=== PATIENT | male | born 1940 | race Caucasian/White ===

== ENCOUNTER 2017-04-23 20:04 | Inpatient (IN) | payer OTHER, BC ==
[2017-04-23 21:06] LABS: MCH 28.3 pg (25.7-33.7); MCHC 32.1 g/dl (32.0-35.9); MEAN CELL VOLUME 88.3 fl (80-96); MEAN PLT VOLUME 8.3 fl (7.5-11.1); PLATELET COUNT 151 K/MM3 (134-434); RDW 15.7 % (11.9-15.9); WHITE BLOOD COUNT 12.9 K/mm3 (4.0-10.0)
--- NOTE | 2017-04-23 21:16 | PDOC ---
History of Present Illness - General History Source: Patient Exam Limitations: No Limitations - History of Present Illness Initial Comments: 04/23/17 21:01 Patient is a 77 y.o. male with a PMH of HTN, Type 2 DM, CA (s/p stent placement x9) who presents to our facility today via EMS [facility] was called and patient's recorded BS was 36. Patient states he last recalls being in the parking lot of the diner and does not recall fainting. Patient notes he checks his blood sugar four times daily and he checked it this afternoon prompting his visit to the dinner. Patient cannot recall his medications, but patient's partner, Iva Najera notes that patient is on Humalog, as well as Levothyroxine, Furosemide , Plavix, Alteplase and Co-Reg though she is unsure of doses. Patient notes he lives alone and he similarly collapsed at a [place] diner approximately 6 months previous with a low blood sugar reading. Timing/Duration: 1-3 hours <Lavern Williamson - Last Filed: 04/23/17 23:59> <Lucy Arora - Last Filed: 04/24/17 20:09> - General Chief Complaint: Blood Sugar Problem Stated Complaint: HYPOGLYCEMIA Time Seen by Provider: 04/23/17 20:05 Past History - Past Medical History Anemia: No Asthma: No Cancer: No Cardiac Disorders: Yes (CA x2-had 9 stents) CVA: No COPD: No CHF: No Dementia: No Diabetes: Yes (1985) GI Disorders: No Disorders: No HTN: Yes Hypercholesterolemia: No Liver Disease: No Seizures: No Thyroid Disease: Yes - Surgical History Abdominal Surgery: No Appendectomy: No Cardiac Surgery: Yes (Angioplasty-stents x9) Cholecystectomy: No Lung Surgery: No Neurologic Surgery: No Orthopedic Surgery: Yes (Left Achiles Tendon Repair) - Psycho/Social/Smoking Cessation Hx Suicidal Ideation: No Smoking History: Never smoked Information on smoking cessation initiated: No Hx Alcohol Use: No Drug/Substance Use Hx: No Substance Use Type: None Hx Substance Use Treatment: No <Lavern Williamson - Last Filed: 04/23/17 23:59> <Lucy Arora - Last Filed: 04/24/17 20:09> - Past Medical History Allergies/Adverse Reactions: Allergies Allergy/AdvReac Type Severity Reaction Status Date / Time No Known Allergies Allergy Verified 04/23/17 20:21 Home Medications: Ambulatory Orders Allopurinol [Zyloprim] 100 mg PO DAILY 10/26/12 Aspirin [ASA] 81 mg PO DAILY 10/26/12 Carvedilol [Coreg] 25 mg PO BID 10/26/12 Colchicine [Colcrys] 0.6 mg PO DAILY 10/26/12 Ezetimibe/Simvastatin [Vytorin 10-40 mg Tablet] 1 each PO DAILY 10/26/12 Folic Acid - 1 mg PO DAILY 10/26/12 Levothyroxine [Synthroid] 175 mcg PO DAILY 10/26/12 Metformin HCl [Glucophage] 1,000 mg PO BID 10/26/12 Niacin 500 mg PO DAILY 10/26/12 Prasugrel Hydrochloride [Effient] 5 mg PO DAILY 10/26/12 Ramipril [Altace] 10 mg PO BID 10/26/12 Insulin Glargine,Hum.rec.anlog [Lantus (10mL VIAL)] 100 iu SQ HS 11/02/12 Insulin Lispro [Humalog] 60 iu SQ PC 11/02/12 Review of Systems - Review of Systems Constitutional: No: Chills, Diaphoresis, Fever, Malaise HEENTM: No: Blurred Vision, Tinnitus, Hearing Loss, Throat Pain Respiratory: No: Cough, Shortness of Breath, Productive cough, Hemoptysis Cardiac (ROS): Yes: Lightheadedness. No: Chest Pain, Edema, Irregular Heart Rate ABD/GI: No: Constipated, Nausea, Poor Appetite, Vomiting : No: Burning, Dysuria, Frequency, Lesions Musculoskeletal: No: Back Pain, Gout, Muscle Pain, Muscle Weakness Integumentary: No: Bruising, Erythema, Pruritus, Rash Neurological: No: Headache, Numbness, Tingling, Tremors Psychiatric: No: Anxiety All Other Systems: Reviewed and Negative <Lavern Williamson - Last Filed: 04/23/17 23:59> *Physical Exam - Vital Signs Last Vital Signs Temp Pulse Resp BP Pulse Ox 97.5 F L 64 19 115/56 96 04/23/17 20:21 04/23/17 20:21 04/23/17 20:21 04/23/17 20:21 04/23/17 20:21 - Physical Exam General Appearance: Yes: Nourished, Obese HEENT: positive: EOMI, NOE Neck: positive: Trachea midline, Supple Respiratory/Chest: positive: Lungs Clear, Normal Breath Sounds Cardiovascular: positive: Regular Rhythm, Regular Rate, S1, S2 Gastrointestinal/Abdominal: positive: Normal Bowel Sounds, Soft, Protuberent Integumentary: positive: Other (Raised papular rash in C4, C5, C7 including LUE and anterior chest wall ) Neurologic: positive: Fully Oriented, Alert Deep Tendon Reflexes: Ankle (L): 3+, Ankle (R): 3+, Knee (L): 3+, Knee (R): 3+, Tricep (L): 3+, Tricep (R): 3+ <Lavern Williamson - Last Filed: 04/23/17 23:59> - Vital Signs Last Vital Signs Temp Pulse Resp BP Pulse Ox 97.5 F L 64 19 115/56 96 04/23/17 20:21 04/23/17 20:21 04/23/17 20:21 04/23/17 20:21 04/23/17 20:21 <Lucy Arora - Last Filed: 04/24/17 20:09> ED Treatment Course - LABORATORY CBC & Chemistry Diagram: 04/23/17 20:53 04/23/17 20:53 - ADDITIONAL ORDERS Additional order review: Laboratory Results 04/23/17 20:12 POC Glucometer 125.04529 04/23/17 20:12 POC Glucometer 125.32244 - RADIOLOGY Radiology Studies Ordered: Category Date Time Status CHEST PA & LAT [RAD] Stat Radiology 04/23/17 20:59 Ordered <Lavern Williamson - Last Filed: 04/23/17 23:59> - LABORATORY CBC & Chemistry Diagram: 04/24/17 05:20 04/24/17 05:20 - ADDITIONAL ORDERS Additional order review: Laboratory Results 04/23/17 04/23/17 04/23/17 20:53 20:53 20:53 Sodium 144 Potassium 3.5 Chloride 109 H Carbon Dioxide 29 Anion Gap 6 L BUN 17 Creatinine 1.0 POC Glucometer Random Glucose 107 H Calcium 8.9 Creatine Kinase 195 CK-MB (CK-2) 1.978 CK-MB (CK-2) Rel Index Cancelled Troponin I < 0.02 04/23/17 20:12 Sodium Potassium Chloride Carbon Dioxide Anion Gap BUN Creatinine POC Glucometer 125.67457 Random Glucose Calcium Creatine Kinase CK-MB (CK-2) CK-MB (CK-2) Rel Index Troponin I 04/23/17 04/23/17 20:53 20:12 RBC 4.69 MCV 88.3 MCHC 32.1 RDW 15.7 MPV 8.3 POC Glucometer 125.76722 - RADIOLOGY Radiology Studies Ordered: Category Date Time Status HEAD CT WITHOUT CONTRAST [CT] Stat CT Scan 04/23/17 21:49 Ordered <Lucy Arora - Last Filed: 04/24/17 20:09> Medical Decision Making - Medical Decision Making 04/23/17 21:59 Patient is a 77 y.o. male who presents via EMS following a syncopal episode at the [facility] this evening. At presentation patient's BS was 125 (s/p fluid resuscitation, glucagon en route to our facility). On PE, patient was hemodynamically stable, however PE was notable for both a Psuedomonas like infection on the LLE as well as possible Herpes Zoster on the RUE/anterior chest wall (dermatomes C4,C5,C7). Patient was started on Pip/Tazo and wound cultures were obtained. BMP was significant for leukocytosis (12.9) either reactive or 2/2 to bacterial infection. Patient was admitted to inpatient medicine service for further evaluation, especially given patient's h/o poor BS control, isolated living situation and possible active bacterial infection. <Lavern Williamson - Last Filed: 04/23/17 23:59> *DC/Admit/Observation/Transfer - Discharge Dispostion Admit: Yes - Attestations Physician Attestion: 04/24/17 00:00 I, Dr. Lavern Williamson, attest that this document has been prepared under my direction and personally reviewed by me in its entirety. I further attest, that it accurately reflects all work, treatment, procedures and medical decision -making performed by me. <Lavern Williamson - Last Filed: 04/23/17 23:59> - Discharge Dispostion Admit: Yes <Lucy Arora - Last Filed: 04/24/17 20:09> Diagnosis at time of Disposition: Hypoglycemia, Syncope, Cellulitis, Shingles rash - Discharge Dispostion Disposition: AGAINST MEDICAL ADVICE Condition at time of disposition: Fair - Referrals
[2017-04-23 21:27] LABS: ANION GAP 6 (8-16); CALCIUM 8.9 mg/dL (8.5-10.1); CO2 29 mmol/L (21-32); GLUCOSE,RANDOM 107 mg/dL (74-106)
[2017-04-23] MEDS ORDERED: valACYclovir HCL 1000 MG TABLET PO ONE (21:37)
[2017-04-23] MEDS ORDERED: PIPERACILLIN/TAZOB 3.375 GM 3.375 GM in DEXTROSE 5%-WATER - 50 ML IVPB ONE (21:38)
--- NOTE | 2017-04-23 21:49 | PDOC ---
Attending Attestation - Resident Resident Name: Lavern Williamson - HPI HPI: 04/23/17 21:45 Pt comes with syncope in a parking lot of a diner. Pt lost consciousness and recalls nothing, after he drove to the diner and got out of his car. Never made it inside. Essentially unwitnessed and he was brought in by EMS. On EMS arrival, pt's blood sugar was 30s. Pt has DM and HTN and he has a PMD who is not affiliated with us. He is not on blood thinners, but he is on aspirin. On exam pt is diaphoretic and soaked in his miranda-shirt. Pt has shingles on the right arm C5/C6 dermatome. Pt also has a pseudomonas-smelling infection on the left lower samayoa; wound culture sent and pt will be treated with zosyn IV. Pt has a WBC that is slightly elevated. Cardiac enzyme pending. Chemistry normal EKG shows lateral ischemia CXR and head CT pending. - Physicial Exam PE: 04/24/17 19:53 as above - Medical Decision Making 04/24/17 01:31 Patient Name: Jesus Panchal THIS IS A PRELIMINARYREPORT FROM [employer] EXAM: CT brain without contrast IMAGES: 77 INDICATION: Syncope DATE OF SERVICE: 2017-04-24 00:30:51.0 COMPARISON: none FINDINGS: The ventricular system is midline and nondilated. Involutional changes are noted. 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 There is no bleed, mass, extra- axial fluid collection or mass effect. No skull fracture or skull lesion is identified. Left maxillary sinus is completely opacified with somewhat dense contents and demonstrates sclerotic mcleod, consistent with chronic sinusitis. The other visualized paranasal sinuses and mastoid air cells are clear. IMPRESSION: No acute intracranial pathology. Chronic left maxillary sinusitis THIS DOCUMENT HAS BEEN ELECTRONICALLY SIGNED 04/24/17 19:53 Pt admitted to telemetry unit under the hospitalist.
[2017-04-23 21:50] LABS: TROPONIN I < 0.02 ng/ml (0.00-0.05)
[2017-04-23] MEDS ORDERED: PIPERACILLIN/TAZOB 3.375 GM 50 ML IVPB ONE (22:40)
--- NOTE | 2017-04-23 23:38 | HP ---
CHIEF COMPLAINT: " Blacked out" PCP: HISTORY OF PRESENT ILLNESS: Patient is a 77 year old male with a significant past medical history of HTN, Type 2 DM, PA (s/p stent placement x9) was brought in by EMS after a syncopal episode at a diner. As per the ED note, EMS found him to be hypoglycemic (blood sugar of 36) was given glucagon, hypotensive (was given IV fluids) and brought to the ED. As per the patient, he drove to [place], went inside the restaurant and before he picked up his food, he suddenly blacked out and fell on the ground. He doesn't remember any events post fall, woke up only after the 911 arrived. Patient said that his blood sugar has been always fluctuating, used to take Metformin and other oral antidiabetics (which he doesn't remember) but now takes Insulin sliding scale only in the morning and before bed. Denies any chest pain, sob, cough, palpitation, abdominal pain, nausea, vomiting , headache, dizziness, tingling, numbness, focal neurological deficit. Bowel/Bladder habit normal. Sleep/Appetite normal. Patient also mentions of the rash in the right upper ext which appeared suddenly 2-3 weeks ago, not painful, non-itchy. ER course was notable for: (1) Afebrile, hemodynamically stable, leukocytosis of 12.9; Blood sugar of 107 (2) CXR (3) IV Zosyn 3.375 Recent Travel: None PAST MEDICAL HISTORY: 77 year old male with a significant past medical history of HTN, Type 2 DM, PA (s/p stent placement x9) PAST SURGICAL HISTORY: As mentioned above Social History: Smoking:Denies Alcohol: Denies Drugs: Denies Family History: Allergies No Known Allergies Allergy (Verified 04/23/17 20:21) HOME MEDICATIONS: Home Medications Medication Instructions Recorded Allopurinol [Zyloprim] 100 mg PO DAILY 10/26/12 Aspirin [ASA] 81 mg PO DAILY 10/26/12 Carvedilol [Coreg] 25 mg PO BID 10/26/12 Colchicine [Colcrys] 0.6 mg PO DAILY 10/26/12 Ezetimibe/Simvastatin [Vytorin 1 each PO DAILY 10/26/12 10-40 mg Tablet] Folic Acid - 1 mg PO DAILY 10/26/12 Levothyroxine [Synthroid] 175 mcg PO DAILY 10/26/12 Metformin HCl [Glucophage] 1,000 mg PO BID 10/26/12 Niacin 500 mg PO DAILY 10/26/12 Prasugrel Hydrochloride [Effient] 5 mg PO DAILY 10/26/12 Ramipril [Altace] 10 mg PO BID 10/26/12 Insulin Glargine,Hum.rec.anlog 100 iu SQ HS 11/02/12 [Lantus (10mL VIAL)] Insulin Lispro [Humalog] 60 iu SQ PC 11/02/12 REVIEW OF SYSTEMS CONSTITUTIONAL: Absent: fever, chills, diaphoresis, generalized weakness, malaise, loss of appetite, weight change HEENT: Absent: rhinorrhea, nasal congestion, throat pain, throat swelling, difficulty swallowing, mouth swelling, ear pain, eye pain, visual changes CARDIOVASCULAR: Absent: chest pain, syncope, palpitations, irregular heart rate, lightheadedness , peripheral edema RESPIRATORY: Absent: cough, shortness of breath, dyspnea with exertion, orthopnea, wheezing, stridor, hemoptysis GASTROINTESTINAL: Absent: abdominal pain, abdominal distension, nausea, vomiting, diarrhea, constipation, melena, hematochezia GENITOURINARY: Absent: dysuria, frequency, urgency, hesitancy, hematuria, flank pain, genital pain MUSCULOSKELETAL: Absent: myalgia, arthralgia, joint swelling, back pain, neck pain SKIN: Absent: rash, itching, pallor HEMATOLOGIC/IMMUNOLOGIC: Absent: easy bleeding, easy bruising, lymphadenopathy, frequent infections ENDOCRINE: Absent: unexplained weight gain, unexplained weight loss, heat intolerance, cold intolerance NEUROLOGIC: Absent: headache, focal weakness or paresthesias, dizziness, unsteady gait, seizure, mental status changes, bladder or bowel incontinence PSYCHIATRIC: Absent: anxiety, depression, suicidal or homicidal ideation, hallucinations. PHYSICAL EXAMINATION Vital Signs - 24 hr 04/23/17 20:21 Temperature 97.5 F L Pulse Rate 64 Respiratory 19 Rate Blood Pressure 115/56 O2 Sat by Pulse 96 Oximetry (%) GENERAL: Elderly male, lying in bed comfortably, Awake, alert, and fully oriented, in no acute distress. HEAD: Normal with no signs of trauma. EYES: Yellowish crust in bilateral eyes. EOM intact, no pallor or icterus. EARS, NOSE, THROAT: Ears normal. Moist mucous membranes. NECK:Supple. LUNGS: Breath sounds equal, clear to auscultation bilaterally. No wheezes, and no crackles. No accessory muscle use. HEART: Regular rate and rhythm, normal S1 and S2 without murmur, rub or gallop. ABDOMEN: Ventral hernia, Soft, nontender, not distended, normoactive bowel sounds, no guarding, no rebound, no masses. No hepatomegaly or splenomegaly. MUSCULOSKELETAL: Normal range of motion at all joints. No bony deformities or tenderness. No CVA tenderness. UPPER EXTREMITIES: Right/left 2+ pulses, warm, well-perfused. No cyanosis. No clubbing. No peripheral edema. Right Upper Ext: Erythematous areas of plaques in the right arm LOWER EXTREMITIES:Left/right 2+ pulses, warm, well-perfused. No calf tenderness. No peripheral edema. Left lower ext: superficial ulcer ~ 2cm x 1cm, no serosanguinous fluids, erythema around that area, non tender, no calf tenderness. NEUROLOGICAL: Cranial nerves II-XII intact. Normal speech. Normal gait. PSYCHIATRIC: Cooperative. Good eye contact. Appropriate mood and affect. SKIN: Warm, dry flaky skin, normal turgor, no rashes or lesions noted, normal capillary refill. Laboratory Results - last 24 hr 04/23/17 04/23/17 04/23/17 20:12 20:53 20:53 WBC 12.9 H RBC 4.69 Hgb 13.3 Hct 41.4 MCV 88.3 MCH 28.3 MCHC 32.1 RDW 15.7 Plt Count 151 MPV 8.3 Sodium 144 Potassium 3.5 Chloride 109 H Carbon Dioxide 29 Anion Gap 6 L BUN 17 Creatinine 1.0 POC Glucometer 125.74912 Random Glucose 107 H Calcium 8.9 Creatine Kinase CK-MB (CK-2) CK-MB (CK-2) Rel Index Troponin I 04/23/17 04/23/17 20:53 20:53 WBC RBC Hgb Hct MCV MCH MCHC RDW Plt Count MPV Sodium Potassium Chloride Carbon Dioxide Anion Gap BUN Creatinine POC Glucometer Random Glucose Calcium Creatine Kinase 195 CK-MB (CK-2) 1.978 CK-MB (CK-2) Rel Index Cancelled Troponin I < 0.02 ASSESSMENT/PLAN: Patient is a 77 year old male with a significant past medical history of HTN, Type 2 DM, PA (s/p stent placement x9) was brought in by EMS after a syncopal episode at a diner. # Syncopal episode most likely due to hypoglycemia EMS found him post syncopal episode to be in hypoglycemia of 36 at a diner before meal, h/o poorly controlled DM In the ED, blood sugar had improved to 107 -pt had received Glucagon en route Admitted in tele, continuous cardiac monitoring IV NS @ 75mls/hr Carotid doppler, ECHO, TSH, Vit B 12 # Diabetes Mellitus-Now hypoglycemic HbA1c ordered Insulin sliding scale finger stick glucose monitoring Watch for hypoglycemic episodes # Rash-upper ext Unlikely Herpes Zooster-no pain, no vescicles Has been present persistently since 2-3 weeks Will monitor # Left lower ext superficial ulcer Less likely infected- no fever, slight leukocytosis which could be reactive Gentle hydration. Received one dose of Zosyn. No antibiotics started at this time. Will monitor, if rashes gets worse, will add antibiotics. Wound culture sent from the ED. # PA (s/p stent placement) Continue Aspirin 81mg Daily # Hypertension-Now Hypotensive Hold home meds ( # FEN IV NS 75mls/hr Electrolytes to be repeated Diabetic diet # Prophylaxis For GI: Not indicated For DVT: Heparin sq Deconditioning: PT eval # Code Status: Full code # Dispo: Admitted in Telemetry. Duration of stay unknown. Illness, Investigation and Plan of care explained to the patient. He verbalized understanding. Case seen and discussed with Dr. Loja. Visit type - Emergency Visit Emergency Visit: Yes ED Registration Date: 04/24/17 Care time: The patient presented to the Emergency Department on the above date and was hospitalized for further evaluation of their emergent condition. - New Patient This patient is new to me today: Yes Date on this admission: 04/24/17 - Critical Care Critical Care patient: No
[2017-04-23] MEDS: SODIUM CHLORIDE 1,000 ML IV SCH (23:57)
[2017-04-24 03:51] VITALS: BMI 32.1
--- NOTE | 2017-04-24 05:34 | PN ---
Teaching Attending Note Name of Resident: Jessie Carvajal ATTENDING PHYSICIAN STATEMENT I saw and evaluated the patient. I reviewed the resident's note and discussed the case with the resident. I agree with the resident's findings and plan as documented. SUBJECTIVE: PAtient reports going to diner and no prodrome symptoms before syncopal episode, does not recall what happened, the next thing he remembers is being at the hospital. No recent medication changes, but subjectively feels his insulin is too strong for him. OBJECTIVE: A&O x3 NAD, resting comfortably NC, AT, PERRLA, EOMI CVS: RRR LUNGS: Equal b/l breath sounds Abd: Soft, NT, ND, BS+ Ext: nl rom, no edema CBCD WBC 12.9 K/mm3 (4.0-10.0) H 04/23/17 20:53 RBC 4.69 M/mm3 (4.00-5.60) 04/23/17 20:53 Hgb 13.3 GM/dL (11.7-16.9) 04/23/17 20:53 Hct 41.4 % (35.4-49) 04/23/17 20:53 MCV 88.3 fl (80-96) 04/23/17 20:53 MCHC 32.1 g/dl (32.0-35.9) 04/23/17 20:53 RDW 15.7 % (11.9-15.9) 04/23/17 20:53 Plt Count 151 K/MM3 (134-434) 04/23/17 20:53 MPV 8.3 fl (7.5-11.1) 04/23/17 20:53 CMP Sodium 144 mmol/L (136-145) 04/23/17 20:53 Potassium 3.5 mmol/L (3.5-5.1) 04/23/17 20:53 Chloride 109 mmol/L (98-107) H 04/23/17 20:53 Carbon Dioxide 29 mmol/L (21-32) 04/23/17 20:53 Anion Gap 6 (8-16) L 04/23/17 20:53 BUN 17 mg/dL (7-18) 04/23/17 20:53 Creatinine 1.0 mg/dL (0.7-1.3) 04/23/17 20:53 Calcium 8.9 mg/dL (8.5-10.1) 04/23/17 20:53 ASSESSMENT AND PLAN: syncope d/t hypoglycemia vs r/o vasovagal, r/o orthostatic Fall risk precautions Monitor BG q1 h then q2 once above 100 D51/2 NS gentle hydration HgbA1c Hold and modify sliding scale Get orthostactics Telemetry monitoring and consider ECHO which can be done as O/P. Patient has family event today and requesting to be discharged Deshawn, discharge if hemodynamically stable.
[2017-04-24] MEDS: INSULIN SLIDING SCALE (NOVOLOG) 1 VIAL SQ SCH ×2 (06:41→12:00)
[2017-04-24] MEDS: HEPARIN NA (PORCINE) 5,000 UNITS/ML 1ML VIAL SQ SCH ×2 (06:41→14:32)
[2017-04-24] MEDS ORDERED: LEVOTHYROXINE NA 175 MCG TABLET PO SCH (07:00)
[2017-04-24 07:32] LABS: BASOPHIL 0.6 % (0-2.0); EOSINOPHIL 3.2 % (0-4.5); MCH 28.9 pg (25.7-33.7); MCHC 32.5 g/dl (32.0-35.9); MEAN CELL VOLUME 88.7 fl (80-96); MEAN PLT VOLUME 8.7 fl (7.5-11.1); NEUTROPHILS 62.1 % (42.8-82.8); PLATELET COUNT 147 K/MM3 (134-434); RDW 15.6 % (11.9-15.9); WHITE BLOOD COUNT 7.9 K/mm3 (4.0-10.0)
[2017-04-24 08:01] LABS: INR 1.06 (0.82-1.09); PROTHROMBIN TIME (PATIENT) 11.7 SEC (9.98-11.88)
[2017-04-24 08:04] LABS: ACTIVATED PTT 30.6 SECONDS (26.9-34.4); ALBUMIN 3.4 g/dl (3.4-5.0); ANION GAP 9 (8-16); BILIRUBIN,TOTAL 0.4 mg/dL (0.2-1.0); CALCIUM 8.6 mg/dL (8.5-10.1); CO2 28 mmol/L (21-32); CREATININE 0.9 mg/dL (0.7-1.3); GLUCOSE,RANDOM 89 mg/dL (74-106); MAGNESIUM 2.1 mg/dL (1.8-2.4); PHOSPHOROUS 3.4 mg/dL (2.5-4.9); SGOT/AST 25 U/L (15-37); SGPT/ALT 28 U/L (12-78)
[2017-04-24 08:05] LABS: ALK PHOS 71 U/L (45-117); TOT PROT 6.5 g/dl (6.4-8.2)
[2017-04-24 08:37] LABS: THYROID STIMULATING HORMONE 0.58 uIU/ml (0.358-3.74)
[2017-04-24] MEDS ORDERED: ASPIRIN 81 MG CHEWABLE TABLETS PO SCH (10:00)
[2017-04-24] MEDS ORDERED: EZETIMIBE 10 MG TABLET (FP) PO SCH (10:00)
[2017-04-24] MEDS ORDERED: COLCHICINE 0.6 MG TABLET (FP) PO SCH (10:00)
[2017-04-24] MEDS ORDERED: FOLIC ACID 1 MG TABLET (FP) PO SCH (10:00)
[2017-04-24] MEDS ORDERED: MUPIROCIN 2% TOPICAL OINTMENT FOR DECOLONIZATION NS SCH (10:00)
[2017-04-24] MEDS ORDERED: NIACIN 500 MG TABLET PO SCH (10:00)
[2017-04-24] MEDS ORDERED: PT OWN MED DRAWER 7, Y5N ONE (10:48)
--- NOTE | 2017-04-24 11:17 | PN ---
Progress Note (short form) - Note Progress Note: Vital Signs Temperature 976 F H 04/24/17 06:46 Pulse Rate 85 04/24/17 06:46 Respiratory Rate 20 04/24/17 06:46 Blood Pressure 134/78 04/24/17 06:46 O2 Sat by Pulse Oximetry (%) 99 04/24/17 03:05 GENERAL: Elderly male, lying in bed comfortably, Awake, alert, and fully oriented, in no acute distress. HEAD: Normal with no signs of trauma. EYES: Yellowish crust in bilateral eyes. EOM intact, no pallor or icterus. EARS, NOSE, THROAT: Ears normal. Moist mucous membranes. NECK:Supple. LUNGS: Breath sounds equal, clear to auscultation bilaterally. No wheezes, and no crackles. No accessory muscle use. HEART: Regular rate and rhythm, normal S1 and S2 without murmur, rub or gallop. ABDOMEN: Ventral hernia, Soft, nontender, not distended, normoactive bowel sounds, no guarding, no rebound, no masses. No hepatomegaly or splenomegaly. MUSCULOSKELETAL: Normal range of motion at all joints. No bony deformities or tenderness. No CVA tenderness. EXTREMITIES: Right/left 2+ pulses, warm, well-perfused. Right Upper Ext: Erythematous areas of plaques in the right arm Left lower ext: superficial ulcer ~ 2cm x 1cm, no serosanguinous fluids, erythema around that area, non tender, no calf tenderness. NEUROLOGICAL: Cranial nerves II-XII intact. Normal speech. Normal gait. PSYCHIATRIC: Cooperative. Good eye contact. Appropriate mood and affect. SKIN: Warm, dry flaky skin, normal turgor, no rashes or lesions noted, normal capillary refill. CBCD WBC 7.9 K/mm3 (4.0-10.0) D 04/24/17 05:20 RBC 4.65 M/mm3 (4.00-5.60) 04/24/17 05:20 Hgb 13.4 GM/dL (11.7-16.9) 04/24/17 05:20 Hct 41.2 % (35.4-49) 04/24/17 05:20 MCV 88.7 fl (80-96) 04/24/17 05:20 MCHC 32.5 g/dl (32.0-35.9) 04/24/17 05:20 RDW 15.6 % (11.9-15.9) 04/24/17 05:20 Plt Count 147 K/MM3 (134-434) 04/24/17 05:20 MPV 8.7 fl (7.5-11.1) 04/24/17 05:20 CMP Sodium 144 mmol/L (136-145) 04/24/17 05:20 Potassium 4.1 mmol/L (3.5-5.1) 04/24/17 05:20 Chloride 107 mmol/L (98-107) 04/24/17 05:20 Carbon Dioxide 28 mmol/L (21-32) 04/24/17 05:20 Anion Gap 9 (8-16) 04/24/17 05:20 BUN 16 mg/dL (7-18) 04/24/17 05:20 Creatinine 0.9 mg/dL (0.7-1.3) 04/24/17 05:20 Creat Clearance w eGFR > 60 (>60) 04/24/17 05:20 Random Glucose 89 mg/dL (74-106) 04/24/17 05:20 Calcium 8.6 mg/dL (8.5-10.1) 04/24/17 05:20 Total Bilirubin 0.4 mg/dL (0.2-1.0) 04/24/17 05:20 AST 25 U/L (15-37) 04/24/17 05:20 ALT 28 U/L (12-78) 04/24/17 05:20 Alkaline Phosphatase 71 U/L (45-117) 04/24/17 05:20 Total Protein 6.5 g/dl (6.4-8.2) 04/24/17 05:20 Albumin 3.4 g/dl (3.4-5.0) 04/24/17 05:20 CARDIAC ENZYMES Creatine Kinase 195 IU/L (39-308) 04/23/17 20:53 Troponin I < 0.02 ng/ml (0.00-0.05) 04/23/17 20:53 Current Medications Generic Name Dose Route Start Last Admin Trade Name Freq PRN Reason Stop Dose Admin Aspirin 81 mg 04/24/17 10:00 04/24/17 11:01 Asa - PO 81 mg DAILY VLADIMIR Administration Atorvastatin Calcium 20 mg 04/24/17 22:00 Lipitor - PO HS [facility] Colchicine 0.6 mg 04/24/17 10:00 04/24/17 11:02 Colcrys - PO Not Given DAILY VLADIMIR Ezetimibe 10 mg 04/24/17 10:00 04/24/17 11:03 Zetia - PO 10 mg DAILY VLADIMIR Administration Folic Acid 1 mg 04/24/17 10:00 04/24/17 11:02 Folic Acid - PO 1 mg DAILY VLADIMIR Administration Heparin Sodium (Porcine) 5,000 unit 04/24/17 06:00 04/24/17 06:41 Heparin - SQ 5,000 unit TID VLADIMIR Administration Sodium Chloride 1,000 mls @ 75 mls/hr 04/23/17 23:45 04/23/17 23:57 Normal Saline - IV 75 mls/hr ASDIR VLADIMIR Administration Insulin Aspart 1 vial 04/24/17 07:00 04/24/17 06:41 Novolog Vial Sliding Scale - SQ Not Given ACHS [facility] Protocol Levothyroxine Sodium 175 mcg 04/24/17 07:00 04/24/17 06:41 Synthroid - PO 175 mcg AM VLADIMIR Administration Niacin 500 mg 04/24/17 10:00 Niacin PO DAILY [facility] Home Medications Medication Instructions Recorded Allopurinol [Zyloprim] 100 mg PO DAILY 10/26/12 Aspirin [ASA] 81 mg PO DAILY 10/26/12 Carvedilol [Coreg] 25 mg PO BID 10/26/12 Colchicine [Colcrys] 0.6 mg PO DAILY 10/26/12 Ezetimibe/Simvastatin [Vytorin 1 each PO DAILY 10/26/12 10-40 mg Tablet] Folic Acid - 1 mg PO DAILY 10/26/12 Levothyroxine [Synthroid] 175 mcg PO DAILY 10/26/12 Metformin HCl [Glucophage] 1,000 mg PO BID 10/26/12 Niacin 500 mg PO DAILY 10/26/12 Prasugrel Hydrochloride [Effient] 5 mg PO DAILY 10/26/12 Ramipril [Altace] 10 mg PO BID 10/26/12 Insulin Glargine,Hum.rec.anlog 100 iu SQ HS 11/02/12 [Lantus (10mL VIAL)] Insulin Lispro [Humalog] 60 iu SQ PC 11/02/12 A/P: Patient is a 77 year old male with a significant past medical history of HTN, Type 2 DM, MA (s/p stent placement x9) was brought in by EMS after a syncopal episode at a diner. # Syncopal episode most likely due to hypoglycemia EMS found him post syncopal episode to be in hypoglycemia of 36 at a diner before meal, h/o poorly controlled DM In the ED, blood sugar had improved to 107 -pt had received Glucagon en route Admitted in tele, continuous cardiac monitoring IV NS @ 75mls/hr Carotid doppler, ECHO, TSH, Vit B 12 # T2DM -Now hypoglycemic ; HbA1c ordered ;Insulin sliding scale with coverage # Rash RUE: Unlikely Herpes Zooster-no pain, no vescicles ; since 2-3 weeks # Left lower ext superficial ulcer Less likely infected- no fever, slight leukocytosis which could be reactive Gentle hydration. Received one dose of Zosyn. No antibiotics started at this time. Will monitor, if rashes gets worse, will add antibiotics. Wound culture sent from the ED. # Hx of MA (s/p 9 stents placement) on Aspirin 81mg Daily # Hypertension-Now Hypotensive ; Hold home meds DVT Px: Heparin sq PT eval Code Status: Full code
[2017-04-24 14:19] VITALS: BP 145/75; PULSE 74; TEMP 98.2
[2017-04-24] MEDS: SODIUM CHLORIDE 1,000 ML IV SCH (14:35)
--- NOTE | 2017-04-24 14:59 | DS ---
Physical Exam: SUBJECTIVE: Patient seen and examined Called by the nurse that the patient wants to go against medical advice. Has to attend his grand son's libertarian who is going for away for a melitary service . OBJECTIVE: Vital Signs Temperature 98.2 F 04/24/17 14:19 Pulse Rate 74 04/24/17 14:19 Respiratory Rate 20 04/24/17 14:19 Blood Pressure 145/75 04/24/17 14:19 O2 Sat by Pulse Oximetry (%) 97 04/24/17 09:00 LABS CBCD WBC 7.9 K/mm3 (4.0-10.0) D 04/24/17 05:20 RBC 4.65 M/mm3 (4.00-5.60) 04/24/17 05:20 Hgb 13.4 GM/dL (11.7-16.9) 04/24/17 05:20 Hct 41.2 % (35.4-49) 04/24/17 05:20 MCV 88.7 fl (80-96) 04/24/17 05:20 MCHC 32.5 g/dl (32.0-35.9) 04/24/17 05:20 RDW 15.6 % (11.9-15.9) 04/24/17 05:20 Plt Count 147 K/MM3 (134-434) 04/24/17 05:20 MPV 8.7 fl (7.5-11.1) 04/24/17 05:20 CMP Sodium 144 mmol/L (136-145) 04/24/17 05:20 Potassium 4.1 mmol/L (3.5-5.1) 04/24/17 05:20 Chloride 107 mmol/L (98-107) 04/24/17 05:20 Carbon Dioxide 28 mmol/L (21-32) 04/24/17 05:20 Anion Gap 9 (8-16) 04/24/17 05:20 BUN 16 mg/dL (7-18) 04/24/17 05:20 Creatinine 0.9 mg/dL (0.7-1.3) 04/24/17 05:20 Creat Clearance w eGFR > 60 (>60) 04/24/17 05:20 Random Glucose 89 mg/dL (74-106) 04/24/17 05:20 Calcium 8.6 mg/dL (8.5-10.1) 04/24/17 05:20 Total Bilirubin 0.4 mg/dL (0.2-1.0) 04/24/17 05:20 AST 25 U/L (15-37) 04/24/17 05:20 ALT 28 U/L (12-78) 04/24/17 05:20 Alkaline Phosphatase 71 U/L (45-117) 04/24/17 05:20 Total Protein 6.5 g/dl (6.4-8.2) 04/24/17 05:20 Albumin 3.4 g/dl (3.4-5.0) 04/24/17 05:20 CARDIAC ENZYMES Creatine Kinase 195 IU/L (39-308) 04/23/17 20:53 Troponin I < 0.02 ng/ml (0.00-0.05) 04/23/17 20:53 Current Medications Generic Name Dose Route Start Last Admin Trade Name Prema PRN Reason Stop Dose Admin Aspirin 81 mg 04/24/17 10:00 04/24/17 11:01 Asa - PO 81 mg DAILY VLADIMIR Administration Atorvastatin Calcium 20 mg 04/24/17 22:00 Lipitor - PO HS VLADIMIR Colchicine 0.6 mg 04/24/17 10:00 04/24/17 11:02 Colcrys - PO Not Given DAILY VLADIMIR Ezetimibe 10 mg 04/24/17 10:00 04/24/17 11:03 Zetia - PO 10 mg DAILY VLADIMIR Administration Folic Acid 1 mg 04/24/17 10:00 04/24/17 11:02 Folic Acid - PO 1 mg DAILY VLADIMIR Administration Heparin Sodium (Porcine) 5,000 unit 04/24/17 06:00 04/24/17 14:32 Heparin - SQ 5,000 unit TID VLADIMIR Administration Sodium Chloride 1,000 mls @ 75 mls/hr 04/23/17 23:45 04/24/17 14:35 Normal Saline - IV Not Given ASDIR VLADIMIR Insulin Aspart 1 vial 04/24/17 07:00 04/24/17 12:00 Novolog Vial Sliding Scale - SQ 2 units ACHS VLADIMIR Administration Protocol Levothyroxine Sodium 175 mcg 04/24/17 07:00 04/24/17 06:41 Synthroid - PO 175 mcg AM VLADIMIR Administration Niacin 500 mg 04/24/17 10:00 04/24/17 14:32 Niacin PO 500 mg DAILY VLADIMIR Administration Home Medications Medication Instructions Recorded Allopurinol [Zyloprim] 100 mg PO DAILY 10/26/12 Aspirin [ASA] 81 mg PO DAILY 10/26/12 Carvedilol [Coreg] 25 mg PO BID 10/26/12 Colchicine [Colcrys] 0.6 mg PO DAILY 10/26/12 Ezetimibe/Simvastatin [Vytorin 1 each PO DAILY 10/26/12 10-40 mg Tablet] Folic Acid - 1 mg PO DAILY 10/26/12 Levothyroxine [Synthroid] 175 mcg PO DAILY 10/26/12 Metformin HCl [Glucophage] 1,000 mg PO BID 10/26/12 Niacin 500 mg PO DAILY 10/26/12 Prasugrel Hydrochloride [Effient] 5 mg PO DAILY 10/26/12 Ramipril [Altace] 10 mg PO BID 10/26/12 Insulin Glargine,Hum.rec.anlog 100 iu SQ HS 11/02/12 [Lantus (10mL VIAL)] Insulin Lispro [Humalog] 60 iu SQ PC 11/02/12 HOSPITAL COURSE: Date of Admission:04/24/17 Date of Discharge: 04/24/17 Patient is a 77 year old male with a significant past medical history of HTN, Type 2 DM, MS (s/p stent placement x9) was brought in by EMS after a syncopal episode at a diner. # Syncopal episode most likely due to hypoglycemia stated that he took his insulin without eating and he collapsed after coming out of the dinner. # T2DM -Now hypoglycemic ; HbA1c ordered ;Insulin sliding scale with coverage # Hx of MS (s/p 9 stents placement) on Aspirin 81mg Daily # Hypertension-Now Hypotensive ; Hold home meds Patient was explained that cannot be discharged since we don't know exactly his insulin requirements to make any adjustments. Patient does not want to stay. explained to the patient that he might have another episode of syncope, coma, seizure and . Patient understands and wanted to leave AMA. Minutes to complete discharge: 35 Discharge Summary Reason For Visit: HYPOGLYC/HERPES ZOSTER/CELLULITIS/SYNCOPE Current Active Problems Cellulitis (Acute) Hypoglycemia (Acute) Shingles rash (Acute) Syncope (Acute) Condition: Good - Instructions Referrals: Neville Dinh [Primary Care Provider] - - Home Medications Comprehensive Discharge Medication List: Ambulatory Orders Allopurinol [Zyloprim] 100 mg PO DAILY 10/26/12 Aspirin [ASA] 81 mg PO DAILY 10/26/12 Carvedilol [Coreg] 25 mg PO BID 10/26/12 Colchicine [Colcrys] 0.6 mg PO DAILY 10/26/12 Ezetimibe/Simvastatin [Vytorin 10-40 mg Tablet] 1 each PO DAILY 10/26/12 Folic Acid - 1 mg PO DAILY 10/26/12 Levothyroxine [Synthroid] 175 mcg PO DAILY 10/26/12 Metformin HCl [Glucophage] 1,000 mg PO BID 10/26/12 Niacin 500 mg PO DAILY 10/26/12 Prasugrel Hydrochloride [Effient] 5 mg PO DAILY 10/26/12 Ramipril [Altace] 10 mg PO BID 10/26/12 Insulin Glargine,Hum.rec.anlog [Lantus (10mL VIAL)] 100 iu SQ HS 11/02/12 Insulin Lispro [Humalog] 60 iu SQ PC 11/02/12 This patient is new to me today: Yes Date on this admission: 04/24/17 Emergency Visit: Yes ED Registration Date: 04/24/17 Care time: The patient presented to the Emergency Department on the above date and was hospitalized for further evaluation of their emergent condition. Critical Care patient: No - Discharge Referral Referred to [facility] Med [facility] Yes Physician Referral: Rolan Garza MD (Int Med) (to follow with his blood sugar)
[2017-04-24] MEDS ORDERED: CHLORHEXIDINE GLUCONATE 4% CLEANSER FOR DECOLONIZATION TP SCH (22:00)
[2017-04-24] MEDS ORDERED: ATORVASTATIN CA 20 MG TABLET (FP) PO SCH (22:00)
--- NOTE | 2017-04-26 09:33 | EKG ---
Test Reason : Blood Pressure : / mmHG Vent. Rate : 061 BPM Atrial Rate : 061 BPM P-R Int : 202 ms QRS Dur : 108 ms QT Int : 440 ms P-R-T Axes : 063 -25 135 degrees QTc Int : 442 ms SINUS RHYTHM WITH OCCASIONAL PREMATURE VENTRICULAR COMPLEXES INFERIOR INFARCT , AGE UNDETERMINED ANTERIOR INFARCT , AGE UNDETERMINED T WAVE ABNORMALITY, CONSIDER LATERAL ISCHEMIA ABNORMAL ECG NO PREVIOUS ECGS AVAILABLE Confirmed by ZABRINA DAMON, CODI ([id number]) on 04/26/2017 9:33:05 AM Referred By: Confirmed By:CODI GERBER MD
== END 2017-04-24 15:00 | disposition left against medical advice (07) | DRG 638 ==
LOC: JER 20:04 → JERBED 23:32 → UNDOADMIN 23:32 → JERBED 04-24 → J4W 04-24 02:46
PROVIDERS: ADMIT Internal Medicine; ATTEND Internal Medicine
DX: E11.649 Type 2 diabetes mellitus with hypoglycemia without coma (principal); L97.829 Non-pressure chronic ulcer of other part of left lower leg with unspecified severity; B02.9 Zoster without complications; I25.2 Old myocardial infarction; I10 Essential (primary) hypertension; Z95.5 Presence of coronary angioplasty implant and graft
CPT/HCPCS: 36415; 70450-TC; 71020-TC; 80048; 80053; 82550; 82553; 82607; 83036; 83605; 83735; 84100; 84443; 84484; 85025; 85027; 85610; 85730; 87070; 87077; 87186; 87205; 93005; 93010; 93880-TC; 99285-25; J1644

== ENCOUNTER 2019-09-08 21:52 | Inpatient (IN) | payer OTHER, BC ==
--- NOTE | 2019-09-08 22:27 | PDOC ---
History of Present Illness - General Stated Complaint: UNRESPONSIVE - History of Present Illness Initial Comments: Jesus Panchal is a 79yo man with a PMH of CAD s/p stents, s/p pacemaker, HTN, IDDM who presents after he was found unresponsive at home. According to his son , present in the ED, the pt talks with friends or family every day. He has not contacted anyone since Wednesday evening, and the family became concerned. When they were unable to reach him, EMS was called to check on the pt. He was found in bed, covered in stool, and unresponsive. Per EMS, Mr Panchal was HTN to the 200's and hyperglycemic to the 400's when they arrived. Past History - Past Medical History Allergies/Adverse Reactions: Allergies Allergy/AdvReac Type Severity Reaction Status Date / Time No Known Allergies Allergy Verified 09/08/19 22:29 Home Medications: Ambulatory Orders Allopurinol [Zyloprim] 100 mg PO DAILY 10/26/12 Aspirin [ASA] 81 mg PO DAILY 10/26/12 Carvedilol [Coreg] 25 mg PO BID 10/26/12 Colchicine [Colcrys] 0.6 mg PO DAILY 10/26/12 Ezetimibe/Simvastatin [Vytorin 10-40 mg Tablet] 1 each PO DAILY 10/26/12 Folic Acid - 1 mg PO DAILY 10/26/12 Levothyroxine [Synthroid] 175 mcg PO DAILY 10/26/12 Niacin 500 mg PO DAILY 10/26/12 Prasugrel Hydrochloride [Effient] 5 mg PO DAILY 10/26/12 Ramipril [Altace] 10 mg PO BID 10/26/12 metFORMIN HCL [Glucophage] 1,000 mg PO BID 10/26/12 Insulin Glargine,Hum.rec.anlog [Lantus (10mL VIAL)] 100 iu SQ HS 11/02/12 Insulin Lispro [Humalog] 60 iu SQ PC 11/02/12 Anemia: No Asthma: No Cancer: No Cardiac Disorders: Yes (CT x2-had 9 stents) CVA: No COPD: No CHF: No Dementia: No Diabetes: Yes (1985) GI Disorders: No Disorders: No HTN: Yes Hypercholesterolemia: No Liver Disease: No Seizures: No Thyroid Disease: Yes - Surgical History Abdominal Surgery: No Appendectomy: No Cardiac Surgery: Yes (Angioplasty-stents x9) Cholecystectomy: No Lung Surgery: No Neurologic Surgery: No Orthopedic Surgery: Yes (Left Achiles Tendon Repair) - Psycho Social/Smoking Cessation Hx Smoking History: Never smoked Have you smoked in the past 12 months: No Hx Alcohol Use: No Drug/Substance Use Hx: No Substance Use Type: None Hx Substance Use Treatment: No Review of Systems - Review of Systems Comments:: Could not obtain, pt unresponsive *Physical Exam - Physical Exam General: Unresponsive, appears stated age HEENT: No visible trama. PERRL Dried blood v emesis around lips and mouth; no visible trauma inside mouth Cards: RRR, no murmur appreciated Pulm: Breathing comfortably. No wheezing or crackles appreciated on anterior/ lateral exam Abd: Soft, nondistended. Firm ~3x3 ball-shaped mass in abdominal wall just to the left of the umbilicus, no drainage, possible puncture wound overlying Rectal: No blood noted, no perianal lesions. Thick brown stool. Ext: Atraumatic. No LE edema. Skin: Normal color, no rashes. Dry and flaking Neuro: Unresponsive. Face grossly symmetric. ED Treatment Course - LABORATORY CBC & Chemistry Diagram: 09/08/19 22:20 09/08/19 22:20 - ADDITIONAL ORDERS Additional order review: Laboratory Results 09/08/19 21:59 POC Glucometer 341 09/08/19 21:59 POC Glucometer 341 Medical Decision Making - Medical Decision Making 09/08/19 22:27 Jesus Panchal is a 79yo man with a PMH of CAD s/p stents, s/p pacemaker, HTN, IDDM who presents after he was found unresponsive at home. He last contacted friends/family about 48 hours ago. - Broad differential including infection, hypoglycemia, stroke, CT, injury - Sepsis workup sent - CT head - Fitzgerald for I/O - Hyperglycemic to 400's per EMS; IVF started 09/08/19 23:40 - Labs reviewed. Notable for slight leukocytosis at 10. Glucose 376. Lactate 2.3. BUN 30; most recent was 16 in 2017 - Trop detectable at 0.10. CK 316. CK-MB pending - CT w/ multiple small chronic strokes. No acute or subacute stroke or bleed noted - UA negative. +ketones, +glucose. Adding serum B-hydroxybuterate - Will send microblog for admission. Per son, pt does not have a PMD that he is aware of - Pt to be signed out to Dr Montero for the remainder of his ED care. Discussed with Dr Maite Alcaraz PGY2 Discharge - Discharge Information Problems reviewed: Yes Clinical Impression/Diagnosis: Unresponsive, Hyperglycemia, Lactic acidosis, Elevated troponin Condition: Guarded - Admission Yes - Follow up/Referral - Patient Discharge Instructions - Post Discharge Activity
--- NOTE | 2019-09-08 22:29 | PDOC ---
Attending Attestation - Resident Resident Name: Tania Alcaraz - ED Attending Attestation I have performed the following: I have examined & evaluated the patient, The case was reviewed & discussed with the resident, I agree w/resident's findings & plan - HPI HPI: 09/08/19 22:25 Pt found on the floor of his home. Pt covered in stool and unconscious. Blood sugar on scene was 400; dried blood at the lips. Pt has elevated BP on arrival 200 systolic in the field; 198 systolic here Son spoke to him 3 days ago. Friends couldn't get in touch with him Wed, , and so son drove over and found him. - Physicial Exam PE: 09/08/19 22:27 Pt covered in stool; Eyes reactive; equal PERRLA Pt has no lacerations on head Tongue dry and dried blood at the lips. Abd soft NT ND; nodules under the skin where pt likely injects insulin No skin rashes; skin dry right babinski upgoing/abnormal left babinski normal Pt is not responding to voice. - Medical Decision Making 09/09/19 19:59 Pt admitted to med surg for eval Heart Score/ECG Review - ECG Intrepretation Rhythm: Regular Rhythm Comment:: 09/09/19 01:08 one PVC noted - [place]: Normal - QRS Poor R Wave Progression: No Q Wave Present: No - ST and T Early Repolarization: No Non Specific ST-T Wave changes: No Flattened T Waves: No Prolonged Q-T Interval: No - ECG Impressions Normal ECG: Yes Non-specific ST Elevation: No Ischemic Changes: No Bradycardia: No Torsades peter Pointes: No WPW: No
[2019-09-08 22:37] LABS: BASO % 1.1 % (0-2.0); HEMATOCRIT 50.3 % (35.4-49); HEMOGLOBIN 16.9 GM/dL (11.7-16.9); LYMPH % 21.1 % (8-40); MCH 30.8 pg (25.7-33.7); MCHC 33.5 g/dl (32.0-35.9); MEAN CELL VOLUME 91.9 fl (80-96); MONO % 7.8 % (3.8-10.2); PLATELET COUNT 188 K/MM3 (134-434); RBC 5.47 M/mm3 (4.00-5.60); RDW 14.5 % (11.9-15.9); WHITE BLOOD COUNT 10.1 K/mm3 (4.0-10.0)
[2019-09-08 22:50] LABS: PROTHROMBIN TIME (PATIENT) 11.8 SEC (9.7-13.0)
[2019-09-08 22:53] LABS: ACTIVATED PTT 31.8 SECONDS (25.2-36.5)
[2019-09-08 23:06] LABS: ALBUMIN 2.9 g/dl (3.4-5.0); BILIRUBIN,TOTAL 0.6 mg/dL (0.2-1); BLOOD UREA NITROGEN 30.2 mg/dL (7-18); CALCIUM 8.7 mg/dL (8.5-10.1); CREATININE 1.2 mg/dL (0.55-1.3); POTASSIUM 4.3 mmol/L (3.5-5.1); TOT PROT 6.4 g/dl (6.4-8.2)
[2019-09-08 23:54] LABS: EPI CELLS 0.5 /HPF (0-5/HPF); HYALINE CASTS 4 /lpf (0-8); URINE APPEARANCE CLEAR; URINE BACTERIA 1.2 /hpf (NEGATIVE); URINE BILIRUBIN NEGATIVE (NEGATIVE); URINE COLOR YELLOW; URINE GLUCOSE (UA) 3+ (NEGATIVE); URINE KETONE 2+ (NEGATIVE); URINE LEUK ESTERASE NEGATIVE (NEGATIVE); URINE NITRITE NEGATIVE (NEGATIVE); URINE PROTEIN 1+ (NEGATIVE); URINE RBC 4 /hpf (0-4); URINE WBC 1 /hpf (0-5)
[2019-09-09] MEDS ORDERED: INSULIN REGULAR HUMAN 100 UNITS/ML *VIAL SQ ONE (00:30)
--- NOTE | 2019-09-09 01:40 | PN ---
Teaching Attending Note Name of Resident: Irene Eckert ATTENDING PHYSICIAN STATEMENT I saw and evaluated the patient. I reviewed the resident's note and discussed the case with the resident. I agree with the resident's findings and plan as documented. SUBJECTIVE: Patient is a 79 year old man with a PMH of CAD s/p stents, Pacemaker placement, Syncope, Herpes zoster infection, HTN, Insulin-treated DM and Left achilles tendon repair who was nael in after he was found unresponsive at home. According to his son, the patient talks with friends or family every day. He has not contacted anyone since Wednesday evening, and the family became concerned. When they were unable to reach him, EMS was called to check on the patient. He was found in bed, covered in stool, and unresponsive. Per EMS, patient was hypertensive with a systolic BP in the 200's and hyperglycemic (> 400 mg/dL) when they arrived. No history of tobacco, alcohol or illicit drug use. No recent travel or sick contacts. OBJECTIVE: Somnolent but arousable Vital Signs Period Temp Pulse Resp BP Sys/Dickerson Pulse Ox Last 24 Hr 97.7 F 83 26 136/73 100-100 HEENT: No Jaundice, eye redness or discharge, PERRLA, EOMI. Normocephalic, atraumatic. External ears are normal; Dry blood noted around his mouth. No nasal discharge. Neck: Supple, nontender. No palpable adenopathy or thyromegaly. No JVD Chest: Good effort. Clear to auscultation and percussion. Heart: Regular. No S3, rub or murmur Abdomen: Not distended, soft, nontender and no HSM. No rebound or guarding. Normal bowel sounds. Ext: Peripheral pulses intact. No leg edema. Skin: Warm and dry. No petechiae, rash or ecchymosis. Neuro: Somnolent but arousable. CN 2-12 grossly intact. Sensation grossly intact in all four extremities and DTR are symmetric. Psych: Unable to assess. Home Medications Medication Instructions Recorded Allopurinol [Zyloprim] 100 mg PO DAILY 10/26/12 Aspirin [ASA] 81 mg PO DAILY 10/26/12 Carvedilol [Coreg] 25 mg PO BID 10/26/12 Colchicine [Colcrys] 0.6 mg PO DAILY 10/26/12 Ezetimibe/Simvastatin [Vytorin 1 each PO DAILY 10/26/12 10-40 mg Tablet] Folic Acid - 1 mg PO DAILY 10/26/12 Levothyroxine [Synthroid] 175 mcg PO DAILY 10/26/12 Niacin 500 mg PO DAILY 10/26/12 Prasugrel Hydrochloride [Effient] 5 mg PO DAILY 10/26/12 Ramipril [Altace] 10 mg PO BID 10/26/12 metFORMIN HCL [Glucophage] 1,000 mg PO BID 10/26/12 Insulin Glargine,Hum.rec.anlog 100 iu SQ HS 11/02/12 [Lantus (10mL VIAL)] Insulin Lispro [Humalog] 60 iu SQ PC 11/02/12 Abnormal Lab Results 09/08/19 09/08/19 09/08/19 22:20 22:20 22:20 WBC 10.1 H Hct 50.3 H D BUN 30.2 H Random Glucose 376 H Lactic Acid Creatine Kinase 316 H CK-MB (CK-2) 4.3 H Troponin I 0.10 H Albumin 2.9 L Beta-Hydroxybutyrate 27.2 H Urine Protein Urine Glucose (UA) Urine Ketones 09/08/19 09/08/19 22:20 23:20 WBC Hct BUN Random Glucose Lactic Acid 2.3 H* Creatine Kinase CK-MB (CK-2) Troponin I Albumin Beta-Hydroxybutyrate Urine Protein 1+ H Urine Glucose (UA) 3+ H Urine Ketones 2+ H ASSESSMENT AND PLAN: 1. AMS/Uncontrolled DM with ketosis Etiology of unresponsiveness is unclear. Hypoglycemia-induced syncope, CVA, hypertensive encephalopathy or arrhythmia are possible causes of original incident now complicated by hyperglycemia and dehydration. Head CT showed multiple chronic infarcts but no acute intracranial pathology. Will get head CT angiogram in 24 hours to rule out CVA. Consult cardiology and interrogate pacemaker. Urine toxicology pending. Will monitor on telemetry, do neurochecks and implement fall/seizures precautions. CXR shows a pacemaker but no chest pathology. No rationale to treat for aspiration pneumonia at this time. Patient got 6 units of Regular Insulin SQ in the ER. Will treat with IV NS, monitor and replete electrolytes, trend lactic acid, hold the home diabetes drugs and implement sliding scale insulin regimen. Provide comprehensive diabetes care with patient teaching and counseling about the importance of adherence to prescribed diabetes regimen, euglycemia, eye care and foot care. Elevated troponin is likely demand ischemia. EKG shows NSR with PVCs, LAE and old inferior/anterior infarcts. Will admit to telemetry to rule out ACS. Will continue comprehensive care for all of patients comorbid conditions. 2. Hypoalbuminemia - Possibly due to combined effects of proteinuria, malnutrition and inflammation associated with comorbid chronic conditions. Will ensure adequate dietary protein intake and also consult printer slotter operator. 3. BENSON - Has rhabdomyolysis and also dehydration due to osmotic diuresis from hyperglycemia. Will get kidney sonogram, hydrate and monitor urine output. Will consult nephrology and avoid nephrotoxic agents such as NSAIDS, aminoglycosides , contrast dyes and certain Alternative medicine products. 4. Hypertension - Restart suitable outpatient antihypertensive drugs when clinically appropriate. Revise regimen to ensure [id number] excellent BP control and litigation counsel patient on the injurious effects of uncontrolled hypertension. Nonpharmacologic measures to control hypertension like weight loss , salt restriction and exercise discussed. Importance of adherence to treatment regimen and attainment of normotension emphasized. 5. DVT prophylaxis - Heparin 5000u sq tid. 6. Advance directives - Full code
[2019-09-09] MEDS ORDERED: SODIUM CHLORIDE 1,000 ML IV STA ×2 (02:09)
[2019-09-09 03:10] LABS: COCAINE, UR NEGATIVE ng/ml (CUTOFF=300); METHADONE, UR NEGATIVE ng/ml (CUTOFF=300); OPIATES, URI NEGATIVE ng/ml (CUTOFF=300); PHENCYCLIDINE,URINE NEGATIVE ng/ml (CUTOFF=25); URINE AMPHETAMINES NEGATIVE ng/ml (CUTOFF=500); URINE BARBITURATES NEGATIVE ng/ml (CUTOFF=200); URINE BENZODIAZEPINES NEGATIVE ng/ml (CUTOFF=200)
--- NOTE | 2019-09-09 03:21 | HP ---
CHIEF COMPLAINT: AMS PCP: unknown HISTORY OF PRESENT ILLNESS: Mr. Panchal is a 79y/o male with HTN, DM2, MT s/p stent x 9 who presents to the ED with AMS. The patient lives alone and last contact with family was over 2 days ago. His son went to his home and found him unresponsive on the ground. His SBP was reported near 200 in the field as well as BGM in 400s. ER course was notable for: (1) CT head and neck negative for acute processes (2) WBC 10.1, BG 341 PAST MEDICAL HISTORY: HTN, DM2, MT PAST SURGICAL HISTORY: left achiles repair Social History: could not obtain, per record pt is never-smoker Allergies No Known Allergies Allergy (Verified 09/08/19 22:29) HOME MEDICATIONS: unknown REVIEW OF SYSTEMS unable to perform PHYSICAL EXAMINATION Vital Signs - 24 hr 09/08/19 22:00 Temperature 97.7 F Pulse Rate 83 Respiratory 26 H Rate Blood Pressure 136/73 O2 Sat by Pulse 100 Oximetry (%) GENERAL: Minimally responsive to light. HEAD: Normal with no signs of trauma. EYES: Pupils equal, round and reactive to light, sclera anicteric, conjunctiva clear. EARS, NOSE, THROAT: Ears normal, nares patent NECK: Dried blood LUNGS: Clear to auscultation bilaterally. No wheezes. HEART: Regular rate and rhythm, no murmur. ABDOMEN: Soft, nontender, not distended, normoactive bowel sounds, no guarding, no rebound UPPER EXTREMITIES: Warm, well-perfused. No clubbing. No peripheral edema. LOWER EXTREMITIES: Warm, well-perfused. No peripheral edema. NEUROLOGICAL: Unable to fully assess. Squints eyes. PSYCHIATRIC: Unable to assess. SKIN: Warm, dry skin with scaly skin Laboratory Results - last 24 hr 09/08/19 09/08/19 09/08/19 21:59 22:20 22:20 WBC RBC Hgb Hct MCV MCH MCHC RDW Plt Count MPV Absolute Neuts (auto) Neutrophils % Lymphocytes % Monocytes % Eosinophils % Basophils % Nucleated RBC % PT with INR 11.80 INR 1.00 PTT (Actin FS) 31.8 Sodium Potassium Chloride Carbon Dioxide Anion Gap BUN Creatinine Est GFR (CKD-EPI)AfAm Est GFR (CKD-EPI)NonAf POC Glucometer 341 Random Glucose Lactic Acid Calcium Total Bilirubin AST ALT Alkaline Phosphatase Creatine Kinase Creatine Kinase Index CK-MB (CK-2) Troponin I 0.10 H Total Protein Albumin Beta-Hydroxybutyrate Urine Color Urine Appearance Urine pH Ur Specific [place] Urine Protein Urine Glucose (UA) Urine Ketones Urine Blood Urine Nitrite Urine Bilirubin Urine Urobilinogen Ur Leukocyte Esterase Urine WBC (Auto) Urine RBC (Auto) Urine Casts (Auto) U Epithel Cells (Auto) Urine Bacteria (Auto) Opiates Screen Methadone Screen Barbiturate Screen Phencyclidine Screen Ur Amphetamines Screen MDMA (Ecstasy) Screen Benzodiazepines Screen Cocaine Screen U Marijuana (THC) Screen 09/08/19 09/08/19 09/08/19 22:20 22:20 22:20 WBC 10.1 H RBC 5.47 Hgb 16.9 Hct 50.3 H D MCV 91.9 MCH 30.8 MCHC 33.5 RDW 14.5 Plt Count 188 D MPV 9.0 Absolute Neuts (auto) 7.1 Neutrophils % 70.0 Lymphocytes % 21.1 D Monocytes % 7.8 Eosinophils % 0.0 D Basophils % 1.1 Nucleated RBC % 0 PT with INR INR PTT (Actin FS) Sodium 141 Potassium 4.3 Chloride 106 Carbon Dioxide 22 Anion Gap 13 BUN 30.2 H Creatinine 1.2 Est GFR (CKD-EPI)AfAm 66.26 Est GFR (CKD-EPI)NonAf 57.17 POC Glucometer Random Glucose 376 H Lactic Acid 2.3 H* Calcium 8.7 Total Bilirubin 0.6 AST 22 ALT 25 Alkaline Phosphatase 94 Creatine Kinase 316 H Creatine Kinase Index 1.3 CK-MB (CK-2) 4.3 H Troponin I Total Protein 6.4 Albumin 2.9 L Beta-Hydroxybutyrate 27.2 H Urine Color Urine Appearance Urine pH Ur Specific [place] Urine Protein Urine Glucose (UA) Urine Ketones Urine Blood Urine Nitrite Urine Bilirubin Urine Urobilinogen Ur Leukocyte Esterase Urine WBC (Auto) Urine RBC (Auto) Urine Casts (Auto) U Epithel Cells (Auto) Urine Bacteria (Auto) Opiates Screen Methadone Screen Barbiturate Screen Phencyclidine Screen Ur Amphetamines Screen MDMA (Ecstasy) Screen Benzodiazepines Screen Cocaine Screen U Marijuana (THC) Screen 09/08/19 09/09/19 23:20 02:40 WBC RBC Hgb Hct MCV MCH MCHC RDW Plt Count MPV Absolute Neuts (auto) Neutrophils % Lymphocytes % Monocytes % Eosinophils % Basophils % Nucleated RBC % PT with INR INR PTT (Actin FS) Sodium Potassium Chloride Carbon Dioxide Anion Gap BUN Creatinine Est GFR (CKD-EPI)AfAm Est GFR (CKD-EPI)NonAf POC Glucometer Random Glucose Lactic Acid Calcium Total Bilirubin AST ALT Alkaline Phosphatase Creatine Kinase Creatine Kinase Index CK-MB (CK-2) Troponin I Total Protein Albumin Beta-Hydroxybutyrate Urine Color Yellow Urine Appearance Clear Urine pH 5.0 Ur Specific [place] 1.035 Urine Protein 1+ H Urine Glucose (UA) 3+ H Urine Ketones 2+ H Urine Blood Negative Urine Nitrite Negative Urine Bilirubin Negative Urine Urobilinogen 1.0 Ur Leukocyte Esterase Negative Urine WBC (Auto) 1 Urine RBC (Auto) 4 Urine Casts (Auto) 4 U Epithel Cells (Auto) 0.5 Urine Bacteria (Auto) 1.2 Opiates Screen Negative Methadone Screen Negative Barbiturate Screen Negative Phencyclidine Screen Negative Ur Amphetamines Screen Negative MDMA (Ecstasy) Screen Negative Benzodiazepines Screen Negative Cocaine Screen Negative U Marijuana (THC) Screen Negative ASSESSMENT/PLAN: Mr. Panchal is a 79y/o male with HTN, DM2, MT s/p stents x9, and PPM presents with AMS. Last known well was 2 days ago. 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 - New Patient This patient is new to me today: Yes Date on this admission: 09/09/19 - Critical Care Critical Care patient: No ATTENDING PHYSICIAN STATEMENT I saw and evaluated the patient. I reviewed the resident's note and discussed the case with the resident. I agree with the resident's findings and plan as documented. SUBJECTIVE: OBJECTIVE: ASSESSMENT AND PLAN:
[2019-09-09] MEDS ORDERED: SODIUM CHLORIDE 1,000 ML IV SCH ×3 (04:15→23:31)
[2019-09-09] MEDS ORDERED: INSULIN REGULAR HUMAN 100 UNITS/ML *VIAL IVPUSH ONE (04:18)
[2019-09-09] MEDS ORDERED: SODIUM CHLORIDE 1,000 ML with POTASSIUM CHLORIDE 20 MEQ IVPB SCH (04:23)
[2019-09-09] MEDS ORDERED: INSULIN REGULAR 100 UNITS in SODIUM CHLORIDE 99 ML IVPB SCH (04:30)
[2019-09-09 05:17] LABS: N-TERMINAL BNP 1345.4 pg/ml (5-450)
--- NOTE | 2019-09-09 05:49 | PDOC ---
*Physical Exam - Vital Signs Last Vital Signs Temp Pulse Resp BP Pulse Ox 97.7 F 83 26 H 136/73 100 09/08/19 22:00 09/08/19 22:00 09/08/19 22:00 09/08/19 22:00 09/08/19 22:00 ED Treatment Course - LABORATORY CBC & Chemistry Diagram: 09/08/19 22:20 09/08/19 22:20 - ADDITIONAL ORDERS Additional order review: Laboratory Results 09/08/19 09/08/19 09/08/19 23:20 22:20 22:20 PT with INR INR PTT (Actin FS) Sodium 141 Potassium 4.3 Chloride 106 Carbon Dioxide 22 Anion Gap 13 BUN 30.2 H Creatinine 1.2 Est GFR (CKD-EPI)AfAm 66.26 Est GFR (CKD-EPI)NonAf 57.17 POC Glucometer Random Glucose 376 H Lactic Acid 2.3 H* Calcium 8.7 Total Bilirubin 0.6 AST 22 ALT 25 Alkaline Phosphatase 94 Creatine Kinase 316 H Creatine Kinase Index 1.3 CK-MB (CK-2) 4.3 H Troponin I Total Protein 6.4 Albumin 2.9 L Beta-Hydroxybutyrate 27.2 H Urine Color Yellow Urine Appearance Clear Urine pH 5.0 Ur Specific [place] 1.035 Urine Protein 1+ H Urine Glucose (UA) 3+ H Urine Ketones 2+ H Urine Blood Negative Urine Nitrite Negative Urine Bilirubin Negative Urine Urobilinogen 1.0 Ur Leukocyte Esterase Negative Urine WBC (Auto) 1 Urine RBC (Auto) 4 Urine Casts (Auto) 4 U Epithel Cells (Auto) 0.5 Urine Bacteria (Auto) 1.2 09/08/19 09/08/19 09/08/19 22:20 22:20 21:59 PT with INR 11.80 INR 1.00 PTT (Actin FS) 31.8 Sodium Potassium Chloride Carbon Dioxide Anion Gap BUN Creatinine Est GFR (CKD-EPI)AfAm Est GFR (CKD-EPI)NonAf POC Glucometer 341 Random Glucose Lactic Acid Calcium Total Bilirubin AST ALT Alkaline Phosphatase Creatine Kinase Creatine Kinase Index CK-MB (CK-2) Troponin I 0.10 H Total Protein Albumin Beta-Hydroxybutyrate Urine Color Urine Appearance Urine pH Ur Specific [place] Urine Protein Urine Glucose (UA) Urine Ketones Urine Blood Urine Nitrite Urine Bilirubin Urine Urobilinogen Ur Leukocyte Esterase Urine WBC (Auto) Urine RBC (Auto) Urine Casts (Auto) U Epithel Cells (Auto) Urine Bacteria (Auto) 09/08/19 09/08/19 22:20 21:59 RBC 5.47 MCV 91.9 MCHC 33.5 RDW 14.5 MPV 9.0 Neutrophils % 70.0 Lymphocytes % 21.1 D Monocytes % 7.8 Eosinophils % 0.0 D Basophils % 1.1 POC Glucometer 341 - Medications Given in the ED: ED Medications Discontinued Medications Generic Name Dose Route Start Last Admin Trade Name Freq PRN Reason Stop Dose Admin Sodium Chloride 1,000 mls @ 1,000 mls/hr 09/09/19 02:09 09/09/19 02:40 Normal Saline - IV 09/09/19 03:08 1,000 mls/hr ASDIR STA Administration Sodium Chloride 1,000 mls @ 1,000 mls/hr 09/09/19 02:09 09/09/19 02:40 Normal Saline - IV 09/09/19 03:08 Not Given ASDIR STA Sodium Chloride 1,000 mls @ 100 mls/hr 09/09/19 04:15 09/09/19 04:26 Normal Saline - IV Not Given ASDIR VLADIMIR Insulin Human Regular 6 units 09/09/19 00:30 09/09/19 00:45 Novolin R Vial *For Ivpush Or Iv Drip Only* SQ 09/09/19 00:31 6 units ONCE ONE Administration Discharge - Discharge Information Clinical Impression/Diagnosis: Unresponsive, Hyperglycemia, Lactic acidosis, Elevated troponin Condition: Guarded - Follow up/Referral - Patient Discharge Instructions - Post Discharge Activity
[2019-09-09 06:29] LABS: BASO % 0.7 % (0-2.0); HEMATOCRIT 48.9 % (35.4-49); HEMOGLOBIN 16.1 GM/dL (11.7-16.9); LYMPH % 14.9 % (8-40); MCH 30.5 pg (25.7-33.7); MCHC 32.9 g/dl (32.0-35.9); MEAN CELL VOLUME 92.7 fl (80-96); MEAN PLT VOLUME 8.7 fl (7.5-11.1); MONO % 7.7 % (3.8-10.2); NEUT % 76.7 % (42.8-82.8); PLATELET COUNT 169 K/MM3 (134-434); RBC 5.28 M/mm3 (4.00-5.60); RDW 14.4 % (11.9-15.9)
[2019-09-09 07:00] LABS: ALBUMIN 2.7 g/dl (3.4-5.0); BILIRUBIN,TOTAL 0.6 mg/dL (0.2-1); BLOOD UREA NITROGEN 29.4 mg/dL (7-18); CALCIUM 8.3 mg/dL (8.5-10.1); CREATININE 1.1 mg/dL (0.55-1.3); MAGNESIUM 2.1 mg/dL (1.8-2.4); PHOSPHOROUS 2.7 mg/dL (2.5-4.9); POTASSIUM 4.3 mmol/L (3.5-5.1)
[2019-09-09 07:04] LABS: ARTERIAL BLD GAS O2 SATURATION 98.8 % (95-98); ARTERIAL BLOOD GAS BASE EXCESS -0.2 meq/l (-2-2); ARTERIAL BLOOD GAS PCO2 37.7 mmHg (35-45); ARTERIAL BLOOD GAS pH 7.41 (7.35-7.45)
[2019-09-09 07:06] LABS: ALLENS TEST POSITIVE; ARTERIAL BLOOD GAS PO2 166 mmHg (80-100)
--- NOTE | 2019-09-09 10:00 | PN ---
Progress Note (short form) - Note Progress Note: Patient is minimally responsive, Significant other and the daughter at bedside. As per family, the last that they spoke and saw the the patient was 3 days ago. Vital Signs Temperature 97.9 F 09/09/19 06:06 Pulse Rate 76 09/09/19 06:06 Respiratory Rate 18 09/09/19 06:06 Blood Pressure 157/90 09/09/19 06:06 O2 Sat by Pulse Oximetry (%) 99 09/09/19 06:06 GENERAL: The patient is minimally responsive , in no acute distress. HEAD: Normal with no signs of trauma. EYES: PERRL, extraocular movements intact, sclera anicteric, conjunctiva clear. ENT: Ears normal, oropharynx clear without exudates, moist mucous membranes. slight red on the lips from right side NECK: Trachea midline, full range of motion, supple. LUNGS: Breath sounds equal, clear to auscultation bilaterally, no wheezes, no crackles, no accessory muscle use. HEART: Regular rate and rhythm, S1, S2 without murmur, rub or gallop. ABDOMEN: Soft, NT, ND, normoactive bowel sounds, no guarding, no rebound, no hepatosplenomegaly, no masses. EXTREMITIES: 2+ pulses, warm, well-perfused, no edema. NEUROLOGICAL: Cranial nerves II through XII grossly intact. gait not observed. PSYCH: Unable to access SKIN: Warm, dry, normal turgor, no rashes noted CBCD WBC 11.0 K/mm3 (4.0-10.0) H 09/09/19 05:54 RBC 5.28 M/mm3 (4.00-5.60) 09/09/19 05:54 Hgb 16.1 GM/dL (11.7-16.9) 09/09/19 05:54 Hct 48.9 % (35.4-49) 09/09/19 05:54 MCV 92.7 fl (80-96) 09/09/19 05:54 MCHC 32.9 g/dl (32.0-35.9) 09/09/19 05:54 RDW 14.4 % (11.9-15.9) 09/09/19 05:54 Plt Count 169 K/MM3 (134-434) 09/09/19 05:54 MPV 8.7 fl (7.5-11.1) 09/09/19 05:54 CMP Sodium 142 mmol/L (136-145) 09/09/19 05:54 Potassium 4.3 mmol/L (3.5-5.1) 09/09/19 05:54 Chloride 109 mmol/L (98-107) H 09/09/19 05:54 Carbon Dioxide 24 mmol/L (21-32) 09/09/19 05:54 Anion Gap 9 MMOL/L (8-16) 09/09/19 05:54 BUN 29.4 mg/dL (7-18) H 09/09/19 05:54 Creatinine 1.1 mg/dL (0.55-1.3) 09/09/19 05:54 Random Glucose 340 mg/dL (74-106) H 09/09/19 05:54 Calcium 8.3 mg/dL (8.5-10.1) L 09/09/19 05:54 Total Bilirubin 0.6 mg/dL (0.2-1) 09/09/19 05:54 AST 27 U/L (15-37) 09/09/19 05:54 ALT 24 U/L (13-61) 09/09/19 05:54 Alkaline Phosphatase 84 U/L (45-117) 09/09/19 05:54 Total Protein 6.0 g/dl (6.4-8.2) L 09/09/19 05:54 Albumin 2.7 g/dl (3.4-5.0) L 09/09/19 05:54 CARDIAC ENZYMES Creatine Kinase 316 U/L (26-308) H 09/08/19 22:20 Troponin I 0.11 ng/ml (0.00-0.05) H 09/09/19 02:20 Current Medications Generic Name Dose Route Start Last Admin Trade Name Freq PRN Reason Stop Dose Admin Insulin Human Regular 100 100 mls @ 7.93 mls/hr 09/09/19 04:30 09/09/19 05:23 units/ Sodium Chloride IVPB 0.1 units/kg/hr TITR VLADIMIR 7.93 mls/hr Administration Protocol 0.1 UNITS/KG/HR Potassium Chloride 20 meq/ 1,010 mls @ 100 mls/hr 09/09/19 04:23 09/09/19 05: 23 Sodium Chloride IVPB 100 mls/hr ASDIR VLADIMIR Administration Home Medications Medication Instructions Recorded Allopurinol [Zyloprim] 100 mg PO DAILY 10/26/12 Aspirin [ASA] 81 mg PO DAILY 10/26/12 Carvedilol [Coreg] 25 mg PO BID 10/26/12 Colchicine [Colcrys] 0.6 mg PO DAILY 10/26/12 Ezetimibe/Simvastatin [Vytorin 1 each PO DAILY 10/26/12 10-40 mg Tablet] Folic Acid - 1 mg PO DAILY 10/26/12 Levothyroxine [Synthroid] 175 mcg PO DAILY 10/26/12 Niacin 500 mg PO DAILY 10/26/12 Prasugrel Hydrochloride [Effient] 5 mg PO DAILY 10/26/12 Ramipril [Altace] 10 mg PO BID 10/26/12 metFORMIN HCL [Glucophage] 1,000 mg PO BID 10/26/12 Insulin Glargine,Hum.rec.anlog 100 iu SQ HS 11/02/12 [Lantus (10mL VIAL)] Insulin Lispro [Humalog] 60 iu SQ PC 11/02/12 ASSESSMENT/PLAN: Patient is a 79yom with HTN, DM2, [place] s/p stents x 9, and PPM presents with AMS. Last known well was 2 days ago. #Acute change of mental status cannot r/o encephalitis , no fever reported, slight leukocytosis, discussed with ID and ICu attending, will admit the patient to ICU, LP. 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 urine and blood cx pending. IVF, admit to ICU, urine tox negative, ammonia level negative, all the csf culture ordered, dr. Love called and discussed will see the patient. Cs ordered will wait for the result, empiric Abx coverage vanco/rocephin/acyclovir as per ID, dr Solomon , echo pending. #DM: s/p IV insulin , hyperglycemic at admission, glucose and ketones in urine, SS scale with coverage -IV NS with insulin and K, monitor BGMs #HTN: continue to monitor the blood pressure. DVT Ppx: SCDs NPO CC care time of 35min Visit type - Emergency Visit Emergency Visit: Yes ED Registration Date: 09/09/19 Care time: The patient presented to the Emergency Department on the above date and was hospitalized for further evaluation of their emergent condition. - New Patient This patient is new to me today: Yes Date on this admission: 09/09/19 - Critical Care Critical Care patient: Yes Total Critical Care Time (in minutes): 35 Critical Care Statement: The care of this patient involved high complexity decision making to prevent further life threatening deterioration of the patient 's condition and/or to evaluate & treat vital organ system(s) failure or risk of failure. - Discharge Referral Referred to [facility] No
--- NOTE | 2019-09-09 10:34 | CONSULT ---
Consultation: REQUESTING PROVIDER: CONSULT REQUEST: We have been asked to medically evaluate this patient for ( specify). HISTORY OF PRESENT ILLNESS: REVIEW OF SYSTEMS: CONSTITUTIONAL: Absent: fever, chills, diaphoresis, generalized weakness, malaise, loss of appetite, weight change HEENT: Absent: rhinorrhea, nasal congestion, throat pain, throat swelling, difficulty swallowing, mouth swelling, ear pain, eye pain, visual changes CARDIOVASCULAR: Absent: chest pain, syncope, palpitations, irregular heart rate, lightheadedness , peripheral edema RESPIRATORY: Absent: cough, shortness of breath, dyspnea with exertion, orthopnea, wheezing, stridor, hemoptysis GASTROINTESTINAL: Absent: abdominal pain, abdominal distension, nausea, vomiting, diarrhea, constipation, melena, hematochezia GENITOURINARY: Absent: dysuria, frequency, urgency, hesitancy, hematuria, flank pain, genital pain MUSCULOSKELETAL: Absent: myalgia, arthralgia, joint swelling, back pain, neck pain SKIN: Absent: rash, itching, pallor HEMATOLOGIC/IMMUNOLOGIC: Absent: easy bleeding, easy bruising, lymphadenopathy, frequent infections ENDOCRINE: Absent: unexplained weight gain, unexplained weight loss, heat intolerance, cold intolerance NEUROLOGIC: Absent: headache, focal weakness or paresthesias, dizziness, unsteady gait, seizure, mental status changes, bladder or bowel incontinence PSYCHIATRIC: Absent: anxiety, depression, suicidal or homicidal ideation, hallucinations. PHYSICAL EXAMINATION Vital Signs - 24 hr 09/08/19 09/09/19 09/09/19 22:00 06:06 11:57 Temperature 97.7 F 97.9 F 97.3 F L Pulse Rate 83 Pulse Rate [ 76 Left] Respiratory 26 H 18 Rate Blood Pressure 136/73 Blood Pressure 157/90 [Right Arm] O2 Sat by Pulse 100 99 Oximetry (%) GENERAL: Awake, alert, and fully oriented, in no acute distress. HEAD: Normal with no signs of trauma. EYES: Pupils equal, round and reactive to light, extraocular movements intact, sclera anicteric, conjunctiva clear. No lid lag. EARS, NOSE, THROAT: Ears normal, nares patent, oropharynx clear without exudates. Moist mucous membranes. NECK: Normal range of motion, supple without lymphadenopathy, JVD, or masses. LUNGS: Breath sounds equal, clear to auscultation bilaterally. No wheezes, and no crackles. No accessory muscle use. HEART: Regular rate and rhythm, normal S1 and S2 without murmur, rub or gallop. ABDOMEN: Soft, nontender, not distended, normoactive bowel sounds, no guarding, no rebound, no masses. No hepatomegaly or splenomegaly. MUSCULOSKELETAL: Normal range of motion at all joints. No bony deformities or tenderness. No CVA tenderness. UPPER EXTREMITIES: 2+ pulses, warm, well-perfused. No cyanosis. No clubbing. Cap refill <2 seconds. No peripheral edema. LOWER EXTREMITIES: 2+ pulses, warm, well-perfused. No calf tenderness. No peripheral edema. NEUROLOGICAL: Cranial nerves II-XII intact. Normal speech. Normal gait. PSYCHIATRIC: Cooperative. Good eye contact. Appropriate mood and affect. SKIN: Warm, dry, normal turgor, no rashes or lesions noted. Laboratory Results - last 24 hr 09/08/19 09/08/19 09/08/19 21:59 22:20 22:20 WBC RBC Hgb Hct MCV MCH MCHC RDW Plt Count MPV Absolute Neuts (auto) Neutrophils % Lymphocytes % Monocytes % Eosinophils % Basophils % Nucleated RBC % PT with INR 11.80 INR 1.00 PTT (Actin FS) 31.8 Anticoagulation Therapy Puncture Site ABG pH ABG pCO2 at Pt Temp ABG pO2 at Pt Temp ABG HCO3 ABG O2 Sat (Measured) ABG O2 Content ABG Base Excess Tony Test O2 Delivery Device Oxygen Flow Rate Vent Mode Vent Rate Mechanical Rate Pressure Support Vent Sodium Potassium Chloride Carbon Dioxide Anion Gap BUN Creatinine Est GFR (CKD-EPI)AfAm Est GFR (CKD-EPI)NonAf POC Glucometer 341 Random Glucose Serum Osmolality Lactic Acid Calcium Phosphorus Magnesium Total Bilirubin AST ALT Alkaline Phosphatase Ammonia Creatine Kinase Creatine Kinase Index CK-MB (CK-2) Troponin I 0.10 H B-Natriuretic Peptide Total Protein Albumin Beta-Hydroxybutyrate Urine Color Urine Appearance Urine pH Ur Specific Mousie Urine Protein Urine Glucose (UA) Urine Ketones Urine Blood Urine Nitrite Urine Bilirubin Urine Urobilinogen Ur Leukocyte Esterase Urine WBC (Auto) Urine RBC (Auto) Urine Casts (Auto) U Epithel Cells (Auto) Urine Bacteria (Auto) Opiates Screen Methadone Screen Barbiturate Screen Phencyclidine Screen Ur Amphetamines Screen MDMA (Ecstasy) Screen Benzodiazepines Screen Cocaine Screen U Marijuana (THC) Screen 09/08/19 09/08/19 09/08/19 22:20 22:20 22:20 WBC 10.1 H RBC 5.47 Hgb 16.9 Hct 50.3 H D MCV 91.9 MCH 30.8 MCHC 33.5 RDW 14.5 Plt Count 188 D MPV 9.0 Absolute Neuts (auto) 7.1 Neutrophils % 70.0 Lymphocytes % 21.1 D Monocytes % 7.8 Eosinophils % 0.0 D Basophils % 1.1 Nucleated RBC % 0 PT with INR INR PTT (Actin FS) Anticoagulation Therapy Puncture Site ABG pH ABG pCO2 at Pt Temp ABG pO2 at Pt Temp ABG HCO3 ABG O2 Sat (Measured) ABG O2 Content ABG Base Excess Tony Test O2 Delivery Device Oxygen Flow Rate Vent Mode Vent Rate Mechanical Rate Pressure Support Vent Sodium 141 Potassium 4.3 Chloride 106 Carbon Dioxide 22 Anion Gap 13 BUN 30.2 H Creatinine 1.2 Est GFR (CKD-EPI)AfAm 66.26 Est GFR (CKD-EPI)NonAf 57.17 POC Glucometer Random Glucose 376 H Serum Osmolality Lactic Acid 2.3 H* Calcium 8.7 Phosphorus Magnesium Total Bilirubin 0.6 AST 22 ALT 25 Alkaline Phosphatase 94 Ammonia Creatine Kinase 316 H Creatine Kinase Index 1.3 CK-MB (CK-2) 4.3 H Troponin I B-Natriuretic Peptide Total Protein 6.4 Albumin 2.9 L Beta-Hydroxybutyrate 27.2 H Urine Color Urine Appearance Urine pH Ur Specific M[place]ie Urine Protein Urine Glucose (UA) Urine Ketones Urine Blood Urine Nitrite Urine Bilirubin Urine Urobilinogen Ur Leukocyte Esterase Urine WBC (Auto) Urine RBC (Auto) Urine Casts (Auto) U Epithel Cells (Auto) Urine Bacteria (Auto) Opiates Screen Methadone Screen Barbiturate Screen Phencyclidine Screen Ur Amphetamines Screen MDMA (Ecstasy) Screen Benzodiazepines Screen Cocaine Screen U Marijuana (THC) Screen 09/08/19 09/09/19 09/09/19 23:20 02:17 02:20 WBC RBC Hgb Hct MCV MCH MCHC RDW Plt Count MPV Absolute Neuts (auto) Neutrophils % Lymphocytes % Monocytes % Eosinophils % Basophils % Nucleated RBC % PT with INR INR PTT (Actin FS) Anticoagulation Therapy Puncture Site ABG pH ABG pCO2 at Pt Temp ABG pO2 at Pt Temp ABG HCO3 ABG O2 Sat (Measured) ABG O2 Content ABG Base Excess Tony Test O2 Delivery Device Oxygen Flow Rate Vent Mode Vent Rate Mechanical Rate Pressure Support Vent Sodium Potassium Chloride Carbon Dioxide Anion Gap BUN Creatinine Est GFR (CKD-EPI)AfAm Est GFR (CKD-EPI)NonAf POC Glucometer Random Glucose Serum Osmolality Lactic Acid 2.3 H* Calcium Phosphorus Magnesium Total Bilirubin AST ALT Alkaline Phosphatase Ammonia Creatine Kinase Creatine Kinase Index CK-MB (CK-2) Troponin I 0.11 H B-Natriuretic Peptide 1345.4 H Total Protein Albumin Beta-Hydroxybutyrate Urine Color Yellow Urine Appearance Clear Urine pH 5.0 Ur Specific Mousie 1.035 Urine Protein 1+ H Urine Glucose (UA) 3+ H Urine Ketones 2+ H Urine Blood Negative Urine Nitrite Negative Urine Bilirubin Negative Urine Urobilinogen 1.0 Ur Leukocyte Esterase Negative Urine WBC (Auto) 1 Urine RBC (Auto) 4 Urine Casts (Auto) 4 U Epithel Cells (Auto) 0.5 Urine Bacteria (Auto) 1.2 Opiates Screen Methadone Screen Barbiturate Screen Phencyclidine Screen Ur Amphetamines Screen MDMA (Ecstasy) Screen Benzodiazepines Screen Cocaine Screen U Marijuana (THC) Screen 09/09/19 09/09/19 09/09/19 02:20 02:40 04:16 WBC RBC Hgb Hct MCV MCH MCHC RDW Plt Count MPV Absolute Neuts (auto) Neutrophils % Lymphocytes % Monocytes % Eosinophils % Basophils % Nucleated RBC % PT with INR INR PTT (Actin FS) Anticoagulation Therapy Puncture Site ABG pH ABG pCO2 at Pt Temp ABG pO2 at Pt Temp ABG HCO3 ABG O2 Sat (Measured) ABG O2 Content ABG Base Excess Tony Test O2 Delivery Device Oxygen Flow Rate Vent Mode Vent Rate Mechanical Rate Pressure Support Vent Sodium Potassium Chloride Carbon Dioxide Anion Gap BUN Creatinine Est GFR (CKD-EPI)AfAm Est GFR (CKD-EPI)NonAf POC Glucometer 390 Random Glucose Serum Osmolality 339 H Lactic Acid Calcium Phosphorus Magnesium Total Bilirubin AST ALT Alkaline Phosphatase Ammonia Creatine Kinase Creatine Kinase Index CK-MB (CK-2) Troponin I B-Natriuretic Peptide Total Protein Albumin Beta-Hydroxybutyrate Urine Color Urine Appearance Urine pH Ur Specific [place] Urine Protein Urine Glucose (UA) Urine Ketones Urine Blood Urine Nitrite Urine Bilirubin Urine Urobilinogen Ur Leukocyte Esterase Urine WBC (Auto) Urine RBC (Auto) Urine Casts (Auto) U Epithel Cells (Auto) Urine Bacteria (Auto) Opiates Screen Negative Methadone Screen Negative Barbiturate Screen Negative Phencyclidine Screen Negative Ur Amphetamines Screen Negative MDMA (Ecstasy) Screen Negative Benzodiazepines Screen Negative Cocaine Screen Negative U Marijuana (THC) Screen Negative 09/09/19 09/09/19 09/09/19 05:54 05:54 06:38 WBC 11.0 H RBC 5.28 Hgb 16.1 Hct 48.9 MCV 92.7 MCH 30.5 MCHC 32.9 RDW 14.4 Plt Count 169 MPV 8.7 Absolute Neuts (auto) 8.4 H Neutrophils % 76.7 Lymphocytes % 14.9 D Monocytes % 7.7 Eosinophils % 0.0 Basophils % 0.7 Nucleated RBC % 0 PT with INR INR PTT (Actin FS) Anticoagulation Therapy No Result Required. Puncture Site Right radial ABG pH 7.41 ABG pCO2 at Pt Temp 37.7 ABG pO2 at Pt Temp 166 H ABG HCO3 23.6 ABG O2 Sat (Measured) 98.8 H ABG O2 Content No Result Required. ABG Base Excess -0.2 Tony Test Positive O2 Delivery Device No Result Required. Oxygen Flow Rate 100% Vent Mode No Result Required. Vent Rate No Result Required. Mechanical Rate No Result Required. Pressure Support Vent No Result Required. Sodium 142 Potassium 4.3 Chloride 109 H Carbon Dioxide 24 Anion Gap 9 BUN 29.4 H Creatinine 1.1 Est GFR (CKD-EPI)AfAm 73.61 Est GFR (CKD-EPI)NonAf 63.51 POC Glucometer Random Glucose 340 H Serum Osmolality Lactic Acid Calcium 8.3 L Phosphorus 2.7 Magnesium 2.1 Total Bilirubin 0.6 AST 27 ALT 24 Alkaline Phosphatase 84 Ammonia Creatine Kinase Creatine Kinase Index CK-MB (CK-2) Troponin I B-Natriuretic Peptide Total Protein 6.0 L Albumin 2.7 L Beta-Hydroxybutyrate Urine Color Urine Appearance Urine pH Ur Specific [place] Urine Protein Urine Glucose (UA) Urine Ketones Urine Blood Urine Nitrite Urine Bilirubin Urine Urobilinogen Ur Leukocyte Esterase Urine WBC (Auto) Urine RBC (Auto) Urine Casts (Auto) U Epithel Cells (Auto) Urine Bacteria (Auto) Opiates Screen Methadone Screen Barbiturate Screen Phencyclidine Screen Ur Amphetamines Screen MDMA (Ecstasy) Screen Benzodiazepines Screen Cocaine Screen U Marijuana (THC) Screen 09/09/19 09/09/19 09/09/19 09:39 11:10 11:11 WBC RBC Hgb Hct MCV MCH MCHC RDW Plt Count MPV Absolute Neuts (auto) Neutrophils % Lymphocytes % Monocytes % Eosinophils % Basophils % Nucleated RBC % PT with INR INR PTT (Actin FS) Anticoagulation Therapy Puncture Site ABG pH ABG pCO2 at Pt Temp ABG pO2 at Pt Temp ABG HCO3 ABG O2 Sat (Measured) ABG O2 Content ABG Base Excess Tony Test O2 Delivery Device Oxygen Flow Rate Vent Mode Vent Rate Mechanical Rate Pressure Support Vent Sodium Potassium Chloride Carbon Dioxide Anion Gap BUN Creatinine Est GFR (CKD-EPI)AfAm Est GFR (CKD-EPI)NonAf POC Glucometer 126 77 Random Glucose Serum Osmolality Lactic Acid Calcium Phosphorus Magnesium Total Bilirubin AST ALT Alkaline Phosphatase Ammonia 14.10 Creatine Kinase Creatine Kinase Index CK-MB (CK-2) Troponin I B-Natriuretic Peptide Total Protein Albumin Beta-Hydroxybutyrate Urine Color Urine Appearance Urine pH Ur Specific [place] Urine Protein Urine Glucose (UA) Urine Ketones Urine Blood Urine Nitrite Urine Bilirubin Urine Urobilinogen Ur Leukocyte Esterase Urine WBC (Auto) Urine RBC (Auto) Urine Casts (Auto) U Epithel Cells (Auto) Urine Bacteria (Auto) Opiates Screen Methadone Screen Barbiturate Screen Phencyclidine Screen Ur Amphetamines Screen MDMA (Ecstasy) Screen Benzodiazepines Screen Cocaine Screen U Marijuana (THC) Screen 09/09/19 09/09/19 11:40 11:40 WBC RBC Hgb Hct MCV MCH MCHC RDW Plt Count MPV Absolute Neuts (auto) Neutrophils % Lymphocytes % Monocytes % Eosinophils % Basophils % Nucleated RBC % PT with INR INR PTT (Actin FS) Anticoagulation Therapy Puncture Site ABG pH ABG pCO2 at Pt Temp ABG pO2 at Pt Temp ABG HCO3 ABG O2 Sat (Measured) ABG O2 Content ABG Base Excess Tony Test O2 Delivery Device Oxygen Flow Rate Vent Mode Vent Rate Mechanical Rate Pressure Support Vent Sodium 147 H Potassium 3.9 Chloride 112 H Carbon Dioxide 26 Anion Gap 9 BUN 25.3 H Creatinine 0.9 Est GFR (CKD-EPI)AfAm 93.82 Est GFR (CKD-EPI)NonAf 80.95 POC Glucometer Random Glucose 88 Serum Osmolality Lactic Acid 2.0 Calcium 8.8 Phosphorus Magnesium Total Bilirubin 0.6 AST 18 ALT 23 Alkaline Phosphatase 88 Ammonia Creatine Kinase Creatine Kinase Index CK-MB (CK-2) Troponin I B-Natriuretic Peptide Total Protein 6.4 Albumin 2.8 L Beta-Hydroxybutyrate Urine Color Urine Appearance Urine pH Ur Specific [place] Urine Protein Urine Glucose (UA) Urine Ketones Urine Blood Urine Nitrite Urine Bilirubin Urine Urobilinogen Ur Leukocyte Esterase Urine WBC (Auto) Urine RBC (Auto) Urine Casts (Auto) U Epithel Cells (Auto) Urine Bacteria (Auto) Opiates Screen Methadone Screen Barbiturate Screen Phencyclidine Screen Ur Amphetamines Screen MDMA (Ecstasy) Screen Benzodiazepines Screen Cocaine Screen U Marijuana (THC) Screen Active Medications Generic Name Dose Route Start Last Admin Trade Name Freq PRN Reason Stop Dose Admin Acetaminophen 1,000 mg 09/09/19 11:43 Ofirmev Injection - IVPB Q6H PRN fever 100.4 Heparin Sodium (Porcine) 5,000 unit 09/09/19 14:00 Heparin - SQ TID VLADIMIR Vancomycin HCl 1,000 mg in 250 mls @ 133.333 mls/hr 09/09/19 11:45 09/09/19 13:21 Vancomycin (Pre-Docked) IVPB 09/10/19 11:44 133.333 mls/hr ONCE VLADIMIR Administration Sodium Chloride 1,000 mls @ 75 mls/hr 09/09/19 11:45 09/09/19 12:23 Normal Saline - IV 09/10/19 01:04 75 mls/hr ASDIR VLADIMIR Administration Insulin Aspart 1 vial 09/09/19 10:30 09/09/19 11:50 Novolog Vial Sliding Scale - SQ Not Given Q4HPO VLADIMIR Protocol ASSESSMENT/PLAN: Dispo: We will continue to follow the patient. Thank you for this consultative opportunity. Patient seen and examined. The residents note was reviewed and I agree with the findings. IMP: Hyperglycemia: Not DKA or Hyperosmolar state due to hyperglycemia AMS: etiology likely multi-factorial PLAN: IVF Glycemic control with SQ Insulin Follow CHEM Aspiration precautions O2 to maintain saturation No indication for ICU monitoring at this time Please call for any change in condition. Dr Saravia <Osmel Saravia - Last Filed: 09/10/19 08:31> Consultation: CONSULT REQUEST: ICU CONSULT HISTORY OF PRESENT ILLNESS: Patient is a 79y/o male with HTN, DM2, IL s/p stent x 9 who was brought by EMS to the ER unresponsive. The patient lives alone and last contact with family was over 2 days ago. He speaks with his family everyday and they called EMS when they lost communication with him for a few days. In the field his BGM was in the 400's per documentation. Per his "significant other", he has been dealing with uncontrolled diabetes for the last few months. 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 She said his humalog was increased and noticed his glucose would be less than a 100 at times. She also mentions that she doesn't believe he is very compliant with his insulin. She says there are times when he says he will take his meds "later". Per partner, patient was not complaining of anything. No recent illness, travel. Patient was started on an insulin drip in the ER. He had a normal anion gap. Bicarb normal. Was saturating 100% on venti mask. HD stable. REVIEW OF SYSTEMS: unable to obtain PHYSICAL EXAMINATION Vital Signs - 24 hr 09/08/19 09/09/19 22:00 06:06 Temperature 97.7 F 97.9 F Pulse Rate 83 Pulse Rate [ 76 Left] Respiratory 26 H 18 Rate Blood Pressure 136/73 Blood Pressure 157/90 [Right Arm] O2 Sat by Pulse 100 99 Oximetry (%) GENERAL: somnolent, minimally responsive. opens his eyes. follows minimal commands. squeezes hands when asked to. HEAD: Normal with no signs of trauma. EYES: Pupils equal, round and reactive to light, conjunctiva clear. EARS, NOSE, THROAT: dry mucous membranes. NECK: no LAD LUNGS: lungs clear, no wheezing, rales, rhonchi HEART: RRR, no MGR ABDOMEN: soft, no grimacing to palpation LOWER EXTREMITIES: 2+ pulses, No peripheral edema. +dry ulcer on 1st toe NEUROLOGICAL: somnolent. +pupillary reflexes Laboratory Results - last 24 hr 09/08/19 09/08/19 09/08/19 21:59 22:20 22:20 WBC RBC Hgb Hct MCV MCH MCHC RDW Plt Count MPV Absolute Neuts (auto) Neutrophils % Lymphocytes % Monocytes % Eosinophils % Basophils % Nucleated RBC % PT with INR 11.80 INR 1.00 PTT (Actin FS) 31.8 Anticoagulation Therapy Puncture Site ABG pH ABG pCO2 at Pt Temp ABG pO2 at Pt Temp ABG HCO3 ABG O2 Sat (Measured) ABG O2 Content ABG Base Excess Tony Test O2 Delivery Device Oxygen Flow Rate Vent Mode Vent Rate Mechanical Rate Pressure Support Vent Sodium Potassium Chloride Carbon Dioxide Anion Gap BUN Creatinine Est GFR (CKD-EPI)AfAm Est GFR (CKD-EPI)NonAf POC Glucometer 341 Random Glucose Serum Osmolality Lactic Acid Calcium Phosphorus Magnesium Total Bilirubin AST ALT Alkaline Phosphatase Creatine Kinase Creatine Kinase Index CK-MB (CK-2) Troponin I 0.10 H B-Natriuretic Peptide Total Protein Albumin Beta-Hydroxybutyrate Urine Color Urine Appearance Urine pH Ur Specific [place] Urine Protein Urine Glucose (UA) Urine Ketones Urine Blood Urine Nitrite Urine Bilirubin Urine Urobilinogen Ur Leukocyte Esterase Urine WBC (Auto) Urine RBC (Auto) Urine Casts (Auto) U Epithel Cells (Auto) Urine Bacteria (Auto) Opiates Screen Methadone Screen Barbiturate Screen Phencyclidine Screen Ur Amphetamines Screen MDMA (Ecstasy) Screen Benzodiazepines Screen Cocaine Screen U Marijuana (THC) Screen 09/08/19 09/08/19 09/08/19 22:20 22:20 22:20 WBC 10.1 H RBC 5.47 Hgb 16.9 Hct 50.3 H D MCV 91.9 MCH 30.8 MCHC 33.5 RDW 14.5 Plt Count 188 D MPV 9.0 Absolute Neuts (auto) 7.1 Neutrophils % 70.0 Lymphocytes % 21.1 D Monocytes % 7.8 Eosinophils % 0.0 D Basophils % 1.1 Nucleated RBC % 0 PT with INR INR PTT (Actin FS) Anticoagulation Therapy Puncture Site ABG pH ABG pCO2 at Pt Temp ABG pO2 at Pt Temp ABG HCO3 ABG O2 Sat (Measured) ABG O2 Content ABG Base Excess Tony Test O2 Delivery Device Oxygen Flow Rate Vent Mode Vent Rate Mechanical Rate Pressure Support Vent Sodium 141 Potassium 4.3 Chloride 106 Carbon Dioxide 22 Anion Gap 13 BUN 30.2 H Creatinine 1.2 Est GFR (CKD-EPI)AfAm 66.26 Est GFR (CKD-EPI)NonAf 57.17 POC Glucometer Random Glucose 376 H Serum Osmolality Lactic Acid 2.3 H* Calcium 8.7 Phosphorus Magnesium Total Bilirubin 0.6 AST 22 ALT 25 Alkaline Phosphatase 94 Creatine Kinase 316 H Creatine Kinase Index 1.3 CK-MB (CK-2) 4.3 H Troponin I B-Natriuretic Peptide Total Protein 6.4 Albumin 2.9 L Beta-Hydroxybutyrate 27.2 H Urine Color Urine Appearance Urine pH Ur Specific [place] Urine Protein Urine Glucose (UA) Urine Ketones Urine Blood Urine Nitrite Urine Bilirubin Urine Urobilinogen Ur Leukocyte Esterase Urine WBC (Auto) Urine RBC (Auto) Urine Casts (Auto) U Epithel Cells (Auto) Urine Bacteria (Auto) Opiates Screen Methadone Screen Barbiturate Screen Phencyclidine Screen Ur Amphetamines Screen MDMA (Ecstasy) Screen Benzodiazepines Screen Cocaine Screen U Marijuana (THC) Screen Active Medications Generic Name Dose Route Start Last Admin Trade Name Freq PRN Reason Stop Dose Admin Potassium Chloride 20 meq/ 1,010 mls @ 100 mls/hr 09/09/19 04:23 09/09/19 05: 23 Sodium Chloride IVPB 100 mls/hr ASDIR VLADIMIR Administration ASSESSMENT/PLAN: #Acute metabolic encephalopathy #Hyperglycemia #Lactic acidosis, Normal Anion gap #Elevated troponin #Uncontrolled DM #HTN #hx of CAD #s/p pacemaker #Rhabdomyolysis -sepsis? toe ulcer as possible source? -head ct unremarkable for acute events -d/c insulin drip -SSI -consider starting long acting insulin -wean off venti -monitor vital signs -check ammonia level -trend troponin -echo -monitor lytes -IV fluids -bcx, ucx -dvt ppx -npo -can be monitored on tele Dispo: We will continue to follow the patient. Thank you for this consultative opportunity. <Rimma Alfred - Last Filed: 09/10/19 21:41> Visit type - Emergency Visit Emergency Visit: Yes ED Registration Date: 09/09/19 Care time: The patient presented to the Emergency Department on the above date and was hospitalized for further evaluation of their emergent condition. - New Patient This patient is new to me today: Yes Date on this admission: 09/10/19 - Critical Care Critical Care patient: Yes Total Critical Care Time (in minutes): 35 Critical Care Statement: The care of this patient involved high complexity decision making to prevent further life threatening deterioration of the patient 's condition and/or to evaluate & treat vital organ system(s) failure or risk of failure. <Rimma Alfred - Last Filed: 09/10/19 21:41> ATTENDING PHYSICIAN STATEMENT I saw and evaluated the patient. I reviewed the resident's note and discussed the case with the resident. I agree with the resident's findings and plan as documented. SUBJECTIVE: OBJECTIVE: ASSESSMENT AND PLAN: <Osmel Saravia - Last Filed: 09/10/19 08:31> ATTENDING PHYSICIAN STATEMENT I saw and evaluated the patient. I reviewed the resident's note and discussed the case with the resident. I agree with the resident's findings and plan as documented. SUBJECTIVE: OBJECTIVE: ASSESSMENT AND PLAN: <Rimma Alfred - Last Filed: 09/10/19 21:41>
[2019-09-09] MEDS ORDERED: LACTATED RINGERS SOLUTION 1,000 ML/1,000 ML INFUS.BAG IV SCH (10:45)
[2019-09-09] MEDS ORDERED: CEFTRIAXONE 2 GM in DEXTROSE 5%-WATER 100 ML IVPB ONE (11:30)
[2019-09-09] MEDS ORDERED: ACETAMINOPHEN 1000 MG/100 ML VIAL (NON FORMULARY) IVPB PRN ×2 (11:43→23:31)
[2019-09-09] MEDS ORDERED: VANCOMYCIN 1 GRAM (PRE-DOCKED) 1,000 MG/250 ML BAG IVPB SCH (11:45)
[2019-09-09] MEDS: INSULIN SLIDING SCALE (NOVOLOG) 1 VIAL SQ SCH ×3 (11:50→19:40)
[2019-09-09] MEDS ORDERED: VANCOMYCIN 1 GRAM (PRE-DOCKED) 1,000 MG/250 ML BAG IVPB ONE (12:11)
[2019-09-09] MEDS ORDERED: CEFTRIAXONE 2 GM/100 ML BAG IVPB ONE (12:11)
[2019-09-09 14:05] LABS: ALBUMIN 2.8 g/dl (3.4-5.0); BILIRUBIN,TOTAL 0.6 mg/dL (0.2-1); BLOOD UREA NITROGEN 25.3 mg/dL (7-18); CALCIUM 8.8 mg/dL (8.5-10.1); CREATININE 0.9 mg/dL (0.55-1.3); POTASSIUM 3.9 mmol/L (3.5-5.1); TOT PROT 6.4 g/dl (6.4-8.2)
--- NOTE | 2019-09-09 14:33 | CON.CARD ---
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), HTN, hypercholesterolemia, Insulin requiring DM who was found unresponsive and was brought in for further evaluation. He was found on his bed and last contact with him was over 2 days according to the family. He was noted to have complained of headche recently. EMS found him to have systolic BP of 200s and BGM in 400 range. Currently, he is poorly responsive and is not moving his extremities. He had seen Dr. Neville Dinh (Cardiology) in the past. CT head did not reveal acute infarct. - History Source History Provided By: Family Member, Friend, Medical Record Limitations to Obtaining History: Clinical Condition - Past Medical History Cardio/Vascular: Yes: CAD, CHF, HTN, Hyperlipdemia, [place] Endocrine: Yes: Diabetes Mellitus - Past Surgical History Past Surgical History: Yes: Stent - Alcohol/Substance Use Hx Alcohol Use: No - Smoking History Smoking history: Never smoked Have you smoked in the past 12 months: No Home Medications - Allergies Allergies/Adverse Reactions: Allergies Allergy/AdvReac Type Severity Reaction Status Date / Time No Known Allergies Allergy Verified 09/08/19 22:29 - Home Medications Home Medications: Ambulatory Orders Allopurinol [Zyloprim] 100 mg PO DAILY 10/26/12 Aspirin [ASA] 81 mg PO DAILY 10/26/12 Carvedilol [Coreg] 25 mg PO BID 10/26/12 Colchicine [Colcrys] 0.6 mg PO DAILY 10/26/12 Ezetimibe/Simvastatin [Vytorin 10-40 mg Tablet] 1 each PO DAILY 10/26/12 Folic Acid - 1 mg PO DAILY 10/26/12 Levothyroxine [Synthroid] 175 mcg PO DAILY 10/26/12 Niacin 500 mg PO DAILY 10/26/12 Prasugrel Hydrochloride [Effient] 5 mg PO DAILY 10/26/12 Ramipril [Altace] 10 mg PO BID 10/26/12 metFORMIN HCL [Glucophage] 1,000 mg PO BID 10/26/12 Insulin Glargine,Hum.rec.anlog [Lantus (10mL VIAL)] 100 iu SQ HS 11/02/12 Insulin Lispro [Humalog] 60 iu SQ PC 11/02/12 Family Medical History Other Family History: DM, CAD, [place] Review of Systems Unable to obtain ROS, reason: Unable to obtain Vital Signs: Vital Signs Temperature 97.3 F L 09/09/19 11:57 Pulse Rate 76 09/09/19 06:06 Respiratory Rate 18 09/09/19 06:06 Blood Pressure 157/90 09/09/19 06:06 O2 Sat by Pulse Oximetry (%) 99 09/09/19 06:06 Respiratory: Yes: Diminished Gastrointestinal: Yes: Normal Bowel Sounds, Soft. No: Tenderness Cardiovascular: Yes: Regular Rate and Rhythm JVD: No PMI: Non-Displaced Heart Sounds: Yes: S1, S2 Murmur: Yes: Systolic Murmur, Grade 1 Edema: No - Other Data Labs, Other Data: CBC, BMP 09/09/19 05:54 09/09/19 11:40 INR, PTT INR 1.00 (0.83-1.09) 09/08/19 22:20 Troponin, BNP 09/08/19 09/09/19 22:20 02:20 Troponin I 0.10 H 0.11 H B-Natriuretic Peptide 1345.4 H Laboratory Results - last 24 hr 09/08/19 09/08/19 09/08/19 21:59 22:20 22:20 WBC RBC Hgb Hct MCV MCH MCHC RDW Plt Count MPV Absolute Neuts (auto) Neutrophils % Lymphocytes % Monocytes % Eosinophils % Basophils % Nucleated RBC % PT with INR 11.80 INR 1.00 PTT (Actin FS) 31.8 Anticoagulation Therapy Puncture Site ABG pH ABG pCO2 at Pt Temp ABG pO2 at Pt Temp ABG HCO3 ABG O2 Sat (Measured) ABG O2 Content ABG Base Excess Tony Test O2 Delivery Device Oxygen Flow Rate Vent Mode Vent Rate Mechanical Rate Pressure Support Vent Sodium Potassium Chloride Carbon Dioxide Anion Gap BUN Creatinine Est GFR (CKD-EPI)AfAm Est GFR (CKD-EPI)NonAf POC Glucometer 341 Random Glucose Serum Osmolality Lactic Acid Calcium Phosphorus Magnesium Total Bilirubin AST ALT Alkaline Phosphatase Ammonia Creatine Kinase Creatine Kinase Index CK-MB (CK-2) Troponin I 0.10 H B-Natriuretic Peptide Total Protein Albumin Beta-Hydroxybutyrate Urine Color Urine Appearance Urine pH Ur Specific [place] Urine Protein Urine Glucose (UA) Urine Ketones Urine Blood Urine Nitrite Urine Bilirubin Urine Urobilinogen Ur Leukocyte Esterase Urine WBC (Auto) Urine RBC (Auto) Urine Casts (Auto) U Epithel Cells (Auto) Urine Bacteria (Auto) Opiates Screen Methadone Screen Barbiturate Screen Phencyclidine Screen Ur Amphetamines Screen MDMA (Ecstasy) Screen Benzodiazepines Screen Cocaine Screen U Marijuana (THC) Screen 09/08/19 09/08/19 09/08/19 22:20 22:20 22:20 WBC 10.1 H RBC 5.47 Hgb 16.9 Hct 50.3 H D MCV 91.9 MCH 30.8 MCHC 33.5 RDW 14.5 Plt Count 188 D MPV 9.0 Absolute Neuts (auto) 7.1 Neutrophils % 70.0 Lymphocytes % 21.1 D Monocytes % 7.8 Eosinophils % 0.0 D Basophils % 1.1 Nucleated RBC % 0 PT with INR INR PTT (Actin FS) Anticoagulation Therapy Puncture Site ABG pH ABG pCO2 at Pt Temp ABG pO2 at Pt Temp ABG HCO3 ABG O2 Sat (Measured) ABG O2 Content ABG Base Excess Tony Test O2 Delivery Device Oxygen Flow Rate Vent Mode Vent Rate Mechanical Rate Pressure Support Vent Sodium 141 Potassium 4.3 Chloride 106 Carbon Dioxide 22 Anion Gap 13 BUN 30.2 H Creatinine 1.2 Est GFR (CKD-EPI)AfAm 66.26 Est GFR (CKD-EPI)NonAf 57.17 POC Glucometer Random Glucose 376 H Serum Osmolality Lactic Acid 2.3 H* Calcium 8.7 Phosphorus Magnesium Total Bilirubin 0.6 AST 22 ALT 25 Alkaline Phosphatase 94 Ammonia Creatine Kinase 316 H Creatine Kinase Index 1.3 CK-MB (CK-2) 4.3 H Troponin I B-Natriuretic Peptide Total Protein 6.4 Albumin 2.9 L Beta-Hydroxybutyrate 27.2 H Urine Color Urine Appearance Urine pH Ur Specific Bradford Urine Protein Urine Glucose (UA) Urine Ketones Urine Blood Urine Nitrite Urine Bilirubin Urine Urobilinogen Ur Leukocyte Esterase Urine WBC (Auto) Urine RBC (Auto) Urine Casts (Auto) U Epithel Cells (Auto) Urine Bacteria (Auto) Opiates Screen Methadone Screen Barbiturate Screen Phencyclidine Screen Ur Amphetamines Screen MDMA (Ecstasy) Screen Benzodiazepines Screen Cocaine Screen U Marijuana (THC) Screen 09/08/19 09/09/19 09/09/19 23:20 02:17 02:20 WBC RBC Hgb Hct MCV MCH MCHC RDW Plt Count MPV Absolute Neuts (auto) Neutrophils % Lymphocytes % Monocytes % Eosinophils % Basophils % Nucleated RBC % PT with INR INR PTT (Actin FS) Anticoagulation Therapy Puncture Site ABG pH ABG pCO2 at Pt Temp ABG pO2 at Pt Temp ABG HCO3 ABG O2 Sat (Measured) ABG O2 Content ABG Base Excess Tony Test O2 Delivery Device Oxygen Flow Rate Vent Mode Vent Rate Mechanical Rate Pressure Support Vent Sodium Potassium Chloride Carbon Dioxide Anion Gap BUN Creatinine Est GFR (CKD-EPI)AfAm Est GFR (CKD-EPI)NonAf POC Glucometer Random Glucose Serum Osmolality Lactic Acid 2.3 H* Calcium Phosphorus Magnesium Total Bilirubin AST ALT Alkaline Phosphatase Ammonia Creatine Kinase Creatine Kinase Index CK-MB (CK-2) Troponin I 0.11 H B-Natriuretic Peptide 1345.4 H Total Protein Albumin Beta-Hydroxybutyrate Urine Color Yellow Urine Appearance Clear Urine pH 5.0 Ur Specific Bradford 1.035 Urine Protein 1+ H Urine Glucose (UA) 3+ H Urine Ketones 2+ H Urine Blood Negative Urine Nitrite Negative Urine Bilirubin Negative Urine Urobilinogen 1.0 Ur Leukocyte Esterase Negative Urine WBC (Auto) 1 Urine RBC (Auto) 4 Urine Casts (Auto) 4 U Epithel Cells (Auto) 0.5 Urine Bacteria (Auto) 1.2 Opiates Screen Methadone Screen Barbiturate Screen Phencyclidine Screen Ur Amphetamines Screen MDMA (Ecstasy) Screen Benzodiazepines Screen Cocaine Screen U Marijuana (THC) Screen 09/09/19 09/09/19 09/09/19 05:54 05:54 06:38 WBC 11.0 H RBC 5.28 Hgb 16.1 Hct 48.9 MCV 92.7 MCH 30.5 MCHC 32.9 RDW 14.4 Plt Count 169 MPV 8.7 Absolute Neuts (auto) 8.4 H Neutrophils % 76.7 Lymphocytes % 14.9 D Monocytes % 7.7 Eosinophils % 0.0 Basophils % 0.7 Nucleated RBC % 0 PT with INR INR PTT (Actin FS) Anticoagulation Therapy No Result Required. Puncture Site Right radial ABG pH 7.41 ABG pCO2 at Pt Temp 37.7 ABG pO2 at Pt Temp 166 H ABG HCO3 23.6 ABG O2 Sat (Measured) 98.8 H ABG O2 Content No Result Required. ABG Base Excess -0.2 Tony Test Positive O2 Delivery Device No Result Required. Oxygen Flow Rate 100% Vent Mode No Result Required. Vent Rate No Result Required. Mechanical Rate No Result Required. Pressure Support Vent No Result Required. Sodium 142 Potassium 4.3 Chloride 109 H Carbon Dioxide 24 Anion Gap 9 BUN 29.4 H Creatinine 1.1 Est GFR (CKD-EPI)AfAm 73.61 Est GFR (CKD-EPI)NonAf 63.51 POC Glucometer Random Glucose 340 H Serum Osmolality Lactic Acid Calcium 8.3 L Phosphorus 2.7 Magnesium 2.1 Total Bilirubin 0.6 AST 27 ALT 24 Alkaline Phosphatase 84 Ammonia Creatine Kinase Creatine Kinase Index CK-MB (CK-2) Troponin I B-Natriuretic Peptide Total Protein 6.0 L Albumin 2.7 L Beta-Hydroxybutyrate Urine Color Urine Appearance Urine pH Ur Specific Bradford Urine Protein Urine Glucose (UA) Urine Ketones Urine Blood Urine Nitrite Urine Bilirubin Urine Urobilinogen Ur Leukocyte Esterase Urine WBC (Auto) Urine RBC (Auto) Urine Casts (Auto) U Epithel Cells (Auto) Urine Bacteria (Auto) Opiates Screen Methadone Screen Barbiturate Screen Phencyclidine Screen Ur Amphetamines Screen MDMA (Ecstasy) Screen Benzodiazepines Screen Cocaine Screen U Marijuana (THC) Screen 09/09/19 09/09/19 11:40 11:40 WBC RBC Hgb Hct MCV MCH MCHC RDW Plt Count MPV Absolute Neuts (auto) Neutrophils % Lymphocytes % Monocytes % Eosinophils % Basophils % Nucleated RBC % PT with INR INR PTT (Actin FS) Anticoagulation Therapy Puncture Site ABG pH ABG pCO2 at Pt Temp ABG pO2 at Pt Temp ABG HCO3 ABG O2 Sat (Measured) ABG O2 Content ABG Base Excess Tony Test O2 Delivery Device Oxygen Flow Rate Vent Mode Vent Rate Mechanical Rate Pressure Support Vent Sodium 147 H Potassium 3.9 Chloride 112 H Carbon Dioxide 26 Anion Gap 9 BUN 25.3 H Creatinine 0.9 Est GFR (CKD-EPI)AfAm 93.82 Est GFR (CKD-EPI)NonAf 80.95 POC Glucometer Random Glucose 88 Serum Osmolality Lactic Acid 2.0 Calcium 8.8 Phosphorus Magnesium Total Bilirubin 0.6 AST 18 ALT 23 Alkaline Phosphatase 88 Ammonia Creatine Kinase Creatine Kinase Index CK-MB (CK-2) Troponin I B-Natriuretic Peptide Total Protein 6.4 Albumin 2.8 L Beta-Hydroxybutyrate Urine Color Urine Appearance Urine pH Ur Specific Bradford Urine Protein Urine Glucose (UA) Urine Ketones Urine Blood Urine Nitrite Urine Bilirubin Urine Urobilinogen Ur Leukocyte Esterase Urine WBC (Auto) Urine RBC (Auto) Urine Casts (Auto) U Epithel Cells (Auto) Urine Bacteria (Auto) Opiates Screen Methadone Screen Barbiturate Screen Phencyclidine Screen Ur Amphetamines Screen MDMA (Ecstasy) Screen Benzodiazepines Screen Cocaine Screen U Marijuana (THC) Screen Sinus rhythm with PVC, poor R progression, inferior infarct Imaging - Results Chest X-ray: Report Reviewed (Unremarkable) Cat Scan: Report Reviewed (Head CT noted) EKG: Report Reviewed Problem List - Problems (1) CAD (coronary artery disease) Code(s): I25.10 - ATHSCL HEART DISEASE OF [place] CORONARY ARTERY W/O ANG PCTRS (2) History of percutaneous coronary intervention Code(s): Z98.61 - CORONARY ANGIOPLASTY STATUS (3) T2DM (type 2 diabetes mellitus) Code(s): E11.9 - TYPE 2 DIABETES MELLITUS WITHOUT COMPLICATIONS (4) HTN (hypertension) Code(s): I10 - ESSENTIAL (PRIMARY) HYPERTENSION (5) Hypercholesterolemia Code(s): E78.00 - PURE HYPERCHOLESTEROLEMIA, UNSPECIFIED (6) Cerebrovascular accident (CVA) Code(s): I63.9 - CEREBRAL INFARCTION, UNSPECIFIED (7) Altered mental state Code(s): R41.82 - ALTERED MENTAL STATUS, UNSPECIFIED (8) Elevated troponin Code(s): R79.89 - OTHER SPECIFIED ABNORMAL FINDINGS OF BLOOD CHEMISTRY (9) Hyperglycemia Code(s): R73.9 - HYPERGLYCEMIA, UNSPECIFIED (10) Lactic acidosis Code(s): E87.2 - ACIDOSIS Assessment/Plan 1. Altered mental status - rule out CVA 2. CAD history of PCI/stent, angina pectoris 3. LV systolic dysfunction s/p ICD ([facility]) 4. HTN 5. Hypercholesterolemia 6. DM (Insulin requiring) 7. Demand ischemia PLAN: 1. Neuro input to follow 2. Head CTA done, official report to follow 3. Cannot do MRI due to ICD 4. Beta kevin can be used - IV Lopressor if needed. IV Hydralazine can be used for BP management. When able to take PO, restart Carvedilol and Ramipril 5. ICD interrogation (call [facility]) to check for arrhythmia 6. Trend troponin 7. DM management 8. Echocardiography to assess LV/RV and valvular function [place] Deckhand: Neville Dinh MD ([facility]) Jose Ladd MD
--- NOTE | 2019-09-09 14:43 | EKG ---
Test Reason : Blood Pressure : / mmHG Vent. Rate : 089 BPM Atrial Rate : 089 BPM P-R Int : 180 ms QRS Dur : 094 ms QT Int : 386 ms P-R-T Axes : 059 -22 121 degrees QTc Int : 469 ms SINUS RHYTHM WITH PREMATURE VENTRICULAR COMPLEXES INFERIOR INFARCT (CITED ON OR BEFORE 23-APR-2017) ABNORMAL ECG WHEN COMPARED WITH ECG OF 08-SEP-2019 22:04, NO SIGNIFICANT CHANGE WAS FOUND Confirmed by CYNTHIA ALCANTAR MD ([id number]) on 09/09/2019 2:42:42 PM Referred By: Confirmed By:CYNTHIA ALCANTAR MD
[2019-09-09] MEDS ORDERED: HEPARIN NA (PORCINE) 5,000 UNITS/ML 1ML VIAL ONE (14:51)
[2019-09-09] MEDS ORDERED: hydrALAZINE HCL 20 MG/ML VIAL IVPUSH PRN ×2 (14:53→23:31)
[2019-09-09] MEDS: HEPARIN NA (PORCINE) 5,000 UNITS/ML 1ML VIAL SQ SCH (15:19)
[2019-09-09 17:43] LABS: COCAINE, UR NEGATIVE ng/ml (CUTOFF=300); METHADONE, UR NEGATIVE ng/ml (CUTOFF=300); OPIATES, URI NEGATIVE ng/ml (CUTOFF=300); PHENCYCLIDINE,URINE NEGATIVE ng/ml (CUTOFF=25); URINE AMPHETAMINES NEGATIVE ng/ml (CUTOFF=500); URINE BARBITURATES NEGATIVE ng/ml (CUTOFF=200); URINE BENZODIAZEPINES NEGATIVE ng/ml (CUTOFF=200)
--- NOTE | 2019-09-09 17:46 | PN ---
Progress Note (short form) - Note Progress Note: ID CONSULT DICTATED APPARENT SYNCOPE, ALTERED MENTAL STATUS ? CARDIAC EVENT ? CVA ? TOXIC METABOLIC ? SOCIOLOGY PROFESSOR INFECTION ? HSV ENCEPHALITIS OBTAIN C/S LP SPECIMEN FOR CELL COUNT, C/S, HSV PCR NEUROLOGY EVALUATION EMPIRIC CEFTRIAXONE/ ACYCLOVIR
[2019-09-09] MEDS: ACYCLOVIR INJECTION 750 MG in DEXTROSE 5%-WATER - 100 ML IVPB SCH (19:13)
--- NOTE | 2019-09-09 19:26 | CONS ---
DATE OF CONSULTATION: 09/09/2019 HISTORY OF PRESENT ILLNESS: The patient is a 79-year-old male evaluated for possible sepsis. History was obtained from the chart as well as from family members present at the time of the examination. The patient is unable to give a history. He was brought to the emergency room on September 08, 2019 after he was found on the floor in his residence. According to the notes and the family members, he had been found unresponsive in his residence with fecal incontinence and dried blood on his lip. The last known contact with him was approximately three days prior to admission. EMS reported his blood sugar to be 400. He was transferred to the emergency room where he was evaluated. A CAT scan of the head was negative for acute infarct or bleed. He was found to have uncontrolled diabetes mellitus and hypertension. The patient's blood sugar on admission was 376 and his blood pressure was elevated. He was evaluated in the emergency room where he was not verbally responsive. He attempted to open his eyes when being spoken to. However, no purposeful movement. Family was in attendance at the bedside and states this is a departure from his baseline mental status. The family was unable to give any additional history. No reports of any recent febrile illness, breathing difficulties, cough, vomiting, diarrhea, urinary tract symptoms, skin infections, insect or animal bites or scratches or ill contacts. PAST MEDICAL HISTORY: Positive for coronary artery disease. He has had multiple coronary artery stents, hypertension, hyperlipidemia, insulin-dependent diabetes mellitus. PAST SURGICAL HISTORY: Status post permanent pacemaker, Achilles tendon repair. ALLERGIES: No known drug allergies. MEDICATIONS: Allopurinol, aspirin, Coreg, colchicine, Altace, Glucophage, insulin. SOCIAL HISTORY: According to the family, he resides at home by himself. 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 There is no documented tobacco or alcohol use history. REVIEW OF SYSTEMS: Neurologic: As per HPI. Cardiac: As per HPI. Respiratory: Negative cough or sputum production. Gastrointestinal: Negative for vomiting. Positive for fecal incontinence. Genitourinary: Negative for urinary tract infection. LABORATORY DATA: White count 11.0, 76 neutrophils, 14 lymphocytes, 7 monocytes. Hematocrit 48.9, platelet count 169, creatinine 0.9. Urinalysis showed one white cell. Toxicology screen is negative. A CAT scan of the head is negative for acute infarct or bleed. A chest x-ray is negative for infiltrate. PHYSICAL EXAMINATION: General: He is poorly responsive. He attempts to open his eyes with verbal stimulus. He is in no acute respiratory distress. Vital Signs: Temperature 97.3, blood pressure 157/90, pulse 76 and regular, respiratory rate 20 per minute. HEENT: Sclerae anicteric. There is some hyperemia present in the left corner of the mouth, possibly herpetic. Neck: Supple. Heart: Heart sounds S1, S2. Lungs: Grossly clear. Poor inspiratory effort. Abdomen: Soft. No tenderness elicited. No suprapubic tenderness. Extremities: Negative for edema. IMPRESSION: 1. Apparent syncopal episode/altered mental status. 2. Rule out cardiac event. 3. Rule out cerebrovascular accident. 4. Possible toxic metabolic encephalopathy. 5. Rule out ORTHOPEDIC DENTIST infection; less likely. PLAN: 1. Obtain cultures. 2. In light of his altered mental status without obvious infectious focus, would obtain spinal fluid for analysis. 3. Obtain cell count, chemistries, cultures and herpes simplex PCR. 4. Would obtain neurology evaluation. 5. Empiric antibiotic coverage with ceftriaxone and acyclovir. The case was discussed with the patient's family present at the time of the examination. Thank you for the kind referral. RENÉ SILVERIO M.D. [id number]
--- NOTE | 2019-09-09 21:01 | CONSULT ---
Consult - text type - Consultation Consultation Note: NEUROLOGY CONSULTATION is greatly appreciated: Events reviewed and discussed with Dr. Monk. Dr. Solomon's consult read and appreciated. Patient exanined with his partner of 30 years at the bedside. 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 Walk with cane. His partner describes poor recent control of diabetes and a recent burn/ infection in the left great toe. Maintained on: Allopurinal, colchicine, carvedilol, zetia, simvastatin, niacin, L-thyroxin, effient, ramipril and metformin He was last contacted, by phone by friends in [place] on Wed. On and Wednesday he could not be reached at home and was found, by his son, unresponsive with bleeding left lip and in urine and feces. CT of brain (reviewed): Moderate, diffuse atrophy and multiple, cortical and cerebellar infarcts. CTA: Thickening of intracranial carotids Blood cultures x 2 ++ Gram + cocci. Now on Ceftriaxone, vancomicin and acyclovir. EDD: Neck supple. Neg Kernigs. Left great toe abscess? Atrophic changes both legs. NEURO: Opens eyes to sternal pressure PE3 RRL. Full EOPM's to doll's head Corneals +/+ Flacid. Areflexic. Plantars silent. No withdrawal to pinch. IMP: Severe B/L cerebral Dysfunction Severe Toxic-metabolic encephalopathy due to Gram + Sepsis/dehydration/ hyperglycemia. Cannot exclude anoxic insult as well. Possible seizure (but no clinical evidence for ongoing seizures/status). SUGGEST: Continue antibiotics, hydration Admit ICU. Prognosis guarded. Thank you very much, Kenneth Love MD
--- NOTE | 2019-09-09 23:15 | EKG ---
Test Reason : Blood Pressure : / mmHG Vent. Rate : 089 BPM Atrial Rate : 089 BPM P-R Int : 172 ms QRS Dur : 088 ms QT Int : 386 ms P-R-T Axes : 060 -25 106 degrees QTc Int : 469 ms SINUS RHYTHM WITH OCCASIONAL PREMATURE VENTRICULAR COMPLEXES POSSIBLE LEFT ATRIAL ENLARGEMENT INFERIOR INFARCT (CITED ON OR BEFORE 23-APR-2017) ANTERIOR INFARCT (CITED ON OR BEFORE 23-APR-2017) ABNORMAL ECG WHEN COMPARED WITH ECG OF 23-APR-2017 20:46, NO SIGNIFICANT CHANGE WAS FOUND Confirmed by CYNTHIA ALCANTAR MD ([id number]) on 09/09/2019 11:14:44 PM Referred By: Confirmed By:CYNTHIA ALCANTAR MD
[2019-09-10] MEDS: CHLORHEXIDINE GLUCONATE 4% CLEANSER FOR DECOLONIZATION TP SCH ×2 (00:15→21:25)
[2019-09-10] MEDS: MUPIROCIN 2% TOPICAL OINTMENT FOR DECOLONIZATION NS SCH ×3 (00:15→21:24)
[2019-09-10] MEDS: HEPARIN NA (PORCINE) 5,000 UNITS/ML 1ML VIAL SQ SCH ×4 (00:16→21:26)
[2019-09-10] MEDS: INSULIN SLIDING SCALE (NOVOLOG) 1 VIAL SQ SCH ×7 (00:17→21:52)
[2019-09-10] MEDS: VANCOMYCIN 1 GRAM (PRE-DOCKED) 1,000 MG/250 ML BAG IVPB SCH ×3 (00:48→16:28)
[2019-09-10] MEDS: ACYCLOVIR INJECTION 750 MG in DEXTROSE 5%-WATER - 100 ML IVPB SCH (02:00)
[2019-09-10 07:21] LABS: BASO % 0.4 % (0-2.0); EOS % 0.1 % (0-4.5); HEMATOCRIT 46.3 % (35.4-49); HEMOGLOBIN 15.4 GM/dL (11.7-16.9); LYMPH % 19.8 % (8-40); MCH 30.8 pg (25.7-33.7); MCHC 33.2 g/dl (32.0-35.9); MEAN CELL VOLUME 92.7 fl (80-96); MEAN PLT VOLUME 9.1 fl (7.5-11.1); MONO % 8.5 % (3.8-10.2); NEUT % 71.2 % (42.8-82.8); PLATELET COUNT 165 K/MM3 (134-434); RBC 4.99 M/mm3 (4.00-5.60); RDW 14.4 % (11.9-15.9); WHITE BLOOD COUNT 8.9 K/mm3 (4.0-10.0)
[2019-09-10 07:44] LABS: ALBUMIN 2.4 g/dl (3.4-5.0); BILIRUBIN,TOTAL 0.5 mg/dL (0.2-1); BLOOD UREA NITROGEN 19.3 mg/dL (7-18); CALCIUM 8.2 mg/dL (8.5-10.1); MAGNESIUM 2.1 mg/dL (1.8-2.4); PHOSPHOROUS 2.2 mg/dL (2.5-4.9); POTASSIUM 3.4 mmol/L (3.5-5.1); TOT PROT 5.6 g/dl (6.4-8.2)
[2019-09-10] MEDS ORDERED: DEXTROSE 5%-WATER 100 ML IVPB ONE (09:37)
[2019-09-10] MEDS ORDERED: PT OWN MED DRAWER 7, Y5N ONE (09:38)
--- NOTE | 2019-09-10 09:38 | PN ---
Teaching Attending Note Name of Resident: Lg Wallace ATTENDING PHYSICIAN STATEMENT I saw and evaluated the patient. I reviewed the resident's note and discussed the case with the resident. I agree with the resident's findings and plan as documented. SUBJECTIVE: Patient seen and examined in the ICU. Eyes are open and intermittently tracking but does not follow commands. Noted poly-microbial bacteremia. GENERAL: somnolent, opens his eyes. does not follow command. HEAD: Normal with no signs of trauma. EYES: Pupils equal, round and reactive to light, conjunctiva clear. EARS, NOSE, THROAT: dry mucous membranes. NECK: (-) JVD LUNGS: Clear HEART: RRR, no MGR ABDOMEN: soft, no grimacing to palpation LOWER EXTREMITIES: 2+ pulses, No peripheral edema. +dry ulcer on 1st toe NEUROLOGICAL: somnolent, non-focal ASSESSMENT/PLAN: Sepsis due Poly-micorbial bacteremia likely due to a skin source Acute metabolic encephalopathy Lactic acidosis, Normal Anion gap Elevated troponin Uncontrolled DM HTN History of CAD S/P pacemaker Rhabdomyolysis Hyperglycemia: Not DKA or Hyperosmolar state due to hyperglycemia ABX per ID Follow Neuro exam Glycemic control with SQ Insulin O2 as needed to maintain saturation ECHO Monitor lytes IVF VTE prophylaxis Aspiration precautions Dr Saravia
--- NOTE | 2019-09-10 09:40 | PN ---
Physical Exam: SUBJECTIVE: Patient seen and examined - Patient unable to verbalize at this time however more alert. OBJECTIVE: Vital Signs Period Temp Pulse Resp BP Sys/Dickerson Pulse Ox Last 24 Hr 97.3 F-99.5 F 74-100 17-20 131-172/70-95 100-100 GENERAL: The patient is awake, alert, in no acute distress. HEAD: Normal with no signs of trauma. EYES: PERRL, extraocular movements intact, sclera anicteric, conjunctiva clear. No ptosis. ENT: Ears normal, nares patent, oropharynx clear without exudates, moist mucous membranes. NECK: Trachea midline, full range of motion, supple. LUNGS: Breath sounds equal, clear to auscultation bilaterally, no wheezes, no crackles, no accessory muscle use. HEART: Regular rate and rhythm, S1, S2 without murmur, rub or gallop. ABDOMEN: Soft, nontender, nondistended, normoactive bowel sounds, no guarding, no rebound, no hepatosplenomegaly, no masses. EXTREMITIES: Wound noted to LLE. 2+ pulses, warm, well-perfused, no edema. NEUROLOGICAL: Unable to assess fully PSYCH: Unable to assess fully SKIN: Warm, dry Laboratory Results - last 24 hr 09/09/19 09/09/19 09/09/19 09:39 11:10 11:11 WBC RBC Hgb Hct MCV MCH MCHC RDW Plt Count MPV Absolute Neuts (auto) Neutrophils % Lymphocytes % Monocytes % Eosinophils % Basophils % Nucleated RBC % Sodium Potassium Chloride Carbon Dioxide Anion Gap BUN Creatinine Est GFR (CKD-EPI)AfAm Est GFR (CKD-EPI)NonAf POC Glucometer 126 77 Random Glucose Lactic Acid Calcium Phosphorus Magnesium Total Bilirubin AST ALT Alkaline Phosphatase Ammonia 14.10 Total Protein Albumin Opiates Screen Methadone Screen Barbiturate Screen Phencyclidine Screen Ur Amphetamines Screen MDMA (Ecstasy) Screen Benzodiazepines Screen Cocaine Screen U Marijuana (THC) Screen 09/09/19 09/09/19 09/09/19 11:40 11:40 14:56 WBC RBC Hgb Hct MCV MCH MCHC RDW Plt Count MPV Absolute Neuts (auto) Neutrophils % Lymphocytes % Monocytes % Eosinophils % Basophils % Nucleated RBC % Sodium 147 H Potassium 3.9 Chloride 112 H Carbon Dioxide 26 Anion Gap 9 BUN 25.3 H Creatinine 0.9 Est GFR (CKD-EPI)AfAm 93.82 Est GFR (CKD-EPI)NonAf 80.95 POC Glucometer 183 Random Glucose 88 Lactic Acid 2.0 Calcium 8.8 Phosphorus Magnesium Total Bilirubin 0.6 AST 18 ALT 23 Alkaline Phosphatase 88 Ammonia Total Protein 6.4 Albumin 2.8 L Opiates Screen Methadone Screen Barbiturate Screen Phencyclidine Screen Ur Amphetamines Screen MDMA (Ecstasy) Screen Benzodiazepines Screen Cocaine Screen U Marijuana (THC) Screen 09/09/19 09/09/19 09/10/19 16:55 17:23 04:07 WBC RBC Hgb Hct MCV MCH MCHC RDW Plt Count MPV Absolute Neuts (auto) Neutrophils % Lymphocytes % Monocytes % Eosinophils % Basophils % Nucleated RBC % Sodium Potassium Chloride Carbon Dioxide Anion Gap BUN Creatinine Est GFR (CKD-EPI)AfAm Est GFR (CKD-EPI)NonAf POC Glucometer 170 295 Random Glucose Lactic Acid Calcium Phosphorus Magnesium Total Bilirubin AST ALT Alkaline Phosphatase Ammonia Total Protein Albumin Opiates Screen Negative Methadone Screen Negative Barbiturate Screen Negative Phencyclidine Screen Negative Ur Amphetamines Screen Negative MDMA (Ecstasy) Screen Negative Benzodiazepines Screen Negative Cocaine Screen Negative U Marijuana (THC) Screen Negative 09/10/19 09/10/19 09/10/19 06:10 06:10 06:31 WBC 8.9 RBC 4.99 Hgb 15.4 Hct 46.3 MCV 92.7 MCH 30.8 MCHC 33.2 RDW 14.4 Plt Count 165 MPV 9.1 Absolute Neuts (auto) 6.3 Neutrophils % 71.2 Lymphocytes % 19.8 D Monocytes % 8.5 Eosinophils % 0.1 D Basophils % 0.4 Nucleated RBC % 0 Sodium 145 Potassium 3.4 L Chloride 112 H Carbon Dioxide 24 Anion Gap 9 BUN 19.3 H Creatinine 1.0 Est GFR (CKD-EPI)AfAm 82.60 Est GFR (CKD-EPI)NonAf 71.27 POC Glucometer 255 Random Glucose 252 H Lactic Acid Calcium 8.2 L Phosphorus 2.2 L Magnesium 2.1 Total Bilirubin 0.5 AST 46 H ALT 24 Alkaline Phosphatase 82 Ammonia Total Protein 5.6 L Albumin 2.4 L Opiates Screen Methadone Screen Barbiturate Screen Phencyclidine Screen Ur Amphetamines Screen MDMA (Ecstasy) Screen Benzodiazepines Screen Cocaine Screen U Marijuana (THC) Screen Active Medications Generic Name Dose Route Start Last Admin Trade Name Freq PRN Reason Stop Dose Admin Acetaminophen 1,000 mg 09/09/19 23:31 Ofirmev Injection - IVPB Q6H PRN fever 100.4 Chlorhexidine Gluconate 1 applic 09/09/19 22:00 09/10/19 00:15 Hibiclens For Decolonization - TP Not Given HS [facility]AD[facility] Heparin Sodium (Porcine) 5,000 unit 09/10/19 06:00 09/10/19 06:15 Heparin - SQ 5,000 unit TID [facility]AD[facility] Administration Hydralazine HCl 10 mg 09/09/19 23:31 Apresoline Injection - IVPUSH Q6H PRN HYPERTENSION Acyclovir 750 mg/ Dextrose 115 mls @ 100 mls/hr 09/09/19 18:00 09/10/19 02:00 IVPB 100 mls/hr Q8H-IV [facility]AD[facility] Administration Ceftriaxone Sodium 2 gm/ 100 mls @ 200 mls/hr 09/10/19 10:00 Dextrose IVPB DAILY [facility] Protocol Vancomycin HCl 1,000 mg in 250 mls @ 166.667 mls/hr 09/10/19 01:00 09/10/19 00:48 Vancomycin (Pre-Docked) IVPB 166.667 mls/hr Q12H [facility] Administration Protocol Insulin Aspart 1 vial 09/10/19 02:00 09/10/19 06:33 Novolog Vial Sliding Scale - SQ 6 units Q4HPO [facility] Administration Protocol Mupirocin 1 applic 09/09/19 22:00 09/10/19 00:15 Bactroban Ointment (For Decolonization) - NS 09/14/19 21:59 Not Given BID [facility] ASSESSMENT/PLAN: #AMS #Bacteremia #Hyperglycemia #CAD #IDDM -Neurology consulting -ABX per ID recs -IVF -Glycemic control w/ Insulin SQ -Cardiology on board -Maintain O2% >90% Visit type - Emergency Visit Emergency Visit: Yes ED Registration Date: 09/09/19 Care time: The patient presented to the Emergency Department on the above date and was hospitalized for further evaluation of their emergent condition. - New Patient This patient is new to me today: Yes Date on this admission: 09/10/19 - Critical Care Critical Care patient: Yes Total Critical Care Time (in minutes): 38 Critical Care Statement: The care of this patient involved high complexity decision making to prevent further life threatening deterioration of the patient 's condition and/or to evaluate & treat vital organ system(s) failure or risk of failure. ATTENDING PHYSICIAN STATEMENT I saw and evaluated the patient. I reviewed the resident's note and discussed the case with the resident. I agree with the resident's findings and plan as documented. SUBJECTIVE: OBJECTIVE: ASSESSMENT AND PLAN:
[2019-09-10] MEDS: CEFTRIAXONE 2 GM in DEXTROSE 5%-WATER 100 ML IVPB SCH (09:44)
[2019-09-10] MEDS ORDERED: ACYCLOVIR INJECTION 750 MG in DEXTROSE 5%-WATER - 250 ML IVPB SCH (10:00)
[2019-09-10] MEDS: KCL 10 MEQ IVPB 10 MEQ/100 ML INFUS.BAG IVPB SCH ×3 (10:00→12:30)
[2019-09-10] MEDS ORDERED: CEFTRIAXONE 2 GM in DEXTROSE 5%-WATER 100 ML IVPB SCH (10:00)
--- NOTE | 2019-09-10 10:19 | PN ---
Progress Note, Physician Chief Complaint: Remains in ICU. Opens his eyes, but not fully responding to commands Not moving both upper and lower extremities. History of Present Illness: Patient was seen and examined in ICU. Chart was reviewed - Current Medication List Current Medications: Active Medications Acetaminophen (Ofirmev Injection -) 1,000 mg IVPB Q6H PRN PRN Reason: fever 100.4 Chlorhexidine Gluconate (Hibiclens For Decolonization -) 1 applic TP HS [facility] Last Admin: 09/10/19 00:15 Dose: Not Given Heparin Sodium (Porcine) (Heparin -) 5,000 unit SQ TID [facility] Last Admin: 09/10/19 06:15 Dose: 5,000 unit Hydralazine HCl (Apresoline Injection -) 10 mg IVPUSH Q6H PRN PRN Reason: HYPERTENSION Ceftriaxone Sodium 2 gm/ (Dextrose) 100 mls @ 200 mls/hr IVPB DAILY [facility]; Protocol Last Admin: 09/10/19 09:44 Dose: 200 mls/hr Vancomycin HCl (Vancomycin (Pre-Docked)) 1,000 mg in 250 mls @ 166.667 mls/hr IVPB Q12H [facility]; Protocol Last Admin: 09/10/19 00:48 Dose: 166.667 mls/hr Acyclovir 750 mg/ Dextrose 265 mls @ 265 mls/hr IVPB Q8H-IV [facility] Potassium Chloride (Potassium Chloride 10 Meq Premix Ivpb -) 10 meq in 100 mls @ 100 mls/hr IVPB Q60M [facility] Stop: 09/10/19 12:59 Insulin Aspart (Novolog Vial Sliding Scale -) 1 vial SQ Q4HPO [facility]; Protocol Last Admin: 09/10/19 06:33 Dose: 6 units Mupirocin (Bactroban Ointment (For Decolonization) -) 1 applic NS BID [facility] Stop: 09/14/19 21:59 Last Admin: 09/10/19 00:15 Dose: Not Given - Objective Vital Signs: Vital Signs Temperature 99.0 F 09/10/19 06:24 Pulse Rate 100 H 09/10/19 06:24 Respiratory Rate 17 09/10/19 06:24 Blood Pressure 149/95 09/10/19 06:24 O2 Sat by Pulse Oximetry (%) 100 09/09/19 23:35 Neck: Yes: Supple Cardiovascular: Yes: Regular Rate and Rhythm, S1, S2 Respiratory: Yes: Diminished Gastrointestinal: Yes: Normal Bowel Sounds, Soft. No: Tenderness Labs: CBC, BMP 09/10/19 06:10 09/10/19 06:10 Problem List - Problems (1) CAD (coronary artery disease) Code(s): I25.10 - ATHSCL HEART DISEASE OF [place] CORONARY ARTERY W/O ANG PCTRS (2) History of percutaneous coronary intervention Code(s): Z98.61 - CORONARY ANGIOPLASTY STATUS (3) T2DM (type 2 diabetes mellitus) Code(s): E11.9 - TYPE 2 DIABETES MELLITUS WITHOUT COMPLICATIONS (4) HTN (hypertension) Code(s): I10 - ESSENTIAL (PRIMARY) HYPERTENSION (5) Hypercholesterolemia Code(s): E78.00 - PURE HYPERCHOLESTEROLEMIA, UNSPECIFIED (6) Cerebrovascular accident (CVA) Code(s): I63.9 - CEREBRAL INFARCTION, UNSPECIFIED (7) Altered mental state Code(s): R41.82 - ALTERED MENTAL STATUS, UNSPECIFIED (8) Elevated troponin Code(s): R79.89 - OTHER SPECIFIED ABNORMAL FINDINGS OF BLOOD CHEMISTRY (9) Hyperglycemia Code(s): R73.9 - HYPERGLYCEMIA, UNSPECIFIED (10) Lactic acidosis Code(s): E87.2 - ACIDOSIS Assessment/Plan 1. Altered mental status - toxic metabolic encephalopathy +/- sepsis 2. CAD history of PCI/stent, angina pectoris 3. LV systolic dysfunction s/p ICD ([facility]) 4. HTN 5. Hypercholesterolemia 6. DM (Insulin requiring) 7. Demand ischemia PLAN: 1. Neuro input noted 2. Head CT and CTA report noted 3. Cannot do MRI due to ICD 4. Beta kevin can be used - IV Lopressor if needed. IV Hydralazine can be used for BP management. When able to take PO, restart Carvedilol and Ramipril 5. ICD interrogation (call [facility]) to check for arrhythmia 6. Trend troponin - last 0.11 (09/09/19) 7. DM management 8. Echocardiography to assess LV/RV and valvular function Previous medicare biller: Neville Dinh MD ([facility]) Jose Ladd MD
--- NOTE | 2019-09-10 11:54 | PN ---
Progress Note, Physician History of Present Illness: AWAKE, EYES OPEN NOT VERBALLY RESPONSIVE NO ACUTE DISTRESS AFEBRILE WBC WNL BC STAPH SP ? POLYMICROBIAL WOUND C/S PENDING - Current Medication List Current Medications: Active Medications Acetaminophen (Ofirmev Injection -) 1,000 mg IVPB Q6H PRN PRN Reason: fever 100.4 Chlorhexidine Gluconate (Hibiclens For Decolonization -) 1 applic TP HS [facility] Last Admin: 09/10/19 00:15 Dose: Not Given Heparin Sodium (Porcine) (Heparin -) 5,000 unit SQ TID [facility]AD[facility] Last Admin: 09/10/19 06:15 Dose: 5,000 unit Hydralazine HCl (Apresoline Injection -) 10 mg IVPUSH Q6H PRN PRN Reason: HYPERTENSION Ceftriaxone Sodium 2 gm/ (Dextrose) 100 mls @ 200 mls/hr IVPB DAILY [facility]; Protocol Last Admin: 09/10/19 09:44 Dose: 200 mls/hr Vancomycin HCl (Vancomycin (Pre-Docked)) 1,000 mg in 250 mls @ 166.667 mls/hr IVPB Q12H [facility]; Protocol Last Admin: 09/10/19 00:48 Dose: 166.667 mls/hr Acyclovir 750 mg/ Dextrose 265 mls @ 265 mls/hr IVPB Q8H-IV [facility] Last Admin: 09/10/19 11:01 Dose: 265 mls/hr Potassium Chloride (Potassium Chloride 10 Meq Premix Ivpb -) 10 meq in 100 mls @ 100 mls/hr IVPB Q60M [facility] Stop: 09/10/19 12:59 Insulin Aspart (Novolog Vial Sliding Scale -) 1 vial SQ Q4HPO [facility]; Protocol Last Admin: 09/10/19 11:02 Dose: 2 units Mupirocin (Bactroban Ointment (For Decolonization) -) 1 applic NS BID [facility] Stop: 09/14/19 21:59 Last Admin: 09/10/19 11:01 Dose: 1 applic - Objective Vital Signs: Vital Signs Temperature 99.0 F 09/10/19 06:24 Pulse Rate 100 H 09/10/19 06:24 Respiratory Rate 17 09/10/19 06:24 Blood Pressure 149/95 09/10/19 06:24 O2 Sat by Pulse Oximetry (%) 100 09/09/19 23:35 Constitutional: Yes: No Distress Cardiovascular: Yes: Regular Rate and Rhythm, S1, S2 Respiratory: Yes: Diminished Gastrointestinal: Yes: Normal Bowel Sounds, Soft. No: Tenderness Extremities: Yes: Other (DRY ULCER, SL ERYTHEMA L GREAT TOE) Edema: Yes Edema: LLE: 1+, RLE: 1+ Labs: CBC, BMP 09/10/19 06:10 09/10/19 06:10 INR, PTT INR 1.00 (0.83-1.09) 09/08/19 22:20 Assessment/Plan SEPSIS ? SKIN SOURCE TOXIC METABOLIC ENCEPHALOPATHY ? CVA ? SEPTIC EMBOLI ? CARDIAC EVENT DIABETES MELLITUS CELLUITIS L GREAT TOE AWAIT C/S CONTINUE EMPIRIC VANCOMYCIN/ CEFTRIAXONE REPEAT BC ECHO
--- NOTE | 2019-09-10 12:45 | PN ---
Physical Exam: SUBJECTIVE: Patient seen and examined 79 y/o M, pmh of htn, DM type 2, AR s/p 9 stent placement, presents to the ED s/ p AMS and was found to be septic on admission. Currently, pt is stable, opens eyes and tracks visually. Pt is not talking or responding to command but appears to be aware of surrounding. OBJECTIVE: Vital Signs Period Temp Pulse Resp BP Sys/Dickerson Pulse Ox Last 24 Hr 98.7 F-99.5 F 74-100 17-20 131-172/70-95 100-100 GENERAL: AOx1, in no acute distress. Awake and eyes moving, not responding to command, but does respond to pain EYES: PERRL, extraocular movements intact, sclera anicteric, conjunctiva clear. No ptosis. ENT: oropharynx clear without exudates, dry mucous membranes. NECK: supple. LUNGS: Breath sounds equal, clear to auscultation bilaterally, no wheezes, no crackles, HEART: Regular rate and rhythm, S1, S2 without murmur, rub or gallop. ABDOMEN: Soft, nontender, nondistended, normoactive bowel sounds, no guarding, EXTREMITIES: 2+ pulses, warm, no edema. Left toe wound, cellulitis of the toe NEUROLOGICAL: unable to obtain, pt is responsive to pain but not to command, pt eyes are open. SKIN: Warm, dry Laboratory Results - last 24 hr CBC,CMP WBC 8.9 K/mm3 (4.0-10.0) 09/10/19 06:10 RBC 4.99 M/mm3 (4.00-5.60) 09/10/19 06:10 Hgb 15.4 GM/dL (11.7-16.9) 09/10/19 06:10 Hct 46.3 % (35.4-49) 09/10/19 06:10 MCV 92.7 fl (80-96) 09/10/19 06:10 MCH 30.8 pg (25.7-33.7) 09/10/19 06:10 MCHC 33.2 g/dl (32.0-35.9) 09/10/19 06:10 RDW 14.4 % (11.9-15.9) 09/10/19 06:10 Plt Count 165 K/MM3 (134-434) 09/10/19 06:10 MPV 9.1 fl (7.5-11.1) 09/10/19 06:10 Absolute Neuts (auto) 6.3 K/mm3 (1.5-8.0) 09/10/19 06:10 Neutrophils % 71.2 % (42.8-82.8) 09/10/19 06:10 Lymphocytes % 19.8 % (8-40) D 09/10/19 06:10 Monocytes % 8.5 % (3.8-10.2) 09/10/19 06:10 Eosinophils % 0.1 % (0-4.5) D 09/10/19 06:10 Basophils % 0.4 % (0-2.0) 09/10/19 06:10 Nucleated RBC % 0 % (0-0) 09/10/19 06:10 Sodium 145 mmol/L (136-145) 09/10/19 06:10 Potassium 3.4 mmol/L (3.5-5.1) L 09/10/19 06:10 Chloride 112 mmol/L (98-107) H 09/10/19 06:10 Carbon Dioxide 24 mmol/L (21-32) 09/10/19 06:10 Anion Gap 9 MMOL/L (8-16) 09/10/19 06:10 BUN 19.3 mg/dL (7-18) H 09/10/19 06:10 Creatinine 1.0 mg/dL (0.55-1.3) 09/10/19 06:10 Est GFR (CKD-EPI)AfAm 82.60 09/10/19 06:10 Est GFR (CKD-EPI)NonAf 71.27 09/10/19 06:10 POC Glucometer 174 UNITS (80-120) 09/10/19 10:59 Random Glucose 252 mg/dL (74-106) H 09/10/19 06:10 Serum Osmolality 339 mosm/kg (278-305) H 09/09/19 02:20 Lactic Acid 2.0 mmol/L (0.4-2.0) 09/09/19 11:40 Calcium 8.2 mg/dL (8.5-10.1) L 09/10/19 06:10 Phosphorus 2.2 mg/dL (2.5-4.9) L 09/10/19 06:10 Magnesium 2.1 mg/dL (1.8-2.4) 09/10/19 06:10 Total Bilirubin 0.5 mg/dL (0.2-1) 09/10/19 06:10 AST 46 U/L (15-37) H 09/10/19 06:10 ALT 24 U/L (13-61) 09/10/19 06:10 Alkaline Phosphatase 82 U/L (45-117) 09/10/19 06:10 Ammonia 14.10 umol/L (11-32) 09/09/19 11:10 Creatine Kinase 316 U/L (26-308) H 09/08/19 22:20 Creatine Kinase Index 1.3 % (0.0-5.0) 09/08/19 22:20 CK-MB (CK-2) 4.3 ng/mL (0.5-3.6) H 09/08/19 22:20 Troponin I 0.11 ng/ml (0.00-0.05) H 09/09/19 02:20 B-Natriuretic Peptide 1345.4 pg/ml (5-450) H 09/09/19 02:20 Total Protein 5.6 g/dl (6.4-8.2) L 09/10/19 06:10 Albumin 2.4 g/dl (3.4-5.0) L 09/10/19 06:10 Beta-Hydroxybutyrate 27.2 mg/dL (0.2-2.8) H 09/08/19 22:20 Active Medications Current Medications Acetaminophen (Ofirmev Injection -) 1,000 mg IVPB Q6H PRN PRN Reason: fever 100.4 Chlorhexidine Gluconate (Hibiclens For Decolonization -) 1 applic TP HS [facility]IR Last Admin: 09/10/19 00:15 Dose: Not Given Heparin Sodium (Porcine) (Heparin -) 5,000 unit SQ TID [facility]IR Last Admin: 09/10/19 06:15 Dose: 5,000 unit Hydralazine HCl (Apresoline Injection -) 10 mg IVPUSH Q6H PRN PRN Reason: HYPERTENSION Ceftriaxone Sodium 2 gm/ (Dextrose) 100 mls @ 200 mls/hr IVPB DAILY [facility]; Protocol Last Admin: 09/10/19 09:44 Dose: 200 mls/hr Vancomycin HCl (Vancomycin (Pre-Docked)) 1,000 mg in 250 mls @ 166.667 mls/hr IVPB Q12H [facility]; Protocol Last Admin: 09/10/19 00:48 Dose: 166.667 mls/hr Potassium Chloride (Potassium Chloride 10 Meq Premix Ivpb -) 10 meq in 100 mls @ 100 mls/hr IVPB Q60M [facility] Stop: 09/10/19 12:59 Insulin Aspart (Novolog Vial Sliding Scale -) 1 vial SQ Q4HPO [facility]; Protocol Last Admin: 09/10/19 11:02 Dose: 2 units Mupirocin (Bactroban Ointment (For Decolonization) -) 1 applic NS BID [facility] Stop: 09/14/19 21:59 Last Admin: 09/10/19 11:01 Dose: 1 applic Home Medications Medication Instructions Recorded Allopurinol [Zyloprim] 100 mg PO DAILY 10/26/12 Aspirin [ASA] 81 mg PO DAILY 10/26/12 Carvedilol [Coreg] 25 mg PO BID 10/26/12 Colchicine [Colcrys] 0.6 mg PO DAILY 10/26/12 Ezetimibe/Simvastatin [Vytorin 1 each PO DAILY 10/26/12 10-40 mg Tablet] Folic Acid - 1 mg PO DAILY 10/26/12 Levothyroxine [Synthroid] 175 mcg PO DAILY 10/26/12 Niacin 500 mg PO DAILY 10/26/12 Prasugrel Hydrochloride [Effient] 5 mg PO DAILY 10/26/12 Ramipril [Altace] 10 mg PO BID 10/26/12 metFORMIN HCL [Glucophage] 1,000 mg PO BID 10/26/12 Insulin Glargine,Hum.rec.anlog 100 iu SQ HS 11/02/12 [Lantus (10mL VIAL)] Insulin Lispro [Humalog] 60 iu SQ PC 11/02/12 Microbiology 09/09/19 03:12 Toe - Left Hallux Gram Stain - Final 09/09/19 03:12 Toe - Left Hallux Wound Culture - Preliminary Staphylococcus Latex Coag Pos Pending Organism Streptococcus Viridans 09/08/19 23:20 Urine - Urine Fitzgerald Urine Culture - Final NO GROWTH OBTAINED 09/08/19 22:20 Blood - Peripheral Venous Blood Culture - Preliminary Pending Organism Pending Organism#2 09/08/19 22:20 Blood - Peripheral Venous Blood Culture - Preliminary Pending Organism ASSESSMENT/PLAN: 79 y/o M, pmh of htn, DM type 2, AR s/p 9 stent placement, presents to the ED s/ p AMS, w/ BGM in the 400's and was found to be septic on admission #AMS due to Toxic metabolic encephalopathy likely 2/2 to sepsis in the setting of high sugars, BCx gram positive cocci CT head negative for acute process except for an old small infract cannot do MRI due to pacemaker CTA: atherosclerotic plaques presents b/l carotids, right vertebral artery flow occlusion, multiple chronic supratentorial + infratentorial infarcts presents. Cont ceftriaxone, vancomycin and acyclovir ECHO ordered- will f/u Cardiology, ID and Neuro consult appreciated #Left Toe cellulitis Left toe Wound grows Gram positive coag positive cocci could be source of infection cont Abx #DM SQ insulin monitor BGMs regularly #HTN Beta blockers if needed- IV lopressor Hydralazine also for BP management When tolerating PO- restart Carvedilol and Ramipril #DVT ppx Heparin sq #FEN Aspiration precaution NPO monitor lytes KCL at 100 Dispo: monitor neuro status, f/u ECHO, cont abx, keep fluids running Visit type - Emergency Visit Emergency Visit: Yes ED Registration Date: 09/09/19 Care time: The patient presented to the Emergency Department on the above date and was hospitalized for further evaluation of their emergent condition. - New Patient This patient is new to me today: Yes Date on this admission: 09/10/19 - Critical Care Critical Care patient: No - Discharge Referral Referred to [facility] No ATTENDING PHYSICIAN STATEMENT I saw and evaluated the patient. I reviewed the resident's note and discussed the case with the resident. I agree with the resident's findings and plan as documented. SUBJECTIVE: OBJECTIVE: ASSESSMENT AND PLAN:
--- NOTE | 2019-09-10 12:49 | PN ---
Teaching Attending Note Name of Resident: Vaibhav Foley ATTENDING PHYSICIAN STATEMENT I saw and evaluated the patient. I reviewed the resident's note and discussed the case with the resident. I agree with the resident's findings and plan as documented. SUBJECTIVE: Patient is comfortable, NAD, nonverbal, eyes open, fully awake. Vital Signs Temperature 99.0 F 09/10/19 08:00 Pulse Rate 83 09/10/19 08:00 Respiratory Rate 17 09/10/19 08:00 Blood Pressure 157/79 09/10/19 08:00 O2 Sat by Pulse Oximetry (%) 100 09/09/19 23:35 GENERAL: eyes open , non verbal , in no acute distress. HEAD: Normal with no signs of trauma. EYES: PERRL, extraocular movements intact, sclera anicteric, conjunctiva clear, crust on the left eye. ENT: Ears normal, oropharynx clear without exudates, dry mucus membrane, dried up lips on the right side. NECK: Trachea midline, full range of motion, supple. LUNGS: Breath sounds equal, CTA BL , no wheezes, no crackles, no accessory muscle use. HEART: Regular rate and rhythm, S1, S2 without murmur, rub or gallop. ABDOMEN: Soft, NT, ND, normoactive bowel sounds, no guarding, no rebound, no hepatosplenomegaly, no masses. EXTREMITIES: 2+ pulses, warm, well-perfused, trace edema. left toe ulcer s/p burning his toe. NEUROLOGICAL: Cranial nerves II through XII grossly intact. gait not observed. patient is nonverbal at this time. PSYCH: Unable to access SKIN: Warm, dry, normal turgor, no rashes noted CBCD WBC 11.0 K/mm3 (4.0-10.0) H 09/09/19 05:54 RBC 5.28 M/mm3 (4.00-5.60) 09/09/19 05:54 Hgb 16.1 GM/dL (11.7-16.9) 09/09/19 05:54 Hct 48.9 % (35.4-49) 09/09/19 05:54 MCV 92.7 fl (80-96) 09/09/19 05:54 MCHC 32.9 g/dl (32.0-35.9) 09/09/19 05:54 RDW 14.4 % (11.9-15.9) 09/09/19 05:54 Plt Count 169 K/MM3 (134-434) 09/09/19 05:54 MPV 8.7 fl (7.5-11.1) 09/09/19 05:54 CMP Sodium 142 mmol/L (136-145) 09/09/19 05:54 Potassium 4.3 mmol/L (3.5-5.1) 09/09/19 05:54 Chloride 109 mmol/L (98-107) H 09/09/19 05:54 Carbon Dioxide 24 mmol/L (21-32) 09/09/19 05:54 Anion Gap 9 MMOL/L (8-16) 09/09/19 05:54 BUN 29.4 mg/dL (7-18) H 09/09/19 05:54 Creatinine 1.1 mg/dL (0.55-1.3) 09/09/19 05:54 Random Glucose 340 mg/dL (74-106) H 09/09/19 05:54 Calcium 8.3 mg/dL (8.5-10.1) L 09/09/19 05:54 Total Bilirubin 0.6 mg/dL (0.2-1) 09/09/19 05:54 AST 27 U/L (15-37) 09/09/19 05:54 ALT 24 U/L (13-61) 09/09/19 05:54 Alkaline Phosphatase 84 U/L (45-117) 09/09/19 05:54 Total Protein 6.0 g/dl (6.4-8.2) L 09/09/19 05:54 Albumin 2.7 g/dl (3.4-5.0) L 09/09/19 05:54 CARDIAC ENZYMES Creatine Kinase 316 U/L (26-308) H 09/08/19 22:20 Troponin I 0.11 ng/ml (0.00-0.05) H 09/09/19 02:20 Current Medications Generic Name Dose Route Start Last Admin Trade Name Prema PRN Reason Stop Dose Admin Insulin Human Regular 100 100 mls @ 7.93 mls/hr 09/09/19 04:30 09/09/19 05:23 units/ Sodium Chloride IVPB 0.1 units/kg/hr TITR VLADIMIR 7.93 mls/hr Administration Protocol 0.1 UNITS/KG/HR Potassium Chloride 20 meq/ 1,010 mls @ 100 mls/hr 09/09/19 04:23 09/09/19 05: 23 Sodium Chloride IVPB 100 mls/hr ASDIR [facility] Administration Home Medications Medication Instructions Recorded Allopurinol [Zyloprim] 100 mg PO DAILY 10/26/12 Aspirin [ASA] 81 mg PO DAILY 10/26/12 Carvedilol [Coreg] 25 mg PO BID 10/26/12 Colchicine [Colcrys] 0.6 mg PO DAILY 10/26/12 Ezetimibe/Simvastatin [Vytorin 1 each PO DAILY 10/26/12 10-40 mg Tablet] Folic Acid - 1 mg PO DAILY 10/26/12 Levothyroxine [Synthroid] 175 mcg PO DAILY 10/26/12 Niacin 500 mg PO DAILY 10/26/12 Prasugrel Hydrochloride [Effient] 5 mg PO DAILY 10/26/12 Ramipril [Altace] 10 mg PO BID 10/26/12 metFORMIN HCL [Glucophage] 1,000 mg PO BID 10/26/12 Insulin Glargine,Hum.rec.anlog 100 iu SQ HS 11/02/12 [Lantus (10mL VIAL)] Insulin Lispro [Humalog] 60 iu SQ PC 11/02/12 Microbiology 09/09/19 03:12 Toe - Left Hallux Gram Stain - Final 09/09/19 03:12 Toe - Left Hallux Wound Culture - Preliminary Staphylococcus Latex Coag Pos Pending Organism Streptococcus Viridans 09/08/19 23:20 Urine - Urine Fitzgerald Urine Culture - Final NO GROWTH OBTAINED 09/08/19 22:20 Blood - Peripheral Venous Blood Culture - Preliminary Pending Organism Pending Organism#2 09/08/19 22:20 Blood - Peripheral Venous Blood Culture - Preliminary Pending Organism ASSESSMENT/PLAN: Patient is a 79yom with HTN, DM2, GA s/p stents x 9, and PPM presents with AMS. Last known well was 2 days ago. # Gram + bacteremia, Gram positive clusters in cocci , organism and sensitivity is pending , on Vancomycin/Rocephin IV , ID on the case urine and blood cx pending. on IVF, continue to monitor in ICU, urine tox negative, ammonia level negative. empiric Abx coverage vanco/rocephin/acyclovir as per ID, dr Solomon , echo pending. #Acute change of mental status due to bacteremia , will continue to monitor. CT head negative for acute process, small old infarcts noted, we cannot do MRI due to pacemaker. dr. Love on the case. #DM: s/p IV insulin , hyperglycemic at admission, glucose and ketones in urine, SS scale with coverage -IV NS with insulin and K, monitor BGMs #HTN: continue to monitor the blood pressure. DVT Ppx: SCDs NPO for now.
[2019-09-11] MEDS: INSULIN SLIDING SCALE (NOVOLOG) 1 VIAL SQ SCH ×6 (02:00→21:25)
[2019-09-11] MEDS: VANCOMYCIN 1 GRAM (PRE-DOCKED) 1,000 MG/250 ML BAG IVPB SCH (03:21)
[2019-09-11] MEDS: HEPARIN NA (PORCINE) 5,000 UNITS/ML 1ML VIAL SQ SCH ×3 (05:04→21:25)
[2019-09-11 07:08] LABS: BASO % 0.8 % (0-2.0); EOS % 0.7 % (0-4.5); HEMATOCRIT 46.3 % (35.4-49); HEMOGLOBIN 15.3 GM/dL (11.7-16.9); LYMPH % 24.4 % (8-40); MCH 30.7 pg (25.7-33.7); MCHC 33.1 g/dl (32.0-35.9); MEAN CELL VOLUME 92.9 fl (80-96); MEAN PLT VOLUME 9.7 fl (7.5-11.1); MONO % 7.4 % (3.8-10.2); NEUT % 66.7 % (42.8-82.8); PLATELET COUNT 150 K/MM3 (134-434); RBC 4.98 M/mm3 (4.00-5.60); RDW 14.3 % (11.9-15.9); WHITE BLOOD COUNT 7.9 K/mm3 (4.0-10.0)
[2019-09-11 07:37] LABS: ALBUMIN 2.4 g/dl (3.4-5.0); BILIRUBIN,TOTAL 0.5 mg/dL (0.2-1); BLOOD UREA NITROGEN 16.1 mg/dL (7-18); CALCIUM 8.3 mg/dL (8.5-10.1); CREATININE 0.8 mg/dL (0.55-1.3); MAGNESIUM 1.9 mg/dL (1.8-2.4); PHOSPHOROUS 2.8 mg/dL (2.5-4.9); POTASSIUM 3.5 mmol/L (3.5-5.1); TOT PROT 5.5 g/dl (6.4-8.2)
[2019-09-11] MEDS ORDERED: SODIUM CHLORIDE 1,000 ML IV SCH (09:30)
--- NOTE | 2019-09-11 09:46 | PN ---
Progress Note, Physician History of Present Illness: Lethargic yet arousable. - Current Medication List Current Medications: Active Medications Acetaminophen (Ofirmev Injection -) 1,000 mg IVPB Q6H PRN PRN Reason: fever 100.4 Last Admin: 09/10/19 20:00 Dose: 1,000 mg Chlorhexidine Gluconate (Hibiclens For Decolonization -) 1 applic TP HS [facility] Last Admin: 09/10/19 21:25 Dose: 1 applic Heparin Sodium (Porcine) (Heparin -) 5,000 unit SQ TID [facility]ADIMIR Last Admin: 09/11/19 05:04 Dose: 5,000 unit Hydralazine HCl (Apresoline Injection -) 10 mg IVPUSH Q6H PRN PRN Reason: HYPERTENSION Ceftriaxone Sodium 2 gm/ (Dextrose) 100 mls @ 200 mls/hr IVPB DAILY [facility]; Protocol Last Admin: 09/10/19 09:44 Dose: 200 mls/hr Vancomycin HCl (Vancomycin (Pre-Docked)) 1,000 mg in 250 mls @ 166.667 mls/hr IVPB Q12H [facility]; Protocol Last Admin: 09/11/19 03:21 Dose: 166.667 mls/hr Sodium Chloride (Normal Saline -) 1,000 mls @ 75 mls/hr IV ASDIR [facility]AD[facility] Insulin Aspart (Novolog Vial Sliding Scale -) 1 vial SQ Q4HPO [facility]; Protocol Last Admin: 09/11/19 05:32 Dose: 4 units Mupirocin (Bactroban Ointment (For Decolonization) -) 1 applic NS BID [facility] Stop: 09/14/19 21:59 Last Admin: 09/10/19 21:24 Dose: 1 applic - Objective Vital Signs: Vital Signs Temperature 98.2 F 09/11/19 06:00 Pulse Rate 68 09/11/19 06:00 Respiratory Rate 18 09/11/19 06:00 Blood Pressure 149/73 09/11/19 06:00 O2 Sat by Pulse Oximetry (%) 99 09/11/19 09:11 Constitutional: Yes: No Distress, Calm Neck: Yes: Supple Cardiovascular: Yes: Regular Rate and Rhythm Respiratory: Yes: Regular, Diminished, On Nasal O2 Gastrointestinal: Yes: Normal Bowel Sounds, Soft, Abdomen, Obese Edema: No Wound/Incision: Yes: Dressing Dry and Intact Labs: CBC, BMP 09/11/19 05:55 09/11/19 05:55 INR, PTT INR 1.00 (0.83-1.09) 09/08/19 22:20 Problem List - Problems (1) Altered mental state Code(s): R41.82 - ALTERED MENTAL STATUS, UNSPECIFIED Qualifiers: Altered mental status type: somnolence Qualified Code(s): R40.0 - Somnolence (2) CAD (coronary artery disease) Code(s): I25.10 - ATHSCL HEART DISEASE OF [place] CORONARY ARTERY W/O ANG PCTRS Qualifiers: Coronary Disease-Associated Artery/Lesion type: [place] artery [place] vs. transplanted heart: [place] heart Associated angina: without angina Qualified Code(s): I25.10 - Atherosclerotic heart disease of [place] coronary artery without angina pectoris (3) Cerebrovascular accident (CVA) Code(s): I63.9 - CEREBRAL INFARCTION, UNSPECIFIED Qualifiers: CVA mechanism: unspecified Qualified Code(s): I63.9 - Cerebral infarction, unspecified (4) HTN (hypertension) Code(s): I10 - ESSENTIAL (PRIMARY) HYPERTENSION Qualifiers: Hypertension type: essential hypertension Qualified Code(s): I10 - Essential (primary) hypertension (5) History of percutaneous coronary intervention Code(s): Z98.61 - CORONARY ANGIOPLASTY STATUS (6) Hypercholesterolemia Code(s): E78.00 - PURE HYPERCHOLESTEROLEMIA, UNSPECIFIED (7) T2DM (type 2 diabetes mellitus) Code(s): E11.9 - TYPE 2 DIABETES MELLITUS WITHOUT COMPLICATIONS Qualifiers: Diabetes mellitus halfway insulin use: with halfway use Assessment/Plan 1. Altered mental status - toxic metabolic encephalopathy +/- sepsis 2. Polymicrobial Bacteremia r/o Toe Ulcer Infection vs Osteomyelitis 3. CAD history of PCI/stent, angina pectoris 4. LV systolic dysfunction s/p ICD ([place]) 5. HTN 6. Hypercholesterolemia 7. DM (Insulin requiring) 8. Demand ischemia PLAN: 1. Abx per C&S 2. Head CT and CTA report notes multipl chronic strokes w/o acute stroke 3. Cannot do MRI due to ICD 4. Beta kevin can be used - IV Lopressor if needed. IV Hydralazine can be used for BP management. When able to take PO, restart Carvedilol and Ramipril 5. ICD interrogation was performed within last 6 months as outpatient 6. Troponin plateaued 7. DM management 8. 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
[2019-09-11] MEDS ORDERED: DEXTROSE 5%-WATER 100 ML IVPB ONE (11:23)
[2019-09-11] MEDS: DEXTROSE 5%-0.45% SALINE 1,000 ML IV SCH (11:29)
[2019-09-11] MEDS: CEFTRIAXONE 2 GM in DEXTROSE 5%-WATER 100 ML IVPB SCH (11:29)
--- NOTE | 2019-09-11 11:51 | PN ---
Physical Exam: SUBJECTIVE: Patient seen and examined. Patient intermittently awake now, however still not responding to questions or following commands. OBJECTIVE: Vital Signs Period Temp Pulse Resp BP Sys/Dickerson Pulse Ox Last 24 Hr 98.0 F-100.8 F 64-96 17-24 125-156/69-88 99-100 GENERAL: intermittently awake, somnolent, not oriented HEAD: Normal with no signs of trauma. EYES: EOMI, no scleral icterus ENT: dry mucous membranes NECK: Trachea midline LUNGS: CTA bilaterally, no wheezes, rales, rhonchi. no accessory muscle use HEART: RRR, no murmur noted ABDOMEN: Soft, nontender, nondistended, normoactive bowel sounds, no guarding EXTREMITIES: 2+ pulses, warm, well-perfused, no edema. NEUROLOGICAL: not following commands, not responding to questions, intermittently awake. SKIN: Warm, dry. Crusted over ulcer noted on left first toe Laboratory Results - last 24 hr 09/10/19 09/10/19 09/10/19 13:14 17:44 21:48 WBC RBC Hgb Hct MCV MCH MCHC RDW Plt Count MPV Absolute Neuts (auto) Neutrophils % Lymphocytes % Monocytes % Eosinophils % Basophils % Nucleated RBC % Sodium Potassium Chloride Carbon Dioxide Anion Gap BUN Creatinine Est GFR (CKD-EPI)AfAm Est GFR (CKD-EPI)NonAf POC Glucometer 123 185 157 Random Glucose Calcium Phosphorus Magnesium Total Bilirubin AST ALT Alkaline Phosphatase Total Protein Albumin 09/11/19 09/11/19 09/11/19 01:41 05:30 05:55 WBC 7.9 RBC 4.98 Hgb 15.3 Hct 46.3 MCV 92.9 MCH 30.7 MCHC 33.1 RDW 14.3 Plt Count 150 MPV 9.7 Absolute Neuts (auto) 5.3 Neutrophils % 66.7 Lymphocytes % 24.4 D Monocytes % 7.4 Eosinophils % 0.7 D Basophils % 0.8 Nucleated RBC % 0 Sodium Potassium Chloride Carbon Dioxide Anion Gap BUN Creatinine Est GFR (CKD-EPI)AfAm Est GFR (CKD-EPI)NonAf POC Glucometer 145 238 Random Glucose Calcium Phosphorus Magnesium Total Bilirubin AST ALT Alkaline Phosphatase Total Protein Albumin 09/11/19 09/11/19 05:55 11:32 WBC RBC Hgb Hct MCV MCH MCHC RDW Plt Count MPV Absolute Neuts (auto) Neutrophils % Lymphocytes % Monocytes % Eosinophils % Basophils % Nucleated RBC % Sodium 144 Potassium 3.5 Chloride 109 H Carbon Dioxide 25 Anion Gap 11 BUN 16.1 Creatinine 0.8 Est GFR (CKD-EPI)AfAm 98.47 Est GFR (CKD-EPI)NonAf 84.96 POC Glucometer 167 Random Glucose 212 H Calcium 8.3 L Phosphorus 2.8 Magnesium 1.9 Total Bilirubin 0.5 AST 38 H ALT 25 Alkaline Phosphatase 89 Total Protein 5.5 L Albumin 2.4 L Active Medications Generic Name Dose Route Start Last Admin Trade Name Freq PRN Reason Stop Dose Admin Acetaminophen 1,000 mg 09/09/19 23:31 09/10/19 20:00 Ofirmev Injection - IVPB 1,000 mg Q6H PRN Administration fever 100.4 Chlorhexidine Gluconate 1 applic 09/09/19 22:00 09/10/19 21:25 Hibiclens For Decolonization - TP 1 applic HS VLADIMIR Administration Heparin Sodium (Porcine) 5,000 unit 09/10/19 06:00 09/11/19 05:04 Heparin - SQ 5,000 unit TID VLADIMIR Administration Hydralazine HCl 10 mg 09/09/19 23:31 Apresoline Injection - IVPUSH Q6H PRN HYPERTENSION Ceftriaxone Sodium 2 gm/ 100 mls @ 200 mls/hr 09/10/19 10:00 09/11/19 11:29 Dextrose IVPB 200 mls/hr DAILY VLADIMIR Administration Protocol Vancomycin HCl 1,000 mg in 250 mls @ 166.667 mls/hr 09/10/19 16:09 09/11/19 03:21 Vancomycin (Pre-Docked) IVPB 166.667 mls/hr Q12H VLADIMIR Administration Protocol Dextrose/Sodium Chloride 1,000 mls @ 75 mls/hr 09/11/19 11:30 09/11/19 11:29 D5-1/2ns - IV 75 mls/hr ASDIR VLADIMIR Administration Insulin Aspart 1 vial 09/10/19 02:00 09/11/19 11:37 Novolog Vial Sliding Scale - SQ 2 units Q4HPO VLADIMIR Administration Protocol Mupirocin 1 applic 09/09/19 22:00 09/10/19 21:24 Bactroban Ointment (For Decolonization) - NS 09/14/19 21:59 1 applic BID VLADIMIR Administration ASSESSMENT/PLAN: 79 y/o/m with PMHx of htn, DM type 2, [place] s/p 9 stent placement, presented to the ED s/p AMS and was found to be septic on admission. Admitted to ICU due to mental status which is now improving. #Neuro - Acute metabolic encephalopathy likely 2/2 sepsis - somnolent, intermittently awake - patient AAOx3 at baseline as per significant other - Neurology consulted, appreciate recs - Head CT - multiple chronic infarcts seen, no interval change seen on repeat imaging. No acute stroke/bleed seen on imaging. #Cardio - Beta kevin can be used - IV Lopressor if needed. IV Hydralazine can be used for BP management. When able to take PO, restart Carvedilol and Ramipril - Echo to evaluate cardiac function #Pulm - Maintain SpO2 >92% - No acute pathology noted on CXR #ID - WBC 7.9, afebrile, monitor - Blood cultures growing Staph Coagulase negative organisms in both bottles. F/ u sensitivities - Left foot wound culture growing Presumptive MSSA, Strep Agalactiae Group B, Strep Viridans. F/u sensitivities - Podiatry consulted for left foot wound - Left foot xray without plain radiographic findings suggestive of osteomyelitis - Continue Vancomycin, Ceftriaxone as per ID #Prophylaxis - Heparin - Protonix #FEN - D5 1/2NS @75mls/hr - NPO until more alert - monitor and replete lytes as needed #Disposition - Stable for transfer to [facility] surg Visit type - Emergency Visit Emergency Visit: Yes ED Registration Date: 09/09/19 Care time: The patient presented to the Emergency Department on the above date and was hospitalized for further evaluation of their emergent condition. - New Patient This patient is new to me today: Yes Date on this admission: 09/11/19 - Critical Care Critical Care patient: Yes Total Critical Care Time (in minutes): 36 Critical Care Statement: The care of this patient involved high complexity decision making to prevent further life threatening deterioration of the patient 's condition and/or to evaluate & treat vital organ system(s) failure or risk of failure. ATTENDING PHYSICIAN STATEMENT I saw and evaluated the patient. I reviewed the resident's note and discussed the case with the resident. I agree with the resident's findings and plan as documented. SUBJECTIVE: OBJECTIVE: ASSESSMENT AND PLAN:
--- NOTE | 2019-09-11 12:08 | PN ---
Teaching Attending Note Name of Resident: Bisi Saldaña ATTENDING PHYSICIAN STATEMENT I saw and evaluated the patient. I reviewed the resident's note and discussed the case with the resident. I agree with the resident's findings and plan as documented. SUBJECTIVE: Pt seen and examined in the ICU. Lethargic but arousable. Blood cultures positive. Low grade fevers overnight. OBJECTIVE: Vital Signs Period Temp Pulse Resp BP Sys/Dickerson Pulse Ox Last 24 Hr 98.0 F-100.8 F 64-96 17-24 125-156/69-88 99-100 Intake & Output 09/08/19 09/09/19 09/10/19 09/11/19 23:59 23:59 23:59 23:59 Intake Total 200 1472 Output Total 1000 200 Balance 200 472 -200 Weight 79.379 kg 91.172 kg 91.172 kg 91.8 kg Gen: lethargic Heart: RRR Lung: decreased breath sounds at the bases Abd: soft, nontender Ext: no edema CBC, BMP 09/11/19 05:55 09/11/19 05:55 Active Medications Acetaminophen (Ofirmev Injection -) 1,000 mg IVPB Q6H PRN PRN Reason: fever 100.4 Last Admin: 09/10/19 20:00 Dose: 1,000 mg Chlorhexidine Gluconate (Hibiclens For Decolonization -) 1 applic TP HS VLADIMIR Last Admin: 09/10/19 21:25 Dose: 1 applic Heparin Sodium (Porcine) (Heparin -) 5,000 unit SQ TID VLADIMIR Last Admin: 09/11/19 05:04 Dose: 5,000 unit Hydralazine HCl (Apresoline Injection -) 10 mg IVPUSH Q6H PRN PRN Reason: HYPERTENSION Ceftriaxone Sodium 2 gm/ (Dextrose) 100 mls @ 200 mls/hr IVPB DAILY [facility]; Protocol Last Admin: 09/11/19 11:29 Dose: 200 mls/hr Vancomycin HCl (Vancomycin (Pre-Docked)) 1,000 mg in 250 mls @ 166.667 mls/hr IVPB Q12H [facility]; Protocol Last Admin: 09/11/19 03:21 Dose: 166.667 mls/hr Dextrose/Sodium Chloride (D5-1/2ns -) 1,000 mls @ 75 mls/hr IV ASDIR [facility] Last Admin: 09/11/19 11:29 Dose: 75 mls/hr Insulin Aspart (Novolog Vial Sliding Scale -) 1 vial SQ Q4HPO [facility]; Protocol Last Admin: 09/11/19 11:37 Dose: 2 units Mupirocin (Bactroban Ointment (For Decolonization) -) 1 applic NS BID VLADIMIR Stop: 09/14/19 21:59 Last Admin: 09/10/19 21:24 Dose: 1 applic ASSESSMENT AND PLAN: Altered Mental Status Polymicrobial Bacteremia Sepsis r/o Toe Ulcer Infection vs Osteomyelitis CAD +Troponins likely Demand Ischemia Lactic Acidosis HTN DM Hypercholesterolemia - continue antibiotics - f/u cultures - foot XRay - podiatry or surgery eval - echocardiogram - IVF - aspiration precautions - DVT prophylaxis - can monitor on floor
--- NOTE | 2019-09-11 14:58 | PN ---
Progress Note, Physician History of Present Illness: AWAKE, EYES OPEN ? EXPRESSIVE/RECEPTIVE APHASIA NO ACUTE DISTRESS AFEBRILE WBC WNL BC STAPH SP ? POLYMICROBIAL WOUND C/S POLYMICROBIAL - Current Medication List Current Medications: Active Medications Acetaminophen (Ofirmev Injection -) 1,000 mg IVPB Q6H PRN PRN Reason: fever 100.4 Last Admin: 09/10/19 20:00 Dose: 1,000 mg Chlorhexidine Gluconate (Hibiclens For Decolonization -) 1 applic TP HS [facility] Last Admin: 09/10/19 21:25 Dose: 1 applic Heparin Sodium (Porcine) (Heparin -) 5,000 unit SQ TID [facility] Last Admin: 09/11/19 05:04 Dose: 5,000 unit Hydralazine HCl (Apresoline Injection -) 10 mg IVPUSH Q6H PRN PRN Reason: HYPERTENSION Ceftriaxone Sodium 2 gm/ (Dextrose) 100 mls @ 200 mls/hr IVPB DAILY [facility]; Protocol Last Admin: 09/11/19 11:29 Dose: 200 mls/hr Vancomycin HCl (Vancomycin (Pre-Docked)) 1,000 mg in 250 mls @ 166.667 mls/hr IVPB Q12H [facility]; Protocol Last Admin: 09/11/19 03:21 Dose: 166.667 mls/hr Dextrose/Sodium Chloride (D5-1/2ns -) 1,000 mls @ 75 mls/hr IV ASDIR [facility] Last Admin: 09/11/19 11:29 Dose: 75 mls/hr Insulin Aspart (Novolog Vial Sliding Scale -) 1 vial SQ Q4HPO [facility]; Protocol Last Admin: 09/11/19 11:37 Dose: 2 units Mupirocin (Bactroban Ointment (For Decolonization) -) 1 applic NS BID [facility] Stop: 09/14/19 21:59 Last Admin: 09/10/19 21:24 Dose: 1 applic - Objective Vital Signs: Vital Signs Temperature 98.2 F 09/11/19 06:00 Pulse Rate 68 09/11/19 06:00 Respiratory Rate 18 09/11/19 06:00 Blood Pressure 149/73 09/11/19 06:00 O2 Sat by Pulse Oximetry (%) 99 09/11/19 09:11 Constitutional: Yes: No Distress Eyes: Yes: Conjunctiva Clear Cardiovascular: Yes: Regular Rate and Rhythm, S1, S2 Respiratory: Yes: CTA Bilaterally Gastrointestinal: Yes: Normal Bowel Sounds, Soft. No: Tenderness Extremities: Yes: Other (DECREASED ERYTHEMA GREAT TOE) Labs: CBC, BMP 09/11/19 05:55 09/11/19 05:55 INR, PTT INR 1.00 (0.83-1.09) 09/08/19 22:20 Assessment/Plan SEPSIS ? SKIN SOURCE TOXIC METABOLIC ENCEPHALOPATHY ? CVA ? SEPTIC EMBOLI ? CARDIAC EVENT DIABETES MELLITUS CELLUITIS L GREAT TOE AWAIT FINAL C/S CONTINUE EMPIRIC VANCOMYCIN/ CEFTRIAXONE ECHO
[2019-09-11] MEDS ORDERED: PANTOPRAZOLE SODIUM 40 MG VIAL IVPUSH ONE (15:11)
[2019-09-11] MEDS: MUPIROCIN 2% TOPICAL OINTMENT FOR DECOLONIZATION NS SCH (15:52)
--- NOTE | 2019-09-11 16:26 | ECHO ---
Name: MUSTAPHA HERBERT Exam:Adult Echocardiogram Study Date: 09/11/2019 08:08 AM Age: 79 yrs Reason For Study: fluids Height: 72 in Weight: 175 lb BSA: 2.0 m2 MMode/2D Measurements & Calculations IVSd: 1.3 cm Ao root diam: 2.9 cm LVIDd: 4.9 cm LA dimension: 3.2 cm LVIDs: 3.9 cm LVPWd: 1.0 cm EDV(Teich): 114.4 ml LVOT diam: 2.0 cm ESV(Teich): 66.4 ml Doppler Measurements & Calculations MV E max byron: 55.3 cm/sec Ao V2 max: 100.4 cm/sec MV A max byron: 124.7 cm/sec Ao max P.0 mmHg MV E/A: 0.44 MV dec time: 0.15 sec SHADI(V,D): 2.3 cm2 LV V1 max P.3 mmHg LV V1 max: 75.2 cm/sec Procedure A complete two-dimensional transthoracic echocardiogram was performed (2D, M-mode, Doppler and color flow Doppler). Severely limited study. Left Ventricle The left ventricle is normal in size. There is mild concentric left ventricular hypertrophy. LV systo lic function appears moderate to severely reduced. Regional wall motion could not be accurately assessed due to poor acoustic window. Ejection Fraction = 35-40%. Right Ventricle There is a pacemaker lead in the right ventricle. Atria The left atrial size is normal. Right atrium not well visualized. Mitral Valve The mitral valve is normal in structure and function. There is no mitral regurgitation noted. Tricuspid Valve The tricuspid valve is not well visualized. Aortic Valve The aortic valve is normal in structure and function. No aortic regurgitation is present. Pulmonic Valve The pulmonic valve is not well visualized. Great Vessels The aortic root is normal size. Pericardium/Pleura There is no pericardial effusion. Interpretation Summary Severely limited study The left ventricle is normal in size. There is mild concentric left ventricular hypertrophy. LV systolic function appears moderate to severely reduced. Regional wall motion could not be accurate ly assessed due to poor acoustic window Ejection Fraction = 35-40%. There is a pacemaker lead in the right ventricle. The left atrial size is normal. Valvular regurgitation could not be accurately assessed due to poor acoustic window Jose Ladd MD 09/11/2019 04:26 PM
--- NOTE | 2019-09-11 16:52 | PN ---
Physical Exam: SUBJECTIVE: Patient seen and examined. He is non-verbal. OBJECTIVE: Vital Signs Period Temp Pulse Resp BP Sys/[place] Pulse Ox Last 24 Hr 98.0 F-100.8 F 64-88 16-24 125-149/67-87 99-100 GENERAL: Responsive to sternal rub. HEAD: Normal with no signs of trauma. EYES: PERRL, conjunctiva clear. ENT: Ears normal, nares patent, moist mucous membranes. NECK: Trachea midline LUNGS: Clear to auscultation bilaterally, no wheezes HEART: Regular rate and rhythm, no murmur ABDOMEN: Soft, nontender, nondistended, normoactive bowel sounds EXTREMITIES: Warm, well-perfused, no edema. NEUROLOGICAL: PSYCH: Unable to assess. SKIN: Warm, dry, normal turgor, left 1st toe ulcer tele: PVCs Laboratory Results - last 24 hr 09/10/19 09/10/19 09/11/19 17:44 21:48 01:41 WBC RBC Hgb Hct MCV MCH MCHC RDW Plt Count MPV Absolute Neuts (auto) Neutrophils % Lymphocytes % Monocytes % Eosinophils % Basophils % Nucleated RBC % Sodium Potassium Chloride Carbon Dioxide Anion Gap BUN Creatinine Est GFR (CKD-EPI)AfAm Est GFR (CKD-EPI)NonAf POC Glucometer 185 157 145 Random Glucose Calcium Phosphorus Magnesium Total Bilirubin AST ALT Alkaline Phosphatase Total Protein Albumin 09/11/19 09/11/19 09/11/19 05:30 05:55 05:55 WBC 7.9 RBC 4.98 Hgb 15.3 Hct 46.3 MCV 92.9 MCH 30.7 MCHC 33.1 RDW 14.3 Plt Count 150 MPV 9.7 Absolute Neuts (auto) 5.3 Neutrophils % 66.7 Lymphocytes % 24.4 D Monocytes % 7.4 Eosinophils % 0.7 D Basophils % 0.8 Nucleated RBC % 0 Sodium 144 Potassium 3.5 Chloride 109 H Carbon Dioxide 25 Anion Gap 11 BUN 16.1 Creatinine 0.8 Est GFR (CKD-EPI)AfAm 98.47 Est GFR (CKD-EPI)NonAf 84.96 POC Glucometer 238 Random Glucose 212 H Calcium 8.3 L Phosphorus 2.8 Magnesium 1.9 Total Bilirubin 0.5 AST 38 H ALT 25 Alkaline Phosphatase 89 Total Protein 5.5 L Albumin 2.4 L 09/11/19 09/11/19 11:32 15:57 WBC RBC Hgb Hct MCV MCH MCHC RDW Plt Count MPV Absolute Neuts (auto) Neutrophils % Lymphocytes % Monocytes % Eosinophils % Basophils % Nucleated RBC % Sodium Potassium Chloride Carbon Dioxide Anion Gap BUN Creatinine Est GFR (CKD-EPI)AfAm Est GFR (CKD-EPI)NonAf POC Glucometer 167 163 Random Glucose Calcium Phosphorus Magnesium Total Bilirubin AST ALT Alkaline Phosphatase Total Protein Albumin Active Medications Generic Name Dose Route Start Last Admin Trade Name Freq PRN Reason Stop Dose Admin Acetaminophen 1,000 mg 09/09/19 23:31 09/10/19 20:00 Ofirmev Injection - IVPB 1,000 mg Q6H PRN Administration fever 100.4 Chlorhexidine Gluconate 1 applic 09/09/19 22:00 09/10/19 21:25 Hibiclens For Decolonization - TP 1 applic HS VLADIMIR Administration Heparin Sodium (Porcine) 5,000 unit 09/10/19 06:00 09/11/19 15:52 Heparin - SQ 5,000 unit TID VLADIMIR Administration Hydralazine HCl 10 mg 09/09/19 23:31 Apresoline Injection - IVPUSH Q6H PRN HYPERTENSION Ceftriaxone Sodium 2 gm/ 100 mls @ 200 mls/hr 09/10/19 10:00 09/11/19 11:29 Dextrose IVPB 200 mls/hr DAILY VLADIMIR Administration Protocol Dextrose/Sodium Chloride 1,000 mls @ 75 mls/hr 09/11/19 11:30 09/11/19 11:29 D5-1/2ns - IV 75 mls/hr ASDIR VLADIMIR Administration Vancomycin HCl 1,250 mg/ 250 mls @ 166.667 mls/hr 09/11/19 17:00 Dextrose IVPB Q12H VLADIMIR Protocol Insulin Aspart 1 vial 09/10/19 02:00 09/11/19 15:59 Novolog Vial Sliding Scale - SQ 2 units Q4HPO VLADIMIR Administration Protocol Mupirocin 1 applic 09/09/19 22:00 09/11/19 15:52 Bactroban Ointment (For Decolonization) - NS 09/14/19 21:59 1 applic BID VLADIMIR Administration ASSESSMENT/PLAN: Mr. Panchal is a 79y/o male with HTN, DM2, [place] s/p stents x9, and PPM presents with AMS. Last known well was 2 days prior to presentation. #staph bacteremia -ceftriaxone -vancomycin -ID following #toxic metabolic encephalopathy -CT head negative for acute process, small old infarcts noted -ICD interrogated- no significant events -echo- EF 35-40%, mild concentric LVH, systolic dysfunction -cards following #left 1st toe cellulitis -abx #DM hyperglycemic at admission, glucose and ketones in urine -SSI -monitor BGMs #HTN -hydralazine PRN DVT Ppx heparin GI Ppx pantoprazole FEN D5 1/2NS 75mL/hr monitor labs NPO until patient is more alert and passes bedside swallow eval dispo ICU attempted to reach next of kin to verify med list but was unavailable, will try again Visit type - Emergency Visit Emergency Visit: Yes ED Registration Date: 09/09/19 Care time: The patient presented to the Emergency Department on the above date and was hospitalized for further evaluation of their emergent condition. - New Patient This patient is new to me today: No - Critical Care Critical Care patient: Yes Total Critical Care Time (in minutes): 35 Critical Care Statement: The care of this patient involved high complexity decision making to prevent further life threatening deterioration of the patient 's condition and/or to evaluate & treat vital organ system(s) failure or risk of failure. - Discharge Referral Referred to [facility] No ATTENDING PHYSICIAN STATEMENT I saw and evaluated the patient. I reviewed the resident's note and discussed the case with the resident. I agree with the resident's findings and plan as documented. SUBJECTIVE: OBJECTIVE: ASSESSMENT AND PLAN:
--- NOTE | 2019-09-11 17:00 | CONSULT ---
Consult Consult Specialty:: Podiatry Reason for Consultation:: Wound left big toe. - Past Medical History Cardio/Vascular: Yes: CAD, CHF, HTN, Hyperlipdemia, [place] Endocrine: Yes: Diabetes Mellitus - Past Surgical History Past Surgical History: Yes: Stent - Alcohol/Substance Use Hx Alcohol Use: No - Smoking History Smoking history: Never smoked Have you smoked in the past 12 months: No Home Medications - Allergies Allergies/Adverse Reactions: Allergies Allergy/AdvReac Type Severity Reaction Status Date / Time No Known Allergies Allergy Verified 09/08/19 22:29 - Home Medications Home Medications: Ambulatory Orders Allopurinol [Zyloprim] 100 mg PO DAILY 10/26/12 Aspirin [ASA] 81 mg PO DAILY 10/26/12 Carvedilol [Coreg] 25 mg PO BID 10/26/12 Colchicine [Colcrys] 0.6 mg PO DAILY 10/26/12 Ezetimibe/Simvastatin [Vytorin 10-40 mg Tablet] 1 each PO DAILY 10/26/12 Folic Acid - 1 mg PO DAILY 10/26/12 Levothyroxine [Synthroid] 175 mcg PO DAILY 10/26/12 Niacin 500 mg PO DAILY 10/26/12 Prasugrel Hydrochloride [Effient] 5 mg PO DAILY 10/26/12 Ramipril [Altace] 10 mg PO BID 10/26/12 metFORMIN HCL [Glucophage] 1,000 mg PO BID 10/26/12 Insulin Glargine,Hum.rec.anlog [Lantus (10mL VIAL)] 100 iu SQ HS 11/02/12 Insulin Lispro [Humalog] 60 iu SQ PC 11/02/12 Physical Exam Vital Signs: Vital Signs Temperature 98.5 F 09/11/19 12:00 Pulse Rate 74 09/11/19 14:00 Respiratory Rate 18 09/11/19 14:00 Blood Pressure 149/78 09/11/19 14:00 O2 Sat by Pulse Oximetry (%) 99 09/11/19 09:11 Extremities: Yes: Other (+wound left hallux pretrophic, vsgi, -mal odor, - drainage, +ipj pretrophic,) Labs: CBC, BMP 09/11/19 05:55 09/11/19 05:55 Assessment/Plan pretrophic wound left hallux pvd? r/o om X-ray left foot. Santyl left big toe. Will follow. Vascular consult.
[2019-09-11] MEDS ORDERED: ACETAMINOPHEN 1000 MG/100 ML VIAL (NON FORMULARY) IVPB PRN (18:05)
[2019-09-11] MEDS ORDERED: hydrALAZINE HCL 20 MG/ML VIAL IVPUSH PRN (18:05)
[2019-09-11] MEDS: VANCOMYCIN HCL 1,250 MG in DEXTROSE 5%-WATER - 250 ML IVPB SCH (18:56)
--- NOTE | 2019-09-11 19:00 | PN ---
Teaching Attending Note Name of Resident: Irene Eckert ATTENDING PHYSICIAN STATEMENT I saw and evaluated the patient. I reviewed the resident's note and discussed the case with the resident. I agree with the resident's findings and plan as documented. SUBJECTIVE: Patient is seen in ICU, comfortable, non verbal ,just staring at you, significant other and the son at bed side. Vital Signs Temperature 98 F 09/11/19 16:00 Pulse Rate 88 09/11/19 16:00 Respiratory Rate 20 09/11/19 16:00 Blood Pressure 148/63 09/11/19 16:00 O2 Sat by Pulse Oximetry (%) 99 09/11/19 09:11 GENERAL: eyes open , non verbal , in no acute distress. follows some command. HEAD: Normal with no signs of trauma. EYES: PERRL, extraocular movements intact, sclera anicteric, conjunctiva clear, crust on the left eye. ENT: Ears normal, oropharynx clear without exudates, dry mucus membrane, dried up lips on the right side. NECK: Trachea midline, full range of motion, supple. LUNGS: Breath sounds equal, CTA BL , no wheezes, no crackles, no accessory muscle use. HEART: Regular rate and rhythm, S1, S2 without murmur, rub or gallop. ABDOMEN: Soft, NT, ND, normoactive bowel sounds, no guarding, no rebound, no hepatosplenomegaly, no masses. EXTREMITIES: 2+ pulses, warm, well-perfused, trace edema. left toe ulcer s/p burning his toe. NEUROLOGICAL: Cranial nerves II through XII grossly intact. gait not observed. patient is nonverbal at this time. PSYCH: Unable to access SKIN: Warm, dry, normal turgor, no rashes noted CBCD WBC 7.9 K/mm3 (4.0-10.0) 09/11/19 05:55 RBC 4.98 M/mm3 (4.00-5.60) 09/11/19 05:55 Hgb 15.3 GM/dL (11.7-16.9) 09/11/19 05:55 Hct 46.3 % (35.4-49) 09/11/19 05:55 MCV 92.9 fl (80-96) 09/11/19 05:55 MCHC 33.1 g/dl (32.0-35.9) 09/11/19 05:55 RDW 14.3 % (11.9-15.9) 09/11/19 05:55 Plt Count 150 K/MM3 (134-434) 09/11/19 05:55 MPV 9.7 fl (7.5-11.1) 09/11/19 05:55 CMP Sodium 144 mmol/L (136-145) 09/11/19 05:55 Potassium 3.5 mmol/L (3.5-5.1) 09/11/19 05:55 Chloride 109 mmol/L (98-107) H 09/11/19 05:55 Carbon Dioxide 25 mmol/L (21-32) 09/11/19 05:55 Anion Gap 11 MMOL/L (8-16) 09/11/19 05:55 BUN 16.1 mg/dL (7-18) 09/11/19 05:55 Creatinine 0.8 mg/dL (0.55-1.3) 09/11/19 05:55 Random Glucose 212 mg/dL (74-106) H 09/11/19 05:55 Calcium 8.3 mg/dL (8.5-10.1) L 09/11/19 05:55 Total Bilirubin 0.5 mg/dL (0.2-1) 09/11/19 05:55 AST 38 U/L (15-37) H 09/11/19 05:55 ALT 25 U/L (13-61) 09/11/19 05:55 Alkaline Phosphatase 89 U/L (45-117) 09/11/19 05:55 Total Protein 5.5 g/dl (6.4-8.2) L 09/11/19 05:55 Albumin 2.4 g/dl (3.4-5.0) L 09/11/19 05:55 CARDIAC ENZYMES Creatine Kinase 316 U/L (26-308) H 09/08/19 22:20 Troponin I 0.11 ng/ml (0.00-0.05) H 09/09/19 02:20 Current Medications Generic Name Dose Route Start Last Admin Trade Name Freq PRN Reason Stop Dose Admin Acetaminophen 1,000 mg 09/11/19 18:05 Ofirmev Injection - IVPB Q6H PRN fever 100.4 Heparin Sodium (Porcine) 5,000 unit 09/11/19 22:00 Heparin - SQ TID VLADIMIR Hydralazine HCl 10 mg 09/11/19 18:05 Apresoline Injection - IVPUSH Q6H PRN HYPERTENSION Dextrose/Sodium Chloride 1,000 mls @ 75 mls/hr 09/11/19 11:30 09/11/19 11:29 D5-1/2ns - IV 75 mls/hr ASDIR VLADIMIR Administration Vancomycin HCl 1,250 mg/ 250 mls @ 166.667 mls/hr 09/11/19 17:00 09/11/19 18: 56 Dextrose IVPB 166.667 mls/hr Q12H VLADIMIR Administration Protocol Ceftriaxone Sodium 2 gm/ 100 mls @ 200 mls/hr 09/12/19 10:00 Dextrose IVPB DAILY [facility] Protocol Insulin Aspart 1 vial 09/11/19 22:00 Novolog Vial Sliding Scale - SQ Q4HPO [facility] Protocol Home Medications Medication Instructions Recorded Allopurinol [Zyloprim] 100 mg PO DAILY 10/26/12 Aspirin [ASA] 81 mg PO DAILY 10/26/12 Carvedilol [Coreg] 25 mg PO BID 10/26/12 Colchicine [Colcrys] 0.6 mg PO DAILY 10/26/12 Ezetimibe/Simvastatin [Vytorin 1 each PO DAILY 10/26/12 10-40 mg Tablet] Folic Acid - 1 mg PO DAILY 10/26/12 Levothyroxine [Synthroid] 175 mcg PO DAILY 10/26/12 Niacin 500 mg PO DAILY 10/26/12 Prasugrel Hydrochloride [Effient] 5 mg PO DAILY 10/26/12 Ramipril [Altace] 10 mg PO BID 10/26/12 metFORMIN HCL [Glucophage] 1,000 mg PO BID 10/26/12 Insulin Glargine,Hum.rec.anlog 100 iu SQ HS 11/02/12 [Lantus (10mL VIAL)] Insulin Lispro [Humalog] 60 iu SQ PC 11/02/12 Microbiology Microbiology 09/09/19 03:12 Toe - Left Hallux Gram Stain - Final 09/09/19 03:12 Toe - Left Hallux Wound Culture - Final Staphylococcus Aureus Strep Agalactiae Group B Streptococcus Viridans 09/08/19 22:20 Blood - Peripheral Venous Blood Culture - Preliminary Staphylococcus Coagulase Neg Staphylococcus Coagulase Neg#2 Pending Organism 09/08/19 22:20 Blood - Peripheral Venous Blood Culture - Preliminary Staphylococcus Coagulase Neg Staphylococcus Coagulase Neg#2 09/08/19 23:20 Urine - Urine Fitzgerald Urine Culture - Final NO GROWTH OBTAINED ASSESSMENT/PLAN: Patient is a 79yom with HTN, DM2, [place] s/p stents x 9, and PPM presents with AMS. Last known well was 2 days ago. # Gram + bacteremia, Gram positive clusters in cocci , organism and sensitivity is pending , on Vancomycin/Rocephin IV continue , ID on the case urine and blood cx pending. on IVF, urine tox negative, ammonia level negative. empiric Abx coverage vanco/rocephin s/p acyclovir discontinued since have a source now, echo pending. #Acute change of mental status due to bacteremia , will continue to monitor. CT head negative for acute process, small old infarcts noted, we cannot do MRI due to pacemaker. dr. Love on the case. repeat Ct is negative #DM: s/p IV insulin , hyperglycemic at admission, glucose and ketones in urine, SS scale with coverage #HTN: continue to monitor the blood pressure. DVT Ppx: SCDs NPO for now untill the patient follows more commands
[2019-09-11] MEDS ORDERED: MUPIROCIN 2% TOPICAL OINTMENT FOR DECOLONIZATION NS SCH (22:00)
[2019-09-11] MEDS ORDERED: CHLORHEXIDINE GLUCONATE 4% CLEANSER FOR DECOLONIZATION TP SCH (22:00)
--- NOTE | 2019-09-11 22:04 | PN ---
Progress Note (short form) - Note Progress Note: NEUROLOGY PROGRESS: Events reviewed and discussed with RN. Patient examined. Now on day #3 Ceftriaxone and Vancomicin for staph sepsis. Afebrile. Repeat CT of head perfomed today (reviewed): Moderate atrophy with diffuse microvascular changes. No acute or traumatic lesions. EDD: Neck supple. Neg [place] NEURO: Opens eyes to name. Follows simple commands Few soft words (unintelligible) Full lobato to threat. Elevated arms fall under control. Areflexic in legs. Plantars silent Reacts to pinch all 4's IMP: Moderate, B/L cerebral dysfunction- improving Toxic-Metabolic encephalopathy due to gram + Sepsis SUGGEST: Continue antibiotics and hydration Add thiamine 250 mg IVPB q 8hrs Check B12, TSH DVT prophylaxis Bedside PT Thank you very much, Kenneth Love MD
[2019-09-11] MEDS: THIAMINE HCL 200 MG/2 ML VIAL IVPB SCH (22:35)
[2019-09-12] MEDS: INSULIN SLIDING SCALE (NOVOLOG) 1 VIAL SQ SCH ×6 (01:42→21:51)
[2019-09-12] MEDS ORDERED: PT OWN MED DRAWER 7, Y5N ONE ×2 (04:26→18:11)
[2019-09-12] MEDS: VANCOMYCIN HCL 1,250 MG in DEXTROSE 5%-WATER - 250 ML IVPB SCH ×2 (04:49→18:19)
[2019-09-12] MEDS: HEPARIN NA (PORCINE) 5,000 UNITS/ML 1ML VIAL SQ SCH ×3 (05:33→21:48)
[2019-09-12] MEDS: THIAMINE HCL 200 MG/2 ML VIAL IVPB SCH ×3 (05:34→21:51)
[2019-09-12 08:19] LABS: HEMATOCRIT 47.2 % (35.4-49); HEMOGLOBIN 15.4 GM/dL (11.7-16.9); MCH 30.2 pg (25.7-33.7); MCHC 32.6 g/dl (32.0-35.9); MEAN CELL VOLUME 92.8 fl (80-96); MEAN PLT VOLUME 9.7 fl (7.5-11.1); PLATELET COUNT 144 K/MM3 (134-434); RBC 5.08 M/mm3 (4.00-5.60); RDW 14.3 % (11.9-15.9); WHITE BLOOD COUNT 7.8 K/mm3 (4.0-10.0)
[2019-09-12] MEDS ORDERED: DEXTROSE 5%-WATER 100 ML IVPB ONE (08:37)
[2019-09-12 08:58] LABS: ALBUMIN 2.3 g/dl (3.4-5.0); BILIRUBIN,TOTAL 0.5 mg/dL (0.2-1); BLOOD UREA NITROGEN 12.4 mg/dL (7-18); CALCIUM 7.9 mg/dL (8.5-10.1); CREATININE 0.7 mg/dL (0.55-1.3); MAGNESIUM 1.8 mg/dL (1.8-2.4); PHOSPHOROUS 2.6 mg/dL (2.5-4.9); POTASSIUM 3.3 mmol/L (3.5-5.1); TOT PROT 5.4 g/dl (6.4-8.2)
[2019-09-12] MEDS: CEFTRIAXONE 2 GM in DEXTROSE 5%-WATER 100 ML IVPB SCH (10:16)
--- NOTE | 2019-09-12 11:22 | CONSULT ---
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 Baseline, pt is verbal, appropriate, resides alone. Per pt's son, Luis Alfredo, pt looked "frail" on Thanksgiving and voice was dysphonic. Neurology IMP: Moderate, B/L cerebral dysfunction- improving Toxic-Metabolic encephalopathy due to gram + Sepsis ID-AWAKE, EYES OPEN ? EXPRESSIVE/RECEPTIVE APHASIA NO ACUTE DISTRESS AFEBRILE WBC WNL BC STAPH SP ? POLYMICROBIAL WOUND C/S POLYMICROBIAL History Source: Family Member Limitations to Obtaining History: Clinical Condition (SEvere Apraxia) - Past Medical History Cardiovascular: Yes: CAD, CHF, HTN, Hyperlipdemia, [place] Endocrine: Yes: Diabetes Mellitus - Past Surgical History Past Surgical History: Yes: Stent - Smoking History Smoking history: Never smoked Have you smoked in the past 12 months: No - Alcohol/Substance Use Hx Alcohol Use: No History - Admission Reason For Visit: UNRESPONSIVE, HYPERGLYCEMIA, ELEVATED TROPONIN - Diagnostics X-ray: Pending CT Scan: Report Reviewed (CT of brain: Moderate, diffuse atrophy and multiple, cortical and cerebellar infarcts. CTA: Thickening of intracranial carotids Multiple chronic infarcts,No acute noted.) - General Mental Status: Able to Follow Commands (initially no commands followed. With 45 min session, pt began to shake my hand, throw kiss, wave goodbye, nod . Very delayed, occasional responses c/w Apraxia (oral/vocal/limb)), Flat Affect Attention: Distractible, Moderate Impairment (needs frequent verbal cues to "look at me" to achieve eye contact, sustained 3-5 sec max) Ability to Follow Directions: Poor (beginning to) Head/Neck Control: Fair - Hearing Hearing: Normal Speech Evaluation - Communication Primary Language: [place] Communication: Yes: Aphasia, Non-Communicable Oral Expression Ability: Yes: Non-Verbal, Non-Vocal (no vocalization elicited. Silent yawn.) - Speech Production Apraxia: Yes Able to Make Needs Known: Yes: Severely Impaired - Language/Auditory Comprehension Follows: Yes: 1 Stage Simple Commands (occasional, simple) Observation: Able to respond to yes/no queries: Yes (rare nod and 1 thumbs up solicited), Comprehends Conversational Speech: Yes (social speech/simple) - Language/Verbal Expression Aphasia: Yes: Impaired Repetition (non verbal/vocal. No automatic series, social speech, singing,etc), Apraxia Functional Communication Status: Yes: Severely Impaired - Swallow Evaluation/Bedside Assessment Current Nutritional Intake: NPO Oral Secretions: Yes: Dryness, Tongue Coated Dentition: Yes: Adequate Facial Symmetry at Rest: Facial Droop Left (slight?) Facial Symmetry on Retraction: Symmetrical Laryngeal Movement: Able to Palpate, Labored,delay initiation Rate of Intake: Slow/Holding Oral Prep Time: Increased Timing of Swallow: Delayed (with practice, swallow began to improve in onset and strength. Still delayed but improving.) Coughing/Throat Clear: No (trial puree/sips water) Recommendations - Speech Evaluation, Impression/Plan Impression: Severe Apraxia/Aphasia? With extensive evaluation/tx session provided, significant improvement demonstrated. Initially no response, occasional eye movement to tack. Progressed to eliciting delayed swallow, imitating wave, kiss, thumbs up, hand shake, rare nod. Non vocal. Silent yawn. Extensive education to pt's son regardging ways to facilitate swallow and functional communication - Disposition Discharge to: Rehabilitation Center, Group Home Facility, To be Determined - Dysphagia Impressions/Plan Swallowing Skills: Impaired Dysphagia Impressions: Moderate Impairment, Risk of Aspiration Recommendations: Modified Barium Swallow (once a little stronger. T'mw?) - Recommendations Diet Consistency: NPO Liquids: NPO Supplement: Ensure Pudding (HOB elevated, chin tuck, trial 1/3 tspn, tell pt to swallow, palpate larynx for reflex,continue only if swallows are generated, monitor tolerance.)
[2019-09-12] MEDS ORDERED: DEXTROSE 5%-0.45% SALINE 1,000 ML IV SCH (12:41)
[2019-09-12] MEDS: KCL 10 MEQ IVPB 10 MEQ/100 ML INFUS.BAG IVPB SCH ×2 (12:50→13:58)
--- NOTE | 2019-09-12 12:56 | PN ---
Progress Note, Physician Chief Complaint: Opens his eyes, but nonverbal History of Present Illness: Patient was seen and examined. Chart was reviewed - Current Medication List Current Medications: Active Medications Acetaminophen (Ofirmev Injection -) 1,000 mg IVPB Q6H PRN PRN Reason: fever 100.4 Collagenase (Santyl -) 1 applic TP DAILY VLADIMIR; Protocol Heparin Sodium (Porcine) (Heparin -) 5,000 unit SQ TID VLADIMIR Last Admin: 09/12/19 05:33 Dose: 5,000 unit Hydralazine HCl (Apresoline Injection -) 10 mg IVPUSH Q6H PRN PRN Reason: HYPERTENSION Vancomycin HCl 1,250 mg/ (Dextrose) 250 mls @ 166.667 mls/hr IVPB Q12H VLADIMIR; Protocol Last Admin: 09/12/19 04:49 Dose: 166.667 mls/hr Ceftriaxone Sodium 2 gm/ (Dextrose) 100 mls @ 200 mls/hr IVPB DAILY VLADIMIR; Protocol Last Admin: 09/12/19 10:16 Dose: 200 mls/hr Dextrose/Sodium Chloride (D5-1/2ns -) 1,000 mls @ 100 mls/hr IV ASDIR VLADIMIR Insulin Aspart (Novolog Vial Sliding Scale -) 1 vial SQ Q4HPO VLADIMIR; Protocol Last Admin: 09/12/19 05:33 Dose: 2 unit Thiamine HCl (Vitamin B1 Injection -) 200 mg IVPB Q8H VLADIMIR Stop: 09/14/19 22:00 Last Admin: 09/12/19 05:34 Dose: 200 mg - Objective Vital Signs: Vital Signs Temperature 98.1 F 09/12/19 10:21 Pulse Rate 100 H 09/12/19 10:21 Respiratory Rate 15 09/12/19 10:21 Blood Pressure 153/71 09/12/19 10:21 O2 Sat by Pulse Oximetry (%) 99 09/11/19 21:00 Neck: Yes: Supple Cardiovascular: Yes: Regular Rate and Rhythm, S1, S2 Respiratory: Yes: Diminished Gastrointestinal: Yes: Normal Bowel Sounds, Soft. No: Tenderness Edema: No Labs: CBC, BMP 09/12/19 07:40 09/12/19 07:40 Problem List - Problems (1) CAD (coronary artery disease) Code(s): I25.10 - ATHSCL HEART DISEASE OF [place] CORONARY ARTERY W/O ANG PCTRS Qualifiers: Coronary Disease-Associated Artery/Lesion type: [place] artery [place] vs. transplanted heart: [place] heart Associated angina: without angina Qualified Code(s): I25.10 - Atherosclerotic heart disease of [place] coronary artery without angina pectoris (2) History of percutaneous coronary intervention Code(s): Z98.61 - CORONARY ANGIOPLASTY STATUS (3) T2DM (type 2 diabetes mellitus) Code(s): E11.9 - TYPE 2 DIABETES MELLITUS WITHOUT COMPLICATIONS Qualifiers: Diabetes mellitus prison insulin use: with prison use (4) HTN (hypertension) Code(s): I10 - ESSENTIAL (PRIMARY) HYPERTENSION Qualifiers: Hypertension type: essential hypertension Qualified Code(s): I10 - Essential (primary) hypertension (5) Hypercholesterolemia Code(s): E78.00 - PURE HYPERCHOLESTEROLEMIA, UNSPECIFIED (6) Cerebrovascular accident (CVA) Code(s): I63.9 - CEREBRAL INFARCTION, UNSPECIFIED Qualifiers: CVA mechanism: unspecified Qualified Code(s): I63.9 - Cerebral infarction, unspecified (7) Altered mental state Code(s): R41.82 - ALTERED MENTAL STATUS, UNSPECIFIED Qualifiers: Altered mental status type: somnolence Qualified Code(s): R40.0 - Somnolence (8) Elevated troponin Code(s): R79.89 - OTHER SPECIFIED ABNORMAL FINDINGS OF BLOOD CHEMISTRY (9) Hyperglycemia Code(s): R73.9 - HYPERGLYCEMIA, UNSPECIFIED (10) Lactic acidosis Code(s): E87.2 - ACIDOSIS Assessment/Plan 1. Altered mental status - toxic metabolic encephalopathy +/- sepsis 2. CAD history of PCI/stent, angina pectoris 3. LV systolic dysfunction s/p ICD ([place]) 4. HTN 5. Hypercholesterolemia 6. DM (Insulin requiring) 7. Demand ischemia PLAN: 1. Follow mental status 2. Empiric antibiotics 3. Cannot do MRI due to ICD 4. Beta ekvin can be used - IV Lopressor if needed. IV Hydralazine can be used for BP management. When able to take PO, restart Carvedilol and Ramipril 5. DM management 6. Echocardiography was reviewed - moderate to severely reduced LV systolic function Previous medical collector: Neville Dinh MD ([facility]) Jose Ladd MD
[2019-09-12] MEDS: DEXTROSE 5%-0.45% SALINE 1,000 ML IV SCH (13:33)
[2019-09-12] MEDS: COLLAGENASE CLOSTRIDIUM HIST. 30 GRAMS TUBE TP SCH (13:36)
--- NOTE | 2019-09-12 14:19 | PN ---
Physical Exam: SUBJECTIVE: Patient seen and examined. He is non-verbal. OBJECTIVE: Vital Signs Period Temp Pulse Resp BP Sys/Dickerson Pulse Ox Last 24 Hr 98 F-98.4 F 72-100 15-20 135-153/62-78 99 GENERAL: Responsive to sternal rub, makes eye contact. HEAD: Normal with no signs of trauma. EYES: PERRL, conjunctiva clear. ENT: Ears normal, nares patent, tongue dry. NECK: Trachea midline LUNGS: Clear to auscultation bilaterally, no wheezes HEART: Regular rate and rhythm, no murmur ABDOMEN: Soft, nontender, nondistended, normoactive bowel sounds EXTREMITIES: Warm, well-perfused, no edema. NEUROLOGICAL: Follows commands, able to minimally move upper extremities, not able to move feet/toes PSYCH: Unable to assess. SKIN: Warm, dry, normal turgor, left 1st toe ulcer Laboratory Results - last 24 hr 09/11/19 09/11/19 09/11/19 15:57 17:17 20:42 WBC RBC Hgb Hct MCV MCH MCHC RDW Plt Count MPV Sodium Potassium Chloride Carbon Dioxide Anion Gap BUN Creatinine Est GFR (CKD-EPI)AfAm Est GFR (CKD-EPI)NonAf POC Glucometer 163 142 143 Random Glucose Calcium Phosphorus Magnesium Total Bilirubin AST ALT Alkaline Phosphatase Creatine Kinase Total Protein Albumin TSH 09/12/19 09/12/19 09/12/19 01:41 05:20 07:40 WBC 7.8 RBC 5.08 Hgb 15.4 Hct 47.2 MCV 92.8 MCH 30.2 MCHC 32.6 RDW 14.3 Plt Count 144 MPV 9.7 Sodium Potassium Chloride Carbon Dioxide Anion Gap BUN Creatinine Est GFR (CKD-EPI)AfAm Est GFR (CKD-EPI)NonAf POC Glucometer 196 189 Random Glucose Calcium Phosphorus Magnesium Total Bilirubin AST ALT Alkaline Phosphatase Creatine Kinase Total Protein Albumin TSH 09/12/19 09/12/19 09/12/19 07:40 10:00 11:25 WBC RBC Hgb Hct MCV MCH MCHC RDW Plt Count MPV Sodium 140 Potassium 3.3 L Chloride 105 Carbon Dioxide 26 Anion Gap 10 BUN 12.4 Creatinine 0.7 Est GFR (CKD-EPI)AfAm 104.03 Est GFR (CKD-EPI)NonAf 89.76 POC Glucometer 200 248 Random Glucose 208 H Calcium 7.9 L Phosphorus 2.6 Magnesium 1.8 Total Bilirubin 0.5 AST 26 ALT 21 Alkaline Phosphatase 87 Creatine Kinase Total Protein 5.4 L Albumin 2.3 L TSH 4.21 H D 09/12/19 13:10 WBC RBC Hgb Hct MCV MCH MCHC RDW Plt Count MPV Sodium Potassium Chloride Carbon Dioxide Anion Gap BUN Creatinine Est GFR (CKD-EPI)AfAm Est GFR (CKD-EPI)NonAf POC Glucometer Random Glucose Calcium Phosphorus Magnesium Total Bilirubin AST ALT Alkaline Phosphatase Creatine Kinase 305 Total Protein Albumin TSH Active Medications Generic Name Dose Route Start Last Admin Trade Name Freq PRN Reason Stop Dose Admin Acetaminophen 1,000 mg 09/11/19 18:05 Ofirmev Injection - IVPB Q6H PRN fever 100.4 Collagenase 1 applic 09/12/19 12:45 09/12/19 13:36 Santyl - TP 1 applic DAILY VLADIMIR Administration Protocol Heparin Sodium (Porcine) 5,000 unit 09/11/19 22:00 09/12/19 13:38 Heparin - SQ 5,000 unit TID VLADIMIR Administration Hydralazine HCl 10 mg 09/11/19 18:05 Apresoline Injection - IVPUSH Q6H PRN HYPERTENSION Vancomycin HCl 1,250 mg/ 250 mls @ 166.667 mls/hr 09/11/19 17:00 09/12/19 04: 49 Dextrose IVPB 166.667 mls/hr Q12H VLADIMIR Administration Protocol Ceftriaxone Sodium 2 gm/ 100 mls @ 200 mls/hr 09/12/19 10:00 09/12/19 10:16 Dextrose IVPB 200 mls/hr DAILY VLADIMIR Administration Protocol Dextrose/Sodium Chloride 1,000 mls @ 100 mls/hr 09/12/19 12:41 09/12/19 12:47 D5-1/2ns - IV 100 mls/hr ASDIR VLADIMIR Administration Insulin Aspart 1 vial 09/11/19 22:00 09/12/19 12:53 Novolog Vial Sliding Scale - SQ 2 unit Q4HPO VLADIMIR Administration Protocol Thiamine HCl 200 mg 09/11/19 22:15 09/12/19 13:37 Vitamin B1 Injection - IVPB 09/14/19 22:00 200 mg Q8H VLADIMIR Administration ASSESSMENT/PLAN: Mr. Panchal is a 79y/o male with HTN, DM2, [place] s/p stents x9, and PPM presents with AMS. Last known well was 2 days prior to presentation. #staph bacteremia -ceftriaxone (09/10) -vancomycin (09/10) -ID following #toxic metabolic encephalopathy -CT head negative for acute process, small old infarcts noted in right basal ganglia, posterior limb of left capsule, right cerebellum -ICD interrogated- no significant events -echo- EF 35-40%, mild concentric LVH, systolic dysfunction -thiamine -neuro following -cards following -speech/swallow eval- Ensure pudding, consider MBS tomorrow #left 1st toe cellulitis -no radiographic evidence of osteo -podiatry following -surgery following #DM2 hyperglycemic at admission, glucose and ketones in urine -SSI -monitor BGMs #hypothyroidism -free T4 low, TSH high normal/high -unsure of medication compliance -consider repeating lab as out pt in a month #HTN -hydralazine or metoprolol PRN -restart home meds once able to tolerate PO DVT Ppx heparin GI Ppx pantoprazole FEN D5 1/2NS 100mL/hr monitor labs Ensure pudding, consider modified barium swallow tomorrow dispo med/surg Pt family unsure which pharmacy used. Requested someone bring in pill bottles to verify medications. Visit type - Emergency Visit Emergency Visit: Yes ED Registration Date: 09/09/19 Care time: The patient presented to the Emergency Department on the above date and was hospitalized for further evaluation of their emergent condition. - New Patient This patient is new to me today: No - Critical Care Critical Care patient: No - Discharge Referral Referred to [facility] No ATTENDING PHYSICIAN STATEMENT I saw and evaluated the patient. I reviewed the resident's note and discussed the case with the resident. I agree with the resident's findings and plan as documented. SUBJECTIVE: OBJECTIVE: ASSESSMENT AND PLAN:
--- NOTE | 2019-09-12 14:49 | PN ---
Teaching Attending Note Name of Resident: Irene Eckert ATTENDING PHYSICIAN STATEMENT I saw and evaluated the patient. I reviewed the resident's note and discussed the case with the resident. I agree with the resident's findings and plan as documented. SUBJECTIVE: Patient is seen is comfortable in NAD, non verbal ,just staring at you, significant other and the son at bed side. 2 Vital Signs Temperature 98.1 F 09/12/19 10:21 Pulse Rate 100 H 09/12/19 10:21 Respiratory Rate 15 09/12/19 10:21 Blood Pressure 153/71 09/12/19 10:21 O2 Sat by Pulse Oximetry (%) 97 09/12/19 09:00 GENERAL: eyes open , non verbal , in no acute distress. follows some command. HEAD: Normal with no signs of trauma. EYES: PERRL, extraocular movements intact, sclera anicteric, conjunctiva clear, crust on the left eye. ENT: Ears normal, oropharynx clear without exudates, dry mucus membrane, dried up lips on the right side. NECK: Trachea midline, full range of motion, supple. LUNGS: Breath sounds equal, CTA BL , no wheezes, no crackles, no accessory muscle use. HEART: Regular rate and rhythm, S1, S2 without murmur, rub or gallop. ABDOMEN: Soft, NT, ND, normoactive bowel sounds, no guarding, no rebound, no hepatosplenomegaly, no masses. EXTREMITIES: 2+ pulses, warm, well-perfused, trace edema. left toe ulcer s/p burning his toe. NEUROLOGICAL: Cranial nerves II through XII grossly intact. gait not observed. patient is nonverbal at this time. PSYCH: Unable to access SKIN: Warm, dry, normal turgor, no rashes noted CBCD WBC 7.8 K/mm3 (4.0-10.0) 09/12/19 07:40 RBC 5.08 M/mm3 (4.00-5.60) 09/12/19 07:40 Hgb 15.4 GM/dL (11.7-16.9) 09/12/19 07:40 Hct 47.2 % (35.4-49) 09/12/19 07:40 MCV 92.8 fl (80-96) 09/12/19 07:40 MCHC 32.6 g/dl (32.0-35.9) 09/12/19 07:40 RDW 14.3 % (11.9-15.9) 09/12/19 07:40 Plt Count 144 K/MM3 (134-434) 09/12/19 07:40 MPV 9.7 fl (7.5-11.1) 09/12/19 07:40 CMP Sodium 140 mmol/L (136-145) 09/12/19 07:40 Potassium 3.3 mmol/L (3.5-5.1) L 09/12/19 07:40 Chloride 105 mmol/L (98-107) 09/12/19 07:40 Carbon Dioxide 26 mmol/L (21-32) 09/12/19 07:40 Anion Gap 10 MMOL/L (8-16) 09/12/19 07:40 BUN 12.4 mg/dL (7-18) 09/12/19 07:40 Creatinine 0.7 mg/dL (0.55-1.3) 09/12/19 07:40 Random Glucose 208 mg/dL (74-106) H 09/12/19 07:40 Calcium 7.9 mg/dL (8.5-10.1) L 09/12/19 07:40 Total Bilirubin 0.5 mg/dL (0.2-1) 09/12/19 07:40 AST 26 U/L (15-37) 09/12/19 07:40 ALT 21 U/L (13-61) 09/12/19 07:40 Alkaline Phosphatase 87 U/L (45-117) 09/12/19 07:40 Total Protein 5.4 g/dl (6.4-8.2) L 09/12/19 07:40 Albumin 2.3 g/dl (3.4-5.0) L 09/12/19 07:40 CARDIAC ENZYMES Creatine Kinase 305 U/L (26-308) 09/12/19 13:10 Troponin I 0.11 ng/ml (0.00-0.05) H 09/09/19 02:20 Current Medications Generic Name Dose Route Start Last Admin Trade Name Freq PRN Reason Stop Dose Admin Acetaminophen 1,000 mg 09/11/19 18:05 Ofirmev Injection - IVPB Q6H PRN fever 100.4 Collagenase 1 applic 09/12/19 12:45 09/12/19 13:36 Santyl - TP 1 applic DAILY VLADIMIR Administration Protocol Heparin Sodium (Porcine) 5,000 unit 09/11/19 22:00 09/12/19 13:38 Heparin - SQ 5,000 unit TID VLADIMIR Administration Hydralazine HCl 10 mg 09/11/19 18:05 Apresoline Injection - IVPUSH Q6H PRN HYPERTENSION Vancomycin HCl 1,250 mg/ 250 mls @ 166.667 mls/hr 09/11/19 17:00 09/12/19 04: 49 Dextrose IVPB 166.667 mls/hr Q12H VLADIMIR Administration Protocol Ceftriaxone Sodium 2 gm/ 100 mls @ 200 mls/hr 09/12/19 10:00 09/12/19 10:16 Dextrose IVPB 200 mls/hr DAILY VLADIMIR Administration Protocol Dextrose/Sodium Chloride 1,000 mls @ 100 mls/hr 09/12/19 12:41 09/12/19 12:47 D5-1/2ns - IV 100 mls/hr ASDIR VLADIMIR Administration Insulin Aspart 1 vial 09/11/19 22:00 09/12/19 14:47 Novolog Vial Sliding Scale - SQ 4 unit Q4HPO VLADIMIR Administration Protocol Thiamine HCl 200 mg 09/11/19 22:15 09/12/19 13:37 Vitamin B1 Injection - IVPB 09/14/19 22:00 200 mg Q8H VLADIMIR Administration Home Medications Medication Instructions Recorded Allopurinol [Zyloprim] 100 mg PO DAILY 10/26/12 Aspirin [ASA] 81 mg PO DAILY 10/26/12 Carvedilol [Coreg] 25 mg PO BID 10/26/12 Colchicine [Colcrys] 0.6 mg PO DAILY 10/26/12 Ezetimibe/Simvastatin [Vytorin 1 each PO DAILY 10/26/12 10-40 mg Tablet] Folic Acid - 1 mg PO DAILY 10/26/12 Levothyroxine [Synthroid] 175 mcg PO DAILY 10/26/12 Niacin 500 mg PO DAILY 10/26/12 Prasugrel Hydrochloride [Effient] 5 mg PO DAILY 10/26/12 Ramipril [Altace] 10 mg PO BID 10/26/12 metFORMIN HCL [Glucophage] 1,000 mg PO BID 10/26/12 Insulin Glargine,Hum.rec.anlog 100 iu SQ HS 11/02/12 [Lantus (10mL VIAL)] Insulin Lispro [Humalog] 60 iu SQ PC 11/02/12 Microbiology 09/09/19 03:12 Toe - Left Hallux Gram Stain - Final 09/09/19 03:12 Toe - Left Hallux Wound Culture - Final Staphylococcus Aureus Strep Agalactiae Group B Streptococcus Viridans 09/08/19 22:20 Blood - Peripheral Venous Blood Culture - Preliminary Staphylococcus Coagulase Neg Staphylococcus Coagulase Neg#2 Pending Organism 09/08/19 22:20 Blood - Peripheral Venous Blood Culture - Preliminary Staphylococcus Coagulase Neg Staphylococcus Coagulase Neg#2 09/08/19 23:20 Urine - Urine Fitzgerald Urine Culture - Final NO GROWTH OBTAINED ASSESSMENT/PLAN: Patient is a 79yom with HTN, DM2, [place] s/p stents x 9, and PPM presents with AMS. Last known well was 2 days ago. # Gram + bacteremia, Gram positive clusters in cocci , organism and sensitivity resulted, continue Vancomycin/Rocephin , ID on the case urine tox negative, ammonia level negative. Empiric Abx coverage vanco/ rocephin s/p acyclovir discontinued since have a source now, echo reviewed. #Acute change of mental status due to bacteremia , will continue to monitor. CT head negative for acute process, small old infarcts noted, we cannot do MRI due to pacemaker. dr. Love on the case. repeat Ct is negative #DM: s/p IV insulin , hyperglycemic at admission, glucose and ketones in urine, SS scale with coverage #HTN: continue to monitor the blood pressure. DVT Ppx: SCDs NPO for now untill the patient follows more commands
--- NOTE | 2019-09-12 15:18 | CONSULT ---
- Consultation REQUESTING PROVIDER: CONSULT REQUEST: We have been asked to surgically evaluate this patient for L great toe ulcer. PCP:Suzy Monk HISTORY OF PRESENT ILLNESS: 79 y/o M w/ PMhx HTN, DM2, [place] s/p stent x 9 brought to ED on 09/08 with AMS. Pt found to have gram + bacteremia and metabolic encephalopathy. Currently non-verbal (per pts daughter this is not his baseline) . Pts daughter bedside at time of evaluation. Reports she lives in [place] and does not see her father much. Reports pts live in knows more about his medical history, etc. Daughter aware that pt has has a left great toe ulcer since July. Reports ulcer began as a burn from a space heater. States she believes gf has been doing wound care with Bacitracin and dressings. unsure if pt has f/u with PCP or [employer] regarding the wound. States pt does not have a h/o tobacco abuse. PMHx: HTN, DM2, [place] PSHx: left achiles repair Home Medications Medication Instructions Recorded Allopurinol [Zyloprim] 100 mg PO DAILY 10/26/12 Aspirin [ASA] 81 mg PO DAILY 10/26/12 Carvedilol [Coreg] 25 mg PO BID 10/26/12 Colchicine [Colcrys] 0.6 mg PO DAILY 10/26/12 Ezetimibe/Simvastatin [Vytorin 1 each PO DAILY 10/26/12 10-40 mg Tablet] Folic Acid - 1 mg PO DAILY 10/26/12 Levothyroxine [Synthroid] 175 mcg PO DAILY 10/26/12 Niacin 500 mg PO DAILY 10/26/12 Prasugrel Hydrochloride [Effient] 5 mg PO DAILY 10/26/12 Ramipril [Altace] 10 mg PO BID 10/26/12 metFORMIN HCL [Glucophage] 1,000 mg PO BID 10/26/12 Insulin Glargine,Hum.rec.anlog 100 iu SQ HS 11/02/12 [Lantus (10mL VIAL)] Insulin Lispro [Humalog] 60 iu SQ PC 11/02/12 Allergies Allergy/AdvReac Type Severity Reaction Status Date / Time No Known Allergies Allergy Verified 09/08/19 22:29 REVIEW OF SYSTEMS: unable to obtain PHYSICAL EXAM: GENERAL: Awake, alert, does not respond to questioning, opens eyes and looks around. In no acute distress Withdraws to stimuli HEAD: Normal with no signs of trauma. LOWER EXTREMITIES: L foot with approx 1.5x1.5cm dry ulcer at medial aspect of toe, no erythema, does not appear to be any ttp. No other ulcers noted. B/L xeroderma. Vasc: Palpable b/l dp, PT biphasic by doppler. No peripheral edema. Vital Signs Temperature 98.1 F 09/12/19 10:21 Pulse Rate 100 H 09/12/19 10:21 Respiratory Rate 15 09/12/19 10:21 Blood Pressure 153/71 09/12/19 10:21 O2 Sat by Pulse Oximetry (%) 97 09/12/19 09:00 Lab Results WBC 7.8 K/mm3 (4.0-10.0) 09/12/19 07:40 RBC 5.08 M/mm3 (4.00-5.60) 09/12/19 07:40 Hgb 15.4 GM/dL (11.7-16.9) 09/12/19 07:40 Hct 47.2 % (35.4-49) 09/12/19 07:40 MCV 92.8 fl (80-96) 09/12/19 07:40 MCHC 32.6 g/dl (32.0-35.9) 09/12/19 07:40 RDW 14.3 % (11.9-15.9) 09/12/19 07:40 Plt Count 144 K/MM3 (134-434) 09/12/19 07:40 Sodium 140 mmol/L (136-145) 09/12/19 07:40 Potassium 3.3 mmol/L (3.5-5.1) L 09/12/19 07:40 Chloride 105 mmol/L (98-107) 09/12/19 07:40 Carbon Dioxide 26 mmol/L (21-32) 09/12/19 07:40 Anion Gap 10 MMOL/L (8-16) 09/12/19 07:40 BUN 12.4 mg/dL (7-18) 09/12/19 07:40 Creatinine 0.7 mg/dL (0.55-1.3) 09/12/19 07:40 Random Glucose 208 mg/dL (74-106) H 09/12/19 07:40 Calcium 7.9 mg/dL (8.5-10.1) L 09/12/19 07:40 INR 1.00 (0.83-1.09) 09/08/19 22:20 Foot xray (09/11/19): no radiographic evidence of osteomyelitis. A/P: 79 y/o M w/ PMhx HTN, DM2, [place] s/p stent x 9 brought to ED on 09/08 with AMS. Pt found to have gram + bacteremia and metabolic encephalopathy. Vascular consulted for L great toe ulcer. Chronic non infected L great toe ulcer. Pt with borderline pulses and uncontrolled DM. -LE arterial duplex for futher evaluation -Dressings/wound care per Podiatry -Will f/u d/w attending Dr Ambrose
[2019-09-13] MEDS: INSULIN SLIDING SCALE (NOVOLOG) 1 VIAL SQ SCH ×6 (02:11→22:54)
[2019-09-13] MEDS: VANCOMYCIN HCL 1,250 MG in DEXTROSE 5%-WATER - 250 ML IVPB SCH ×2 (04:58→23:23)
[2019-09-13] MEDS: HEPARIN NA (PORCINE) 5,000 UNITS/ML 1ML VIAL SQ SCH ×3 (05:32→22:50)
[2019-09-13] MEDS: THIAMINE HCL 200 MG/2 ML VIAL IVPB SCH ×3 (05:32→23:03)
[2019-09-13 09:07] LABS: BASO % 0.5 % (0-2.0); EOS % 1.9 % (0-4.5); HEMATOCRIT 43.3 % (35.4-49); HEMOGLOBIN 14.6 GM/dL (11.7-16.9); LYMPH % 22.4 % (8-40); MCH 30.9 pg (25.7-33.7); MCHC 33.7 g/dl (32.0-35.9); MEAN CELL VOLUME 91.8 fl (80-96); MEAN PLT VOLUME 9.9 fl (7.5-11.1); MONO % 6.2 % (3.8-10.2); PLATELET COUNT 135 K/MM3 (134-434); RBC 4.71 M/mm3 (4.00-5.60); RDW 14.1 % (11.9-15.9); WHITE BLOOD COUNT 8.4 K/mm3 (4.0-10.0)
[2019-09-13 09:49] LABS: BILIRUBIN,TOTAL 0.4 mg/dL (0.2-1); BLOOD UREA NITROGEN 8.1 mg/dL (7-18); CALCIUM 7.7 mg/dL (8.5-10.1); CREATININE 0.7 mg/dL (0.55-1.3); MAGNESIUM 1.6 mg/dL (1.8-2.4); PHOSPHOROUS 2.4 mg/dL (2.5-4.9); POTASSIUM 3.1 mmol/L (3.5-5.1); TOT PROT 5.1 g/dl (6.4-8.2)
[2019-09-13] MEDS ORDERED: DEXTROSE 5%-WATER 100 ML IVPB ONE (10:38)
[2019-09-13] MEDS ORDERED: MAGNESIUM SULF 50% (8.12 MEQ/2 ML-1 GM VIAL) IVPB ONE (11:39)
[2019-09-13] MEDS ORDERED: PATIENT'S OWN MEDICATION (NON-FORMULARY) (Levothyroxine [Synthroid -] 175 MCG) PO SCH (11:45)
[2019-09-13] MEDS ORDERED: LEVOTHYROXINE NA 150 MCG TABLET PO ONE (11:45)
[2019-09-13] MEDS ORDERED: LEVOTHYROXINE 100 MCG, LEVOTHYROXINE 75 MCG PO ONE (12:00)
[2019-09-13] MEDS ORDERED: LEVOTHYROXINE NA 100 MCG TABLET (FP) ONE (12:03)
[2019-09-13] MEDS ORDERED: LEVOTHYROXINE NA 75 MCG TABLET (FP) ONE (12:03)
[2019-09-13] MEDS: CLOPIDOGREL BISULFATE 75 MG TABLET (FP) PO SCH (12:11)
[2019-09-13] MEDS: FOLIC ACID 1 MG TABLET (FP) PO SCH (12:11)
[2019-09-13] MEDS: ALLOPURINOL 100 MG TABLET (FP) PO SCH (12:12)
[2019-09-13] MEDS: COLLAGENASE CLOSTRIDIUM HIST. 30 GRAMS TUBE TP SCH (12:12)
[2019-09-13] MEDS: D5-1/2NS+40 MEQ KCL - 40 MEQ/1,000 ML INFUS.BAG IV SCH (12:13)
--- NOTE | 2019-09-13 12:21 | PN ---
Progress Note, [employer] - Note Progress Note: Selected Entries 09/12/19 09/12/19 09/12/19 03:48 07:53 09:00 Supper NPO Temperature 98.2 F 98.2 F 09/12/19 09/12/19 09/12/19 10:21 14:00 15:20 Supper Temperature 98.1 F 98.2 F 98.7 F 09/12/19 09/12/19 09/12/19 17:30 18:30 21:00 Supper NPO Temperature 98.2 F 98.3 F 09/13/19 09/13/19 02:10 06:42 Supper Temperature 98.2 F 98.6 F Laboratory Tests 09/13/19 08:10 WBC 8.4 Limited repoponse today, occasionally establishes eye contact. Not following directives. Unable to give puree with bilabial reflexive closure with tactile stimulation. Pt was able to take a little nectar thick with quite delayed swallow, sometimes absent/not generated. Trial sips of nectar from spoon. If begins to improve, will try MBS.
[2019-09-13] MEDS: CEFTRIAXONE 2 GM in DEXTROSE 5%-WATER 100 ML IVPB SCH (12:37)
--- NOTE | 2019-09-13 13:08 | PN ---
Progress Note (short form) - Note Progress Note: FUV left foot +chronic wound left big toe, +dry eschar covering chronic wound left Santyl dressing change daily. Bone scan to r/o om.
[2019-09-13] MEDS ORDERED: HYDROCORTISONE SOD SUCCINATE 100 MG/2 ML VIAL IVPUSH ONE ×2 (13:15→15:00)
--- NOTE | 2019-09-13 13:18 | PN ---
Progress Note, Physician History of Present Illness: Lethargic yet arousable. - Current Medication List Current Medications: Active Medications Acetaminophen (Ofirmev Injection -) 1,000 mg IVPB Q6H PRN PRN Reason: fever 100.4 Allopurinol (Zyloprim -) 100 mg PO DAILY [facility] Last Admin: 09/13/19 12:12 Dose: 100 mg Atorvastatin Calcium (Lipitor -) 20 mg PO HS [facility] Carvedilol (Coreg -) 25 mg PO BID [facility] Clopidogrel Bisulfate (Plavix -) 75 mg PO DAILY [facility] Last Admin: 09/13/19 12:11 Dose: 75 mg Colchicine (Colcrys) 0.6 mg PO DAILY [facility] Collagenase (Santyl -) 1 applic TP DAILY [facility]; Protocol Last Admin: 09/13/19 12:12 Dose: 1 applic Ezetimibe (Zetia -) 10 mg PO HS VLADIMIR Folic Acid (Folic Acid -) 1 mg PO DAILY [facility] Last Admin: 09/13/19 12:11 Dose: 1 mg Heparin Sodium (Porcine) (Heparin -) 5,000 unit SQ TID [facility] Last Admin: 09/13/19 13:05 Dose: 5,000 unit Vancomycin HCl 1,250 mg/ (Dextrose) 250 mls @ 166.667 mls/hr IVPB Q12H [facility]; Protocol Last Admin: 09/13/19 04:58 Dose: 166.667 mls/hr Ceftriaxone Sodium 2 gm/ (Dextrose) 100 mls @ 200 mls/hr IVPB DAILY [facility]; Protocol Last Admin: 09/13/19 12:37 Dose: 200 mls/hr Dextrose/Sodium Chloride (D5-1/2ns+40 Meq Kcl -) 40 meq in 1,000 mls @ 100 mls/ hr IV ASDIR [facility] Stop: 09/14/19 21:44 Last Admin: 09/13/19 12:13 Dose: Not Given Insulin Aspart (Novolog Vial Sliding Scale -) 1 vial SQ Q4HPO [facility]; Protocol Last Admin: 09/13/19 12:33 Dose: 4 unit Levothyroxine Sodium 100 mcg/ (Levothyroxine Sodium 75 mcg) 175 mcg PO DAILY@ 0700 [facility] Thiamine HCl (Vitamin B1 Injection -) 200 mg IVPB Q8H [facility] Stop: 09/14/19 22:00 Last Admin: 09/13/19 05:32 Dose: 200 mg - Objective Vital Signs: Vital Signs Temperature 98.6 F 09/13/19 06:42 Pulse Rate 68 09/13/19 06:42 Respiratory Rate 20 09/13/19 06:42 Blood Pressure 146/72 09/13/19 06:42 O2 Sat by Pulse Oximetry (%) 97 09/12/19 23:51 Constitutional: Yes: No Distress, Calm Neck: Yes: Supple Cardiovascular: Yes: Regular Rate and Rhythm Respiratory: Yes: Regular, CTA Bilaterally Gastrointestinal: Yes: Normal Bowel Sounds, Soft Edema: No Wound/Incision: Yes: Dressing Dry and Intact Labs: CBC, BMP 09/13/19 08:10 09/13/19 08:10 INR, PTT INR 1.00 (0.83-1.09) 09/08/19 22:20 Problem List - Problems (1) Altered mental state Code(s): R41.82 - ALTERED MENTAL STATUS, UNSPECIFIED Qualifiers: Altered mental status type: somnolence Qualified Code(s): R40.0 - Somnolence (2) CAD (coronary artery disease) Code(s): I25.10 - ATHSCL HEART DISEASE OF [place] CORONARY ARTERY W/O ANG PCTRS Qualifiers: Coronary Disease-Associated Artery/Lesion type: [place] artery [place] vs. transplanted heart: [place] heart Associated angina: without angina Qualified Code(s): I25.10 - Atherosclerotic heart disease of [place] coronary artery without angina pectoris (3) Cerebrovascular accident (CVA) Code(s): I63.9 - CEREBRAL INFARCTION, UNSPECIFIED Qualifiers: CVA mechanism: unspecified Qualified Code(s): I63.9 - Cerebral infarction, unspecified (4) HTN (hypertension) Code(s): I10 - ESSENTIAL (PRIMARY) HYPERTENSION Qualifiers: Hypertension type: essential hypertension Qualified Code(s): I10 - Essential (primary) hypertension (5) History of percutaneous coronary intervention Code(s): Z98.61 - CORONARY ANGIOPLASTY STATUS (6) Hypercholesterolemia Code(s): E78.00 - PURE HYPERCHOLESTEROLEMIA, UNSPECIFIED (7) T2DM (type 2 diabetes mellitus) Code(s): E11.9 - TYPE 2 DIABETES MELLITUS WITHOUT COMPLICATIONS Qualifiers: Diabetes mellitus bingo clerk insulin use: with alf use Assessment/Plan 09/11/2019 Echocardiography: Normal LV size with mod-severe reduced LV systolic function LVEF 35-40%, pacer RV, valve regurgitation could not be assessed 09/12/2019 Vascular LE US: Mod atherosclerosis w/o sig stenosis 1. Altered mental status - toxic metabolic encephalopathy +/- sepsis 2. CAD history of PCI/stent, angina pectoris 3. LV systolic dysfunction s/p ICD ([place]) 4. HTN 5. Hypercholesterolemia 6. DM (Insulin requiring) 7. Demand ischemia 8. Hypothyroidism 9. Gout PLAN: 1. Follow mental status 2. Empiric antibiotics 3. Cannot do MRI due to ICD 4. Continue Carvedilol 25 bid, Zetia 10 qd, Lipitor 20 qd, Plavix 75 qd and resume Ramipril 10 bid, repleting K 5. DM management Previous billboard mechanic: Neville Dinh MD ([facility])
--- NOTE | 2019-09-13 15:10 | PN ---
Physical Exam: SUBJECTIVE: Patient seen and examined. Pt is non-verbal. OBJECTIVE: Vital Signs Period Temp Pulse Resp BP Sys/Dickerson Pulse Ox Last 24 Hr 98.2 F-98.7 F 68-74 18-20 145-150/72-80 97 GENERAL: Makes eye contact. HEAD: Normal with no signs of trauma. EYES: PERRL, conjunctiva clear. ENT: Ears normal, nares patent, tongue dry. NECK: Trachea midline LUNGS: Clear to auscultation bilaterally, no wheezes HEART: Regular rate and rhythm, no murmur ABDOMEN: Soft, nontender, nondistended, normoactive bowel sounds EXTREMITIES: Warm, well-perfused, no edema. NEUROLOGICAL: Minimally moves upper extremities, not able to move feet/toes; did not smile or close eyes on command PSYCH: Unable to assess. SKIN: Warm, dry, normal turgor, left 1st toe ulcer bandaged Laboratory Results - last 24 hr 09/12/19 09/12/19 09/13/19 16:52 21:50 02:10 WBC RBC Hgb Hct MCV MCH MCHC RDW Plt Count MPV Absolute Neuts (auto) Neutrophils % Lymphocytes % Monocytes % Eosinophils % Basophils % Nucleated RBC % Sodium Potassium Chloride Carbon Dioxide Anion Gap BUN Creatinine Est GFR (CKD-EPI)AfAm Est GFR (CKD-EPI)NonAf POC Glucometer 212 209 183 Random Glucose Calcium Phosphorus Magnesium Total Bilirubin AST ALT Alkaline Phosphatase Total Protein Albumin Vancomycin Pre-Dose 09/13/19 09/13/19 09/13/19 05:31 08:10 08:10 WBC RBC Hgb Hct MCV MCH MCHC RDW Plt Count MPV Absolute Neuts (auto) Neutrophils % Lymphocytes % Monocytes % Eosinophils % Basophils % Nucleated RBC % Sodium 140 Potassium 3.1 L Chloride 105 Carbon Dioxide 29 Anion Gap 6 L BUN 8.1 Creatinine 0.7 Est GFR (CKD-EPI)AfAm 104.03 Est GFR (CKD-EPI)NonAf 89.76 POC Glucometer 170 Random Glucose 173 H Calcium 7.7 L Phosphorus 2.4 L Magnesium 1.6 L Total Bilirubin 0.4 AST 25 ALT 19 Alkaline Phosphatase 84 Total Protein 5.1 L Albumin 2.0 L Vancomycin Pre-Dose 32.0 H* 09/13/19 09/13/19 08:10 12:28 WBC 8.4 RBC 4.71 Hgb 14.6 Hct 43.3 MCV 91.8 MCH 30.9 MCHC 33.7 RDW 14.1 Plt Count 135 MPV 9.9 Absolute Neuts (auto) 5.8 Neutrophils % 69.0 Lymphocytes % 22.4 Monocytes % 6.2 Eosinophils % 1.9 D Basophils % 0.5 Nucleated RBC % 0 Sodium Potassium Chloride Carbon Dioxide Anion Gap BUN Creatinine Est GFR (CKD-EPI)AfAm Est GFR (CKD-EPI)NonAf POC Glucometer 222 Random Glucose Calcium Phosphorus Magnesium Total Bilirubin AST ALT Alkaline Phosphatase Total Protein Albumin Vancomycin Pre-Dose Active Medications Generic Name Dose Route Start Last Admin Trade Name Freq PRN Reason Stop Dose Admin Acetaminophen 1,000 mg 09/11/19 18:05 Ofirmev Injection - IVPB Q6H PRN fever 100.4 Allopurinol 100 mg 09/13/19 10:00 09/13/19 12:12 Zyloprim - PO 100 mg DAILY [facility] Administration Atorvastatin Calcium 20 mg 09/13/19 22:00 Lipitor - PO HS [facility] Carvedilol 25 mg 09/13/19 22:00 Coreg - PO BID [facility] Clopidogrel Bisulfate 75 mg 09/13/19 10:00 09/13/19 12:11 Plavix - PO 75 mg DAILY [facility] Administration Colchicine 0.6 mg 09/14/19 10:00 Colcrys PO DAILY [facility] Collagenase 1 applic 09/12/19 12:45 09/13/19 12:12 Santyl - TP 1 applic DAILY [facility] Administration Protocol Ezetimibe 10 mg 09/13/19 22:00 Zetia - PO HS [facility] Folic Acid 1 mg 09/13/19 10:00 09/13/19 12:11 Folic Acid - PO 1 mg DAILY [facility] Administration Heparin Sodium (Porcine) 5,000 unit 09/11/19 22:00 09/13/19 13:05 Heparin - SQ 5,000 unit TID [facility] Administration Vancomycin HCl 1,250 mg/ 250 mls @ 166.667 mls/hr 09/11/19 17:00 09/13/19 04: 58 Dextrose IVPB 166.667 mls/hr Q12H [facility] Administration Protocol Ceftriaxone Sodium 2 gm/ 100 mls @ 200 mls/hr 09/12/19 10:00 09/13/19 12:37 Dextrose IVPB 200 mls/hr DAILY [facility] Administration Protocol Dextrose/Sodium Chloride 40 meq in 1,000 mls @ 100 mls/hr 09/13/19 11:45 08/22 12:13 D5-1/2ns+40 Meq Kcl - IV 09/14/19 21:44 Not Given ASDIR [facility] Insulin Aspart 1 vial 09/11/19 22:00 09/13/19 14:46 Novolog Vial Sliding Scale - SQ Not Given Q4HPO [facility] Protocol Levothyroxine Sodium 100 mcg/ 175 mcg 09/14/19 07:00 Levothyroxine Sodium 75 mcg PO DAILY@0700 [facility] Ramipril 5 mg 09/13/19 22:00 Altace - PO BID [facility] Thiamine HCl 200 mg 09/11/19 22:15 09/13/19 14:45 Vitamin B1 Injection - IVPB 09/14/19 22:00 200 mg Q8H [facility] Administration ASSESSMENT/PLAN: Mr. Panchal is a 79y/o male with HTN, DM2, [place] s/p stents x9, and PPM presents with AMS. Last known well was 2 days prior to presentation. 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, posterior limb of left capsule, right cerebellum -ICD interrogated- no significant events -echo- EF 35-40%, mild concentric LVH, systolic dysfunction -hydrocortisone once -thiamine -neuro following -cards following -speech/swallow evaluation- consider MBS when able #left 1st toe cellulitis -no radiographic evidence of osteo -podiatry following -surgery following #hypomagnesemia -replete -monitor #hypokalemia -replete -monitor #DM2 hyperglycemic at admission, glucose and ketones in urine -SSI -monitor BGMs #hypothyroidism -free T4 low, TSH high normal/high -levothyroxine #HTN -ramipril #gout -allopurinol -colchicine #HLD -stain/ezetimibe #SC s/p stents -Plavix DVT Ppx heparin GI Ppx pantoprazole FEN D5 1/2NS +40meq KCl 100mL/hr monitor labs [place] dispo med/surg Visit type - Emergency Visit Emergency Visit: Yes ED Registration Date: 09/09/19 Care time: The patient presented to the Emergency Department on the above date and was hospitalized for further evaluation of their emergent condition. - New Patient This patient is new to me today: No - Critical Care Critical Care patient: No - Discharge Referral Referred to [facility] Med P.C.: No ATTENDING PHYSICIAN STATEMENT I saw and evaluated the patient. I reviewed the resident's note and discussed the case with the resident. I agree with the resident's findings and plan as documented. SUBJECTIVE: OBJECTIVE: ASSESSMENT AND PLAN:
[2019-09-13] MEDS ORDERED: PT OWN MED DRAWER 7, Y5N ONE (16:58)
[2019-09-13] MEDS: VANCOMYCIN 1 GRAM (PRE-DOCKED) 1,000 MG/250 ML BAG IVPB SCH (18:49)
--- NOTE | 2019-09-13 19:04 | PN ---
Progress Note (short form) - Note Progress Note: NEUROLOGY PROGRESS: Events reviewed and discussed with Dr. Monk. Mg++=1.6 mg% TSH= 4.2 Exam: Afebrile. Neck supple Opens eyes to name Makes eye contact. Nods but no speech Withdraws all fours to pinch. Decreased reflexes. Plantars silent IMP: LOC and responsiveness continue to slowly improve. Ultimate prognosis will depend on whether or not hypotension/hypoxemia occurred during sepsis. Suggest: Continue antibiotics, hydration and supportive care. Consider NGT to begin nutritional support. DVT prophylaxis with SQ heparin and SCD's. MRI of brain (C-) EEG. Thank you very much, Kenneth Love MD
--- NOTE | 2019-09-13 22:01 | PN ---
Teaching Attending Note Name of Resident: Irene Eckert ATTENDING PHYSICIAN STATEMENT I saw and evaluated the patient. I reviewed the resident's note and discussed the case with the resident. I agree with the resident's findings and plan as documented. SUBJECTIVE: Patient is seen and family at bedside, discussed in detailed with the family that might take a long time to improve. non verbal , but follows some commands, discussed with dr. Love in details , stated that might take a long time to recover. 2 Vital Signs Temperature 97.2 F L 09/13/19 18:00 Pulse Rate 79 09/13/19 18:00 Respiratory Rate 20 09/13/19 18:00 Blood Pressure 136/76 09/13/19 18:00 O2 Sat by Pulse Oximetry (%) 97 09/12/19 23:51 GENERAL: eyes open , non verbal , in no acute distress. follows commands HEAD: Normal with no signs of trauma. EYES: PERRL, extraocular movements intact, sclera anicteric, conjunctiva clear ENT: Ears normal, oropharynx clear without exudates, dry mucus membrane, dried up lips on the right side. NECK: Trachea midline, full range of motion, supple. LUNGS: Breath sounds equal, CTA BL , no wheezes, no crackles, no accessory muscle use. HEART: Regular rate and rhythm, S1, S2 without murmur, rub or gallop. ABDOMEN: Soft, NT, ND, normoactive bowel sounds, no guarding, no rebound, no hepatosplenomegaly, no masses. EXTREMITIES: 2+ pulses, warm, well-perfused, trace edema. left toe ulcer s/p burning his toe. NEUROLOGICAL: Cranial nerves II through XII grossly intact. gait not observed. patient is nonverbal at this time. PSYCH: Unable to access SKIN: Warm, dry, normal turgor, no rashes noted CBCD WBC 8.4 K/mm3 (4.0-10.0) 09/13/19 08:10 RBC 4.71 M/mm3 (4.00-5.60) 09/13/19 08:10 Hgb 14.6 GM/dL (11.7-16.9) 09/13/19 08:10 Hct 43.3 % (35.4-49) 09/13/19 08:10 MCV 91.8 fl (80-96) 09/13/19 08:10 MCHC 33.7 g/dl (32.0-35.9) 09/13/19 08:10 RDW 14.1 % (11.9-15.9) 09/13/19 08:10 Plt Count 135 K/MM3 (134-434) 09/13/19 08:10 MPV 9.9 fl (7.5-11.1) 09/13/19 08:10 CMP Sodium 140 mmol/L (136-145) 09/13/19 08:10 Potassium 3.1 mmol/L (3.5-5.1) L 09/13/19 08:10 Chloride 105 mmol/L (98-107) 09/13/19 08:10 Carbon Dioxide 29 mmol/L (21-32) 09/13/19 08:10 Anion Gap 6 MMOL/L (8-16) L 09/13/19 08:10 BUN 8.1 mg/dL (7-18) 09/13/19 08:10 Creatinine 0.7 mg/dL (0.55-1.3) 09/13/19 08:10 Random Glucose 173 mg/dL (74-106) H 09/13/19 08:10 Calcium 7.7 mg/dL (8.5-10.1) L 09/13/19 08:10 Total Bilirubin 0.4 mg/dL (0.2-1) 09/13/19 08:10 AST 25 U/L (15-37) 09/13/19 08:10 ALT 19 U/L (13-61) 09/13/19 08:10 Alkaline Phosphatase 84 U/L (45-117) 09/13/19 08:10 Total Protein 5.1 g/dl (6.4-8.2) L 09/13/19 08:10 Albumin 2.0 g/dl (3.4-5.0) L 09/13/19 08:10 CARDIAC ENZYMES Creatine Kinase 305 U/L (26-308) 09/12/19 13:10 Troponin I 0.11 ng/ml (0.00-0.05) H 09/09/19 02:20 Current Medications Generic Name Dose Route Start Last Admin Trade Name Freq PRN Reason Stop Dose Admin Acetaminophen 1,000 mg 09/11/19 18:05 Ofirmev Injection - IVPB Q6H PRN fever 100.4 Allopurinol 100 mg 09/13/19 10:00 09/13/19 12:12 Zyloprim - PO 100 mg DAILY [facility]AD[facility] Administration Atorvastatin Calcium 20 mg 09/13/19 22:00 Lipitor - PO HS [facility] Carvedilol 25 mg 09/13/19 22:00 Coreg - PO BID [facility] Clopidogrel Bisulfate 75 mg 09/13/19 10:00 09/13/19 12:11 Plavix - PO 75 mg DAILY [facility] Administration Colchicine 0.6 mg 09/14/19 10:00 Colcrys PO DAILY [facility] Collagenase 1 applic 09/12/19 12:45 09/13/19 12:12 Santyl - TP 1 applic DAILY [facility] Administration Protocol Ezetimibe 10 mg 09/13/19 22:00 Zetia - PO HS [facility] Folic Acid 1 mg 09/13/19 10:00 09/13/19 12:11 Folic Acid - PO 1 mg DAILY [facility] Administration Heparin Sodium (Porcine) 5,000 unit 09/11/19 22:00 09/13/19 13:05 Heparin - SQ 5,000 unit TID [facility] Administration Ceftriaxone Sodium 2 gm/ 100 mls @ 200 mls/hr 09/12/19 10:00 09/13/19 12:37 Dextrose IVPB 200 mls/hr DAILY [facility] Administration Protocol Dextrose/Sodium Chloride 40 meq in 1,000 mls @ 100 mls/hr 09/13/19 11:45 08/22 12:13 D5-1/2ns+40 Meq Kcl - IV 09/14/19 21:44 Not Given ASDIR [facility] Vancomycin HCl 1,000 mg in 250 mls @ 166.667 mls/hr 09/13/19 18:00 09/13/19 18:49 Vancomycin (Pre-Docked) IVPB 166.667 mls/hr BID@0600,1800 [facility] Administration Protocol Insulin Aspart 1 vial 09/11/19 22:00 09/13/19 17:01 Novolog Vial Sliding Scale - SQ 4 unit Q4HPO [facility] Administration Protocol Levothyroxine Sodium 100 mcg/ 175 mcg 09/14/19 07:00 Levothyroxine Sodium 75 mcg PO DAILY@0700 [facility] Ramipril 5 mg 09/13/19 22:00 Altace - PO BID [facility] Thiamine HCl 200 mg 09/11/19 22:15 09/13/19 14:45 Vitamin B1 Injection - IVPB 09/14/19 22:00 200 mg Q8H [facility] Administration Home Medications Medication Instructions Recorded Allopurinol [Zyloprim] 100 mg PO DAILY 10/26/12 Aspirin [ASA] 81 mg PO DAILY 10/26/12 Carvedilol [Coreg] 25 mg PO BID 10/26/12 Colchicine [Colcrys] 0.6 mg PO DAILY 10/26/12 Ezetimibe/Simvastatin [Vytorin 1 each PO DAILY 10/26/12 10-40 mg Tablet] Folic Acid - 1 mg PO DAILY 10/26/12 Levothyroxine [Synthroid] 175 mcg PO DAILY 10/26/12 Niacin 500 mg PO DAILY 10/26/12 Prasugrel Hydrochloride [Effient] 5 mg PO DAILY 10/26/12 Ramipril [Altace] 10 mg PO BID 10/26/12 metFORMIN HCL [Glucophage] 1,000 mg PO BID 10/26/12 Insulin Glargine,Hum.rec.anlog 100 iu SQ HS 11/02/12 [Lantus (10mL VIAL)] Insulin Lispro [Humalog] 60 iu SQ PC 11/02/12 Microbiology 09/09/19 03:12 Toe - Left Hallux Gram Stain - Final 09/09/19 03:12 Toe - Left Hallux Wound Culture - Final Staphylococcus Aureus Strep Agalactiae Group B Streptococcus Viridans 09/08/19 22:20 Blood - Peripheral Venous Blood Culture - Preliminary Staphylococcus Coagulase Neg Staphylococcus Coagulase Neg#2 Pending Organism 09/08/19 22:20 Blood - Peripheral Venous Blood Culture - Preliminary Staphylococcus Coagulase Neg Staphylococcus Coagulase Neg#2 09/08/19 23:20 Urine - Urine Fitzgerald Urine Culture - Final NO GROWTH OBTAINED ASSESSMENT/PLAN: Patient is a 79yom with HTN, DM2, [place] s/p stents x 9, and PPM presents with AMS. Last known well was 2 days ago. # Gram + bacteremia, Gram positive clusters in cocci , on Vancomycin/Rocephin IV continue , ID on the case empiric Abx coverage vanco/ rocephin s/p acyclovir discontinued since have a source now, echo reviewed #Acute change of mental status due to bacteremia , with slow progression , discussed wih the family and dr love in details, continue to monitor. CT head negative for acute process, small old infarcts noted, we cannot do MRI due to pacemaker. repeat Ct is negative # Hx of hypothyroids will continue levoxyl for now and will give one dose of steroid #DM: s/p IV insulin , hyperglycemic at admission, glucose and ketones in urine, SS scale with coverage #HTN: continue to monitor the blood pressure. DVT Ppx: SCDs NPO for now untill the patient follows more commands
[2019-09-13] MEDS: CARVEDILOL 25 MG TABLET (FP) PO SCH (22:50)
[2019-09-13] MEDS: ATORVASTATIN CA 20 MG TABLET (FP) PO SCH (22:50)
[2019-09-13] MEDS: RAMIPRIL 5 MG CAPSULE (FP) PO SCH (22:50)
[2019-09-13] MEDS: EZETIMIBE 10 MG TABLET (FP) PO SCH (22:50)
--- NOTE | 2019-09-13 23:28 | PN ---
Progress Note, Physician History of Present Illness: AWAKE, NON VERBAL ? EXPRESSIVE APHASIA AFEBRILE WBC WNL REPEAT BC NO GROWTH ECHO NOTED - Current Medication List Current Medications: Active Medications Acetaminophen (Ofirmev Injection -) 1,000 mg IVPB Q6H PRN PRN Reason: fever 100.4 Allopurinol (Zyloprim -) 100 mg PO DAILY [facility] Last Admin: 09/13/19 12:12 Dose: 100 mg Atorvastatin Calcium (Lipitor -) 20 mg PO HS [facility] Last Admin: 09/13/19 22:50 Dose: 20 mg Carvedilol (Coreg -) 25 mg PO BID [facility] Last Admin: 09/13/19 22:50 Dose: 25 mg Clopidogrel Bisulfate (Plavix -) 75 mg PO DAILY [facility] Last Admin: 09/13/19 12:11 Dose: 75 mg Colchicine (Colcrys) 0.6 mg PO DAILY [facility] Collagenase (Santyl -) 1 applic TP DAILY [facility]; Protocol Last Admin: 09/13/19 12:12 Dose: 1 applic Ezetimibe (Zetia -) 10 mg PO HS [facility] Last Admin: 09/13/19 22:50 Dose: 10 mg Folic Acid (Folic Acid -) 1 mg PO DAILY [facility] Last Admin: 09/13/19 12:11 Dose: 1 mg Heparin Sodium (Porcine) (Heparin -) 5,000 unit SQ TID [facility] Last Admin: 09/13/19 22:50 Dose: 5,000 unit Ceftriaxone Sodium 2 gm/ (Dextrose) 100 mls @ 200 mls/hr IVPB DAILY [facility]; Protocol Last Admin: 09/13/19 12:37 Dose: 200 mls/hr Dextrose/Sodium Chloride (D5-1/2ns+40 Meq Kcl -) 40 meq in 1,000 mls @ 100 mls/ hr IV ASDIR [facility] Stop: 09/14/19 21:44 Last Admin: 09/13/19 12:13 Dose: Not Given Vancomycin HCl (Vancomycin (Pre-Docked)) 1,000 mg in 250 mls @ 166.667 mls/hr IVPB BID@0600,1800 [facility]; Protocol Last Admin: 09/13/19 18:49 Dose: 166.667 mls/hr Insulin Aspart (Novolog Vial Sliding Scale -) 1 vial SQ Q4HPO [facility]; Protocol Last Admin: 09/13/19 22:54 Dose: 6 unit Levothyroxine Sodium 100 mcg/ (Levothyroxine Sodium 75 mcg) 175 mcg PO DAILY@ 0700 [facility] Ramipril (Altace -) 5 mg PO BID [facility] Last Admin: 09/13/19 22:50 Dose: 5 mg Thiamine HCl (Vitamin B1 Injection -) 200 mg IVPB Q8H [facility] Stop: 09/14/19 22:00 Last Admin: 09/13/19 23:03 Dose: 200 mg - Objective Vital Signs: Vital Signs Temperature 97.2 F L 09/13/19 18:00 Pulse Rate 79 09/13/19 18:00 Respiratory Rate 20 09/13/19 18:00 Blood Pressure 136/76 09/13/19 18:00 O2 Sat by Pulse Oximetry (%) 97 09/12/19 23:51 Constitutional: Yes: No Distress Eyes: Yes: Conjunctiva Clear Cardiovascular: Yes: Regular Rate and Rhythm, S1, S2 Respiratory: Yes: Diminished Gastrointestinal: Yes: Normal Bowel Sounds, Soft Labs: CBC, BMP 09/13/19 08:10 09/13/19 08:10 INR, PTT INR 1.00 (0.83-1.09) 09/08/19 22:20 Assessment/Plan STAPH COAG NEG BACTEREMIA CELLULITIS GREAT TOE ?TOXIC METABOLIC ENCEPHALOPATHY CONTINUE VANCOMYCIN/CEFTRIAXONE DISCUSSED WITH FAMILY AT BEDSIDE
[2019-09-14] MEDS: INSULIN SLIDING SCALE (NOVOLOG) 1 VIAL SQ SCH ×6 (01:55→21:34)
[2019-09-14] MEDS: D5-1/2NS+40 MEQ KCL - 40 MEQ/1,000 ML INFUS.BAG IV SCH ×2 (02:31→17:14)
[2019-09-14] MEDS: VANCOMYCIN 1 GRAM (PRE-DOCKED) 1,000 MG/250 ML BAG IVPB SCH ×2 (05:26→17:14)
[2019-09-14] MEDS: HEPARIN NA (PORCINE) 5,000 UNITS/ML 1ML VIAL SQ SCH ×3 (05:27→21:34)
[2019-09-14] MEDS ORDERED: LEVOTHYROXINE NA 75 MCG TABLET (FP) ONE (05:51)
[2019-09-14] MEDS ORDERED: LEVOTHYROXINE NA 100 MCG TABLET (FP) ONE (05:51)
--- NOTE | 2019-09-14 06:11 | PN ---
Progress Note, Physician History of Present Illness: AWAKE, EYES OPEN EXPRESSIVE APHASIA NO ACUTE DISTRESS AFEBRILE WBC WNL BC STAPH COAG NEG WOUND C/S POLYMICROBIAL - Current Medication List Current Medications: Active Medications Acetaminophen (Ofirmev Injection -) 1,000 mg IVPB Q6H PRN PRN Reason: fever 100.4 Allopurinol (Zyloprim -) 100 mg PO DAILY [facility] Last Admin: 09/13/19 12:12 Dose: 100 mg Atorvastatin Calcium (Lipitor -) 20 mg PO HS [facility] Last Admin: 09/13/19 22:50 Dose: 20 mg Carvedilol (Coreg -) 25 mg PO BID [facility] Last Admin: 09/13/19 22:50 Dose: 25 mg Clopidogrel Bisulfate (Plavix -) 75 mg PO DAILY [facility] Last Admin: 09/13/19 12:11 Dose: 75 mg Colchicine (Colcrys) 0.6 mg PO DAILY [facility] Collagenase (Santyl -) 1 applic TP DAILY [facility]; Protocol Last Admin: 09/13/19 12:12 Dose: 1 applic Ezetimibe (Zetia -) 10 mg PO HS [facility] Last Admin: 09/13/19 22:50 Dose: 10 mg Folic Acid (Folic Acid -) 1 mg PO DAILY [facility] Last Admin: 09/13/19 12:11 Dose: 1 mg Heparin Sodium (Porcine) (Heparin -) 5,000 unit SQ TID [facility] Last Admin: 09/14/19 05:27 Dose: 5,000 unit Ceftriaxone Sodium 2 gm/ (Dextrose) 100 mls @ 200 mls/hr IVPB DAILY [facility]; Protocol Last Admin: 09/13/19 12:37 Dose: 200 mls/hr Dextrose/Sodium Chloride (D5-1/2ns+40 Meq Kcl -) 40 meq in 1,000 mls @ 100 mls/ hr IV ASDIR [facility] Stop: 09/14/19 21:44 Last Admin: 09/14/19 02:31 Dose: 100 mls/hr Vancomycin HCl (Vancomycin (Pre-Docked)) 1,000 mg in 250 mls @ 166.667 mls/hr IVPB BID@0600,1800 [facility]; Protocol Last Admin: 09/14/19 05:26 Dose: 166.667 mls/hr Insulin Aspart (Novolog Vial Sliding Scale -) 1 vial SQ Q4HPO [facility]; Protocol Last Admin: 09/14/19 05:27 Dose: 2 unit Levothyroxine Sodium 100 mcg/ (Levothyroxine Sodium 75 mcg) 175 mcg PO DAILY@ 0700 [facility] Ramipril (Altace -) 5 mg PO BID [facility] Last Admin: 09/13/19 22:50 Dose: 5 mg Thiamine HCl (Vitamin B1 Injection -) 200 mg IVPB Q8H [facility] Stop: 09/14/19 22:00 Last Admin: 09/13/19 23:03 Dose: 200 mg - Objective Vital Signs: Vital Signs Temperature 98 F 09/14/19 02:15 Pulse Rate 62 09/14/19 02:15 Respiratory Rate 20 09/14/19 02:15 Blood Pressure 127/50 L 09/14/19 02:15 O2 Sat by Pulse Oximetry (%) 97 09/13/19 21:00 Constitutional: Yes: No Distress Cardiovascular: Yes: Regular Rate and Rhythm Respiratory: Yes: CTA Bilaterally Gastrointestinal: Yes: Normal Bowel Sounds, Soft Edema: No Labs: CBC, BMP 09/13/19 08:10 09/13/19 08:10 INR, PTT INR 1.00 (0.83-1.09) 09/08/19 22:20 Assessment/Plan SEPSIS ? SKIN SOURCE TOXIC METABOLIC ENCEPHALOPATHY ? CVA ? SEPTIC EMBOLI ? CARDIAC EVENT DIABETES MELLITUS CELLUITIS L GREAT TOE CONTINUE EMPIRIC VANCOMYCIN/ CEFTRIAXONE ECHO
[2019-09-14] MEDS: THIAMINE HCL 200 MG/2 ML VIAL IVPB SCH ×2 (06:50→14:11)
[2019-09-14] MEDS: LEVOTHYROXINE 100 MCG, LEVOTHYROXINE 75 MCG PO SCH (06:50)
[2019-09-14] MEDS ORDERED: LEVOTHYROXINE NA 100 MCG TABLET (FP) PO SCH (07:00)
[2019-09-14] MEDS ORDERED: LEVOTHYROXINE NA 75 MCG TABLET (FP) PO SCH (07:00)
[2019-09-14 08:09] LABS: BASO % 0.8 % (0-2.0); EOS % 0.5 % (0-4.5); HEMATOCRIT 43.3 % (35.4-49); LYMPH % 18.7 % (8-40); MCH 31.7 pg (25.7-33.7); MCHC 34.6 g/dl (32.0-35.9); MEAN CELL VOLUME 91.5 fl (80-96); MEAN PLT VOLUME 9.7 fl (7.5-11.1); MONO % 5.3 % (3.8-10.2); NEUT % 74.7 % (42.8-82.8); PLATELET COUNT 139 K/MM3 (134-434); RBC 4.73 M/mm3 (4.00-5.60); RDW 14.5 % (11.9-15.9)
[2019-09-14 08:36] LABS: ALBUMIN 2.1 g/dl (3.4-5.0); BILIRUBIN,TOTAL 0.4 mg/dL (0.2-1); BLOOD UREA NITROGEN 9.9 mg/dL (7-18); CREATININE 0.8 mg/dL (0.55-1.3); PHOSPHOROUS 2.5 mg/dL (2.5-4.9); POTASSIUM 3.2 mmol/L (3.5-5.1); TOT PROT 5.2 g/dl (6.4-8.2)
[2019-09-14] MEDS ORDERED: DEXTROSE 5%-WATER 100 ML IVPB ONE (10:05)
--- NOTE | 2019-09-14 10:12 | PN ---
Progress Note, Physician Chief Complaint: Awake and answers simple questions History of Present Illness: Patient was seen and examined. Chart was reviewed Denies chest pain or SOB - Current Medication List Current Medications: Active Medications Acetaminophen (Ofirmev Injection -) 1,000 mg IVPB Q6H PRN PRN Reason: fever 100.4 Allopurinol (Zyloprim -) 100 mg PO DAILY [facility] Last Admin: 09/13/19 12:12 Dose: 100 mg Atorvastatin Calcium (Lipitor -) 20 mg PO HS [facility] Last Admin: 09/13/19 22:50 Dose: 20 mg Carvedilol (Coreg -) 25 mg PO BID [facility] Last Admin: 09/13/19 22:50 Dose: 25 mg Clopidogrel Bisulfate (Plavix -) 75 mg PO DAILY [facility] Last Admin: 09/13/19 12:11 Dose: 75 mg Colchicine (Colcrys) 0.6 mg PO DAILY [facility] Collagenase (Santyl -) 1 applic TP DAILY [facility]; Protocol Last Admin: 09/13/19 12:12 Dose: 1 applic Ezetimibe (Zetia -) 10 mg PO HS [facility] Last Admin: 09/13/19 22:50 Dose: 10 mg Folic Acid (Folic Acid -) 1 mg PO DAILY [facility] Last Admin: 09/13/19 12:11 Dose: 1 mg Heparin Sodium (Porcine) (Heparin -) 5,000 unit SQ TID [facility] Last Admin: 09/14/19 05:27 Dose: 5,000 unit Ceftriaxone Sodium 2 gm/ (Dextrose) 100 mls @ 200 mls/hr IVPB DAILY [facility]; Protocol Last Admin: 09/13/19 12:37 Dose: 200 mls/hr Dextrose/Sodium Chloride (D5-1/2ns+40 Meq Kcl -) 40 meq in 1,000 mls @ 100 mls/ hr IV ASDIR [facility] Stop: 09/14/19 21:44 Last Admin: 09/14/19 02:31 Dose: 100 mls/hr Vancomycin HCl (Vancomycin (Pre-Docked)) 1,000 mg in 250 mls @ 166.667 mls/hr IVPB BID@0600,1800 [facility]; Protocol Last Admin: 09/14/19 05:26 Dose: 166.667 mls/hr Insulin Aspart (Novolog Vial Sliding Scale -) 1 vial SQ Q4HPO [facility]; Protocol Last Admin: 09/14/19 05:27 Dose: 2 unit Levothyroxine Sodium 100 mcg/ (Levothyroxine Sodium 75 mcg) 175 mcg PO DAILY@ 0700 [facility] Last Admin: 09/14/19 06:50 Dose: 175 mcg Ramipril (Altace -) 5 mg PO BID [facility] Last Admin: 09/13/19 22:50 Dose: 5 mg Thiamine HCl (Vitamin B1 Injection -) 200 mg IVPB Q8H [facility] Stop: 09/14/19 22:00 Last Admin: 09/14/19 06:50 Dose: 200 mg - Objective Vital Signs: Vital Signs Temperature 97.9 F 09/14/19 06:37 Pulse Rate 55 L 09/14/19 06:37 Respiratory Rate 20 09/14/19 06:37 Blood Pressure 128/67 09/14/19 06:37 O2 Sat by Pulse Oximetry (%) 97 09/13/19 21:00 HENT: Yes: Atraumatic Neck: Yes: Supple Cardiovascular: Yes: Regular Rate and Rhythm, S1, S2 Respiratory: Yes: Diminished Gastrointestinal: Yes: Normal Bowel Sounds, Soft. No: Tenderness Edema: No Labs: CBC, BMP 09/14/19 07:30 09/14/19 07:30 Problem List - Problems (1) CAD (coronary artery disease) Code(s): I25.10 - ATHSCL HEART DISEASE OF [place] CORONARY ARTERY W/O ANG PCTRS Qualifiers: Coronary Disease-Associated Artery/Lesion type: [place] artery [place] vs. 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 use: with nuclear fuels reclamation engineer use (4) HTN (hypertension) Code(s): I10 - ESSENTIAL (PRIMARY) HYPERTENSION Qualifiers: Hypertension type: essential hypertension Qualified Code(s): I10 - Essential (primary) hypertension (5) Hypercholesterolemia Code(s): E78.00 - PURE HYPERCHOLESTEROLEMIA, UNSPECIFIED (6) Cerebrovascular accident (CVA) Code(s): I63.9 - CEREBRAL INFARCTION, UNSPECIFIED Qualifiers: CVA mechanism: unspecified Qualified Code(s): I63.9 - Cerebral infarction, unspecified (7) Altered mental state Code(s): R41.82 - ALTERED MENTAL STATUS, UNSPECIFIED Qualifiers: Altered mental status type: somnolence Qualified Code(s): R40.0 - Somnolence (8) Elevated troponin Code(s): R79.89 - OTHER SPECIFIED ABNORMAL FINDINGS OF BLOOD CHEMISTRY (9) Hyperglycemia Code(s): R73.9 - HYPERGLYCEMIA, UNSPECIFIED (10) Lactic acidosis Code(s): E87.2 - ACIDOSIS Assessment/Plan 1. Altered mental status - toxic metabolic encephalopathy +/- sepsis, clinically improving 2. CAD history of PCI/stent, angina pectoris 3. LV systolic dysfunction s/p ICD ([place]) 4. HTN 5. Hypercholesterolemia 6. DM (Insulin requiring) 7. Demand ischemia PLAN: 1. Follow mental status 2. Empiric antibiotics 3. Cannot do MRI due to ICD 4. Continue Carvedilol 25mg BID and Ramipril 5 mg BID 5. DM management 6. Continue Lipitor 20 mg QHS and Zetia 10 mg QD Supportive care Previous zyglo technician: Neville Dinh MD ([facility]) Jose Ladd MD
[2019-09-14] MEDS: CARVEDILOL 25 MG TABLET (FP) PO SCH ×2 (10:13→21:48)
[2019-09-14] MEDS: FOLIC ACID 1 MG TABLET (FP) PO SCH (10:13)
[2019-09-14] MEDS: COLCHICINE 0.6 MG CAP PO SCH (10:13)
[2019-09-14] MEDS: CLOPIDOGREL BISULFATE 75 MG TABLET (FP) PO SCH (10:13)
[2019-09-14] MEDS: ALLOPURINOL 100 MG TABLET (FP) PO SCH (10:13)
[2019-09-14] MEDS: RAMIPRIL 5 MG CAPSULE (FP) PO SCH ×2 (10:14→21:48)
[2019-09-14] MEDS: CEFTRIAXONE 2 GM in DEXTROSE 5%-WATER 100 ML IVPB SCH (10:14)
[2019-09-14] MEDS: COLLAGENASE CLOSTRIDIUM HIST. 30 GRAMS TUBE TP SCH (10:15)
--- NOTE | 2019-09-14 11:37 | PN ---
Physical Exam: SUBJECTIVE: Patient seen and examined. Pt is non-verbal. OBJECTIVE: Vital Signs Period Temp Pulse Resp BP Sys/[place] Pulse Ox Last 24 Hr 97.2 F-98 F 55-83 20-20 117-147/50-78 97 GENERAL: Makes eye contact and nods. HEAD: Normal with no signs of trauma. EYES: PERRL, conjunctiva clear. ENT: Ears normal, nares patent, moist mucous membranes NECK: Trachea midline LUNGS: Clear to auscultation bilaterally, no wheezes HEART: Regular rate and rhythm, no murmur ABDOMEN: Soft, nontender, nondistended, normoactive bowel sounds EXTREMITIES: Warm, well-perfused, no edema. NEUROLOGICAL: Raises arms, not able to move feet/toes on command, plantar withdraw, right side mouth droop with smile PSYCH: Unable to assess. SKIN: Warm, dry, normal turgor, left 1st toe ulcer bandaged, no erythema at IV site Laboratory Results - last 24 hr 09/13/19 09/13/19 09/13/19 12:28 16:00 17:00 WBC RBC Hgb Hct MCV MCH MCHC RDW Plt Count MPV Absolute Neuts (auto) Neutrophils % Lymphocytes % Monocytes % Eosinophils % Basophils % Nucleated RBC % Sodium Potassium Chloride Carbon Dioxide Anion Gap BUN Creatinine Est GFR (CKD-EPI)AfAm Est GFR (CKD-EPI)NonAf POC Glucometer 222 224 Random Glucose Calcium Phosphorus Magnesium Total Bilirubin AST ALT Alkaline Phosphatase Total Protein Albumin Vancomycin Pre-Dose 18.5 09/13/19 09/14/19 09/14/19 22:53 01:53 05:30 WBC RBC Hgb Hct MCV MCH MCHC RDW Plt Count MPV Absolute Neuts (auto) Neutrophils % Lymphocytes % Monocytes % Eosinophils % Basophils % Nucleated RBC % Sodium Potassium Chloride Carbon Dioxide Anion Gap BUN Creatinine Est GFR (CKD-EPI)AfAm Est GFR (CKD-EPI)NonAf POC Glucometer 274 348 193 Random Glucose Calcium Phosphorus Magnesium Total Bilirubin AST ALT Alkaline Phosphatase Total Protein Albumin Vancomycin Pre-Dose 09/14/19 09/14/19 07:30 07:30 WBC 9.0 RBC 4.73 Hgb 15.0 Hct 43.3 MCV 91.5 MCH 31.7 MCHC 34.6 RDW 14.5 Plt Count 139 MPV 9.7 Absolute Neuts (auto) 6.7 Neutrophils % 74.7 Lymphocytes % 18.7 Monocytes % 5.3 Eosinophils % 0.5 Basophils % 0.8 Nucleated RBC % 0 Sodium 139 Potassium 3.2 L Chloride 104 Carbon Dioxide 29 Anion Gap 6 L BUN 9.9 Creatinine 0.8 Est GFR (CKD-EPI)AfAm 98.47 Est GFR (CKD-EPI)NonAf 84.96 POC Glucometer Random Glucose 212 H Calcium 8.0 L Phosphorus 2.5 Magnesium 2.0 Total Bilirubin 0.4 AST 24 ALT 19 Alkaline Phosphatase 85 Total Protein 5.2 L Albumin 2.1 L Vancomycin Pre-Dose Active Medications Generic Name Dose Route Start Last Admin Trade Name Freq PRN Reason Stop Dose Admin Acetaminophen 1,000 mg 09/11/19 18:05 Ofirmev Injection - IVPB Q6H PRN fever 100.4 Allopurinol 100 mg 09/13/19 10:00 09/14/19 10:13 Zyloprim - PO 100 mg DAILY [facility] Administration Atorvastatin Calcium 20 mg 09/13/19 22:00 09/13/19 22:50 Lipitor - PO 20 mg HS [facility] Administration Carvedilol 25 mg 09/13/19 22:00 09/14/19 10:13 Coreg - PO 25 mg BID [facility] Administration Clopidogrel Bisulfate 75 mg 09/13/19 10:00 09/14/19 10:13 Plavix - PO 75 mg DAILY [facility] Administration Colchicine 0.6 mg 09/14/19 10:00 09/14/19 10:13 Colcrys PO 0.6 mg DAILY [facility] Administration Collagenase 1 applic 09/12/19 12:45 09/14/19 10:15 Santyl - TP 1 applic DAILY [facility] Administration Protocol Ezetimibe 10 mg 09/13/19 22:00 09/13/19 22:50 Zetia - PO 10 mg HS [facility] Administration Folic Acid 1 mg 09/13/19 10:00 09/14/19 10:13 Folic Acid - PO 1 mg DAILY [facility] Administration Heparin Sodium (Porcine) 5,000 unit 09/11/19 22:00 09/14/19 05:27 Heparin - SQ 5,000 unit TID [facility] Administration Ceftriaxone Sodium 2 gm/ 100 mls @ 200 mls/hr 09/12/19 10:00 09/14/19 10:14 Dextrose IVPB 200 mls/hr DAILY [facility] Administration Protocol Dextrose/Sodium Chloride 40 meq in 1,000 mls @ 100 mls/hr 09/13/19 11:45 09/21 02:31 D5-1/2ns+40 Meq Kcl - IV 09/14/19 21:44 100 mls/hr ASDIR [facility] Administration Vancomycin HCl 1,000 mg in 250 mls @ 166.667 mls/hr 09/13/19 18:00 09/14/19 05:26 Vancomycin (Pre-Docked) IVPB 166.667 mls/hr BID@0600,1800 [facility] Administration Protocol Potassium Chloride 10 meq in 100 mls @ 100 mls/hr 09/14/19 10:15 Potassium Chloride 10 Meq Premix Ivpb - IVPB 09/14/19 13:14 Q60M [facility] Insulin Aspart 1 vial 09/11/19 22:00 09/14/19 05:27 Novolog Vial Sliding Scale - SQ 2 unit Q4HPO [facility] Administration Protocol Levothyroxine Sodium 100 mcg/ 175 mcg 09/14/19 07:00 09/14/19 06:50 Levothyroxine Sodium 75 mcg PO 175 mcg DAILY@0700 [facility] Administration Ramipril 5 mg 09/13/19 22:00 09/14/19 10:14 Altace - PO 5 mg BID [facility] Administration Thiamine HCl 200 mg 09/11/19 22:15 09/14/19 06:50 Vitamin B1 Injection - IVPB 09/14/19 22:00 200 mg Q8H [facility] Administration ASSESSMENT/PLAN: Mr. Panchal is a 79y/o male with HTN, DM2, MS s/p stents x9, and PPM presents with AMS. Last known well was 2 days prior to presentation. 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, posterior limb of left capsule, right cerebellum -ICD interrogated- no significant events -echo- EF 35-40%, mild concentric LVH, systolic dysfunction -thiamine -neuro following -cards following -speech/swallow evaluation- consider MBS when able #left 1st toe cellulitis -wound cx staph epidermidis -atherosclerosis found on b/l LE doppler with no occlusion -bone scan in lieu of MRI -podiatry following -surgery following #hypokalemia -replete -monitor #DM2 hyperglycemic at admission, glucose and ketones in urine -SSI -monitor BGMs #hypothyroidism -free T4 low, TSH high normal/high -levothyroxine #HTN -ramipril #gout -allopurinol -colchicine #HLD -stain/ezetimibe #MS s/p stents -Plavix #hypomagnesemia, resolved DVT Ppx heparin GI Ppx pantoprazole FEN D5 1/2NS +40meq KCl 100mL/hr monitor labs [facility] dispo med/surg Visit type - Emergency Visit Emergency Visit: Yes ED Registration Date: 09/09/19 Care time: The patient presented to the Emergency Department on the above date and was hospitalized for further evaluation of their emergent condition. - New Patient This patient is new to me today: No - Critical Care Critical Care patient: No - Discharge Referral Referred to [facility] Med P.C[facility] No ATTENDING PHYSICIAN STATEMENT I saw and evaluated the patient. I reviewed the resident's note and discussed the case with the resident. I agree with the resident's findings and plan as documented. SUBJECTIVE: OBJECTIVE: ASSESSMENT AND PLAN:
--- NOTE | 2019-09-14 11:43 | PN ---
Progress Note (short form) - Note Progress Note: Duplex reviewed, moderate atherosclerotic disease w/ no evidence of occlusions or hemodynamically significant stenosis. No acute vascular intervention at this time Podiatry for wound care Recommend f/u in the office in 6 months for f/u duplex with Dr Ambrose d/w attending Dr Ambrose
[2019-09-14] MEDS ORDERED: INSULIN (NOVOLOG) ASPART 100 UNITS/ML 10ML VIAL ONE (11:47)
[2019-09-14] MEDS: KCL 10 MEQ IVPB 10 MEQ/100 ML INFUS.BAG IVPB SCH ×3 (11:50→17:13)
--- NOTE | 2019-09-14 16:30 | PN ---
Progress Note (short form) - Note Progress Note: FUV left foot +chronic wound left big toe, +dry eschar covering chronic wound left Santyl dressing change daily. Awaiting Bone scan to r/o om.
--- NOTE | 2019-09-14 16:41 | PN ---
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 Pt alert now,(4:30 pm), much better than yesterday. Raised right hand, waved, smiled, pursed lips and said "yea". Nods yes for all my questions but shook head no for Tylenol. With tactile cues, gwentle pressure to chin to open mouth, pt could accept ensure pudding with delayed but improving, stronger swallow. Rec: Ensure pudding Magic Cup sips of 2 calHN. MBS when more consistently alert. Selected Entries 09/14/19 09/14/19 09/14/19 02:15 06:37 10:00 Temperature 98 F 97.9 F 98.2 F 09/14/19 14:00 Temperature 98.2 F Laboratory Tests 09/14/19 07:30 WBC 9.0
--- NOTE | 2019-09-14 16:48 | PN ---
Progress Note, Physician History of Present Illness: AWAKE, NON VERBAL ? EXPRESSIVE APHASIA ABLE TO FOLLOW SIMPLE COMMANDS AFEBRILE WBC WNL REPEAT BC NO GROWTH ECHO NOTED - Current Medication List Current Medications: Active Medications Acetaminophen (Ofirmev Injection -) 1,000 mg IVPB Q6H PRN PRN Reason: fever 100.4 Allopurinol (Zyloprim -) 100 mg PO DAILY [facility] Last Admin: 09/14/19 10:13 Dose: 100 mg Atorvastatin Calcium (Lipitor -) 20 mg PO HS [facility] Last Admin: 09/13/19 22:50 Dose: 20 mg Carvedilol (Coreg -) 25 mg PO BID [facility] Last Admin: 09/14/19 10:13 Dose: 25 mg Clopidogrel Bisulfate (Plavix -) 75 mg PO DAILY [facility] Last Admin: 09/14/19 10:13 Dose: 75 mg Colchicine (Colcrys) 0.6 mg PO DAILY [facility] Last Admin: 09/14/19 10:13 Dose: 0.6 mg Collagenase (Santyl -) 1 applic TP DAILY [facility]; Protocol Last Admin: 09/14/19 10:15 Dose: 1 applic Ezetimibe (Zetia -) 10 mg PO HS [facility] Last Admin: 09/13/19 22:50 Dose: 10 mg Folic Acid (Folic Acid -) 1 mg PO DAILY [facility] Last Admin: 09/14/19 10:13 Dose: 1 mg Heparin Sodium (Porcine) (Heparin -) 5,000 unit SQ TID [facility] Last Admin: 09/14/19 14:11 Dose: 5,000 unit Ceftriaxone Sodium 2 gm/ (Dextrose) 100 mls @ 200 mls/hr IVPB DAILY [facility]; Protocol Last Admin: 09/14/19 10:14 Dose: 200 mls/hr Dextrose/Sodium Chloride (D5-1/2ns+40 Meq Kcl -) 40 meq in 1,000 mls @ 100 mls/ hr IV ASDIR [facility] Stop: 09/14/19 21:44 Last Admin: 09/14/19 02:31 Dose: 100 mls/hr Vancomycin HCl (Vancomycin (Pre-Docked)) 1,000 mg in 250 mls @ 166.667 mls/hr IVPB BID@0600,1800 [facility]; Protocol Last Admin: 09/14/19 05:26 Dose: 166.667 mls/hr Insulin Aspart (Novolog Vial Sliding Scale -) 1 vial SQ Q4HPO [facility]; Protocol Last Admin: 09/14/19 14:11 Dose: Not Given Levothyroxine Sodium 100 mcg/ (Levothyroxine Sodium 75 mcg) 175 mcg PO DAILY@ 0700 [facility] Last Admin: 09/14/19 06:50 Dose: 175 mcg Ramipril (Altace -) 5 mg PO BID [facility] Last Admin: 09/14/19 10:14 Dose: 5 mg Thiamine HCl (Vitamin B1 Injection -) 200 mg IVPB Q8H [facility] Stop: 09/14/19 22:00 Last Admin: 09/14/19 14:11 Dose: 200 mg - Objective Vital Signs: Vital Signs Temperature 98.2 F 09/14/19 14:00 Pulse Rate 64 09/14/19 14:00 Respiratory Rate 20 09/14/19 14:00 Blood Pressure 106/49 L 09/14/19 14:00 O2 Sat by Pulse Oximetry (%) 98 09/14/19 09:00 Constitutional: Yes: No Distress Eyes: Yes: Conjunctiva Clear Cardiovascular: Yes: Regular Rate and Rhythm, S1, S2 Respiratory: Yes: CTA Bilaterally Gastrointestinal: Yes: Normal Bowel Sounds, Soft. No: Tenderness Extremities: Yes: Other (DRY ULCER, GREAT TOE ERYTHEMA RESOLVED) Edema: No Labs: CBC, BMP 09/14/19 07:30 09/14/19 07:30 INR, PTT INR 1.00 (0.83-1.09) 09/08/19 22:20 Assessment/Plan STAPH COAG NEG BACTEREMIA CELLULITIS GREAT TOE ?TOXIC METABOLIC ENCEPHALOPATHY CONTINUE VANCOMYCIN/CEFTRIAXONE
--- NOTE | 2019-09-14 19:06 | PN ---
Teaching Attending Note Name of Resident: Irene Eckert ATTENDING PHYSICIAN STATEMENT I saw and evaluated the patient. I reviewed the resident's note and discussed the case with the resident. I agree with the resident's findings and plan as documented. SUBJECTIVE: Seen and examined at bedside. No acute events overnight. This morning per nurse and son, patient spoke softly for the first time. OBJECTIVE: Vital Signs - 24 hr 09/13/19 09/13/19 09/14/19 21:00 22:00 02:15 Temperature 97.5 F L 98 F Pulse Rate 83 62 Respiratory 20 20 Rate Blood Pressure 147/77 127/50 L O2 Sat by Pulse 97 Oximetry (%) 09/14/19 09/14/19 09/14/19 06:37 09:00 10:00 Temperature 97.9 F 98.2 F Pulse Rate 55 L 68 Respiratory 20 20 Rate Blood Pressure 128/67 160/75 O2 Sat by Pulse 98 Oximetry (%) 09/14/19 09/14/19 14:00 16:20 Temperature 98.2 F 98.1 F Pulse Rate 64 60 Respiratory 20 18 Rate Blood Pressure 106/49 L 118/61 O2 Sat by Pulse Oximetry (%) PHYSICAL EXAM: GENERAL: eyes open , non verbal , in no acute distress, follows simple commands LUNGS: Breath sounds equal, CTA BL , no wheezes, no crackles, no accessory muscle use. HEART: Regular rate and rhythm, S1, S2 without murmur, rub or gallop. ABDOMEN: Soft, NT, ND, normoactive bowel sounds EXTREMITIES: 2+ pulses, warm, well-perfused, trace edema. left toe dry ulcer PSYCH: Unable to access SKIN: Warm, dry, normal turgor, no rashes noted Current Medications Generic Name Dose Route Start Last Admin Trade Name Freq PRN Reason Stop Dose Admin Acetaminophen 1,000 mg 09/11/19 18:05 Ofirmev Injection - IVPB Q6H PRN fever 100.4 Allopurinol 100 mg 09/13/19 10:00 09/14/19 10:13 Zyloprim - PO 100 mg DAILY [facility] Administration Atorvastatin Calcium 20 mg 09/13/19 22:00 09/13/19 22:50 Lipitor - PO 20 mg HS [facility] Administration Carvedilol 25 mg 09/13/19 22:00 09/14/19 10:13 Coreg - PO 25 mg BID [facility] Administration Clopidogrel Bisulfate 75 mg 09/13/19 10:00 09/14/19 10:13 Plavix - PO 75 mg DAILY [facility] Administration Colchicine 0.6 mg 09/14/19 10:00 09/14/19 10:13 Colcrys PO 0.6 mg DAILY [facility] Administration Collagenase 1 applic 09/12/19 12:45 09/14/19 10:15 Santyl - TP 1 applic DAILY [facility] Administration Protocol Ezetimibe 10 mg 09/13/19 22:00 09/13/19 22:50 Zetia - PO 10 mg HS [facility] Administration Folic Acid 1 mg 09/13/19 10:00 09/14/19 10:13 Folic Acid - PO 1 mg DAILY [facility] Administration Heparin Sodium (Porcine) 5,000 unit 09/11/19 22:00 09/14/19 14:11 Heparin - SQ 5,000 unit TID [facility] Administration Ceftriaxone Sodium 2 gm/ 100 mls @ 200 mls/hr 09/12/19 10:00 09/14/19 10:14 Dextrose IVPB 200 mls/hr DAILY [facility] Administration Protocol Dextrose/Sodium Chloride 40 meq in 1,000 mls @ 100 mls/hr 09/13/19 11:45 09/21 17:14 D5-1/2ns+40 Meq Kcl - IV 09/14/19 21:44 Not Given ASDIR [facility] Vancomycin HCl 1,000 mg in 250 mls @ 166.667 mls/hr 09/13/19 18:00 09/14/19 17:14 Vancomycin (Pre-Docked) IVPB 166.667 mls/hr BID@0600,1800 [facility] Administration Protocol Insulin Aspart 1 vial 09/11/19 22:00 09/14/19 17:20 Novolog Vial Sliding Scale - SQ 2 unit Q4HPO [facility] Administration Protocol Levothyroxine Sodium 100 mcg/ 175 mcg 09/14/19 07:00 09/14/19 06:50 Levothyroxine Sodium 75 mcg PO 175 mcg DAILY@0700 [facility] Administration Ramipril 5 mg 09/13/19 22:00 09/14/19 10:14 Altace - PO 5 mg BID [facility] Administration Thiamine HCl 200 mg 09/11/19 22:15 09/14/19 14:11 Vitamin B1 Injection - IVPB 09/14/19 22:00 200 mg Q8H [facility] Administration Laboratory Results - last 24 hr 09/13/19 09/14/19 09/14/19 22:53 01:53 05:30 WBC RBC Hgb Hct MCV MCH MCHC RDW Plt Count MPV Absolute Neuts (auto) Neutrophils % Lymphocytes % Monocytes % Eosinophils % Basophils % Nucleated RBC % Sodium Potassium Chloride Carbon Dioxide Anion Gap BUN Creatinine Est GFR (CKD-EPI)AfAm Est GFR (CKD-EPI)NonAf POC Glucometer 274 348 193 Random Glucose Calcium Phosphorus Magnesium Total Bilirubin AST ALT Alkaline Phosphatase Total Protein Albumin 09/14/19 09/14/19 09/14/19 07:30 07:30 11:39 WBC 9.0 RBC 4.73 Hgb 15.0 Hct 43.3 MCV 91.5 MCH 31.7 MCHC 34.6 RDW 14.5 Plt Count 139 MPV 9.7 Absolute Neuts (auto) 6.7 Neutrophils % 74.7 Lymphocytes % 18.7 Monocytes % 5.3 Eosinophils % 0.5 Basophils % 0.8 Nucleated RBC % 0 Sodium 139 Potassium 3.2 L Chloride 104 Carbon Dioxide 29 Anion Gap 6 L BUN 9.9 Creatinine 0.8 Est GFR (CKD-EPI)AfAm 98.47 Est GFR (CKD-EPI)NonAf 84.96 POC Glucometer 264 Random Glucose 212 H Calcium 8.0 L Phosphorus 2.5 Magnesium 2.0 Total Bilirubin 0.4 AST 24 ALT 19 Alkaline Phosphatase 85 Total Protein 5.2 L Albumin 2.1 L 09/14/19 17:08 WBC RBC Hgb Hct MCV MCH MCHC RDW Plt Count MPV Absolute Neuts (auto) Neutrophils % Lymphocytes % Monocytes % Eosinophils % Basophils % Nucleated RBC % Sodium Potassium Chloride Carbon Dioxide Anion Gap BUN Creatinine Est GFR (CKD-EPI)AfAm Est GFR (CKD-EPI)NonAf POC Glucometer 188 Random Glucose Calcium Phosphorus Magnesium Total Bilirubin AST ALT Alkaline Phosphatase Total Protein Albumin Microbiology 09/11/19 05:55 Blood - Peripheral Venous Blood Culture - Preliminary NO GROWTH OBTAINED AFTER 72 HOURS, INCUBATION TO CONTINUE FOR 2 DAYS. 09/11/19 05:50 Blood - Peripheral Venous Blood Culture - Preliminary NO GROWTH OBTAINED AFTER 72 HOURS, INCUBATION TO CONTINUE FOR 2 DAYS. 09/08/19 22:20 Blood - Peripheral Venous Blood Culture - Final Staphylococcus Epidermidis Staphylococcus Epidermidis#2 09/08/19 22:20 Blood - Peripheral Venous Blood Culture - Final Staphylococcus Epidermidis Staphylococcus Epidermidis#2 09/09/19 03:12 Toe - Left Hallux Gram Stain - Final 09/09/19 03:12 Toe - Left Hallux Wound Culture - Final Staphylococcus Aureus Strep Agalactiae Group B Streptococcus Viridans 09/08/19 23:20 Urine - Urine Fitzgerald Urine Culture - Final NO GROWTH OBTAINED ASSESSMENT AND PLAN: 79 year old male with HTN, DM2, CAD, and PPM presents with AMS 1) Sepsis, Staph epi bacteremia -on IV abx -ID on the case 2) AMS secondary to above, unsure how long patient was unresponsive for at home -CT head neg -no MRI due to PPM -possible EEG -neuro eval appreciated 3) Hypothyroidism -c/w synthyroid 4) DM2 -ISS 5) HTN -c/w current meds
[2019-09-14] MEDS: ATORVASTATIN CA 20 MG TABLET (FP) PO SCH (21:48)
[2019-09-14] MEDS: EZETIMIBE 10 MG TABLET (FP) PO SCH (21:48)
[2019-09-15] MEDS: INSULIN SLIDING SCALE (NOVOLOG) 1 VIAL SQ SCH ×7 (02:32→22:01)
[2019-09-15] MEDS ORDERED: LEVOTHYROXINE NA 100 MCG TABLET (FP) ONE (04:40)
[2019-09-15] MEDS ORDERED: LEVOTHYROXINE NA 75 MCG TABLET (FP) ONE (04:40)
[2019-09-15] MEDS: HEPARIN NA (PORCINE) 5,000 UNITS/ML 1ML VIAL SQ SCH ×3 (05:48→21:57)
[2019-09-15] MEDS: LEVOTHYROXINE 100 MCG, LEVOTHYROXINE 75 MCG PO SCH (06:12)
[2019-09-15] MEDS: VANCOMYCIN 1 GRAM (PRE-DOCKED) 1,000 MG/250 ML BAG IVPB SCH ×2 (06:47→17:37)
[2019-09-15] MEDS ORDERED: D5-1/2NS+40 MEQ KCL - 40 MEQ/1,000 ML INFUS.BAG IV SCH (07:00)
[2019-09-15 08:26] LABS: HEMATOCRIT 39.6 % (35.4-49); HEMOGLOBIN 13.2 GM/dL (11.7-16.9); MCH 30.7 pg (25.7-33.7); MCHC 33.4 g/dl (32.0-35.9); MEAN PLT VOLUME 10.1 fl (7.5-11.1); PLATELET COUNT 130 K/MM3 (134-434); RBC 4.31 M/mm3 (4.00-5.60); RDW 14.4 % (11.9-15.9); WHITE BLOOD COUNT 7.7 K/mm3 (4.0-10.0)
[2019-09-15 08:39] LABS: BLOOD UREA NITROGEN 9.6 mg/dL (7-18); CALCIUM 7.7 mg/dL (8.5-10.1); CREATININE 0.8 mg/dL (0.55-1.3); PHOSPHOROUS 2.3 mg/dL (2.5-4.9); POTASSIUM 3.4 mmol/L (3.5-5.1)
[2019-09-15] MEDS ORDERED: POTASSIUM CHLORIDE ORAL LIQUID 20 MEQ/15 ML PO ONE (08:56)
[2019-09-15] MEDS ORDERED: DEXTROSE 5%-WATER 100 ML IVPB ONE (09:26)
[2019-09-15] MEDS: FOLIC ACID 1 MG TABLET (FP) PO SCH (09:36)
[2019-09-15] MEDS: CEFTRIAXONE 2 GM in DEXTROSE 5%-WATER 100 ML IVPB SCH (09:36)
[2019-09-15] MEDS: CARVEDILOL 25 MG TABLET (FP) PO SCH ×2 (09:36→21:57)
[2019-09-15] MEDS: RAMIPRIL 5 MG CAPSULE (FP) PO SCH ×2 (09:36→21:57)
[2019-09-15] MEDS: COLCHICINE 0.6 MG CAP PO SCH (09:36)
[2019-09-15] MEDS: ALLOPURINOL 100 MG TABLET (FP) PO SCH (09:36)
[2019-09-15] MEDS: CLOPIDOGREL BISULFATE 75 MG TABLET (FP) PO SCH (09:36)
[2019-09-15] MEDS: COLLAGENASE CLOSTRIDIUM HIST. 30 GRAMS TUBE TP SCH (09:37)
--- NOTE | 2019-09-15 10:25 | PN ---
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 Apraxia adversely affecting initiation of motor response-Speech, limbs, etc PO intake expedites speech initiation Prognosis based on clearing infection? possible Hypoxia? Per Neurology- Metabolic encephalopathy. Ultimate prognosis will depend on whether or not hypotension/hypoxemia occurred during sepsis.
--- NOTE | 2019-09-15 10:41 | PN ---
Progress Note, Physician History of Present Illness: Lethargic yet arousable. Starting to verbalize. - Current Medication List Current Medications: Active Medications Acetaminophen (Ofirmev Injection -) 1,000 mg IVPB Q6H PRN PRN Reason: fever 100.4 Allopurinol (Zyloprim -) 100 mg PO DAILY [facility] Last Admin: 09/15/19 09:36 Dose: 100 mg Atorvastatin Calcium (Lipitor -) 20 mg PO HS [facility] Last Admin: 09/14/19 21:48 Dose: 20 mg Carvedilol (Coreg -) 25 mg PO BID [facility] Last Admin: 09/15/19 09:36 Dose: 25 mg Clopidogrel Bisulfate (Plavix -) 75 mg PO DAILY [facility] Last Admin: 09/15/19 09:36 Dose: 75 mg Colchicine (Colcrys) 0.6 mg PO DAILY [facility] Last Admin: 09/15/19 09:36 Dose: 0.6 mg Collagenase (Santyl -) 1 applic TP DAILY [facility]; Protocol Last Admin: 09/15/19 09:37 Dose: 1 applic Ezetimibe (Zetia -) 10 mg PO HS [facility] Last Admin: 09/14/19 21:48 Dose: 10 mg Folic Acid (Folic Acid -) 1 mg PO DAILY [facility] Last Admin: 09/15/19 09:36 Dose: 1 mg Heparin Sodium (Porcine) (Heparin -) 5,000 unit SQ TID [facility] Last Admin: 09/15/19 05:48 Dose: 5,000 unit Ceftriaxone Sodium 2 gm/ (Dextrose) 100 mls @ 200 mls/hr IVPB DAILY [facility]; Protocol Last Admin: 09/15/19 09:36 Dose: 200 mls/hr Vancomycin HCl (Vancomycin (Pre-Docked)) 1,000 mg in 250 mls @ 166.667 mls/hr IVPB BID@0600,1800 [facility]; Protocol Last Admin: 09/15/19 06:47 Dose: 166.667 mls/hr Insulin Aspart (Novolog Vial Sliding Scale -) 1 vial SQ Q4HPO [facility]; Protocol Last Admin: 09/15/19 05:48 Dose: 2 unit Levothyroxine Sodium 100 mcg/ (Levothyroxine Sodium 75 mcg) 175 mcg PO DAILY@ 0700 [facility] Last Admin: 09/15/19 06:12 Dose: 175 mcg Ramipril (Altace -) 5 mg PO BID [facility] Last Admin: 12/13/19 09:36 Dose: 5 mg - Objective Vital Signs: Vital Signs Temperature 98.6 F 09/15/19 07:02 Pulse Rate 59 L 09/15/19 07:02 Respiratory Rate 20 09/15/19 07:02 Blood Pressure 132/66 09/15/19 07:02 O2 Sat by Pulse Oximetry (%) 98 09/14/19 09:00 Constitutional: Yes: No Distress, Calm Neck: Yes: Supple Cardiovascular: Yes: Regular Rate and Rhythm Respiratory: Yes: Regular, Diminished, On Nasal O2 Gastrointestinal: Yes: Normal Bowel Sounds, Soft, Abdomen, Obese Edema: No Labs: CBC, BMP 09/15/19 07:36 09/15/19 07:36 INR, PTT INR 1.00 (0.83-1.09) 09/08/19 22:20 Problem List - Problems (1) Altered mental state Code(s): R41.82 - ALTERED MENTAL STATUS, UNSPECIFIED Qualifiers: Altered mental status type: somnolence Qualified Code(s): R40.0 - Somnolence (2) CAD (coronary artery disease) Code(s): I25.10 - ATHSCL HEART DISEASE OF [place] CORONARY ARTERY W/O ANG PCTRS Qualifiers: Coronary Disease-Associated Artery/Lesion type: [place] artery [place] vs. transplanted heart: [place] heart Associated angina: without angina Qualified Code(s): I25.10 - Atherosclerotic heart disease of [place] coronary artery without angina pectoris (3) Cerebrovascular accident (CVA) Code(s): I63.9 - CEREBRAL INFARCTION, UNSPECIFIED Qualifiers: CVA mechanism: unspecified Qualified Code(s): I63.9 - Cerebral infarction, unspecified (4) HTN (hypertension) Code(s): I10 - ESSENTIAL (PRIMARY) HYPERTENSION Qualifiers: Hypertension type: essential hypertension Qualified Code(s): I10 - Essential (primary) hypertension (5) History of percutaneous coronary intervention Code(s): Z98.61 - CORONARY ANGIOPLASTY STATUS (6) Hypercholesterolemia Code(s): E78.00 - PURE HYPERCHOLESTEROLEMIA, UNSPECIFIED (7) T2DM (type 2 diabetes mellitus) Code(s): E11.9 - TYPE 2 DIABETES MELLITUS WITHOUT COMPLICATIONS Qualifiers: Diabetes mellitus chcf insulin use: with rodent exterminator use Assessment/Plan 09/11/2019 Echocardiography: Normal LV size with mod-severe reduced LV systolic function LVEF 35-40%, pacer RV, valve regurgitation could not be assessed 09/12/2019 Vascular LE US: Mod atherosclerosis w/o sig stenosis 1. Altered mental status - toxic metabolic encephalopathy +/- sepsis, clinically improving 2. Coag neg staph bacteremia, cellulitis of great toe 3. CAD history of PCI/stent, angina pectoris 4. LV systolic dysfunction s/p ICD ([place]) 5. HTN 6. Hypercholesterolemia 7. DM (Insulin requiring) 8. Demand ischemia PLAN: 1. Follow mental status 2. Empiric antibiotics 3. Cannot do MRI due to ICD, f/u bone scan 4. Continue Carvedilol 25mg BID, Lipitor 20 mg QHS, Zetia 10 mg QD, and Ramipril 5 mg BID 5. DM management Previous data technician: Neville Dinh MD ([facility])
--- NOTE | 2019-09-15 11:19 | PN ---
Progress Note (short form) - Note Progress Note: FUV left foot +chronic wound left big toe, +dry eschar, chronic wound left r/o om Santyl dressing change daily. Awaiting Bone scan to r/o om. Will follow.
--- NOTE | 2019-09-15 16:12 | PN ---
Progress Note, Physician History of Present Illness: AWAKE, NOT VERBALLY RESPONSIVE APPEARS TO COMPREHEND SIMPLE QUESTIONS ABLE TO RESPOND BY NODDING AFEBRILE WBC WNL REPEAT BC NO GROWTH ECHO NOTED - Current Medication List Current Medications: Active Medications Acetaminophen (Ofirmev Injection -) 1,000 mg IVPB Q6H PRN PRN Reason: fever 100.4 Allopurinol (Zyloprim -) 100 mg PO DAILY [facility] Last Admin: 09/15/19 09:36 Dose: 100 mg Atorvastatin Calcium (Lipitor -) 20 mg PO HS [facility] Last Admin: 09/14/19 21:48 Dose: 20 mg Carvedilol (Coreg -) 25 mg PO BID [facility] Last Admin: 09/15/19 09:36 Dose: 25 mg Clopidogrel Bisulfate (Plavix -) 75 mg PO DAILY [facility] Last Admin: 09/15/19 09:36 Dose: 75 mg Colchicine (Colcrys) 0.6 mg PO DAILY [facility] Last Admin: 09/15/19 09:36 Dose: 0.6 mg Collagenase (Santyl -) 1 applic TP DAILY [facility]; Protocol Last Admin: 09/15/19 09:37 Dose: 1 applic Ezetimibe (Zetia -) 10 mg PO HS [facility] Last Admin: 09/14/19 21:48 Dose: 10 mg Folic Acid (Folic Acid -) 1 mg PO DAILY [facility] Last Admin: 09/15/19 09:36 Dose: 1 mg Heparin Sodium (Porcine) (Heparin -) 5,000 unit SQ TID [facility] Last Admin: 09/15/19 14:54 Dose: Not Given Ceftriaxone Sodium 2 gm/ (Dextrose) 100 mls @ 200 mls/hr IVPB DAILY [facility]; Protocol Last Admin: 09/15/19 09:36 Dose: 200 mls/hr Vancomycin HCl (Vancomycin (Pre-Docked)) 1,000 mg in 250 mls @ 166.667 mls/hr IVPB BID@0600,1800 [facility]; Protocol Last Admin: 09/15/19 06:47 Dose: 166.667 mls/hr Amino Acids (Clinimix -) 1,000 mls @ 84 mls/hr IV Q12H [facility] Insulin Aspart (Novolog Vial Sliding Scale -) 1 vial SQ Q4HPO [facility]; Protocol Last Admin: 09/15/19 14:55 Dose: Not Given Levothyroxine Sodium 100 mcg/ (Levothyroxine Sodium 75 mcg) 175 mcg PO DAILY@ 0700 [facility] Last Admin: 09/15/19 06:12 Dose: 175 mcg Ramipril (Altace -) 5 mg PO BID [facility] Last Admin: 09/15/19 09:36 Dose: 5 mg - Objective Vital Signs: Vital Signs Temperature 96.4 F L 09/15/19 15:00 Pulse Rate 58 L 09/15/19 15:00 Respiratory Rate 18 09/15/19 15:00 Blood Pressure 118/55 L 09/15/19 15:00 O2 Sat by Pulse Oximetry (%) 98 09/15/19 09:00 Constitutional: Yes: No Distress Eyes: Yes: Conjunctiva Clear Cardiovascular: Yes: Regular Rate and Rhythm, S1, S2 Respiratory: Yes: Diminished Gastrointestinal: Yes: Normal Bowel Sounds, Soft. No: Tenderness Extremities: Yes: Other (DECREASED ERYTHEMA L GREAT TOE) Labs: CBC, BMP 09/15/19 07:36 09/15/19 07:36 INR, PTT INR 1.00 (0.83-1.09) 09/08/19 22:20 Assessment/Plan STAPH COAG NEG BACTEREMIA CELLULITIS GREAT TOE ?TOXIC METABOLIC ENCEPHALOPATHY CONTINUE VANCOMYCIN/CEFTRIAXONE
--- NOTE | 2019-09-15 17:02 | PN ---
Physical Exam: SUBJECTIVE: Patient seen and examined. Pt was sleeping. OBJECTIVE: Vital Signs Period Temp Pulse Resp BP Sys/Dickerson Pulse Ox Last 24 Hr 96.4 F-98.6 F 58-68 18-82 118-132/55-66 98 GENERAL: Sleeping. HEAD: Normal with no signs of trauma. EYES: PERRL, conjunctiva clear. ENT: Ears normal, nares patent, moist mucous membranes NECK: Trachea midline LUNGS: Clear to auscultation bilaterally, no wheezes HEART: Regular rate and rhythm, no murmur ABDOMEN: Soft, nontender, nondistended, normoactive bowel sounds EXTREMITIES: Warm, well-perfused, no edema. NEUROLOGICAL: Unable to assess PSYCH: Unable to assess. SKIN: Warm, dry, normal turgor, left 1st toe ulcer bandaged, no erythema at IV site Laboratory Results - last 24 hr 09/14/19 09/14/19 09/15/19 17:08 21:25 04:35 WBC RBC Hgb Hct MCV MCH MCHC RDW Plt Count MPV Sodium Potassium Chloride Carbon Dioxide Anion Gap BUN Creatinine Est GFR (CKD-EPI)AfAm Est GFR (CKD-EPI)NonAf POC Glucometer 188 237 Random Glucose Calcium Phosphorus Magnesium Vancomycin Pre-Dose 17.9 L 09/15/19 09/15/19 09/15/19 05:42 07:36 07:36 WBC 7.7 RBC 4.31 Hgb 13.2 Hct 39.6 MCV 92.0 MCH 30.7 MCHC 33.4 RDW 14.4 Plt Count 130 L MPV 10.1 Sodium 142 Potassium 3.4 L Chloride 108 H Carbon Dioxide 29 Anion Gap 5 L BUN 9.6 Creatinine 0.8 Est GFR (CKD-EPI)AfAm 98.47 Est GFR (CKD-EPI)NonAf 84.96 POC Glucometer 175 Random Glucose 185 H Calcium 7.7 L Phosphorus 2.3 L Magnesium 2.0 Vancomycin Pre-Dose 09/15/19 12:42 WBC RBC Hgb Hct MCV MCH MCHC RDW Plt Count MPV Sodium Potassium Chloride Carbon Dioxide Anion Gap BUN Creatinine Est GFR (CKD-EPI)AfAm Est GFR (CKD-EPI)NonAf POC Glucometer 212 Random Glucose Calcium Phosphorus Magnesium Vancomycin Pre-Dose Active Medications Generic Name Dose Route Start Last Admin Trade Name Freq PRN Reason Stop Dose Admin Acetaminophen 1,000 mg 09/11/19 18:05 Ofirmev Injection - IVPB Q6H PRN fever 100.4 Allopurinol 100 mg 09/13/19 10:00 09/15/19 09:36 Zyloprim - PO 100 mg DAILY [facility] Administration Atorvastatin Calcium 20 mg 09/13/19 22:00 09/14/19 21:48 Lipitor - PO 20 mg HS [facility] Administration Carvedilol 25 mg 09/13/19 22:00 09/15/19 09:36 Coreg - PO 25 mg BID [facility] Administration Clopidogrel Bisulfate 75 mg 09/13/19 10:00 09/15/19 09:36 Plavix - PO 75 mg DAILY [facility] Administration Colchicine 0.6 mg 09/14/19 10:00 09/15/19 09:36 Colcrys PO 0.6 mg DAILY [facility] Administration Collagenase 1 applic 09/12/19 12:45 09/15/19 09:37 Santyl - TP 1 applic DAILY [facility] Administration Protocol Ezetimibe 10 mg 09/13/19 22:00 09/14/19 21:48 Zetia - PO 10 mg HS [facility] Administration Folic Acid 1 mg 09/13/19 10:00 09/15/19 09:36 Folic Acid - PO 1 mg DAILY [facility] Administration Heparin Sodium (Porcine) 5,000 unit 09/11/19 22:00 09/15/19 14:54 Heparin - SQ Not Given TID [facility] Ceftriaxone Sodium 2 gm/ 100 mls @ 200 mls/hr 09/12/19 10:00 09/15/19 09:36 Dextrose IVPB 200 mls/hr DAILY [facility] Administration Protocol Vancomycin HCl 1,000 mg in 250 mls @ 166.667 mls/hr 09/13/19 18:00 09/15/19 06:47 Vancomycin (Pre-Docked) IVPB 166.667 mls/hr BID@0600,1800 [facility] Administration Protocol Amino Acids 1,000 mls @ 84 mls/hr 09/15/19 16:00 Clinimix - IV Q12H [facility] Insulin Aspart 1 vial 09/11/19 22:00 09/15/19 14:55 Novolog Vial Sliding Scale - SQ Not Given Q4HPO [facility] Protocol Levothyroxine Sodium 100 mcg/ 175 mcg 09/14/19 07:00 09/15/19 06:12 Levothyroxine Sodium 75 mcg PO 175 mcg DAILY@0700 [facility] Administration Ramipril 5 mg 09/13/19 22:00 09/15/19 09:36 Altace - PO 5 mg BID [facility] Administration ASSESSMENT/PLAN: Mr. Panchal is a 79y/o male with HTN, DM2, [place] s/p stents x9, and PPM presents with AMS. Last known well was 2 days prior to presentation. 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, posterior limb of left capsule, right cerebellum -ICD interrogated- no significant events -echo- EF 35-40%, mild concentric LVH, systolic dysfunction -thiamine -neuro following -cards following -speech/swallow evaluation- consider MBS when able -RPR -consider EEG #dysphagia -Clinimix #left 1st toe cellulitis -wound cx staph epidermidis -atherosclerosis found on b/l LE doppler with no occlusion -bone scan pending -podiatry following -surgery following #hypokalemia -replete -monitor #DM2 hyperglycemic at admission, glucose and ketones in urine -SSI -monitor BGMs #hypothyroidism -free T4 low, TSH high normal/high -levothyroxine #HTN -ramipril #gout -allopurinol -colchicine #HLD -stain/ezetimibe #[place] s/p stents -Plavix #hypomagnesemia, resolved DVT Ppx heparin GI Ppx pantoprazole FEN D5 1/2NS +40meq KCl 100mL/hr; Clinimix 84mL/hr monitor labs [place] dispo med/surg Visit type - Emergency Visit Emergency Visit: Yes ED Registration Date: 09/09/19 Care time: The patient presented to the Emergency Department on the above date and was hospitalized for further evaluation of their emergent condition. - New Patient This patient is new to me today: No - Critical Care Critical Care patient: No - Discharge Referral Referred to [facility] Med P.C.: No ATTENDING PHYSICIAN STATEMENT I saw and evaluated the patient. I reviewed the resident's note and discussed the case with the resident. I agree with the resident's findings and plan as documented. SUBJECTIVE: OBJECTIVE: ASSESSMENT AND PLAN:
[2019-09-15] MEDS: AMINO ACIDS 4.25%/D5W 1,000 ML IV SCH (17:37)
--- NOTE | 2019-09-15 18:25 | PN ---
Teaching Attending Note Name of Resident: Licha Garg ATTENDING PHYSICIAN STATEMENT I saw and evaluated the patient. I reviewed the resident's note and discussed the case with the resident. I agree with the resident's findings and plan as documented. SUBJECTIVE: significant other in room, she thinks his mental status is much better than before. he looks uncomfortable but can't express what is bothering him OBJECTIVE: NAD CV: RRR, no MRG Lungs: CTAB anteriorly Abd: soft, NT, ND, NL BS. Ext : No edema or erythema. L big toe with a dry ulcer on medial aspect Neuro : not cooperative: effasement of L nasolabial fold ( per family , chronic ) . round equal pupils. does not follow commands but moves his legs . ASSESSMENT AND PLAN: 79 y/o man with h/o HTN, DM, CAD, Systolic CHF, hypothyroidism, gout, s/p ICD, and other medical problems who presented with AMS and was found to have sepsis and staph epi bacteremia 1- AMS, aphasia: etiology is still not clear. could be metabolic encephalopathy , but can't r/o CVA completely. - mental status improved but still aphasic - order EEG - order RPR - can't get MRI due to ICD - on review of CTA , R vertebrall artery occluded. vascular - will need to start aspirin once we make sure no intervention is needed for toe . can do rectal for now 2- Staph epi bacteremia: Toe ulcer with suspected OM. toe cellulitis - cont CTX and vanco - repeat blood cx neg - Bone scan results pending - santyl on wound 3- H/o Systolic heart failure: stable. - cont coreg and ACEI - has ICD 4- DM : cont SSI for now . karley confirm out pt regimen 5- Nutrition : family refused NGT placement - start clinimix DVT Px : heaprin SQ
[2019-09-15 21:08] VITALS: BMI 28.3
[2019-09-15] MEDS: EZETIMIBE 10 MG TABLET (FP) PO SCH (21:57)
[2019-09-15] MEDS: ATORVASTATIN CA 20 MG TABLET (FP) PO SCH (21:57)
[2019-09-16] MEDS: INSULIN SLIDING SCALE (NOVOLOG) 1 VIAL SQ SCH ×5 (02:19→17:23)
[2019-09-16] MEDS ORDERED: LEVOTHYROXINE NA 100 MCG TABLET (FP) ONE (06:05)
[2019-09-16] MEDS ORDERED: LEVOTHYROXINE NA 75 MCG TABLET (FP) ONE (06:05)
[2019-09-16] MEDS: HEPARIN NA (PORCINE) 5,000 UNITS/ML 1ML VIAL SQ SCH ×3 (07:00→21:47)
[2019-09-16] MEDS: VANCOMYCIN 1 GRAM (PRE-DOCKED) 1,000 MG/250 ML BAG IVPB SCH ×2 (07:21→17:40)
[2019-09-16] MEDS: AMINO ACIDS 4.25%/D5W 1,000 ML IV SCH ×2 (07:21→15:13)
[2019-09-16] MEDS: LEVOTHYROXINE 100 MCG, LEVOTHYROXINE 75 MCG PO SCH (07:22)
[2019-09-16] MEDS ORDERED: DEXTROSE 5%-WATER 100 ML IVPB ONE (09:32)
[2019-09-16] MEDS: ALLOPURINOL 100 MG TABLET (FP) PO SCH (10:42)
[2019-09-16] MEDS: CLOPIDOGREL BISULFATE 75 MG TABLET (FP) PO SCH (10:42)
[2019-09-16] MEDS: CARVEDILOL 25 MG TABLET (FP) PO SCH ×2 (10:42→21:47)
[2019-09-16] MEDS: RAMIPRIL 5 MG CAPSULE (FP) PO SCH ×2 (10:43→21:48)
[2019-09-16] MEDS: COLCHICINE 0.6 MG CAP PO SCH (10:43)
[2019-09-16] MEDS: CEFTRIAXONE 2 GM in DEXTROSE 5%-WATER 100 ML IVPB SCH (10:43)
[2019-09-16] MEDS: FOLIC ACID 1 MG TABLET (FP) PO SCH (10:43)
[2019-09-16] MEDS: COLLAGENASE CLOSTRIDIUM HIST. 30 GRAMS TUBE TP SCH (10:44)
--- NOTE | 2019-09-16 15:48 | PN ---
Teaching Attending Note Name of Resident: Irene Eckert ATTENDING PHYSICIAN STATEMENT I saw and evaluated the patient. I reviewed the resident's note and discussed the case with the resident. I agree with the resident's findings and plan as documented. SUBJECTIVE: No events over night. girlfriend at bedside thinks he is stable . he denies pain. does not answer more questions OBJECTIVE: NAD, expressive aphasia CV: RRR, no MRG Lungs: CTAB anteriorly Abd: soft, NT, ND, NL BS. Ext : No edema or erythema. L big toe with a dry ulcer on medial aspect Neuro : not cooperative: effacement of L nasolabial fold . partially lift forearm against gravity when asked to, does not move LUE. round equal pupils. does not follow commands to move LE today, but was moving them yesterday biceps 2+ b/l , knee jerk 2+ b/l . ASSESSMENT AND PLAN: 79 y/o man with h/o HTN, DM, CAD, Systolic CHF, hypothyroidism, gout, s/p ICD, and other medical problems who presented with AMS and was found to have sepsis and staph epi bacteremia 1- AMS, aphasia: etiology is still not clear. could be metabolic encephalopathy , but can't r/o CVA completely. - EEG pending - RPR pending - can't get MRI due to ICD - Case to be d/w neuro again today - cont plavix for now 2- Staph epi bacteremia: Toe ulcer with suspected OM. toe cellulitis - Cont CTX and vanco - vanco trough this evening - repeat blood cx neg - Bone scan results pending 3- H/o Systolic heart failure: stable. - cont coreg and ACEI - has ICD 4- DM : - takes Humulin BId at home - sugar is worse with clinamix. - add levemir HS and change SSI to TIDAC 5- Nutrition: eating 25 % of his pureed meals. - cont clinamix - add nectar thick liquids to his diet DVT Px: heparn SQ
--- NOTE | 2019-09-16 18:28 | PN ---
Physical Exam: SUBJECTIVE: Patient seen and examined. He is not speaking but is able to gesture with his hands. OBJECTIVE: Vital Signs Period Temp Pulse Resp BP Sys/Dickerson Pulse Ox Last 24 Hr 97.8 F-98.9 F 55-73 17-20 109-148/58-77 99-100 GENERAL: Awake and alert. Non-verbal at time of exam. HEAD: Normal with no signs of trauma. EYES: PERRL, conjunctiva clear. ENT: Ears normal, nares patent, moist mucous membranes NECK: Trachea midline LUNGS: Clear to auscultation bilaterally, no wheezes HEART: Regular rate and rhythm, no murmur ABDOMEN: Soft, nontender, nondistended, normoactive bowel sounds EXTREMITIES: Warm, well-perfused, no edema. NEUROLOGICAL: follows brief instructions, right facial droop, able to move b/l upper extremities, density control puncher with right hand, moves b/l LE and feet PSYCH: Appears normal mood. SKIN: Warm, dry, normal turgor, left 1st toe dry ulcer on medial surface, no erythema at IV site, abrasion on right forearm Laboratory Results - last 24 hr 09/16/19 09/16/19 09/16/19 07:17 07:30 11:25 POC Glucometer 304 312 RPR Titer Nonreactive 09/16/19 09/16/19 14:01 16:19 POC Glucometer 300 236 RPR Titer Active Medications Generic Name Dose Route Start Last Admin Trade Name Freq PRN Reason Stop Dose Admin Acetaminophen 1,000 mg 09/11/19 18:05 Ofirmev Injection - IVPB Q6H PRN fever 100.4 Allopurinol 100 mg 09/13/19 10:00 09/16/19 10:42 Zyloprim - PO 100 mg DAILY [facility] Administration Atorvastatin Calcium 20 mg 09/13/19 22:00 09/15/19 21:57 Lipitor - PO 20 mg HS [facility] Administration Carvedilol 25 mg 09/13/19 22:00 09/16/19 10:42 Coreg - PO 25 mg BID [facility] Administration Clopidogrel Bisulfate 75 mg 09/13/19 10:00 09/16/19 10:42 Plavix - PO 75 mg DAILY [facility] Administration Colchicine 0.6 mg 09/14/19 10:00 09/16/19 10:43 Colcrys PO 0.6 mg DAILY [facility] Administration Collagenase 1 applic 09/12/19 12:45 09/16/19 10:44 Santyl - TP 1 applic DAILY [facility] Administration Protocol Ezetimibe 10 mg 09/13/19 22:00 09/15/19 21:57 Zetia - PO 10 mg HS [facility] Administration Folic Acid 1 mg 09/13/19 10:00 09/16/19 10:43 Folic Acid - PO 1 mg DAILY [facility] Administration Heparin Sodium (Porcine) 5,000 unit 09/11/19 22:00 09/16/19 13:25 Heparin - SQ 5,000 unit TID [facility] Administration Ceftriaxone Sodium 2 gm/ 100 mls @ 200 mls/hr 09/12/19 10:00 09/16/19 10:43 Dextrose IVPB 200 mls/hr DAILY [facility] Administration Protocol Vancomycin HCl 1,000 mg in 250 mls @ 166.667 mls/hr 09/13/19 18:00 09/16/19 17:40 Vancomycin (Pre-Docked) IVPB 166.667 mls/hr BID@0600,1800 [facility] Administration Protocol Amino Acids 1,000 mls @ 84 mls/hr 09/15/19 16:00 09/16/19 15:13 Clinimix - IV 84 mls/hr Q12H [facility] Administration Insulin Aspart 1 vial 09/16/19 16:30 09/16/19 17:23 Novolog Vial Sliding Scale - SQ 4 unit TIDAC [facility] Administration Protocol Insulin Detemir 5 units 09/16/19 22:00 Levemir Vial SQ HS [facility] Levothyroxine Sodium 100 mcg/ 175 mcg 09/14/19 07:00 09/16/19 07:22 Levothyroxine Sodium 75 mcg PO 175 mcg DAILY@0700 [facility] Administration Ramipril 5 mg 09/13/19 22:00 09/16/19 10:43 Altace - PO 5 mg BID [facility] Administration ASSESSMENT/PLAN: Mr. Panchal is a 79y/o male with HTN, DM2, [place] s/p stents x9, and PPM presents with AMS. Last known well was 2 days prior to presentation. #staph bacteremia -ceftriaxone 2gm daily (09/10) -vancomycin (09/10) -ID following #AMS-improved #aphasia -CT head negative for acute process, small old infarcts noted in right basal ganglia, posterior limb of left capsule, right cerebellum -unable to do MRI due to pacemaker -ICD interrogated- no significant events -echo- EF 35-40%, mild concentric LVH, systolic dysfunction -thiamine -neuro following -cards following -speech/swallow evaluation- consider MBS when able -RPR negative -EEG -vascular consulted #dysphagia -Clinimix #left 1st toe cellulitis -wound cx staph epidermidis -atherosclerosis found on b/l LE doppler with no occlusion -bone scan pending -podiatry following -surgery following #DM2 hyperglycemic at admission, glucose and ketones in urine, on Humalin at home -hyperglycemic since Clinimix in dextrose -Levemir 5U -SSI -monitor BGMs with meals #systolic CHF -continue ramipril #hypothyroidism -free T4 low, TSH high normal/high -levothyroxine #HTN -ramipril #gout -allopurinol -colchicine #HLD -stain/ezetimibe #[place] s/p stents -Plavix #hypomagnesemia, resolved #hypokalemia, resolved -monitor DVT Ppx heparin GI Ppx pantoprazole FEN Clinimix 84mL/hr monitor labs [place] thick foods dispo med/surg Visit type - Emergency Visit Emergency Visit: Yes ED Registration Date: 09/09/19 Care time: The patient presented to the Emergency Department on the above date and was hospitalized for further evaluation of their emergent condition. - New Patient This patient is new to me today: No - Critical Care Critical Care patient: No - Discharge Referral Referred to [facility] Med P.C.: No ATTENDING PHYSICIAN STATEMENT I saw and evaluated the patient. I reviewed the resident's note and discussed the case with the resident. I agree with the resident's findings and plan as documented. SUBJECTIVE: OBJECTIVE: ASSESSMENT AND PLAN:
[2019-09-16 20:55] LABS: BLOOD UREA NITROGEN 15.7 mg/dL (7-18); CALCIUM 7.7 mg/dL (8.5-10.1); MAGNESIUM 1.8 mg/dL (1.8-2.4); PHOSPHOROUS 2.6 mg/dL (2.5-4.9); POTASSIUM 3.5 mmol/L (3.5-5.1)
[2019-09-16] MEDS: EZETIMIBE 10 MG TABLET (FP) PO SCH (21:48)
[2019-09-16] MEDS: INSULIN (LEVEMIR) 100 UNITS/ML UNITS SQ SCH (21:48)
[2019-09-16] MEDS: ATORVASTATIN CA 20 MG TABLET (FP) PO SCH (21:48)
[2019-09-17] MEDS ORDERED: LEVOTHYROXINE NA 100 MCG TABLET (FP) ONE (06:05)
[2019-09-17] MEDS ORDERED: LEVOTHYROXINE NA 75 MCG TABLET (FP) ONE (06:05)
[2019-09-17] MEDS: VANCOMYCIN 1 GRAM (PRE-DOCKED) 1,000 MG/250 ML BAG IVPB SCH (06:13)
[2019-09-17] MEDS: HEPARIN NA (PORCINE) 5,000 UNITS/ML 1ML VIAL SQ SCH ×3 (06:13→21:44)
[2019-09-17] MEDS: AMINO ACIDS 4.25%/D5W 1,000 ML IV SCH (06:13)
[2019-09-17] MEDS: LEVOTHYROXINE 100 MCG, LEVOTHYROXINE 75 MCG PO SCH (06:13)
[2019-09-17] MEDS: INSULIN SLIDING SCALE (NOVOLOG) 1 VIAL SQ SCH ×3 (06:17→16:26)
[2019-09-17] MEDS ORDERED: DEXTROSE 5%-WATER 100 ML IVPB ONE (09:39)
[2019-09-17] MEDS: CEFTRIAXONE 2 GM in DEXTROSE 5%-WATER 100 ML IVPB SCH (10:22)
[2019-09-17] MEDS: COLCHICINE 0.6 MG CAP PO SCH (10:22)
[2019-09-17] MEDS: RAMIPRIL 5 MG CAPSULE (FP) PO SCH ×2 (10:22→21:44)
[2019-09-17] MEDS: FOLIC ACID 1 MG TABLET (FP) PO SCH (10:22)
[2019-09-17] MEDS: ALLOPURINOL 100 MG TABLET (FP) PO SCH (10:22)
[2019-09-17] MEDS: CARVEDILOL 25 MG TABLET (FP) PO SCH ×2 (10:22→21:44)
[2019-09-17] MEDS: CLOPIDOGREL BISULFATE 75 MG TABLET (FP) PO SCH (10:24)
[2019-09-17] MEDS: COLLAGENASE CLOSTRIDIUM HIST. 30 GRAMS TUBE TP SCH (10:41)
--- NOTE | 2019-09-17 13:51 | PN ---
Progress Note (short form) - Note Progress Note: Subjective: per girlfriend, he is quieter today. per RN and aid, he ate all his breakfast this am and has been having good po intake Objective: Vital Signs: Last Vital Signs Temp Pulse Resp BP Pulse Ox 98.3 F 57 L 20 136/59 L 100 09/17/19 10:00 09/17/19 10:00 09/17/19 10:00 09/17/19 10:00 09/17/19 09:00 Laboratory Results - last 24 hr 09/16/19 09/16/19 09/16/19 14:01 16:19 17:55 Sodium Potassium Chloride Carbon Dioxide Anion Gap BUN Creatinine Est GFR (CKD-EPI)AfAm Est GFR (CKD-EPI)NonAf POC Glucometer 300 236 Random Glucose Calcium Phosphorus Magnesium Vancomycin Pre-Dose 19.9 09/16/19 09/16/19 09/17/19 19:40 21:46 06:16 Sodium 136 Potassium 3.5 Chloride 101 Carbon Dioxide 27 Anion Gap 8 BUN 15.7 Creatinine 1.0 Est GFR (CKD-EPI)AfAm 82.60 Est GFR (CKD-EPI)NonAf 71.27 POC Glucometer 316 287 Random Glucose 303 H Calcium 7.7 L Phosphorus 2.6 Magnesium 1.8 Vancomycin Pre-Dose 09/17/19 09/17/19 08:22 11:48 Sodium Potassium Chloride Carbon Dioxide Anion Gap BUN Creatinine Est GFR (CKD-EPI)AfAm Est GFR (CKD-EPI)NonAf POC Glucometer 296 362 Random Glucose Calcium Phosphorus Magnesium Vancomycin Pre-Dose Physical Exam: NAD, more lethargic today. less responsive .expressive aphasia CV: RRR, no MRG Lungs: CTAB anteriorly Abd: soft, NT, ND, NL BS. Ext : No edema or erythema. Neuro : not cooperative: effacement of L nasolabial fold . does not follow any commands today. deos not move extremities ASSESSMENT AND PLAN: 79 y/o man with h/o HTN, DM, CAD, Systolic CHF, hypothyroidism, gout, s/p ICD, and other medical problems who presented with AMS and was found to have sepsis and staph epi bacteremia 1- AMS, aphasia: etiology is still not clear. ? stroke Vs sepsis - EEG pending - RPR pending - will repeat CT of head due to change today - cont plavix for now 2- Staph epi bacteremia: Toe ulcer with suspected OM. toe cellulitis - Cont CTX and vanco - decrease vanco to 750 BID - Bone scan results pending 3- H/o Systolic heart failure: stable. - cont coreg and ACEI - has ICD 4- DM : dc clinimix due to improved po intake - cont levemir HS and SSI TIDAC. can increase levemir if needed 5- Nutrition: improved po intake. - dc clinamix - add nectar thick liquids to his diet. DVT Px: heparin SQ Visit type - Emergency Visit Emergency Visit: Yes ED Registration Date: 09/09/19 Care time: The patient presented to the Emergency Department on the above date and was hospitalized for further evaluation of their emergent condition. - New Patient This patient is new to me today: No - Critical Care Critical Care patient: No
[2019-09-17] MEDS ORDERED: PT OWN MED DRAWER 7, Y5N ONE (16:54)
[2019-09-17] MEDS: VANCOMYCIN 750 MG in DEXTROSE 5%-WATER - 250 ML IVPB SCH (17:51)
[2019-09-17] MEDS ORDERED: VANCOMYCIN 750 MG in DEXTROSE 5%-WATER - 150 ML IVPB SCH (18:00)
--- NOTE | 2019-09-17 19:12 | PN ---
Progress Note, Physician Chief Complaint: Pt alert; nods his head to queries, but does not verbalize (though nurse says he said "yes" to a question in the morning; it was the first time she had heard him speak). Moves left arm on request; does not move legs on request. History of Present Illness: Pt found on the floor of his home. Pt covered in stool and unconscious. Blood sugar on scene was 400; dried blood on the lips. Pt BP 198 mmHg systolic on arrival in ER; 200 systolic in the field. Son spoke to him 3 days ago. Friends couldn't get in touch with him Wed, , and so son drove over and found him. - Current Medication List Current Medications: Active Medications Acetaminophen (Ofirmev Injection -) 1,000 mg IVPB Q6H PRN PRN Reason: fever 100.4 Allopurinol (Zyloprim -) 100 mg PO DAILY [facility] Last Admin: 09/17/19 10:22 Dose: 100 mg Atorvastatin Calcium (Lipitor -) 20 mg PO HS [facility] Last Admin: 09/16/19 21:48 Dose: 20 mg Carvedilol (Coreg -) 25 mg PO BID [facility] Last Admin: 09/17/19 10:22 Dose: 25 mg Clopidogrel Bisulfate (Plavix -) 75 mg PO DAILY [facility] Last Admin: 09/17/19 10:24 Dose: 75 mg Colchicine (Colcrys) 0.6 mg PO DAILY [facility] Last Admin: 09/17/19 10:22 Dose: 0.6 mg Collagenase (Santyl -) 1 applic TP DAILY [facility]; Protocol Last Admin: 09/17/19 10:41 Dose: 1 applic Ezetimibe (Zetia -) 10 mg PO HS [facility] Last Admin: 09/16/19 21:48 Dose: 10 mg Folic Acid (Folic Acid -) 1 mg PO DAILY [facility] Last Admin: 09/17/19 10:22 Dose: 1 mg Heparin Sodium (Porcine) (Heparin -) 5,000 unit SQ TID [facility] Last Admin: 09/17/19 13:51 Dose: 5,000 unit Ceftriaxone Sodium 2 gm/ (Dextrose) 100 mls @ 200 mls/hr IVPB DAILY [facility]; Protocol Last Admin: 09/17/19 10:22 Dose: 200 mls/hr Vancomycin HCl 750 mg/ (Dextrose) 250 mls @ 250 mls/hr IVPB Q12H [facility]; Protocol Last Admin: 09/17/19 17:51 Dose: 250 mls/hr Insulin Aspart (Novolog Vial Sliding Scale -) 1 vial SQ TIDAC [facility]; Protocol Last Admin: 09/17/19 16:26 Dose: 12 unit Insulin Detemir (Levemir Vial) 5 units SQ HS [facility] Last Admin: 09/16/19 21:48 Dose: 5 units Levothyroxine Sodium 100 mcg/ (Levothyroxine Sodium 75 mcg) 175 mcg PO DAILY@ 0700 [facility] Last Admin: 09/17/19 06:13 Dose: 175 mcg Ramipril (Altace -) 5 mg PO BID [facility] Last Admin: 09/17/19 10:22 Dose: 5 mg - Objective Vital Signs: Vital Signs Temperature 98.2 F 09/17/19 16:30 Pulse Rate 63 09/17/19 16:30 Respiratory Rate 18 09/17/19 16:30 Blood Pressure 123/51 L 09/17/19 16:30 O2 Sat by Pulse Oximetry (%) 100 09/17/19 09:00 Constitutional: Yes: Calm Eyes: Yes: WNL HENT: Yes: WNL Neck: Yes: WNL Cardiovascular: Yes: S1, S2 Respiratory: Yes: Regular Gastrointestinal: Yes: Soft ...Rectal Exam: Yes: Deferred Genitourinary: No: Anuria Musculoskeletal: Yes: Muscle Weakness Extremities: Yes: Cool Edema: No Peripheral Pulses WNL: Yes Integumentary: Yes: WNL Neurological: Yes: Alert, Weakness Psychiatric: Yes: Alert Labs: CBC, BMP 09/15/19 07:36 09/16/19 19:40 INR, PTT INR 1.00 (0.83-1.09) 09/08/19 22:20 - ....Imaging Ultrasound: Report Reviewed (ECHO) Problem List - Problems (1) Systolic CHF Assessment/Plan: s/p ICD. On ramipril and carvedilol. F/u electrolytes in the morning (borderline normal 09/16/19). Code(s): I50.20 - UNSPECIFIED SYSTOLIC (CONGESTIVE) HEART FAILURE (2) CAD (coronary artery disease) Code(s): I25.10 - ATHSCL HEART DISEASE OF [place] CORONARY ARTERY W/O ANG PCTRS Qualifiers: Coronary Disease-Associated Artery/Lesion type: [place] artery [place] vs. transplanted heart: [place] heart Associated angina: without angina Qualified Code(s): I25.10 - Atherosclerotic heart disease of [place] coronary artery without angina pectoris (3) Cerebrovascular accident (CVA) Assessment/Plan: bilateral infarcts On clopidogrel. Carotid doppler 2017: mild plaque; no stenoses. f/u lipids. Code(s): I63.9 - CEREBRAL INFARCTION, UNSPECIFIED Qualifiers: CVA mechanism: unspecified Qualified Code(s): I63.9 - Cerebral infarction, unspecified (4) Diabetes Code(s): E11.9 - TYPE 2 DIABETES MELLITUS WITHOUT COMPLICATIONS (5) Hyperlipidemia Assessment/Plan: f/u lipid panel. Code(s): E78.5 - HYPERLIPIDEMIA, UNSPECIFIED (6) Hypothyroid Assessment/Plan: On Synthroid; f/u TFTS (last free T4 was low). Code(s): E03.9 - HYPOTHYROIDISM, UNSPECIFIED
[2019-09-17] MEDS: EZETIMIBE 10 MG TABLET (FP) PO SCH (21:44)
[2019-09-17] MEDS: ATORVASTATIN CA 20 MG TABLET (FP) PO SCH (21:44)
[2019-09-17] MEDS: INSULIN (LEVEMIR) 100 UNITS/ML UNITS SQ SCH (21:46)
[2019-09-18] MEDS ORDERED: LEVOTHYROXINE NA 75 MCG TABLET (FP) ONE (05:56)
[2019-09-18] MEDS ORDERED: LEVOTHYROXINE NA 100 MCG TABLET (FP) ONE (05:56)
[2019-09-18] MEDS: VANCOMYCIN 750 MG in DEXTROSE 5%-WATER - 250 ML IVPB SCH ×2 (06:48→17:47)
[2019-09-18] MEDS: HEPARIN NA (PORCINE) 5,000 UNITS/ML 1ML VIAL SQ SCH ×2 (06:48→14:34)
[2019-09-18] MEDS: INSULIN SLIDING SCALE (NOVOLOG) 1 VIAL SQ SCH ×3 (06:48→17:47)
[2019-09-18] MEDS: LEVOTHYROXINE 100 MCG, LEVOTHYROXINE 75 MCG PO SCH (06:48)
[2019-09-18] MEDS ORDERED: INSULIN (NOVOLOG) ASPART 100 UNITS/ML 10ML VIAL ONE (07:05)
[2019-09-18] MEDS ORDERED: INSULIN (LEVEMIR) 100 UNITS/ML UNITS SQ ONE ×2 (07:05→07:43)
[2019-09-18] MEDS ORDERED: DEXTROSE 5%-WATER 100 ML IVPB ONE (08:16)
[2019-09-18 08:58] LABS: BASO % 0.5 % (0-2.0); EOS % 2.1 % (0-4.5); HEMATOCRIT 42.2 % (35.4-49); HEMOGLOBIN 14.1 GM/dL (11.7-16.9); LYMPH % 21.9 % (8-40); MCH 30.7 pg (25.7-33.7); MCHC 33.5 g/dl (32.0-35.9); MEAN CELL VOLUME 91.6 fl (80-96); MEAN PLT VOLUME 9.5 fl (7.5-11.1); MONO % 6.7 % (3.8-10.2); NEUT % 68.8 % (42.8-82.8); PLATELET COUNT 197 K/MM3 (134-434); RBC 4.61 M/mm3 (4.00-5.60); RDW 14.6 % (11.9-15.9); WHITE BLOOD COUNT 7.8 K/mm3 (4.0-10.0)
--- NOTE | 2019-09-18 09:13 | PN ---
Progress Note (short form) - Note Progress Note: + chronic wound left big toe. + dry eschar Chronic wound left foot r/o om. Santyl dressing change daily Awaiting bone scan to r/o om. Will follow
[2019-09-18 09:24] LABS: BLOOD UREA NITROGEN 12.2 mg/dL (7-18); CALCIUM 8.4 mg/dL (8.5-10.1); CREATININE 0.9 mg/dL (0.55-1.3); POTASSIUM 3.5 mmol/L (3.5-5.1)
[2019-09-18] MEDS: FOLIC ACID 1 MG TABLET (FP) PO SCH (09:51)
[2019-09-18] MEDS: CARVEDILOL 25 MG TABLET (FP) PO SCH ×2 (09:52→22:58)
[2019-09-18] MEDS: COLCHICINE 0.6 MG CAP PO SCH (09:52)
[2019-09-18] MEDS: CLOPIDOGREL BISULFATE 75 MG TABLET (FP) PO SCH (09:53)
[2019-09-18 10:36] LABS: MAGNESIUM 1.8 mg/dL (1.8-2.4)
--- NOTE | 2019-09-18 10:54 | PN ---
Progress Note, Physician History of Present Illness: AWAKE, NOT VERBALLY RESPONSIVE APPEARS TO COMPREHEND SIMPLE QUESTIONS ABLE TO RESPOND BY NODDING AFEBRILE WBC WNL REPEAT BC NO GROWTH ECHO NOTED BONE SCAN PENDING - Current Medication List Current Medications: Active Medications Acetaminophen (Ofirmev Injection -) 1,000 mg IVPB Q6H PRN PRN Reason: fever 100.4 Allopurinol (Zyloprim -) 100 mg PO DAILY [facility] Last Admin: 09/17/19 10:22 Dose: 100 mg Atorvastatin Calcium (Lipitor -) 20 mg PO HS [facility] Last Admin: 09/17/19 21:44 Dose: 20 mg Carvedilol (Coreg -) 25 mg PO BID [facility] Last Admin: 09/18/19 09:52 Dose: 25 mg Clopidogrel Bisulfate (Plavix -) 75 mg PO DAILY [facility] Last Admin: 09/18/19 09:53 Dose: 75 mg Colchicine (Colcrys) 0.6 mg PO DAILY [facility] Last Admin: 09/18/19 09:52 Dose: 0.6 mg Collagenase (Santyl -) 1 applic TP DAILY [facility]; Protocol Last Admin: 09/17/19 10:41 Dose: 1 applic Ezetimibe (Zetia -) 10 mg PO HS [facility] Last Admin: 09/17/19 21:44 Dose: 10 mg Folic Acid (Folic Acid -) 1 mg PO DAILY [facility] Last Admin: 09/18/19 09:51 Dose: 1 mg Heparin Sodium (Porcine) (Heparin -) 5,000 unit SQ TID [facility] Last Admin: 09/18/19 06:48 Dose: 5,000 unit Ceftriaxone Sodium 2 gm/ (Dextrose) 100 mls @ 200 mls/hr IVPB DAILY [facility]; Protocol Last Admin: 09/17/19 10:22 Dose: 200 mls/hr Vancomycin HCl 750 mg/ (Dextrose) 250 mls @ 250 mls/hr IVPB Q12H [facility]; Protocol Last Admin: 09/18/19 06:48 Dose: 250 mls/hr Insulin Aspart (Novolog Vial Sliding Scale -) 1 vial SQ TIDAC [facility]; Protocol Last Admin: 09/18/19 06:48 Dose: 4 unit Insulin Detemir (Levemir Vial) 5 units SQ HS [facility] Last Admin: 09/17/19 21:46 Dose: 5 units Levothyroxine Sodium 100 mcg/ (Levothyroxine Sodium 75 mcg) 175 mcg PO DAILY@ 0700 [facility] Last Admin: 09/18/19 06:48 Dose: 175 mcg Ramipril (Altace -) 5 mg PO BID [facility] Last Admin: 09/17/19 21:44 Dose: 5 mg - Objective Vital Signs: Vital Signs Temperature 98.2 F 09/18/19 07:45 Pulse Rate 55 L 09/18/19 07:45 Respiratory Rate 20 09/18/19 07:45 Blood Pressure 142/67 09/18/19 07:45 O2 Sat by Pulse Oximetry (%) 100 09/17/19 23:16 Constitutional: Yes: No Distress Eyes: Yes: Conjunctiva Clear Cardiovascular: Yes: Regular Rate and Rhythm, S1, S2 Respiratory: Yes: CTA Bilaterally Gastrointestinal: Yes: Normal Bowel Sounds, Soft. No: Tenderness Extremities: Yes: Other (DECREASED ERYTHEMA L GREAT TOE) Edema: No Labs: CBC, BMP 09/18/19 08:15 09/18/19 08:15 INR, PTT INR 1.00 (0.83-1.09) 09/08/19 22:20 Assessment/Plan STAPH COAG NEG BACTEREMIA CELLULITIS GREAT TOE ?TOXIC METABOLIC ENCEPHALOPATHY CONTINUE VANCOMYCIN/CEFTRIAXONE AWAIT BONE SCAN
[2019-09-18] MEDS ORDERED: PT OWN MED DRAWER 7, Y5N ONE ×2 (12:07→17:01)
[2019-09-18] MEDS: CEFTRIAXONE 2 GM in DEXTROSE 5%-WATER 100 ML IVPB SCH (12:11)
[2019-09-18] MEDS: COLLAGENASE CLOSTRIDIUM HIST. 30 GRAMS TUBE TP SCH (12:12)
[2019-09-18] MEDS: ALLOPURINOL 100 MG TABLET (FP) PO SCH (12:12)
[2019-09-18] MEDS: RAMIPRIL 5 MG CAPSULE (FP) PO SCH ×2 (13:17→22:58)
--- NOTE | 2019-09-18 16:30 | PN ---
Physical Exam: SUBJECTIVE: Patient seen and examined. He nodded "no" when asked if he was in pain or had difficulty breathing. OBJECTIVE: Vital Signs Period Temp Pulse Resp BP Sys/[place] Pulse Ox Last 24 Hr 98.1 F-98.2 F 55-62 18-20 114-142/55-67 100 GENERAL: Awake and alert. More interactive, nodding. HEAD: Normal with no signs of trauma. EYES: PERRL, conjunctiva clear. ENT: Ears normal, nares patent, moist mucous membranes NECK: Trachea midline LUNGS: Clear to auscultation bilaterally, no wheezes HEART: Regular rate and rhythm, no murmur ABDOMEN: Soft, nontender, nondistended, normoactive bowel sounds EXTREMITIES: Warm, well-perfused, no edema. NEUROLOGICAL: follows brief instructions, right facial droop, able to move b/l upper extremities, moves b/l LE PSYCH: Appears normal mood. SKIN: Warm, dry, normal turgor, left 1st toe dry ulcer on medial surface Laboratory Results - last 24 hr 09/12/19 09/17/19 09/18/19 07:40 21:46 05:45 WBC RBC Hgb Hct MCV MCH MCHC RDW Plt Count MPV Absolute Neuts (auto) Neutrophils % Lymphocytes % Monocytes % Eosinophils % Basophils % Nucleated RBC % Sodium Potassium Chloride Carbon Dioxide Anion Gap BUN Creatinine Est GFR (CKD-EPI)AfAm Est GFR (CKD-EPI)NonAf POC Glucometer 295 250 Random Glucose Calcium Magnesium Triglycerides Cholesterol Total LDL Cholesterol HDL Cholesterol Vitamin B2 169.0 09/18/19 09/18/19 09/18/19 08:15 08:15 13:14 WBC 7.8 RBC 4.61 Hgb 14.1 Hct 42.2 MCV 91.6 MCH 30.7 MCHC 33.5 RDW 14.6 Plt Count 197 D MPV 9.5 Absolute Neuts (auto) 5.4 Neutrophils % 68.8 Lymphocytes % 21.9 Monocytes % 6.7 Eosinophils % 2.1 D Basophils % 0.5 Nucleated RBC % 0 Sodium 140 Potassium 3.5 Chloride 104 Carbon Dioxide 29 Anion Gap 8 BUN 12.2 Creatinine 0.9 Est GFR (CKD-EPI)AfAm 93.82 Est GFR (CKD-EPI)NonAf 80.95 POC Glucometer 309 Random Glucose 270 H Calcium 8.4 L Magnesium 1.8 Triglycerides 186 H Cholesterol 148 Total LDL Cholesterol 81 HDL Cholesterol 36 L Vitamin B2 Active Medications Generic Name Dose Route Start Last Admin Trade Name Prema PRN Reason Stop Dose Admin Acetaminophen 1,000 mg 09/11/19 18:05 Ofirmev Injection - IVPB Q6H PRN fever 100.4 Allopurinol 100 mg 09/13/19 10:00 09/18/19 12:12 Zyloprim - PO 100 mg DAILY [facility] Administration Atorvastatin Calcium 20 mg 09/13/19 22:00 09/17/19 21:44 Lipitor - PO 20 mg HS [facility] Administration Carvedilol 25 mg 09/13/19 22:00 09/18/19 09:52 Coreg - PO 25 mg BID [facility] Administration Clopidogrel Bisulfate 75 mg 09/13/19 10:00 09/18/19 09:53 Plavix - PO 75 mg DAILY [facility] Administration Colchicine 0.6 mg 09/14/19 10:00 09/18/19 09:52 Colcrys PO 0.6 mg DAILY [facility] Administration Collagenase 1 applic 09/12/19 12:45 09/18/19 12:12 Santyl - TP 1 applic DAILY [facility] Administration Protocol Ezetimibe 10 mg 09/13/19 22:00 09/17/19 21:44 Zetia - PO 10 mg HS [facility] Administration Folic Acid 1 mg 09/13/19 10:00 09/18/19 09:51 Folic Acid - PO 1 mg DAILY [facility] Administration Heparin Sodium (Porcine) 5,000 unit 09/11/19 22:00 09/18/19 14:34 Heparin - SQ 5,000 unit TID [facility] Administration Ceftriaxone Sodium 2 gm/ 100 mls @ 200 mls/hr 09/12/19 10:00 09/18/19 12:11 Dextrose IVPB 200 mls/hr DAILY [facility] Administration Protocol Vancomycin HCl 750 mg/ 250 mls @ 250 mls/hr 09/17/19 18:00 09/18/19 06:48 Dextrose IVPB 250 mls/hr Q12H [facility] Administration Protocol Insulin Aspart 1 vial 09/16/19 16:30 09/18/19 13:16 Novolog Vial Sliding Scale - SQ 8 unit TIDAC [facility] Administration Protocol Insulin Detemir 5 units 09/16/19 22:00 09/17/19 21:46 Levemir Vial SQ 5 units HS [facility] Administration Levothyroxine Sodium 100 mcg/ 175 mcg 09/14/19 07:00 09/18/19 06:48 Levothyroxine Sodium 75 mcg PO 175 mcg DAILY@0700 [facility] Administration Ramipril 5 mg 09/13/19 22:00 09/18/19 13:17 Altace - PO 5 mg BID [facility] Administration ASSESSMENT/PLAN: Mr. Panchal is a 79y/o male with HTN, DM2, GA s/p stents x9, and PPM presents with AMS. Last known well was 2 days prior to presentation. #staph bacteremia -ceftriaxone 2gm daily (09/10) -vancomycin 750mg BID (09/10) -ID following #AMS, likely 2/2 anoxic brain injury from sepsis, improving -CT head negative for acute process, small old infarcts noted in right basal ganglia, posterior limb of left capsule, right cerebellum -unable to do MRI due to pacemaker -ICD interrogated- no significant events -echo- EF 35-40%, mild concentric LVH, systolic dysfunction -thiamine -neuro following -cards following -speech/swallow following -RPR negative -EEG -vascular consulted #dysphagia -Clinimix #left 1st toe cellulitis -wound cx staph epidermidis -atherosclerosis found on b/l LE doppler with no occlusion -bone scan cannot rule out osteo -podiatry following -surgery following #DM2 hyperglycemic at admission, glucose and ketones in urine, on Humalin at home -hyperglycemic since Clinimix in dextrose -Levemir 5U -SSI -monitor BGMs with meals #systolic CHF -continue ramipril #hypothyroidism -free T4 low, TSH high normal/high -levothyroxine #HTN -ramipril #gout -allopurinol -colchicine #HLD -stain/ezetimibe #GA s/p stents -Plavix #hypomagnesemia, resolved #hypokalemia, resolved -monitor DVT Ppx heparin GI Ppx pantoprazole FEN Clinimix 84mL/hr monitor labs [place] thick foods dispo med/surg Visit type - Emergency Visit Emergency Visit: Yes ED Registration Date: 09/09/19 Care time: The patient presented to the Emergency Department on the above date and was hospitalized for further evaluation of their emergent condition. - New Patient This patient is new to me today: No - Critical Care Critical Care patient: No - Discharge Referral Referred to [facility] Med P.C.: No ATTENDING PHYSICIAN STATEMENT I saw and evaluated the patient. I reviewed the resident's note and discussed the case with the resident. I agree with the resident's findings and plan as documented. SUBJECTIVE: OBJECTIVE: ASSESSMENT AND PLAN:
--- NOTE | 2019-09-18 16:36 | PN ---
Progress Note, PETROLEUM GEOLOGIST - Note Progress Note: Selected Entries 09/16/19 09/16/19 09/16/19 01:00 06:00 10:00 Breakfast Lunch Supper Temperature 98.9 F 98.7 F 98.3 F 09/16/19 09/16/19 09/16/19 11:27 14:00 16:30 Breakfast 75% Lunch 100% Supper Temperature 98 F 98.1 F 09/16/19 09/16/19 09/17/19 18:30 20:04 00:00 Breakfast Lunch Supper 75% Temperature 98.2 F 98.2 F 09/17/19 09/17/19 09/17/19 06:00 10:00 11:00 Breakfast 100% Lunch 100% Supper Temperature 98.8 F 98.3 F 09/17/19 09/17/19 09/17/19 14:00 16:30 18:30 Breakfast Lunch Supper 100% Temperature 97.6 F 98.2 F 09/17/19 09/18/19 09/18/19 20:27 00:00 07:45 Breakfast Lunch Supper Temperature 98.1 F 98.2 F 98.2 F Laboratory Tests 09/18/19 08:15 WBC 7.8 Doing very well with PO diet-Puree/no liquids Tremendous improvement in language function. Pt said to me "How are you doing?" when I walked in. Still with impaired speech/motor initiation sec to Apraxia but much improved! Shaking head yes/no. Repeated "sit up" "Patricia" "Luis Alfredo" "It's possible" started completed open ended phrases eg Up and "down". Sang in unison with me "We wish you a Merry XMAS" No Dysarthria. Speech clear. Difficulty initiating but MUCH IMPROVED. Beginning to response with social speech Per ID-AFEBRILE WBC WNL REPEAT BC NO GROWTH ECHO NOTED BONE SCAN PENDING Consider -placement for intensive PT/OT/Speech, as soon as medically stable. Excellent candidate for improved communication and swallowing function -Trial [place] thick liquid- SINGLE SIPS WITH HEAD FLEXED. FEED SLOWLY. Monitor tolerance
--- NOTE | 2019-09-18 16:50 | PN ---
Progress Note, SURGICAL INSTRUMENT MAKER - Note Progress Note: Pt, family, staff education- Have Luis Alfredo repeat- words, family names Social speech /functional phrases ((Marco A Velasquez, Thank you,I'm tired, hungry , Sit up/down, I love you, Thank you Sing well learned songs/Xmas songs, slowly WITH HIM-IN [place] eg we wish you a Merry XMAS (He did great today with me!) If questions, please call me- Stella Vega MS, [facility] Medical Sp/Language Pathologist [phone]
[2019-09-18] MEDS ORDERED: INSULIN (LEVEMIR) 100 UNITS/ML UNITS SQ SCH ×2 (19:53→22:00)
--- NOTE | 2019-09-18 19:54 | PN ---
Teaching Attending Note Name of Resident: Irene Eckert ATTENDING PHYSICIAN STATEMENT I saw and evaluated the patient. I reviewed the resident's note and discussed the case with the resident. I agree with the resident's findings and plan as documented. SUBJECTIVE: No events over night OBJECTIVE:sen at 8:30 in am NAD, arousable. says no CV: RRR, no MRG Lungs: CTAB anteriorly Abd: soft, NT, ND, NL BS. Ext : No edema or erythema. Neuro : not cooperative: effacement of L nasolabial fold . does not follow commands. ASSESSMENT AND PLAN: 79 y/o man with h/o HTN, DM, CAD, Systolic CHF, hypothyroidism, gout, s/p ICD, and other medical problems who presented with AMS and was found to have sepsis and staph epi bacteremia 1- AMS, aphasia: etiology is still not clear. ? stroke Vs anoxic brain injury - EEG pending - RPR non rective - case was d/w neuro today by Dr. eckert. no new thought, added and no new recs - cont plavix for now 2- Staph epi bacteremia: Toe ulcer with suspected OM. toe cellulitis - Cont CTX and vanco - vanc torugh tomorrow - Bone scan results pending 3- H/o Systolic heart failure: stable. - cont coreg and ACEI - has ICD 4- DM : - increase levemir to 10 units BID - cont SSI 5- Nutrition: improved po intake. -cont current diet DVT Px: heparin SQ :
[2019-09-18] MEDS: EZETIMIBE 10 MG TABLET (FP) PO SCH (22:58)
[2019-09-18] MEDS: ATORVASTATIN CA 20 MG TABLET (FP) PO SCH (22:58)
[2019-09-19] MEDS ORDERED: LEVOTHYROXINE NA 100 MCG TABLET (FP) ONE (05:36)
[2019-09-19] MEDS ORDERED: LEVOTHYROXINE NA 75 MCG TABLET (FP) ONE (05:37)
[2019-09-19] MEDS ORDERED: PT OWN MED DRAWER 7, Y5N ONE ×2 (06:08→18:58)
[2019-09-19] MEDS: INSULIN SLIDING SCALE (NOVOLOG) 1 VIAL SQ SCH ×3 (06:26→18:08)
[2019-09-19] MEDS: VANCOMYCIN 750 MG in DEXTROSE 5%-WATER - 250 ML IVPB SCH ×2 (06:26→18:58)
[2019-09-19] MEDS: LEVOTHYROXINE 100 MCG, LEVOTHYROXINE 75 MCG PO SCH (06:29)
[2019-09-19] MEDS ORDERED: INSULIN (LEVEMIR) 100 UNITS/ML UNITS SQ ONE (08:15)
[2019-09-19] MEDS: ALLOPURINOL 100 MG TABLET (FP) PO SCH (10:09)
[2019-09-19] MEDS: CARVEDILOL 25 MG TABLET (FP) PO SCH ×2 (10:09→21:55)
[2019-09-19] MEDS: COLCHICINE 0.6 MG CAP PO SCH (10:09)
[2019-09-19] MEDS: CLOPIDOGREL BISULFATE 75 MG TABLET (FP) PO SCH (10:09)
[2019-09-19] MEDS: FOLIC ACID 1 MG TABLET (FP) PO SCH (10:10)
[2019-09-19] MEDS: RAMIPRIL 5 MG CAPSULE (FP) PO SCH ×2 (10:10→21:55)
[2019-09-19] MEDS: COLLAGENASE CLOSTRIDIUM HIST. 30 GRAMS TUBE TP SCH (12:06)
--- NOTE | 2019-09-19 12:55 | PN ---
Progress Note, CARPENTER ASSISTANT - Note Progress Note: Selected Entries 09/18/19 09/18/19 09/18/19 00:00 02:00 07:45 Breakfast 50% Lunch 50% Supper Temperature 98.2 F 98.3 F 98.2 F 09/18/19 09/18/19 09/18/19 18:51 18:57 19:03 Breakfast Lunch Supper 100% 50% Temperature 98.3 F 09/18/19 09/19/19 09/19/19 22:00 01:59 06:00 Breakfast Lunch Supper Temperature 98.2 F 98.9 F 97.7 F 09/19/19 10:00 Breakfast Lunch Supper Temperature 97.8 F Laboratory Tests 09/18/19 08:15 WBC 7.8 Last evening, many verbalizations elicited, including singing. Today, quite Apraxic, responding with gesture, head shake but non verbal/vocal. Tolerating diet well, with delayed swallow. Aspiration risk. Frequent yawning during lunch which can be consistent with stasis. REC: alternate eduardo vilchis. MBS
--- NOTE | 2019-09-19 14:43 | PN ---
Physical Exam: SUBJECTIVE: Patient seen and examined. He nods "no" when asked if he is in pain. OBJECTIVE: Vital Signs Period Temp Pulse Resp BP Sys/[place] Pulse Ox Last 24 Hr 97.7 F-98.9 F 56-63 18-20 122-148/52-75 98 GENERAL: Awake and alert. More interactive, nodding. HEAD: Normal with no signs of trauma. EYES: PERRL, conjunctiva clear. ENT: Ears normal, nares patent, moist mucous membranes NECK: Trachea midline LUNGS: Clear to auscultation bilaterally, no wheezes HEART: Regular rate and rhythm, no murmur ABDOMEN: Soft, nontender, nondistended, normoactive bowel sounds EXTREMITIES: Warm, well-perfused, no edema. NEUROLOGICAL: follows brief instructions, right facial droop, able to move b/l upper extremities, moves b/l LE PSYCH: Appears normal mood. SKIN: Left 1st toe dry ulcer on medial surface, right forearm erythematous and dry not warm or indurated Laboratory Results - last 24 hr 09/18/19 09/18/19 09/19/19 17:44 23:00 05:22 POC Glucometer 335 321 Vancomycin Pre-Dose 12.9 L 09/19/19 09/19/19 05:55 12:11 POC Glucometer 315 361 Vancomycin Pre-Dose Active Medications Generic Name Dose Route Start Last Admin Trade Name Freq PRN Reason Stop Dose Admin Acetaminophen 1,000 mg 09/11/19 18:05 Ofirmev Injection - IVPB Q6H PRN fever 100.4 Allopurinol 100 mg 09/13/19 10:00 09/19/19 10:09 Zyloprim - PO 100 mg DAILY VLADIMIR Administration Atorvastatin Calcium 20 mg 09/13/19 22:00 09/18/19 22:58 Lipitor - PO 20 mg HS VLADIMIR Administration Carvedilol 25 mg 09/13/19 22:00 09/19/19 10:09 Coreg - PO 25 mg BID VLADIMIR Administration Clopidogrel Bisulfate 75 mg 09/13/19 10:00 09/19/19 10:09 Plavix - PO 75 mg DAILY VLADIMIR Administration Colchicine 0.6 mg 09/14/19 10:00 09/19/19 10:09 Colcrys PO 0.6 mg DAILY VLADIMIR Administration Collagenase 1 applic 09/12/19 12:45 09/19/19 12:06 Santyl - TP 1 applic DAILY VLADIMIR Administration Protocol Ezetimibe 10 mg 09/13/19 22:00 09/18/19 22:58 Zetia - PO 10 mg HS VLADIMIR Administration Folic Acid 1 mg 09/13/19 10:00 09/19/19 10:10 Folic Acid - PO 1 mg DAILY VLADIMIR Administration Vancomycin HCl 750 mg/ 250 mls @ 250 mls/hr 09/17/19 18:00 09/19/19 06:26 Dextrose IVPB 250 mls/hr Q12H VLADIMIR Administration Protocol Insulin Aspart 1 vial 09/16/19 16:30 09/19/19 12:13 Novolog Vial Sliding Scale - SQ 10 units TIDAC [facility] Administration Protocol Insulin Detemir 15 units 09/20/19 07:00 Levemir Vial SQ AM VLADIMIR Insulin Detemir 15 units 09/19/19 22:00 Levemir Vial SQ HS VLADIMIR Levothyroxine Sodium 100 mcg/ 175 mcg 09/14/19 07:00 09/19/19 06:29 Levothyroxine Sodium 75 mcg PO 175 mcg DAILY@0700 VLADIMIR Administration Ramipril 5 mg 09/13/19 22:00 09/19/19 10:10 Altace - PO 5 mg BID VLADIMIR Administration ASSESSMENT/PLAN: Mr. Panchal is a 79y/o male with HTN, DM2, [place] s/p stents x9, and PPM presents with AMS. Last known well was 2 days prior to presentation. #staph bacteremia -ceftriaxone 2gm daily (09/10) -vancomycin 750mg BID (09/10) -ID following #AMS, likely 2/2 anoxic brain injury from sepsis, improving -CT head negative for acute process, small old infarcts noted in right basal ganglia, posterior limb of left capsule, right cerebellum -unable to do MRI due to pacemaker -ICD interrogated- no significant events -echo- EF 35-40%, mild concentric LVH, systolic dysfunction -thiamine -neuro following -cards following -speech/swallow following -RPR negative -EEG #left 1st toe cellulitis -wound cx staph epidermidis -atherosclerosis found on b/l LE doppler with no occlusion -bone scan cannot rule out osteo -podiatry following -surgery following #dysphagia -Clinimix #DM2 hyperglycemic at admission, glucose and ketones in urine, on Humalin at home -hyperglycemic since Clinimix in dextrose -Levemir 5U -SSI -monitor BGMs with meals #systolic CHF -continue ramipril #hypothyroidism -free T4 low, TSH high normal/high -levothyroxine #HTN -ramipril #gout -allopurinol -colchicine #HLD -stain/ezetimibe #[place] s/p stents -Plavix #hypomagnesemia, resolved #hypokalemia, resolved -monitor DVT Ppx heparin GI Ppx pantoprazole FEN Clinimix 84mL/hr monitor labs [place] thick foods dispo med/surg anticipate rehab @d/c Visit type - Emergency Visit Emergency Visit: Yes ED Registration Date: 09/09/19 Care time: The patient presented to the Emergency Department on the above date and was hospitalized for further evaluation of their emergent condition. - New Patient This patient is new to me today: No - Critical Care Critical Care patient: No - Discharge Referral Referred to [facility] Med P.C.: No ATTENDING PHYSICIAN STATEMENT I saw and evaluated the patient. I reviewed the resident's note and discussed the case with the resident. I agree with the resident's findings and plan as documented. SUBJECTIVE: OBJECTIVE: ASSESSMENT AND PLAN:
--- NOTE | 2019-09-19 15:15 | PN ---
Progress Note, Physician History of Present Illness: AWAKE, WILL NOT VERBALLY RESPOND TO ME BUT NURSE REPORTS HE ANSWERS SIMPLE QUESTIONS AFEBRILE WBC WNL REPEAT BC NO GROWTH ECHO NOTED BONE SCAN CANNOT R/O OSTEO L GREAT TOE - Current Medication List Current Medications: Active Medications Acetaminophen (Ofirmev Injection -) 1,000 mg IVPB Q6H PRN PRN Reason: fever 100.4 Allopurinol (Zyloprim -) 100 mg PO DAILY [facility] Last Admin: 09/19/19 10:09 Dose: 100 mg Atorvastatin Calcium (Lipitor -) 20 mg PO HS [facility] Last Admin: 09/18/19 22:58 Dose: 20 mg Carvedilol (Coreg -) 25 mg PO BID [facility] Last Admin: 09/19/19 10:09 Dose: 25 mg Clopidogrel Bisulfate (Plavix -) 75 mg PO DAILY [facility] Last Admin: 09/19/19 10:09 Dose: 75 mg Colchicine (Colcrys) 0.6 mg PO DAILY [facility] Last Admin: 09/19/19 10:09 Dose: 0.6 mg Collagenase (Santyl -) 1 applic TP DAILY [facility]; Protocol Last Admin: 09/19/19 12:06 Dose: 1 applic Ezetimibe (Zetia -) 10 mg PO HS [facility] Last Admin: 09/18/19 22:58 Dose: 10 mg Folic Acid (Folic Acid -) 1 mg PO DAILY [facility] Last Admin: 09/19/19 10:10 Dose: 1 mg Vancomycin HCl 750 mg/ (Dextrose) 250 mls @ 250 mls/hr IVPB Q12H [facility]; Protocol Last Admin: 09/19/19 06:26 Dose: 250 mls/hr Insulin Aspart (Novolog Vial Sliding Scale -) 1 vial SQ TIDAC [facility]; Protocol Last Admin: 09/19/19 12:13 Dose: 10 units Insulin Detemir (Levemir Vial) 15 units SQ AM [facility] Insulin Detemir (Levemir Vial) 15 units SQ HS [facility] Levothyroxine Sodium 100 mcg/ (Levothyroxine Sodium 75 mcg) 175 mcg PO DAILY@ 0700 [facility] Last Admin: 09/19/19 06:29 Dose: 175 mcg Ramipril (Altace -) 5 mg PO BID [facility] Last Admin: 09/19/19 10:10 Dose: 5 mg - Objective Vital Signs: Vital Signs Temperature 97.8 F 09/19/19 10:00 Pulse Rate 56 L 09/19/19 10:00 Respiratory Rate 18 09/19/19 10:00 Blood Pressure 130/61 09/19/19 10:00 O2 Sat by Pulse Oximetry (%) 98 09/18/19 21:00 Constitutional: Yes: No Distress Eyes: Yes: Conjunctiva Clear Cardiovascular: Yes: Regular Rate and Rhythm, S1, S2 Respiratory: Yes: CTA Bilaterally Gastrointestinal: Yes: Normal Bowel Sounds, Soft Extremities: Yes: Other (L GREAT TOE WITH ERYTHEMA + 1CM DRY ULCER + PHLEBITIS R FOREARM) Labs: CBC, BMP 09/18/19 08:15 09/18/19 08:15 INR, PTT INR 1.00 (0.83-1.09) 09/08/19 22:20 Assessment/Plan STAPH COAG NEG BACTEREMIA CELLULITIS GREAT TOE CANNOT R/O OSTEO ?TOXIC METABOLIC ENCEPHALOPATHY CONTINUE VANCOMYCIN D/C CEFTRIAXONE DAY #10 VANCOMYCIN ADVISE PICC TO COMPLETE 6W COURSE VANCOMYCIN AT SNF.
--- NOTE | 2019-09-19 17:38 | PN ---
Teaching Attending Note Name of Resident: Irene Eckert ATTENDING PHYSICIAN STATEMENT I saw and evaluated the patient. I reviewed the resident's note and discussed the case with the resident. I agree with the resident's findings and plan as documented. SUBJECTIVE: unable to provide hx. no events over night OBJECTIVE: NAD, arousable. not communicative today CV: RRR, no MRG Lungs: CTAB anteriorly Abd: soft, NT, ND, NL BS. Ext : No edema or erythema. L big toe dry ulcer with no drainage Neuro : not cooperative: effacement of L nasolabial fold . does not follow commands. ASSESSMENT AND PLAN: 79 y/o man with h/o HTN, DM, CAD, Systolic CHF, hypothyroidism, gout, s/p ICD, and other medical problems who presented with AMS and was found to have sepsis and staph epi bacteremia 1- AMS, aphasia: etiology is still not clear. ? stroke Vs anoxic brain injury - EEG pending read - RPR non rective - cont plavix 2- Staph epi bacteremia: - Vanco fort total of 6 weeks - Bone scan results are inconclusive. - team d/w podiatry and will get further Recs tomorrow 3- H/o Systolic heart failure: stable. - cont coreg and ACEI - has ICD 4- DM : - increase levemir to 15 units BID - cont SSI 5- Nutrition: improved po intake. -cont current diet DVT Px: heparin SQ By tomorrow we should know the plan for the Toe, then need rehab for aggressive speech and PT therapy place PICC and plan for dc SW was notified
--- NOTE | 2019-09-19 18:51 | PN ---
Progress Note, Physician Chief Complaint: Awake and alert. Not in distress History of Present Illness: Patient was seen and examined. Chart was reviewed. Spoke to family member by bedside Denies chest pain, SOB or palpitations Asked about bone scan result: No clear evidence of osteomyelitis but cannot rule out left toe with delayed activity - Current Medication List Current Medications: Active Medications Acetaminophen (Ofirmev Injection -) 1,000 mg IVPB Q6H PRN PRN Reason: fever 100.4 Allopurinol (Zyloprim -) 100 mg PO DAILY [facility] Last Admin: 09/19/19 10:09 Dose: 100 mg Atorvastatin Calcium (Lipitor -) 20 mg PO HS [facility] Last Admin: 09/18/19 22:58 Dose: 20 mg Carvedilol (Coreg -) 25 mg PO BID [facility] Last Admin: 09/19/19 10:09 Dose: 25 mg Clopidogrel Bisulfate (Plavix -) 75 mg PO DAILY [facility] Last Admin: 09/19/19 10:09 Dose: 75 mg Colchicine (Colcrys) 0.6 mg PO DAILY [facility] Last Admin: 09/19/19 10:09 Dose: 0.6 mg Collagenase (Santyl -) 1 applic TP DAILY [facility]; Protocol Last Admin: 09/19/19 12:06 Dose: 1 applic Ezetimibe (Zetia -) 10 mg PO HS [facility] Last Admin: 09/18/19 22:58 Dose: 10 mg Folic Acid (Folic Acid -) 1 mg PO DAILY [facility] [place] Last Admin: 09/19/19 10:10 Dose: 1 mg Vancomycin HCl 750 mg/ (Dextrose) 250 mls @ 250 mls/hr IVPB Q12H [facility]; Protocol Last Admin: 09/19/19 06:26 Dose: 250 mls/hr Insulin Aspart (Novolog Vial Sliding Scale -) 1 vial SQ TIDAC [facility]; Protocol Last Admin: 09/19/19 18:08 Dose: 4 units Insulin Detemir (Levemir Vial) 15 units SQ AM [facility] Insulin Detemir (Levemir Vial) 15 units SQ HS [facility] Levothyroxine Sodium 100 mcg/ (Levothyroxine Sodium 75 mcg) 175 mcg PO DAILY@ 0700 [facility] Last Admin: 09/19/19 06:29 Dose: 175 mcg Ramipril (Altace -) 5 mg PO BID [facility] Last Admin: 09/19/19 10:10 Dose: 5 mg - Objective Vital Signs: Vital Signs Temperature 98.4 F 09/19/19 17:33 Pulse Rate 64 09/19/19 17:33 Respiratory Rate 20 09/19/19 17:33 Blood Pressure 119/62 09/19/19 17:33 O2 Sat by Pulse Oximetry (%) 98 09/18/19 21:00 Eyes: Yes: PERRL HENT: Yes: Atraumatic Neck: Yes: Supple Cardiovascular: Yes: Regular Rate and Rhythm, S1, S2 Respiratory: Yes: Diminished Gastrointestinal: Yes: Normal Bowel Sounds, Soft. No: Tenderness Edema: No Labs: CBC, BMP 09/18/19 08:15 09/18/19 08:15 Problem List - Problems (1) CAD (coronary artery disease) Code(s): I25.10 - ATHSCL HEART DISEASE OF [place] CORONARY ARTERY W/O ANG PCTRS Qualifiers: Coronary Disease-Associated Artery/Lesion type: [place] artery [place] vs. transplanted heart: [place] heart Associated angina: without angina Qualified Code(s): I25.10 - Atherosclerotic heart disease of [place] coronary artery without angina pectoris (2) History of percutaneous coronary intervention Code(s): Z98.61 - CORONARY ANGIOPLASTY STATUS (3) T2DM (type 2 diabetes mellitus) Code(s): E11.9 - TYPE 2 DIABETES MELLITUS WITHOUT COMPLICATIONS Qualifiers: Diabetes mellitus tank terminal gauger insulin use: with chcf use (4) HTN (hypertension) Code(s): I10 - ESSENTIAL (PRIMARY) HYPERTENSION Qualifiers: Hypertension type: essential hypertension Qualified Code(s): I10 - Essential (primary) hypertension (5) Hypercholesterolemia Code(s): E78.00 - PURE HYPERCHOLESTEROLEMIA, UNSPECIFIED (6) Cerebrovascular accident (CVA) Code(s): I63.9 - CEREBRAL INFARCTION, UNSPECIFIED Qualifiers: CVA mechanism: unspecified Qualified Code(s): I63.9 - Cerebral infarction, unspecified (7) Altered mental state Code(s): R41.82 - ALTERED MENTAL STATUS, UNSPECIFIED Qualifiers: Altered mental status type: somnolence Qualified Code(s): R40.0 - Somnolence (8) Elevated troponin Code(s): R79.89 - OTHER SPECIFIED ABNORMAL FINDINGS OF BLOOD CHEMISTRY (9) Hyperglycemia Code(s): R73.9 - HYPERGLYCEMIA, UNSPECIFIED (10) Lactic acidosis Code(s): E87.2 - ACIDOSIS Assessment/Plan 1. Altered mental status - toxic metabolic encephalopathy +/- sepsis, clinically improved, but still slow to respond 2. CAD history of PCI/stent, angina pectoris 3. LV systolic dysfunction s/p ICD ([employer] [employer]) 4. HTN 5. Hypercholesterolemia 6. DM (Insulin requiring) 7. Demand ischemia PLAN: 1. Empiric antibiotics. Further recommendation regarding toe to be followed. Duration of antibiotic therapy to be defined 2. Cannot do MRI due to ICD 3. Continue Carvedilol 25 mg BID and Ramipril 5 mg BID. Currently on Plavix 75 mg QD 5. DM management 6. Continue Lipitor 20 mg QHS and Zetia 10 mg QD Supportive care Previous associate sales representative: Neville Dinh MD ([facility]) Jose Ladd MD
[2019-09-19] MEDS: ATORVASTATIN CA 20 MG TABLET (FP) PO SCH (21:55)
[2019-09-19] MEDS: EZETIMIBE 10 MG TABLET (FP) PO SCH (21:55)
[2019-09-19] MEDS: INSULIN (LEVEMIR) 100 UNITS/ML UNITS SQ SCH (21:56)
[2019-09-20] MEDS ORDERED: LEVOTHYROXINE NA 75 MCG TABLET (FP) ONE (06:04)
[2019-09-20] MEDS ORDERED: LEVOTHYROXINE NA 100 MCG TABLET (FP) ONE (06:04)
[2019-09-20] MEDS ORDERED: PT OWN MED DRAWER 7, Y5N ONE ×2 (06:04→17:43)
[2019-09-20] MEDS: VANCOMYCIN 750 MG in DEXTROSE 5%-WATER - 250 ML IVPB SCH ×2 (06:42→17:57)
[2019-09-20] MEDS: INSULIN (LEVEMIR) 100 UNITS/ML UNITS SQ SCH ×2 (06:42→21:40)
[2019-09-20] MEDS: INSULIN SLIDING SCALE (NOVOLOG) 1 VIAL SQ SCH ×3 (06:45→17:58)
[2019-09-20] MEDS: LEVOTHYROXINE 100 MCG, LEVOTHYROXINE 75 MCG PO SCH (06:48)
[2019-09-20 08:33] LABS: BASO % 0.5 % (0-2.0); EOS % 1.8 % (0-4.5); HEMATOCRIT 38.9 % (35.4-49); HEMOGLOBIN 12.9 GM/dL (11.7-16.9); LYMPH % 23.8 % (8-40); MCH 30.8 pg (25.7-33.7); MCHC 33.2 g/dl (32.0-35.9); MEAN CELL VOLUME 92.9 fl (80-96); MEAN PLT VOLUME 8.9 fl (7.5-11.1); MONO % 7.8 % (3.8-10.2); NEUT % 66.1 % (42.8-82.8); PLATELET COUNT 222 K/MM3 (134-434); RBC 4.19 M/mm3 (4.00-5.60); RDW 14.9 % (11.9-15.9); WHITE BLOOD COUNT 8.7 K/mm3 (4.0-10.0)
[2019-09-20] MEDS ORDERED: INSULIN (LEVEMIR) 100 UNITS/ML UNITS SQ ONE (08:42)
[2019-09-20 08:58] LABS: ALBUMIN 2.2 g/dl (3.4-5.0); BILIRUBIN,TOTAL 0.4 mg/dL (0.2-1); BLOOD UREA NITROGEN 14.9 mg/dL (7-18); CALCIUM 8.2 mg/dL (8.5-10.1); CREATININE 0.9 mg/dL (0.55-1.3); MAGNESIUM 1.9 mg/dL (1.8-2.4); POTASSIUM 3.7 mmol/L (3.5-5.1); TOT PROT 5.2 g/dl (6.4-8.2)
[2019-09-20] MEDS: COLCHICINE 0.6 MG CAP PO SCH (10:01)
[2019-09-20] MEDS: ALLOPURINOL 100 MG TABLET (FP) PO SCH (10:01)
[2019-09-20] MEDS: CARVEDILOL 25 MG TABLET (FP) PO SCH ×2 (10:01→21:40)
[2019-09-20] MEDS: CLOPIDOGREL BISULFATE 75 MG TABLET (FP) PO SCH (10:01)
[2019-09-20] MEDS: RAMIPRIL 5 MG CAPSULE (FP) PO SCH ×2 (10:01→21:41)
[2019-09-20] MEDS: FOLIC ACID 1 MG TABLET (FP) PO SCH (10:01)
[2019-09-20] MEDS: COLLAGENASE CLOSTRIDIUM HIST. 30 GRAMS TUBE TP SCH (10:02)
[2019-09-20] MEDS ORDERED: INSULIN (NOVOLOG) ASPART 100 UNITS/ML 10ML VIAL ONE (11:15)
--- NOTE | 2019-09-20 13:03 | PN ---
Progress Note (short form) - Note Progress Note: Patient seen at bedside +chronic wound left big toe- dry eschar Osteomylitis can not be ruled out on bone scan, Patient can be discharged when md is ready . Patient to be followed in wound care Discuss with patient hyperbaric chamber
--- NOTE | 2019-09-20 13:55 | PN ---
Progress Note, Physician History of Present Illness: Lethargic yet arousable. Verbalize short sentences. - Current Medication List Current Medications: Active Medications Acetaminophen (Ofirmev Injection -) 1,000 mg IVPB Q6H PRN PRN Reason: fever 100.4 Allopurinol (Zyloprim -) 100 mg PO DAILY [facility] Last Admin: 09/20/19 10:01 Dose: 100 mg Atorvastatin Calcium (Lipitor -) 20 mg PO HS [facility] Last Admin: 09/19/19 21:55 Dose: 20 mg Carvedilol (Coreg -) 25 mg PO BID [facility] Last Admin: 09/20/19 10:01 Dose: 25 mg Clopidogrel Bisulfate (Plavix -) 75 mg PO DAILY [facility] Last Admin: 09/20/19 10:01 Dose: 75 mg Colchicine (Colcrys) 0.6 mg PO DAILY [facility] Last Admin: 09/20/19 10:01 Dose: 0.6 mg Collagenase (Santyl -) 1 applic TP DAILY [facility]; Protocol Last Admin: 09/20/19 10:02 Dose: 1 applic Ezetimibe (Zetia -) 10 mg PO HS [facility] Last Admin: 09/19/19 21:55 Dose: 10 mg Folic Acid (Folic Acid -) 1 mg PO DAILY [facility] Last Admin: 09/20/19 10:01 Dose: 1 mg Vancomycin HCl 750 mg/ (Dextrose) 250 mls @ 250 mls/hr IVPB Q12H [facility]; Protocol Last Admin: 09/20/19 06:42 Dose: 250 mls/hr Insulin Aspart (Novolog Vial Sliding Scale -) 1 vial SQ TIDAC [facility]; Protocol Last Admin: 09/20/19 11:21 Dose: 10 units Insulin Detemir (Levemir Vial) 15 units SQ AM [facility] Last Admin: 09/20/19 06:42 Dose: 15 units Insulin Detemir (Levemir Vial) 15 units SQ HS [facility] Last Admin: 09/19/19 21:56 Dose: 15 units Levothyroxine Sodium 100 mcg/ (Levothyroxine Sodium 75 mcg) 175 mcg PO DAILY@ 0700 [facility] Last Admin: 09/20/19 06:48 Dose: 175 mcg Ramipril (Altace -) 5 mg PO BID [facility] Last Admin: 09/20/19 10:01 Dose: 5 mg - Objective Vital Signs: Vital Signs Temperature 98.4 F 09/20/19 10:00 Pulse Rate 60 09/20/19 10:00 Respiratory Rate 18 09/20/19 10:00 Blood Pressure 122/54 L 09/20/19 10:00 O2 Sat by Pulse Oximetry (%) 97 09/19/19 21:00 Constitutional: Yes: No Distress, Calm Neck: Yes: Supple Cardiovascular: Yes: Regular Rate and Rhythm Respiratory: Yes: Regular, CTA Bilaterally Gastrointestinal: Yes: Normal Bowel Sounds, Soft, Abdomen, Obese Edema: No Labs: CBC, BMP 09/20/19 07:47 09/20/19 07:47 INR, PTT INR 1.00 (0.83-1.09) 09/08/19 22:20 - ....Imaging Other: Report Reviewed Problem List - Problems (1) Altered mental state Code(s): R41.82 - ALTERED MENTAL STATUS, UNSPECIFIED Qualifiers: Altered mental status type: somnolence Qualified Code(s): R40.0 - Somnolence (2) CAD (coronary artery disease) Code(s): I25.10 - ATHSCL HEART DISEASE OF [place] CORONARY ARTERY W/O ANG PCTRS Qualifiers: Coronary Disease-Associated Artery/Lesion type: [place] artery [place] vs. transplanted heart: [place] heart Associated angina: without angina Qualified Code(s): I25.10 - Atherosclerotic heart disease of [place] coronary artery without angina pectoris (3) Cerebrovascular accident (CVA) Code(s): I63.9 - CEREBRAL INFARCTION, UNSPECIFIED Qualifiers: CVA mechanism: unspecified Qualified Code(s): I63.9 - Cerebral infarction, unspecified (4) HTN (hypertension) Code(s): I10 - ESSENTIAL (PRIMARY) HYPERTENSION Qualifiers: Hypertension type: essential hypertension Qualified Code(s): I10 - Essential (primary) hypertension (5) History of percutaneous coronary intervention Code(s): Z98.61 - CORONARY ANGIOPLASTY STATUS (6) Hypercholesterolemia Code(s): E78.00 - PURE HYPERCHOLESTEROLEMIA, UNSPECIFIED (7) T2DM (type 2 diabetes mellitus) Code(s): E11.9 - TYPE 2 DIABETES MELLITUS WITHOUT COMPLICATIONS Qualifiers: Diabetes mellitus fci insulin use: with fci use Assessment/Plan 09/11/2019 Echocardiography: Normal LV size with mod-severe reduced LV systolic function LVEF 35-40%, pacer RV, valve regurgitation could not be assessed 09/12/2019 Vascular LE US: Mod atherosclerosis w/o sig stenosis 09/14/2019 Bone scan: No def osteo, left first toe cellulitis, can't r/o subtle osteo 1. Altered mental status - toxic metabolic encephalopathy with coag neg staph bacteremia, clinically improved, but still slow to respond 2. CAD history of PCI/stent, angina pectoris 3. LV systolic dysfunction s/p ICD ([employer]) 4. HTN 5. Hypercholesterolemia 6. DM (Insulin requiring) 7. Demand ischemia PLAN: 1. Empiric Vanco D11. Further recommendation regarding toe to be followed. Plan for 6 week course via PICC 2. Cannot do MRI due to ICD 3. Continue Carvedilol 25 mg BID, Ramipril 5 mg BID, colchicine 0.6 qd and Plavix 75 mg QD 4. DM management 5. Continue Lipitor 20 mg QHS and Zetia 10 mg QD Previous tile layer: Neville Dinh MD ([facility])
--- NOTE | 2019-09-20 15:50 | PN ---
Physical Exam: SUBJECTIVE: Patient seen and examined. He is non-verbal today. OBJECTIVE: Vital Signs Period Temp Pulse Resp BP Sys/Dickerson Pulse Ox Last 24 Hr 98.2 F-98.8 F 57-64 18-20 118-122/50-62 97 GENERAL: Sleeping. Able to be woken but returns to sleep. HEAD: Normal with no signs of trauma. EYES: PERRL, conjunctiva clear. ENT: Ears normal, nares patent, moist mucous membranes NECK: Trachea midline LUNGS: Clear to auscultation bilaterally, no wheezes HEART: Regular rate and rhythm, no murmur ABDOMEN: Soft, nontender, nondistended, normoactive bowel sounds EXTREMITIES: Warm, well-perfused, no edema. NEUROLOGICAL: reacts to painful stimuli PSYCH: unable to assess SKIN: Left 1st toe dry ulcer on medial surface, right forearm erythematous and dry not warm or indurated Laboratory Results - last 24 hr 09/19/19 09/19/19 09/20/19 17:57 21:54 06:44 WBC RBC Hgb Hct MCV MCH MCHC RDW Plt Count MPV Absolute Neuts (auto) Neutrophils % Lymphocytes % Monocytes % Eosinophils % Basophils % Nucleated RBC % Sodium Potassium Chloride Carbon Dioxide Anion Gap BUN Creatinine Est GFR (CKD-EPI)AfAm Est GFR (CKD-EPI)NonAf POC Glucometer 227 290 282 Random Glucose Calcium Magnesium Total Bilirubin AST ALT Alkaline Phosphatase Total Protein Albumin 09/20/19 09/20/19 09/20/19 07:47 07:47 11:09 WBC 8.7 RBC 4.19 Hgb 12.9 Hct 38.9 MCV 92.9 MCH 30.8 MCHC 33.2 RDW 14.9 Plt Count 222 MPV 8.9 Absolute Neuts (auto) 5.8 Neutrophils % 66.1 Lymphocytes % 23.8 Monocytes % 7.8 Eosinophils % 1.8 Basophils % 0.5 Nucleated RBC % 0 Sodium 137 Potassium 3.7 Chloride 101 Carbon Dioxide 30 Anion Gap 6 L BUN 14.9 Creatinine 0.9 Est GFR (CKD-EPI)AfAm 93.82 Est GFR (CKD-EPI)NonAf 80.95 POC Glucometer 397 Random Glucose 311 H Calcium 8.2 L Magnesium 1.9 Total Bilirubin 0.4 AST 28 ALT 30 Alkaline Phosphatase 97 Total Protein 5.2 L Albumin 2.2 L Active Medications Generic Name Dose Route Start Last Admin Trade Name Freq PRN Reason Stop Dose Admin Acetaminophen 1,000 mg 09/11/19 18:05 Ofirmev Injection - IVPB Q6H PRN fever 100.4 Allopurinol 100 mg 09/13/19 10:00 09/20/19 10:01 Zyloprim - PO 100 mg DAILY VLADIMIR Administration Atorvastatin Calcium 20 mg 09/13/19 22:00 09/19/19 21:55 Lipitor - PO 20 mg HS VLADIMIR Administration Carvedilol 25 mg 09/13/19 22:00 09/20/19 10:01 Coreg - PO 25 mg BID VLADIMIR Administration Clopidogrel Bisulfate 75 mg 09/13/19 10:00 09/20/19 10:01 Plavix - PO 75 mg DAILY VLADIMIR Administration Colchicine 0.6 mg 09/14/19 10:00 09/20/19 10:01 Colcrys PO 0.6 mg DAILY VLADIMIR Administration Collagenase 1 applic 09/12/19 12:45 09/20/19 10:02 Santyl - TP 1 applic DAILY VLADIMIR Administration Protocol Ezetimibe 10 mg 09/13/19 22:00 09/19/19 21:55 Zetia - PO 10 mg HS VLADIMIR Administration Folic Acid 1 mg 09/13/19 10:00 09/20/19 10:01 Folic Acid - PO 1 mg DAILY VLADIMIR Administration Vancomycin HCl 750 mg/ 250 mls @ 250 mls/hr 09/17/19 18:00 09/20/19 06:42 Dextrose IVPB 250 mls/hr Q12H VLADIMIR Administration Protocol Insulin Aspart 1 vial 09/16/19 16:30 09/20/19 11:21 Novolog Vial Sliding Scale - SQ 10 units TIDAC VLADIMIR Administration Protocol Insulin Detemir 15 units 09/20/19 07:00 09/20/19 06:42 Levemir Vial SQ 15 units AM VLADIMIR Administration Insulin Detemir 15 units 09/19/19 22:00 09/19/19 21:56 Levemir Vial SQ 15 units HS VLADIMIR Administration Levothyroxine Sodium 100 mcg/ 175 mcg 09/14/19 07:00 09/20/19 06:48 Levothyroxine Sodium 75 mcg PO 175 mcg DAILY@0700 [facility]AD[facility] Administration Ramipril 5 mg 09/13/19 22:00 09/20/19 10:01 Altace - PO 5 mg BID VLADIMIR Administration ASSESSMENT/PLAN: Mr. Panchal is a 79y/o male with HTN, DM2, TN s/p stents x9, and PPM presents with AMS. Last known well was 2 days prior to presentation. #staph bacteremia -ceftriaxone d/c'ed -vancomycin 750mg BID -ID following #AMS, likely 2/2 anoxic brain injury from sepsis, improving -CT head negative for acute process, small old infarcts noted in right basal ganglia, posterior limb of left capsule, right cerebellum -unable to do MRI due to pacemaker -ICD interrogated- no significant events -echo- EF 35-40%, mild concentric LVH, systolic dysfunction -thiamine -neuro following -cards following -speech/swallow following -RPR negative -EEG read pending #left 1st toe cellulitis -wound cx staph epidermidis -atherosclerosis found on b/l LE doppler with no occlusion -bone scan cannot rule out osteo -podiatry following- will see as out pt for wound care -surgery following #dysphagia -Clinimix #DM2 hyperglycemic at admission, glucose and ketones in urine, on Humalin at home -hyperglycemic since Clinimix in dextrose -Levemir 5U -SSI -monitor BGMs with meals #systolic CHF -continue ramipril #hypothyroidism -free T4 low, TSH high normal/high -levothyroxine #HTN -ramipril #gout -allopurinol -colchicine #HLD -stain/ezetimibe #TN s/p stents -Plavix #hypomagnesemia, resolved #hypokalemia, resolved -monitor DVT Ppx heparin GI Ppx pantoprazole FEN Clinimix 84mL/hr monitor labs [place] thick foods dispo med/surg anticipate rehab @d/c will need vancomycin 750mg Q12H for a total of 6 weeks, today is day ; will need PICC placed Visit type - Emergency Visit Emergency Visit: Yes ED Registration Date: 09/09/19 Care time: The patient presented to the Emergency Department on the above date and was hospitalized for further evaluation of their emergent condition. - New Patient This patient is new to me today: No - Critical Care Critical Care patient: No - Discharge Referral Referred to [facility] Med P.C.: No ATTENDING PHYSICIAN STATEMENT I saw and evaluated the patient. I reviewed the resident's note and discussed the case with the resident. I agree with the resident's findings and plan as documented. SUBJECTIVE: OBJECTIVE: ASSESSMENT AND PLAN:
--- NOTE | 2019-09-20 18:26 | PN ---
Teaching Attending Note Name of Resident: Irene Eckert ATTENDING PHYSICIAN STATEMENT I saw and evaluated the patient. I reviewed the resident's note and discussed the case with the resident. I agree with the resident's findings and plan as documented. SUBJECTIVE: Patient is lying in bed with no acute distress, looks comfortable, significant other at bedside OBJECTIVE: Vital Signs Temperature 98.6 F 09/20/19 17:28 Pulse Rate 62 09/20/19 17:28 Respiratory Rate 20 09/20/19 17:28 Blood Pressure 128/57 L 09/20/19 17:28 O2 Sat by Pulse Oximetry (%) 97 09/20/19 09:00 GENERAL: eyes open , non verbal , in no acute distress. follows commands HEAD: Normal with no signs of trauma. EYES: PERRL, extraocular movements intact, sclera anicteric, conjunctiva clear ENT: Ears normal, oropharynx clear without exudates, dry mucus membrane. NECK: Trachea midline, full range of motion, supple. LUNGS: Breath sounds equal, CTA BL , no wheezes, no crackles, no accessory muscle use. HEART: Regular rate and rhythm, S1, S2 without murmur, rub or gallop. ABDOMEN: Soft, NT, ND, normoactive bowel sounds, no guarding, no rebound, no hepatosplenomegaly, no masses. EXTREMITIES: 2+ pulses, warm, well-perfused, trace edema. left toe ulcer s/p burning his toe. NEUROLOGICAL: Cranial nerves II through XII grossly intact. gait not observed. PSYCH: Unable to access SKIN: Warm, dry, normal turgor, no rashes noted CBCD WBC 8.7 K/mm3 (4.0-10.0) 09/20/19 07:47 RBC 4.19 M/mm3 (4.00-5.60) 09/20/19 07:47 Hgb 12.9 GM/dL (11.7-16.9) 09/20/19 07:47 Hct 38.9 % (35.4-49) 09/20/19 07:47 MCV 92.9 fl (80-96) 09/20/19 07:47 MCHC 33.2 g/dl (32.0-35.9) 09/20/19 07:47 RDW 14.9 % (11.9-15.9) 09/20/19 07:47 Plt Count 222 K/MM3 (134-434) 09/20/19 07:47 MPV 8.9 fl (7.5-11.1) 09/20/19 07:47 CMP Sodium 137 mmol/L (136-145) 09/20/19 07:47 Potassium 3.7 mmol/L (3.5-5.1) 09/20/19 07:47 Chloride 101 mmol/L (98-107) 09/20/19 07:47 Carbon Dioxide 30 mmol/L (21-32) 09/20/19 07:47 Anion Gap 6 MMOL/L (8-16) L 09/20/19 07:47 BUN 14.9 mg/dL (7-18) 09/20/19 07:47 Creatinine 0.9 mg/dL (0.55-1.3) 09/20/19 07:47 Random Glucose 311 mg/dL (74-106) H 09/20/19 07:47 Calcium 8.2 mg/dL (8.5-10.1) L 09/20/19 07:47 Total Bilirubin 0.4 mg/dL (0.2-1) 09/20/19 07:47 AST 28 U/L (15-37) 09/20/19 07:47 ALT 30 U/L (13-61) 09/20/19 07:47 Alkaline Phosphatase 97 U/L (45-117) 09/20/19 07:47 Total Protein 5.2 g/dl (6.4-8.2) L 09/20/19 07:47 Albumin 2.2 g/dl (3.4-5.0) L 09/20/19 07:47 CARDIAC ENZYMES Creatine Kinase 305 U/L (26-308) 09/12/19 13:10 Troponin I 0.11 ng/ml (0.00-0.05) H 09/09/19 02:20 Current Medications Generic Name Dose Route Start Last Admin Trade Name Freq PRN Reason Stop Dose Admin Acetaminophen 1,000 mg 09/11/19 18:05 Ofirmev Injection - IVPB Q6H PRN fever 100.4 Allopurinol 100 mg 09/13/19 10:00 09/20/19 10:01 Zyloprim - PO 100 mg DAILY VLADIMIR Administration Atorvastatin Calcium 20 mg 09/13/19 22:00 09/19/19 21:55 Lipitor - PO 20 mg HS VLADIMIR Administration Carvedilol 25 mg 09/13/19 22:00 09/20/19 10:01 Coreg - PO 25 mg BID VLADIMIR Administration Clopidogrel Bisulfate 75 mg 09/13/19 10:00 09/20/19 10:01 Plavix - PO 75 mg DAILY VLADIMIR Administration Colchicine 0.6 mg 09/14/19 10:00 09/20/19 10:01 Colcrys PO 0.6 mg DAILY VLADIMIR Administration Collagenase 1 applic 09/12/19 12:45 09/20/19 10:02 Santyl - TP 1 applic DAILY VLADIMIR Administration Protocol Ezetimibe 10 mg 09/13/19 22:00 09/19/19 21:55 Zetia - PO 10 mg HS VLADIMIR Administration Folic Acid 1 mg 09/13/19 10:00 09/20/19 10:01 Folic Acid - PO 1 mg DAILY VLADIMIR Administration Vancomycin HCl 750 mg/ 250 mls @ 250 mls/hr 09/17/19 18:00 09/20/19 17:57 Dextrose IVPB 250 mls/hr Q12H VLADIMIR Administration Protocol Insulin Aspart 1 vial 09/16/19 16:30 09/20/19 17:58 Novolog Vial Sliding Scale - SQ 10 units TIDAC [facility] Administration Protocol Insulin Detemir 15 units 09/20/19 07:00 09/20/19 06:42 Levemir Vial SQ 15 units AM VLADIMIR Administration Insulin Detemir 15 units 09/19/19 22:00 09/19/19 21:56 Levemir Vial SQ 15 units HS VLADIMIR Administration Levothyroxine Sodium 100 mcg/ 175 mcg 09/14/19 07:00 09/20/19 06:48 Levothyroxine Sodium 75 mcg PO 175 mcg DAILY@0700 VLADIMIR Administration Ramipril 5 mg 09/13/19 22:00 09/20/19 10:01 Altace - PO 5 mg BID VLADIMIR Administration Home Medications Medication Instructions Recorded Allopurinol [Zyloprim] 100 mg PO DAILY 10/26/12 Carvedilol [Coreg] 25 mg PO BID 10/26/12 Colchicine [Colcrys] 0.6 mg PO DAILY 10/26/12 Ezetimibe/Simvastatin [Vytorin 1 each PO DAILY 10/26/12 10-40 mg Tablet] Folic Acid - 1 mg PO DAILY 10/26/12 Levothyroxine [Synthroid] 175 mcg PO DAILY 10/26/12 Ramipril [Altace] 10 mg PO BID 10/26/12 Humulin R U-500 Kwikpen 20 units SQ AM 09/12/19 Humulin R U-500 Kwikpen 30 units SQ HS 09/12/19 Plavix 75 mg PO DAILY 09/12/19 Microbiology 09/17/19 14:50 Urine - Urine Clean Catch Urine Culture - Final Yeast Like Organism 09/11/19 05:50 Blood - Peripheral Venous Blood Culture - Final NO GROWTH AFTER 5 DAYS INCUBATION 09/11/19 05:55 Blood - Peripheral Venous Blood Culture - Final NO GROWTH AFTER 5 DAYS INCUBATION 09/08/19 22:20 Blood - Peripheral Venous Blood Culture - Final Staphylococcus Epidermidis Staphylococcus Epidermidis#2 09/08/19 22:20 Blood - Peripheral Venous Blood Culture - Final Staphylococcus Epidermidis Staphylococcus Epidermidis#2 09/09/19 03:12 Toe - Left Hallux Gram Stain - Final 09/09/19 03:12 Toe - Left Hallux Wound Culture - Final Staphylococcus Aureus Strep Agalactiae Group B Streptococcus Viridans 09/08/19 23:20 Urine - Urine Fitzgerald Urine Culture - Final NO GROWTH OBTAINED ASSESSMENT AND PLAN: 79 y/o man with h/o HTN, DM, CAD, Systolic CHF, hypothyroidism, gout, s/p ICD, and other medical problems who presented with AMS and was found to have sepsis and staph epi bacteremia # Acute Change of MS due to metabolic encephalopathy /anoxic brain injury , patient is improving slowly # Staph epi bacteremia: on IV Vanco continue day # 11/out of total of 6 weeks - Bone scan results are inconclusive. # H/o Systolic heart failure: stable. cont coreg and ACEI /has an ICD was interogated # DM : increase levemir to 15 units BID , continue SSI # Nutrition: improved po intake. cont current diet DVT Px: heparin SQ need PICC and plan for dc DAY #11 VANCOMYCIN ADVISE PICC TO COMPLETE 6W COURSE VANCOMYCIN AT SNF.
[2019-09-20] MEDS: EZETIMIBE 10 MG TABLET (FP) PO SCH (21:40)
[2019-09-20] MEDS: ATORVASTATIN CA 20 MG TABLET (FP) PO SCH (21:40)
[2019-09-21] MEDS ORDERED: PT OWN MED DRAWER 7, Y5N ONE ×3 (05:05→17:03)
[2019-09-21] MEDS ORDERED: LEVOTHYROXINE NA 100 MCG TABLET (FP) ONE (05:17)
[2019-09-21] MEDS ORDERED: LEVOTHYROXINE NA 75 MCG TABLET (FP) ONE (05:17)
[2019-09-21] MEDS: VANCOMYCIN 750 MG in DEXTROSE 5%-WATER - 250 ML IVPB SCH ×2 (05:34→17:07)
[2019-09-21] MEDS: LEVOTHYROXINE 100 MCG, LEVOTHYROXINE 75 MCG PO SCH (06:21)
[2019-09-21] MEDS: INSULIN (LEVEMIR) 100 UNITS/ML UNITS SQ SCH (06:22)
[2019-09-21] MEDS: INSULIN SLIDING SCALE (NOVOLOG) 1 VIAL SQ SCH ×3 (06:22→16:56)
[2019-09-21 08:15] LABS: BASO % 0.9 % (0-2.0); EOS % 2.2 % (0-4.5); HEMATOCRIT 40.5 % (35.4-49); HEMOGLOBIN 13.6 GM/dL (11.7-16.9); LYMPH % 24.2 % (8-40); MCH 30.9 pg (25.7-33.7); MCHC 33.6 g/dl (32.0-35.9); MEAN CELL VOLUME 91.8 fl (80-96); MEAN PLT VOLUME 8.6 fl (7.5-11.1); MONO % 7.1 % (3.8-10.2); NEUT % 65.6 % (42.8-82.8); PLATELET COUNT 206 K/MM3 (134-434); RBC 4.41 M/mm3 (4.00-5.60); RDW 14.8 % (11.9-15.9); WHITE BLOOD COUNT 6.8 K/mm3 (4.0-10.0)
[2019-09-21 08:49] LABS: ALBUMIN 2.2 g/dl (3.4-5.0); BILIRUBIN,TOTAL 0.4 mg/dL (0.2-1); BLOOD UREA NITROGEN 13.9 mg/dL (7-18); CALCIUM 8.1 mg/dL (8.5-10.1); CREATININE 0.9 mg/dL (0.55-1.3); POTASSIUM 3.6 mmol/L (3.5-5.1); TOT PROT 5.4 g/dl (6.4-8.2)
--- NOTE | 2019-09-21 11:12 | PN ---
Progress Note, Physician History of Present Illness: Lethargic yet arousable. Verbalize short sentences. - Current Medication List Current Medications: Active Medications Acetaminophen (Ofirmev Injection -) 1,000 mg IVPB Q6H PRN PRN Reason: fever 100.4 Allopurinol (Zyloprim -) 100 mg PO DAILY [facility] Last Admin: 09/20/19 10:01 Dose: 100 mg Atorvastatin Calcium (Lipitor -) 20 mg PO HS [facility] Last Admin: 09/20/19 21:40 Dose: 20 mg Carvedilol (Coreg -) 25 mg PO BID [facility] Last Admin: 09/20/19 21:40 Dose: 25 mg Clopidogrel Bisulfate (Plavix -) 75 mg PO DAILY [facility] Last Admin: 09/20/19 10:01 Dose: 75 mg Colchicine (Colcrys) 0.6 mg PO DAILY [facility] Last Admin: 09/20/19 10:01 Dose: 0.6 mg Collagenase (Santyl -) 1 applic TP DAILY [facility]; Protocol Last Admin: 09/20/19 10:02 Dose: 1 applic Ezetimibe (Zetia -) 10 mg PO HS [facility] Last Admin: 09/20/19 21:40 Dose: 10 mg Folic Acid (Folic Acid -) 1 mg PO DAILY [facility] Last Admin: 09/20/19 10:01 Dose: 1 mg Vancomycin HCl 750 mg/ (Dextrose) 250 mls @ 250 mls/hr IVPB Q12H [facility]; Protocol Last Admin: 09/21/19 05:34 Dose: 250 mls/hr Insulin Aspart (Novolog Vial Sliding Scale -) 1 vial SQ TIDAC [facility]; Protocol Last Admin: 09/21/19 06:22 Dose: 6 units Insulin Detemir (Levemir Vial) 15 units SQ AM [facility] Last Admin: 09/21/19 06:22 Dose: 15 units Insulin Detemir (Levemir Vial) 15 units SQ HS [facility] Last Admin: 09/20/19 21:40 Dose: 15 units Levothyroxine Sodium 100 mcg/ (Levothyroxine Sodium 75 mcg) 175 mcg PO DAILY@ 0700 [facility] Last Admin: 09/21/19 06:21 Dose: 175 mcg Ramipril (Altace -) 5 mg PO BID [facility] Last Admin: 09/20/19 21:41 Dose: 5 mg - Objective Vital Signs: Vital Signs Temperature 98.4 F 09/21/19 06:00 Pulse Rate 72 09/21/19 06:00 Respiratory Rate 20 09/21/19 06:00 Blood Pressure 153/86 09/21/19 06:00 O2 Sat by Pulse Oximetry (%) 97 09/20/19 21:00 Constitutional: Yes: No Distress, Calm Neck: Yes: Supple Cardiovascular: Yes: Regular Rate and Rhythm Respiratory: Yes: Regular, Diminished, On Nasal O2 Gastrointestinal: Yes: Normal Bowel Sounds, Soft Edema: No Wound/Incision: Yes: Dressing Dry and Intact Labs: CBC, BMP 09/21/19 07:35 09/21/19 07:35 INR, PTT INR 1.00 (0.83-1.09) 09/08/19 22:20 Problem List - Problems (1) Altered mental state Code(s): R41.82 - ALTERED MENTAL STATUS, UNSPECIFIED Qualifiers: Altered mental status type: somnolence Qualified Code(s): R40.0 - Somnolence (2) CAD (coronary artery disease) Code(s): I25.10 - ATHSCL HEART DISEASE OF [place] CORONARY ARTERY W/O ANG PCTRS Qualifiers: Coronary Disease-Associated Artery/Lesion type: [place] artery [place] vs. transplanted heart: [place] heart Associated angina: without angina Qualified Code(s): I25.10 - Atherosclerotic heart disease of [place] coronary artery without angina pectoris (3) Cerebrovascular accident (CVA) Code(s): I63.9 - CEREBRAL INFARCTION, UNSPECIFIED Qualifiers: CVA mechanism: unspecified Qualified Code(s): I63.9 - Cerebral infarction, unspecified (4) HTN (hypertension) Code(s): I10 - ESSENTIAL (PRIMARY) HYPERTENSION Qualifiers: Hypertension type: essential hypertension Qualified Code(s): I10 - Essential (primary) hypertension (5) History of percutaneous coronary intervention Code(s): Z98.61 - CORONARY ANGIOPLASTY STATUS (6) Hypercholesterolemia Code(s): E78.00 - PURE HYPERCHOLESTEROLEMIA, UNSPECIFIED (7) T2DM (type 2 diabetes mellitus) Code(s): E11.9 - TYPE 2 DIABETES MELLITUS WITHOUT COMPLICATIONS Qualifiers: Diabetes mellitus mcfp insulin use: with mcfp use Assessment/Plan 09/18/2019 EEG: Abnormal, nonspecific changes c/w diffuse encephelopathy metabolic, degenerative vs vascular 09/11/2019 Echocardiography: Normal LV size with mod-severe reduced LV systolic function LVEF 35-40%, pacer RV, valve regurgitation could not be assessed 09/12/2019 Vascular LE US: Mod atherosclerosis w/o sig stenosis 09/14/2019 Bone scan: No def osteo, left first toe cellulitis, can't r/o subtle osteo 1. Altered mental status - toxic metabolic encephalopathy with coag neg staph bacteremia, improving slowly 2. CAD history of PCI/stent, angina pectoris 3. LV systolic dysfunction s/p ICD ([place] [facility]) 4. HTN 5. Hypercholesterolemia 6. DM (Insulin requiring) 7. Demand ischemia PLAN: 1. Empiric Vanco D12. Further recommendation regarding toe to be followed. Plan for 6 week course via PICC 2. Cannot do MRI due to ICD, EEG results noted 3. Continue Carvedilol 25 mg BID, Ramipril 5 mg BID, colchicine 0.6 qd and Plavix 75 mg QD 4. DM management 5. Continue Lipitor 20 mg QHS and Zetia 10 mg QD Previous supervisor assembling: Neville Dinh MD ([facility])
[2019-09-21] MEDS ORDERED: INSULIN (NOVOLOG) ASPART 100 UNITS/ML 10ML VIAL ONE (11:14)
[2019-09-21] MEDS: CARVEDILOL 25 MG TABLET (FP) PO SCH (11:18)
[2019-09-21] MEDS: COLCHICINE 0.6 MG CAP PO SCH (11:18)
[2019-09-21] MEDS: RAMIPRIL 5 MG CAPSULE (FP) PO SCH (11:18)
[2019-09-21] MEDS: FOLIC ACID 1 MG TABLET (FP) PO SCH (11:18)
[2019-09-21] MEDS: CLOPIDOGREL BISULFATE 75 MG TABLET (FP) PO SCH (11:19)
[2019-09-21] MEDS: COLLAGENASE CLOSTRIDIUM HIST. 30 GRAMS TUBE TP SCH (11:19)
[2019-09-21] MEDS: ALLOPURINOL 100 MG TABLET (FP) PO SCH (11:19)
[2019-09-21 14:39] VITALS: BP 128/61; PULSE 70; TEMP 98
--- NOTE | 2019-09-21 15:10 | PN ---
Progress Note, STAFF DEVELOPMENT COORDINATOR - Note Progress Note: Selected Entries 09/21/19 09/21/19 09/21/19 06:00 10:00 14:00 Breakfast 75% Lunch 75% Temperature 98.4 F 98 F Laboratory Tests 09/21/19 07:35 WBC 6.8 Pt going down for PICC line today, with plan for d/c to [facility]. Pt initiates speech intermittently, and is tolerating diet well. Suggest- Intensive Sp/Language therapy at [facility] for improved communication function. OPD MBS to upgrade diet with safety.
--- NOTE | 2019-09-21 18:35 | PN ---
Teaching Attending Note Name of Resident: Irene Eckert ATTENDING PHYSICIAN STATEMENT I saw and evaluated the patient. I reviewed the resident's note and discussed the case with the resident. I agree with the resident's findings and plan as documented. SUBJECTIVE: Patient is able to say full sentences, significant other at bedside. patient is saying the "F" word Vital Signs Temperature 98 F 09/21/19 14:00 Pulse Rate 70 09/21/19 14:00 Respiratory Rate 20 09/21/19 14:00 Blood Pressure 128/61 09/21/19 14:00 O2 Sat by Pulse Oximetry (%) 100 09/21/19 09:00 GENERAL: eyes open , non verbal , in no acute distress. follows commands HEAD: Normal with no signs of trauma. EYES: PERRL, extraocular movements intact, sclera anicteric, conjunctiva clear ENT: Ears normal, oropharynx clear without exudates, dry mucus membrane. NECK: Trachea midline, full range of motion, supple. LUNGS: Breath sounds equal, CTA BL , no wheezes, no crackles, no accessory muscle use. HEART: Regular rate and rhythm, S1, S2 without murmur, rub or gallop. ABDOMEN: Soft, NT, ND, normoactive bowel sounds, no guarding, no rebound, no hepatosplenomegaly, no masses. EXTREMITIES: 2+ pulses, warm, well-perfused, trace edema. left toe ulcer s/p burning his toe. NEUROLOGICAL: Cranial nerves II through XII grossly intact. gait not observed. PSYCH: Unable to access SKIN: Warm, dry, normal turgor, positive for Decubitus ulcer CBCD WBC 6.8 K/mm3 (4.0-10.0) 09/21/19 07:35 RBC 4.41 M/mm3 (4.00-5.60) 09/21/19 07:35 Hgb 13.6 GM/dL (11.7-16.9) 09/21/19 07:35 Hct 40.5 % (35.4-49) 09/21/19 07:35 MCV 91.8 fl (80-96) 09/21/19 07:35 MCHC 33.6 g/dl (32.0-35.9) 09/21/19 07:35 RDW 14.8 % (11.9-15.9) 09/21/19 07:35 Plt Count 206 K/MM3 (134-434) 09/21/19 07:35 MPV 8.6 fl (7.5-11.1) 09/21/19 07:35 CMP Sodium 140 mmol/L (136-145) 09/21/19 07:35 Potassium 3.6 mmol/L (3.5-5.1) 09/21/19 07:35 Chloride 102 mmol/L (98-107) 09/21/19 07:35 Carbon Dioxide 31 mmol/L (21-32) 09/21/19 07:35 Anion Gap 6 MMOL/L (8-16) L 09/21/19 07:35 BUN 13.9 mg/dL (7-18) 09/21/19 07:35 Creatinine 0.9 mg/dL (0.55-1.3) 09/21/19 07:35 Random Glucose 257 mg/dL (74-106) H 09/21/19 07:35 Calcium 8.1 mg/dL (8.5-10.1) L 09/21/19 07:35 Total Bilirubin 0.4 mg/dL (0.2-1) 09/21/19 07:35 AST 22 U/L (15-37) 09/21/19 07:35 ALT 29 U/L (13-61) 09/21/19 07:35 Alkaline Phosphatase 101 U/L (45-117) 09/21/19 07:35 Total Protein 5.4 g/dl (6.4-8.2) L 09/21/19 07:35 Albumin 2.2 g/dl (3.4-5.0) L 09/21/19 07:35 CARDIAC ENZYMES Creatine Kinase 305 U/L (26-308) 09/12/19 13:10 Troponin I 0.11 ng/ml (0.00-0.05) H 09/09/19 02:20 Current Medications Generic Name Dose Route Start Last Admin Trade Name Freq PRN Reason Stop Dose Admin Acetaminophen 1,000 mg 09/11/19 18:05 Ofirmev Injection - IVPB Q6H PRN fever 100.4 Allopurinol 100 mg 09/13/19 10:00 09/20/19 10:01 Zyloprim - PO 100 mg DAILY [facility] Administration Atorvastatin Calcium 20 mg 09/13/19 22:00 09/19/19 21:55 Lipitor - PO 20 mg HS VLADIMIR Administration Carvedilol 25 mg 09/13/19 22:00 09/20/19 10:01 Coreg - PO 25 mg BID VLADIMIR Administration Clopidogrel Bisulfate 75 mg 09/13/19 10:00 09/20/19 10:01 Plavix - PO 75 mg DAILY VLADIMIR Administration Colchicine 0.6 mg 09/14/19 10:00 09/21/19 10:01 Colcrys PO 0.6 mg DAILY [facility]AD[facility] Administration Collagenase 1 applic 09/12/19 12:45 09/21/19 10:02 Santyl - TP 1 applic DAILY [facility] Administration Protocol Ezetimibe 10 mg 09/13/19 22:00 09/21/19 21:55 Zetia - PO 10 mg HS [facility] Administration Folic Acid 1 mg 09/13/19 10:00 09/21/19 10:01 Folic Acid - PO 1 mg DAILY [facility] Administration Vancomycin HCl 750 mg/ 250 mls @ 250 mls/hr 09/17/19 18:00 09/21/19 17:57 Dextrose IVPB 250 mls/hr Q12H [facility] Administration Protocol Insulin Aspart 1 vial 09/16/19 16:30 09/21/19 17:58 Novolog Vial Sliding Scale - SQ 10 units TIDAC [facility] Administration Protocol Insulin Detemir 15 units 09/20/19 07:00 09/21/19 06:42 Levemir Vial SQ 15 units AM [facility] Administration Insulin Detemir 15 units 09/19/19 22:00 09/21/19 21:56 Levemir Vial SQ 15 units HS [facility] Administration Levothyroxine Sodium 100 mcg/ 175 mcg 09/14/19 07:00 09/21/19 06:48 Levothyroxine Sodium 75 mcg PO 175 mcg DAILY@0700 [facility] Administration Ramipril 5 mg 09/13/19 22:00 09/21/19 10:01 Altace - PO 5 mg BID [facility] Administration Home Medications Medication Instructions Recorded Allopurinol [Zyloprim] 100 mg PO DAILY 10/26/12 Carvedilol [Coreg] 25 mg PO BID 10/26/12 Colchicine [Colcrys] 0.6 mg PO DAILY 10/26/12 Ezetimibe/Simvastatin [Vytorin 1 each PO DAILY 10/26/12 10-40 mg Tablet] Folic Acid - 1 mg PO DAILY 10/26/12 Levothyroxine [Synthroid] 175 mcg PO DAILY 10/26/12 Ramipril [Altace] 10 mg PO BID 10/26/12 Humulin R U-500 Kwikpen 20 units SQ AM 09/12/19 Humulin R U-500 Kwikpen 30 units SQ HS 09/12/19 Plavix 75 mg PO DAILY 09/12/19 Microbiology 09/17/19 14:50 Urine - Urine Clean Catch Urine Culture - Final Yeast Like Organism 09/11/19 05:50 Blood - Peripheral Venous Blood Culture - Final NO GROWTH AFTER 5 DAYS INCUBATION 09/11/19 05:55 Blood - Peripheral Venous Blood Culture - Final NO GROWTH AFTER 5 DAYS INCUBATION 09/08/19 22:20 Blood - Peripheral Venous Blood Culture - Final Staphylococcus Epidermidis Staphylococcus Epidermidis#2 09/08/19 22:20 Blood - Peripheral Venous Blood Culture - Final Staphylococcus Epidermidis Staphylococcus Epidermidis#2 09/09/19 03:12 Toe - Left Hallux Gram Stain - Final 09/09/19 03:12 Toe - Left Hallux Wound Culture - Final Staphylococcus Aureus Strep Agalactiae Group B Streptococcus Viridans 09/08/19 23:20 Urine - Urine Fitzgerald Urine Culture - Final NO GROWTH OBTAINED ASSESSMENT AND PLAN: 79 y/o man with h/o HTN, DM, CAD, Systolic CHF, hypothyroidism, gout, s/p ICD, and other medical problems who presented with AMS and was found to have sepsis and staph epi bacteremia # Acute Change of MS due to metabolic encephalopathy, EEG shows no seizure but encephalopatic , patient is improving slowly # Staph epi bacteremia: on IV Vanco continue day # 12/out of total of 6 weeks , patient is going for tunneli catheter and will go to rehab. - Bone scan results are inconclusive. # H/o Systolic heart failure: stable. cont coreg and ACEI /has an ICD was interogated # DM : increase levemir to 20 in am and 15 units pm , continue SSI # Nutrition: improved po intake, cont current diet DVT Px: heparin SQ need PICC and plan for dc DAY #12 VANCOMYCIN ADVISE PICC TO COMPLETE 6W COURSE VANCOMYCIN AT SNF.
--- NOTE | 2019-09-24 12:24 | DS ---
Physical Exam: SUBJECTIVE: Patient seen and examined. He is non-verbal today. OBJECTIVE: PHYSICAL EXAM GENERAL: Sleeping, but arousable HEAD: Normal with no signs of trauma. EYES: PERRL, conjunctiva clear. ENT: Ears normal, nares patent, moist mucous membranes NECK: Trachea midline LUNGS: Clear to auscultation bilaterally, no wheezes HEART: Regular rate and rhythm, no murmur ABDOMEN: Soft, nontender, nondistended, normoactive bowel sounds EXTREMITIES: Warm, well-perfused, no edema. NEUROLOGICAL: reacts to painful stimuli PSYCH: unable to assess SKIN: Left 1st toe dry ulcer on medial surface, right forearm erythematous and dry not warm or indurated LABS CBC, BMP 09/21/19 07:35 09/21/19 07:35 HOSPITAL COURSE: Mr. Panchal is a 79y/o male with HTN, DM2, [place] s/p stents x9, and PPM who presents with AMS. Last known well was 2 days prior to presentation. He was found on the floor of his home by his son. In the ED, pt was minimally responsive to painful stimuli and light. He had a dry ulcer on his left 1st toe with cellulitis surrounding. The wound cx grew staph epidermidis and blood cx grew staph aureus. Pt was initially placed on ceftriaxone and vancomycin then vancomycin 750mg BID was continued. Bacteremia cleared. Bone scan of 1st toe was done to try to r/o osteomyelitis but was unable to r/o and MRI could not be performed because of pacemaker. B/l LE dopplers were performed and atherosclerosis was found but no occlusion. He was instructed to follow up with vascular in 6 months for repeat imaging. Altered mental state slowly improved during hospital course. CT and CTA were negative for acute stroke, but small old infarcts were noted in right basal ganglia, posterior limb of left capsule, and right cerebellum. MRI was unable to be performed due to pacemaker. There were no events on pacemaker interrogation. EEG showed non-specific abnormality. It is likely that due to sepsis and hypotension, pt could have suffered an anoxic brain injury. RPR was negative. TSH was high normal/high. Pt was given supplemental thiamine and clinimix. Dysphagia improved and pt was able to eat pureed foods. He was also able to follow some commands and speak some words. Pt was hyperglycemic at presentation with glucose and ketones in urine. Pt was given Levemir and SSI. His home insulin was changed to Levemir 20U AM and 15U HS. Blood pressure was controlled, and home dose of ramipril was decreased to 5mg BID. All other home medications were continued. Pt was discharged for rehab and to finish vancomycin 750mg BID via PICC for a total of 6 weeks, ending on 10/21/19. He was instructed to follow up with primary care, infectious disease, neurology, podiatry, vascular, and cardiology. Date of Admission:09/09/19 Date of Discharge: 09/24/19 Minutes to complete discharge: 35 Discharge Summary Problems reviewed: Yes Reason For Visit: UNRESPONSIVE, HYPERGLYCEMIA, ELEVATED TROPONIN Condition: Improved - Instructions Diet, Activity, Other Instructions: YOUR VISIT: You were admitted to the hospital for an infection in your blood and toe. You were given IV antibiotics and are improving. You will be able to rehabilitate and finish your antibiotics at another facility. MEDICATIONS: Your ramipril dose was decreased. You are now taking ramipril 5mg twice a day. STOP Humulin Insulin. START Levemir Insulin 20 units in the morning and 15 units at night. Resume the rest of your home medications. You will be taking vancomycin by IV twice a day. FOLLOW UP: Dr. Dinh, primary care, 1 week after discharge. You will need your blood sugar checked. Dr. Solomon, infectious disease, [address] Love, neurology, [address] Anne or Dr[address] Rogers, podiatry, 1 week after discharge. You will need wound care for your toe. Dr. Ladd, cardiology, [address] Ambrose, vascular surgery, in 6 months. The arteries in your legs will need to be checked. OTHER INSTRUCTIONS: Return to the emergency room or call 911 if you have changes in your thinking or behavior, headache, dizziness, weakness of your arms or legs, facial drooping , fever, chest pain, difficulty breathing, or foot pain. FACILITY INSTRUCTIONS: Vancomycin 750mg twice a day for total of 6 weeks. It was started on 09/10/19. It will end on 10/21/19. Monitor patient's blood sugar regularly. Referrals: Cleveland Solomon MD [Staff Physician] - 1 Week Kenneth Love MD [Staff Physician] - 1 Week Jose Ladd MD [Staff Physician] - 1 Week Balta Ambrose DO [Staff Physician] - (f/u 6 months after discharge) Neville Dinh [Non Staff, Medical] - 1 Week Yo Rogers DPM [Staff Physician] - 1 Week Disposition: [facility] - Home Medications Comprehensive Discharge Medication List: Ambulatory Orders Allopurinol [Zyloprim -] 100 mg PO DAILY 10/26/12 Carvedilol [Coreg] 25 mg PO BID 10/26/12 Colchicine [Colcrys] 0.6 mg PO DAILY 10/26/12 Folic Acid - 1 mg PO DAILY 10/26/12 Levothyroxine [Synthroid -] 175 mcg PO DAILY 10/26/12 Plavix 75 mg PO DAILY 09/12/19 Atorvastatin Ca [Lipitor] 20 mg PO HS tablet 09/21/19 Collagenase Clostridium Hist. [Santyl -] 1 applic TP DAILY tube 09/21/19 Ezetimibe [Zetia -] 10 mg PO HS tablet 09/21/19 Insulin (Levemir) [Levemir Vial] 15 units SQ HS units 09/21/19 Insulin (Levemir) [Levemir Vial] 20 units SQ AM units 09/21/19 Insulin Sliding Scale [Novolog Vial Sliding Scale -] 1 vial SQ TIDAC units Levothyroxine [Synthroid -] 175 mcg PO DAILY@0700 tablet 09/21/19 Levothyroxine [Synthroid -] 175 mcg PO DAILY@0700 tablet 09/21/19 Ramipril [Altace] 5 mg PO BID capsule 09/21/19 Vancomycin 750 mg IVPB Q12H vial 09/21/19 This patient is new to me today: No Emergency Visit: Yes ED Registration Date: 09/09/19 Care time: The patient presented to the Emergency Department on the above date and was hospitalized for further evaluation of their emergent condition. Critical Care patient: No - Discharge Referral Referred to [facility] No ATTENDING PHYSICIAN STATEMENT I saw and evaluated the patient. I reviewed the resident's note and discussed the case with the resident. I agree with the resident's findings and plan as documented. SUBJECTIVE: OBJECTIVE: ASSESSMENT AND PLAN:
== END 2019-09-21 17:41 | DRG 871 ==
LOC: JER 21:52 → JERBED 09-09 00:20 → JICU 09-10 00:18 → J8W 09-11 17:56
PROVIDERS: ADMIT Internal Medicine; ATTEND Internal Medicine
PROC: 4A00X4Z Measurement of Central Nervous Electrical Activity, External Approach (ICD-10-PCS; 2019-09-18)
PROC: 02HV33Z Insertion of Infusion Device into Superior Vena Cava, Percutaneous Approach (ICD-10-PCS; principal; 2019-09-21)
PROC: B518ZZA Fluoroscopy of Superior Vena Cava, Guidance (ICD-10-PCS; 2019-09-21)
DX: A41.1 Sepsis due to other specified staphylococcus (principal); G93.41 Metabolic encephalopathy; E87.2 Acidosis; N17.9 Acute kidney failure, unspecified; M62.82 Rhabdomyolysis; E46 Unspecified protein-calorie malnutrition; I24.8 Other forms of acute ischemic heart disease; G93.1 Anoxic brain damage, not elsewhere classified; R47.01 Aphasia; L97.528 Non-pressure chronic ulcer of other part of left foot with other specified severity; I50.22 Chronic systolic (congestive) heart failure; I11.0 Hypertensive heart disease with heart failure; I25.119 Atherosclerotic heart disease of native coronary artery with unspecified angina pectoris; I10 Essential (primary) hypertension; E88.09 Other disorders of plasma-protein metabolism, not elsewhere classified; E86.0 Dehydration; E03.9 Hypothyroidism, unspecified; M10.9 Gout, unspecified; E11.65 Type 2 diabetes mellitus with hyperglycemia; I25.2 Old myocardial infarction; R13.10 Dysphagia, unspecified; R41.82 Altered mental status, unspecified; R79.89 Other specified abnormal findings of blood chemistry; L03.032 Cellulitis of left toe; E11.621 Type 2 diabetes mellitus with foot ulcer; E87.6 Hypokalemia; E83.42 Hypomagnesemia; Z86.73 Personal history of transient ischemic attack (TIA), and cerebral infarction without residual deficits; Z95.0 Presence of cardiac pacemaker; Z95.5 Presence of coronary angioplasty implant and graft
CPT/HCPCS: 36415; 36569; 36600; 70450-TC; 70496-TC; 71045-TC-FY; 73630-TC-LT; 77001-TC-FY; 78306-TC; 80048; 80053; 80061; 80307; 81003; 82010; 82140; 82550; 82553; 82803; 82962; 83605; 83721; 83735; 83880; 83930; 84100; 84252; 84439; 84443; 84484; 85025; 85027; 85610; 85730; 86593; 87040; 87070; 87077; 87086; 87186; 87205; 93005; 93010; 93306-TC; 93925-TC; 95816; 97116-GP; 97162-GP; 99285-25; A9503; C1751; G0480; J0131; J1644; J7030

== ENCOUNTER 2019-09-25 17:00 | Emergency (ER) | payer OTHER, BC ==
[2019-09-25 17:10] VITALS: BMI 32.0
[2019-09-25] MEDS ORDERED: SODIUM CHLORIDE IV ONE (17:15)
--- NOTE | 2019-09-25 17:46 | PDOC ---
History of Present Illness - General Chief Complaint: SIRS, Suspected/Possible Stated Complaint: BLOOD PRESSURE PROBLEMS Time Seen by Provider: 09/25/19 17:15 History Source: Family Exam Limitations: Clinical Condition, Unresponsive - History of Present Illness Initial Comments: 09/25/19 17:43 79yM w PMHx HTN IDDM, [place] s/p stents x9 and pacemaker presenting from [facility] with fever, altered mental status. 09/08/19 admitted for sepsis d/t L 1st toe ulcer. DC to [facility] for rehab and IV antibiotics through PICC, where he developed a sacral ulcer. Last 3 weeks he does not verbally communicate or have supplemental O2 at baseline but does eye track. Today, girlfriend noted he was more sleepy, dyspneic, choked while being fed lying supine during mealtime w subsequent coffee ground emesis. BP 101/56, HR of 100, 20 rr, 98.1 Temp, o2 sat was 96% on 2L. Past History - Past Medical History Allergies/Adverse Reactions: Allergies Allergy/AdvReac Type Severity Reaction Status Date / Time No Known Allergies Allergy Verified 09/08/19 22:29 Home Medications: Ambulatory Orders Allopurinol [Zyloprim -] 100 mg PO DAILY 10/26/12 Carvedilol [Coreg] 25 mg PO BID 10/26/12 Colchicine [Colcrys] 0.6 mg PO DAILY 10/26/12 Folic Acid - 1 mg PO DAILY 10/26/12 Atorvastatin Ca [Lipitor] 20 mg PO HS tablet 09/21/19 Collagenase Clostridium Hist. [Santyl -] 1 applic TP DAILY tube 09/21/19 Ezetimibe [Zetia -] 10 mg PO HS tablet 09/21/19 Insulin (Levemir) [Levemir Vial] 15 units SQ HS units 09/21/19 Insulin (Levemir) [Levemir Vial] 20 units SQ AM units 09/21/19 Insulin Sliding Scale [Novolog Vial Sliding Scale -] 1 vial SQ TIDAC units Levothyroxine [Synthroid -] 175 mcg PO DAILY@0700 tablet 09/21/19 Ramipril [Altace] 5 mg PO BID capsule 09/21/19 Vancomycin 750 mg IVPB Q12H vial 09/21/19 Acetaminophen [Acetaminophen ER] 650 mg PO QID PRN 09/25/19 Clopidogrel Bisulfate [Plavix] 75 mg PO DAILY 09/25/19 Silver Sulfadiazine [Silvadene] 1 applic TP PRN PRN 09/25/19 Anemia: No Asthma: No Cancer: No Cardiac Disorders: Yes ([place] x2-had 9 stents) CVA: No COPD: No CHF: No Dementia: No Diabetes: Yes (1985) GI Disorders: No Disorders: No HTN: Yes Hypercholesterolemia: No Liver Disease: No Seizures: No Thyroid Disease: Yes - Surgical History Abdominal Surgery: No Appendectomy: No Cardiac Surgery: Yes (Angioplasty-stents x9) Cholecystectomy: No Lung Surgery: No Neurologic Surgery: No Orthopedic Surgery: Yes (Left Achiles Tendon Repair) - Psycho Social/Smoking Cessation Hx Smoking History: Smoker current status UNK Have you smoked in the past 12 months: No Information on smoking cessation initiated: No Hx Alcohol Use: No Drug/Substance Use Hx: No Substance Use Type: None Hx Substance Use Treatment: No Review of Systems - Review of Systems Able to Perform ROS?: No (non verbal) *Physical Exam - Vital Signs Last Vital Signs Temp Pulse Resp BP Pulse Ox 101.7 F H 110 H 20 88/64 L 100 09/25/19 17:08 09/25/19 17:08 09/25/19 17:08 09/25/19 17:08 09/25/19 17:08 - Physical Exam General Appearance: Yes: Nourished, Appropriately Dressed, Mild Distress, Obese HEENT: positive: NOE, Normal Voice (shouted profanity while palpated). negative: EOMI, Scleral Icterus (R), Scleral Icterus (L), Nasal Congestion Respiratory/Chest: positive: Crackles (intermittent crackles hernan bases). negative: Chest Tender, Respiratory Distress, Accessory Muscle Use, Rhonchi, Stridor, Wheezing Cardiovascular: positive: Regular Rhythm, S1, S2, Tachycardia. negative: Edema , Murmur Gastrointestinal/Abdominal: positive: Normal Bowel Sounds, Tender (moderately tender L>R), Distended, Guarding, Rebound. negative: Hernia, Mass Musculoskeletal: positive: Other (7cm decubitus sacral ulcer stage 3). negative : CVA Tenderness (R), CVA Tenderness (L) Extremity: positive: Delayed Capillary Refill, Other (L 1st toe 3cm healing ulcer, mild surrounding erythema and tender) Integumentary: positive: Normal Color, Dry, Warm. negative: Rash Neurologic: positive: Respond to painful stimul. negative: electroless plater II-XII NML intact (could not assess), Fully Oriented, Alert ED Treatment Course - LABORATORY CBC & Chemistry Diagram: 09/25/19 17:00 09/25/19 17:00 - RADIOLOGY Radiology Studies Ordered: Category Date Time Status ABDOMEN & PELVIS CT WITH CONTR [CT] Stat CT Scan 09/25/19 17:42 Ordered CHEST X-RAY PORTABLE* [RAD] Stat Radiology 09/25/19 17:15 Ordered Medical Decision Making - Medical Decision Making 09/25/19 19:41 sepsis workup lactate 4.5 CXR shows cardiomegaly, L basilar effusion EKG: HR of 102 Left axis deviation abnormal r wave progression sinus tachycardia --- 79yM w PMHx HTN IDDM, [place] s/p stents x9 and pacemaker presenting from [facility] with fever, altered mental status d/t sepsis 2/2 UTI (UTI w fever, BENSON elevated Cr 1.9) vs PNA vs intraabdominal pathology (distended, diffusely tender w guarding and rebound). Low concern for ACS (neg trop, NSR EKG) vs toe/sacral ulcer. Given 30mg/kg NS, vanc, zosyn, tylenol for pain. On 3L NC. Pt clinically improved throughout ED course (on arrival closed eyes, no eye tracking, non verbal. 2hr re-eval w meds and fluids given pt shouting full word profanities while AB palpated, present eye tracking) Anticipate admit for sepsis 2/2 pyelonephritis (UTI w fever, BENSON) Signed off to night team - pending CT chest, A/P Discharge - Discharge Information Problems reviewed: Yes Clinical Impression/Diagnosis: Severe sepsis UTI (urinary tract infection) Qualifiers: Urinary tract infection type: acute pyelonephritis Qualified Code(s): N10 - Acute pyelonephritis Condition: Guarded - Follow up/Referral - Patient Discharge Instructions - Post Discharge Activity
--- NOTE | 2019-09-25 17:48 | PDOC ---
Attending Attestation - Resident Resident Name: Alfa Norton - ED Attending Attestation I have performed the following: I have examined & evaluated the patient, The case was reviewed & discussed with the resident, I agree w/resident's findings & plan, Exceptions are as noted - HPI HPI: 09/25/19 17:48 79y M hx of CAD sp 9 stents, sp pm, IDDM, HTN, ?cva with expressive aphasia ( noted on transfer note), presents from [facility] for fever, AMS. Pt was in the hospital for a toe ulcer ion 09/08 and had an extended stay, was dc to [facility] for rehab and iv abx through his PICC, per family, the pt looked like he was having difficulty breathing, and his mental status was different from baseline. Per MD records, the pt had an episode of vomiting earlier today and sent to the ED for evaluation of possible hemetemsis. Per records from earlier today, his bp was 101/56, HR of 100, 20 rr, 98.1 Temp, o2 sat was 96% on 2L. Gneral: No acute distress, open eyes when saying his name and attmeps to look at me. HEENT: dry mmm, PULM: scattered crackles at bases, no acute respiratory distress ABD: mild LUQ/epigastric tendeness, +guarding, slightly distende no cva tenderness CARD: slightly tachcyardic, regular pt noted febrile here, sepsis orderset obtained ddx includes UTI, pna, with abd tenderness, consider possible intraobdimlnal infection - due to limited ability to give history and guarding, will obtain CT abdomen will start broad spectrum abx pts bp noted to be low - will fluid resusitate and reassess bp anticipate admission for further management - Physicial Exam PE: 09/29/19 11:46 see above - Critical Care Time Total Critical Care Time: 35 Critical Care Statement: The care of this patient involved high complexity decision making to prevent further life threatening deterioration of the patient 's condition and/or to evaluate & treat vital organ system(s) failure or risk of failure. - Medical Decision Making 09/25/19 19:13 labs reviewed noted for lactic acid, elevated wbc will obtain ct chest/abd for eval of sepsis and abd tenderness will hydrate and recheck LA signed out to evening team o fu and dispo Heart Score/ECG Review - ECG Impressions Comment:: 09/25/19 19:24 HR of 102 Left axis deviation abnormal r wave progression sinus tachycardia
[2019-09-25 17:52] LABS: BASO % 0.4 % (0-2.0); HEMATOCRIT 50.2 % (35.4-49); HEMOGLOBIN 16.4 GM/dL (11.7-16.9); LYMPH % 10.4 % (8-40); MCH 30.4 pg (25.7-33.7); MCHC 32.6 g/dl (32.0-35.9); MEAN CELL VOLUME 93.4 fl (80-96); MEAN PLT VOLUME 8.7 fl (7.5-11.1); MONO % 5.2 % (3.8-10.2); PLATELET COUNT 302 K/MM3 (134-434); RBC 5.38 M/mm3 (4.00-5.60); WHITE BLOOD COUNT 15.5 K/mm3 (4.0-10.0)
[2019-09-25] MEDS ORDERED: ACETAMINOPHEN 1000 MG/100 ML VIAL (NON FORMULARY) IVPB ONE (18:02)
[2019-09-25] MEDS ORDERED: PIPERACILLIN/TAZOB 4.5 GM 4.5 GM in DEXTROSE 5%-WATER 100 ML IVPB ONE (18:02)
[2019-09-25] MEDS ORDERED: VANCOMYCIN 1 GM in D5W (PRE-DOCKED) 1,000 MG/250 ML IVPB ONE (18:02)
[2019-09-25] MEDS ORDERED: ACETAMINOPHEN INJECTION 100 ML IVPB ONE (18:06)
[2019-09-25] MEDS ORDERED: PIPERACILLIN/TAZOB 4.5 GM 4.5 GM/100 ML BAG IVPB ONE (18:07)
[2019-09-25] MEDS ORDERED: VANCOMYCIN 1 GRAM (PRE-DOCKED) 1,000 MG/250 ML BAG IVPB ONE ×2 (18:07→18:24)
[2019-09-25 18:18] LABS: ALBUMIN 2.2 g/dl (3.4-5.0); BILIRUBIN,TOTAL 0.9 mg/dL (0.2-1); BLOOD UREA NITROGEN 27.9 mg/dL (7-18); CALCIUM 8.3 mg/dL (8.5-10.1); CREATININE 1.9 mg/dL (0.55-1.3); POTASSIUM 4.7 mmol/L (3.5-5.1); TOT PROT 5.6 g/dl (6.4-8.2)
[2019-09-25 18:36] LABS: ARTERIAL BLD GAS O2 SATURATION 98.4 % (95-98); ARTERIAL BLOOD GAS BASE EXCESS -2.3 meq/l (-2-2); ARTERIAL BLOOD GAS PCO2 28.8 mmHg (35-45); ARTERIAL BLOOD GAS PO2 129 mmHg (80-100); ARTERIAL BLOOD GAS pH 7.45 (7.35-7.45); CARBOXYHEMOGLOBIN 0.6 % (0-2)
[2019-09-25 18:38] LABS: ALLENS TEST POSITIVE
[2019-09-25 19:06] LABS: URINE APPEARANCE TURBID; URINE BILIRUBIN NEGATIVE (NEGATIVE); URINE COLOR YELLOW; URINE GLUCOSE (UA) NEGATIVE (NEGATIVE); URINE KETONE NEGATIVE (NEGATIVE)
[2019-09-25 19:07] LABS: URINE LEUK ESTERASE 3+ (NEGATIVE); URINE NITRITE NEGATIVE (NEGATIVE); URINE PROTEIN 1+ (NEGATIVE)
[2019-09-25 19:11] LABS: INR 1.2 (0.83-1.09); PROTHROMBIN TIME (PATIENT) 14.2 SEC (9.7-13.0)
[2019-09-25 19:14] LABS: ACTIVATED PTT 31.2 SECONDS (25.2-36.5)
[2019-09-25 19:24] LABS: EPI CELLS 10.8 /HPF (0-5/HPF); HYALINE CASTS 351.77 /lpf (0-8); URINE BACTERIA 34.9 /hpf (NEGATIVE); URINE RBC 155.6 /hpf (0-4); URINE WBC 5582.3 /hpf (0-5); YEAST MODERATE (NEGATIVE)
--- NOTE | 2019-09-25 20:07 | PDOC ---
*Physical Exam - Vital Signs Last Vital Signs Temp Pulse Resp BP Pulse Ox 99.6 F 102 H 16 90/57 L 95 09/25/19 18:59 09/25/19 18:30 09/25/19 18:59 09/25/19 18:59 09/25/19 18:59 ED Treatment Course - LABORATORY CBC & Chemistry Diagram: 09/25/19 17:00 09/25/19 17:00 - ADDITIONAL ORDERS Additional order review: Laboratory Results 09/25/19 09/25/19 09/25/19 18:43 18:15 17:48 PT with INR 14.20 H INR 1.20 H PTT (Actin FS) 31.2 Anticoagulation Therapy No Result Required. Puncture Site Right radial ABG pH 7.45 ABG pCO2 at Pt Temp 28.8 L ABG pO2 at Pt Temp 129 H ABG HCO3 19.9 L ABG O2 Sat (Measured) 98.4 H ABG O2 Content 20.3 ABG Base Excess -2.3 L Tony Test Positive Carboxyhemoglobin 0.6 Methemoglobin < 1.0 O2 Delivery Device Nrm Oxygen Flow Rate 100% Vent Mode No Result Required. Vent Rate No Result Required. Mechanical Rate No Result Required. Pressure Support Vent No Result Required. Sodium Potassium Chloride Carbon Dioxide Anion Gap BUN Creatinine Est GFR (CKD-EPI)AfAm Est GFR (CKD-EPI)NonAf Random Glucose Lactic Acid Calcium Total Bilirubin AST ALT Alkaline Phosphatase Troponin I Total Protein Albumin Urine Color Yellow Urine Appearance Turbid Urine pH 6.0 Ur Specific [place] 1.018 Urine Protein 1+ H Urine Glucose (UA) Negative Urine Ketones Negative Urine Blood 2+ H Urine Nitrite Negative Urine Bilirubin Negative Urine Urobilinogen 1.0 Ur Leukocyte Esterase 3+ H Urine WBC (Auto) 5582.3 Urine RBC (Auto) 155.6 Urine Casts (Auto) 351.77 U Pathogenic Cast Auto None seen U Epithel Cells (Auto) 10.8 Urine Bacteria (Auto) 34.9 Urine Yeast (Auto) Moderate 09/25/19 09/25/19 17:00 17:00 PT with INR INR PTT (Actin FS) Anticoagulation Therapy Puncture Site ABG pH ABG pCO2 at Pt Temp ABG pO2 at Pt Temp ABG HCO3 ABG O2 Sat (Measured) ABG O2 Content ABG Base Excess Tony Test Carboxyhemoglobin Methemoglobin O2 Delivery Device Oxygen Flow Rate Vent Mode Vent Rate Mechanical Rate Pressure Support Vent Sodium 143 Potassium 4.7 Chloride 106 Carbon Dioxide 25 Anion Gap 12 BUN 27.9 H Creatinine 1.9 H Est GFR (CKD-EPI)AfAm 38.02 Est GFR (CKD-EPI)NonAf 32.80 Random Glucose 185 H Lactic Acid 4.5 H* Calcium 8.3 L Total Bilirubin 0.9 AST 27 ALT 18 Alkaline Phosphatase 119 H Troponin I 0.02 Total Protein 5.6 L Albumin 2.2 L Urine Color Urine Appearance Urine pH Ur Specific [place] Urine Protein Urine Glucose (UA) Urine Ketones Urine Blood Urine Nitrite Urine Bilirubin Urine Urobilinogen Ur Leukocyte Esterase Urine WBC (Auto) Urine RBC (Auto) Urine Casts (Auto) U Pathogenic Cast Auto U Epithel Cells (Auto) Urine Bacteria (Auto) Urine Yeast (Auto) 09/25/19 17:00 RBC 5.38 MCV 93.4 MCHC 32.6 RDW 15.0 MPV 8.7 Neutrophils % 84.0 H D Lymphocytes % 10.4 D Monocytes % 5.2 Eosinophils % 0.0 D Basophils % 0.4 - Medications Given in the ED: ED Medications Discontinued Medications Generic Name Dose Route Start Last Admin Trade Name Freq PRN Reason Stop Dose Admin Acetaminophen 1,000 mg 09/25/19 18:02 09/25/19 18:15 Ofirmev Injection - IVPB 09/25/19 18:03 1,000 mg ONCE ONE Administration Sodium Chloride 3,035 mls @ 1,517.5 mls/hr 09/25/19 17:15 09/25/19 17:51 Normal Saline - 30 ml/kg infuse over 2 hr (3035 ml) 09/25/19 19:14 1,517.5 mls/hr IV Administration ONCE ONE Piperacillin Sod/Tazobactam 100 mls @ 200 mls/hr 09/25/19 18:02 09/25/19 18: 15 Sod 4.5 gm/ Dextrose IVPB 09/25/19 18:31 200 mls/hr ONCE ONE Administration Protocol Vancomycin HCl 1,000 mg 09/25/19 18:02 09/25/19 18:15 Vancomycin (Pre-Docked) IVPB 09/25/19 18:03 1,000 mg ONCE ONE Administration Protocol Medical Decision Making - Medical Decision Making Patient signed out by Dr. Norton 79yM w PMHx HTN IDDM, [place] s/p stents x9 and pacemaker presenting from [facility] with fever, altered mental status. Sepsis workup initiated Leukocytosis Elevated lactate 30cc/kg fluid bolus Vanc/Zosyn Significant abdominal pain on exam Patient declined pain medication Still hypotensive, but maintaining MAP of [address] reports 09/25/19 20:06 CT report as read by radiology: " [id number] EXAM#: TYPE/EXAM: RESULT: CT/ABDOMEN PELVIS CT W/O CONTR [id number] CT/CHEST CT WITHOUT CONTRAST Chest CT without contrast Clinical information: fever, evaluate for pneumonia Multiplanar imaging was performed. Intravenous contrast was not administered. No prior CT studies are available at this facility for direct comparison. Posterior bibasilar infiltrates are noted, left more prominent than right. A trace left pleural effusion is seen. There is prominent fluid filled distention of the stomach. Mild to moderate fluid-filled distention is noted of the length of the thoracic esophagus. No definite cardiac enlargement is noted. Very extensive atherosclerotic coronary calcifications are visualized. There is no pericardial effusion. A transvenous cardiac pacemaker is seen in place. There is no obvious lymphadenopathy on noncontrast imaging. No aortic aneurysm is noted. The right upper extremity PICC line is seen in place. IMPRESSION: Bilateral lower lobe infiltrates is seen , left more prominent than right. Trace left pleural effusion. Fluid-filled distention of the partially imaged stomach is seen with associated mild to moderate fluid distention of the length of the thoracic esophagus. The patient would appear to be at increased risk of aspiration. Very extensive atherosclerotic coronary artery calcifications. Transvenous cardiac pacemaker in place. ABDOMEN AND PELVIS CT without contrast Clinical information: ab tender Multiplanar imaging was performed. No intravenous or enteric contrast was administered. No prior abdominal imaging studies are available at this facility for direct comparison. Dilated fluid-filled small bowel loops are noted consistent with a mid to distal small bowel obstruction. Distal ileal bowel loops as well as the colon demonstrated a collapsed appearance. The maximum dilated small bowel luminal diameter is approximately 3.8 cm. Mesenteric edema associated with the bowel obstruction is noted within the left mid abdomen. No gross obstructing lesion is identified. There is prominent associated fluid-filled gastric distention as well as fluid distention of the partially imaged thoracic esophagus is noted in the chest CT report. Mild linear curvilinear left retroperitoneal soft tissue stranding is seen at the level of the pelvis and lower abdomen. A small amount of perihepatic and perisplenic free intraperitoneal fluid is seen. No evidence of pneumoperitoneum. The appendix appears unremarkable. No obvious evidence of acute diverticulitis. Moderate gallbladder overdistention is noted without obvious associated wall edema. No biliary tract dilatation is noted. There is no discrete radiopaque biliary calculus. The liver, spleen, pancreas, right adrenal gland and left kidney demonstrate no definite noncontrast pathology. 0.5 cm right renal lower pole calcification which may represent a nonobstructing calyceal calculus versus an incidental atherosclerotic calcification. The left adrenal gland demonstrates mild nodularity. There is no aortic aneurysm. No obvious lymphadenopathy is noted. Rectal fecal retention/ impaction. Marked right hip degenerative joint changes. Grade 2 L5-S1 spondylolytic spondylolisthesis. IMPRESSION: A mid to distal small bowel obstruction is noted with associated mesenteric edema - ? possible closed-loop obstruction. Resultant gastric and esophageal fluid distention is seen. A small amount of upper abdominal free fluid is noted bilaterally. There is moderate gallbladder overdistention. Possible 0.5 cm nonobstructing right renal lower pole calculus. Mild left adrenal gland nodularity probably on the basis of nodular hyperplasia versus small adenomas. Biochemical evaluation is suggested as well as 3 month follow-up CT. Rectal fecal retention/impaction is noted. Reported By: Dakota Saba MD [id number]/25/[id number] " Discussed case with Maria A Campuzano, patient's daughter, who consents to transfer [phone] Nurse Franky also witness to this consent 09/25/19 21:12 NG tube placed successfully with about 1500cc of brown gastric contents [place] that Dr. Carter is on-call for general surgery; paged and awaiting callback Transfer cancelled 09/25/19 21:45 Dr. Kennedy discussed case with Dr. Carter Given the complicated nature of this patient, Plan for transfer 09/25/19 22:04 Dr. Kennedy discussed case with Dr. Herrera who accepted patient for transfer to [facility] 09/25/19 22:38 EMS present Patient hypotensive to 60s systolic Latest BP is 90s systolic Will travel with levophed drip while en route to [facility] 12/23/19 23:45 Call placed to [facility] to update attending physician Was placed on hold; transfer center stated they would call back Awaiting callback 09/26/19 00:11 Discharge - Discharge Information Problems reviewed: Yes Clinical Impression/Diagnosis: Severe sepsis, SBO (small bowel obstruction) UTI (urinary tract infection) Qualifiers: Urinary tract infection type: acute pyelonephritis Qualified Code(s): N10 - Acute pyelonephritis Pneumonia Qualifiers: Pneumonia type: due to unspecified organism Laterality: left Lung location: lower lobe of lung Qualified Code(s): J18.9 - Pneumonia, unspecified organism Condition: Guarded Disposition: TRANSFER ACUTE CARE/OTHER HOSP - Follow up/Referral - Patient Discharge Instructions - Post Discharge Activity - Transfer to Acute Care Facility Receiving Facility Name: [facility]
[2019-09-25] MEDS ORDERED: LACTATED RINGERS SOLUTION 1,000 ML/1,000 ML INFUS.BAG IV STA (23:11)
[2019-09-25] MEDS ORDERED: NOREPINEPHRINE BITARTRATE 4 MG/4 ML ML IV ONE (23:38)
[2019-09-25] MEDS ORDERED: NOREPINEPHRINE BITARTRATE 4,000 MCG in DEXTROSE 5%-WATER - 496 ML IV SCH (23:45)
[2019-09-25 23:53] VITALS: TEMP 100.1
[2019-09-25 23:54] VITALS: BP 94/63; PULSE 102
--- NOTE | 2019-09-26 10:15 | EKG ---
Test Reason : Blood Pressure : / mmHG Vent. 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
== END 2019-09-26 00:10 | disposition short-term general hospital (02) ==
LOC: JER 17:00
PROC: 3E0337Z Introduction of Electrolytic and Water Balance Substance into Peripheral Vein, Percutaneous Approach (ICD-10-PCS; principal; 2019-09-25)
PROC: 3E03329 Introduction of Other Anti-infective into Peripheral Vein, Percutaneous Approach (ICD-10-PCS; 2019-09-25)
PROC: 3E033NZ Introduction of Analgesics, Hypnotics, Sedatives into Peripheral Vein, Percutaneous Approach (ICD-10-PCS; 2019-09-25)
PROC: 3E033GC Introduction of Other Therapeutic Substance into Peripheral Vein, Percutaneous Approach (ICD-10-PCS; 2019-09-25)
DX: A41.9 Sepsis, unspecified organism (principal); N39.0 Urinary tract infection, site not specified; B96.89 Other specified bacterial agents as the cause of diseases classified elsewhere; K56.609 Unspecified intestinal obstruction, unspecified as to partial versus complete obstruction; J18.9 Pneumonia, unspecified organism; I25.10 Atherosclerotic heart disease of native coronary artery without angina pectoris; I10 Essential (primary) hypertension; Z95.5 Presence of coronary angioplasty implant and graft; I25.2 Old myocardial infarction; E11.9 Type 2 diabetes mellitus without complications; Z79.4 Long term (current) use of insulin; E78.00 Pure hypercholesterolemia, unspecified; E03.9 Hypothyroidism, unspecified; D72.828 Other elevated white blood cell count; L89.103 Pressure ulcer of unspecified part of back, stage 3; L97.528 Non-pressure chronic ulcer of other part of left foot with other specified severity; Z86.73 Personal history of transient ischemic attack (TIA), and cerebral infarction without residual deficits; Z79.2 Long term (current) use of antibiotics; Z79.02 Long term (current) use of antithrombotics/antiplatelets; Z95.828 Presence of other vascular implants and grafts
CPT/HCPCS: 36415; 36600; 71045-TC-FY; 71250-TC; 74176-TC; 80053; 81003; 82375; 82803; 82962; 83050; 83605; 84484; 85025; 85610; 85730; 87040; 87086; 93005; 93010; 99285-25; J0131; J7030